=== PATIENT | female | born 1975 | race Caucasian/White ===

== ENCOUNTER 2018-01-17 12:19 | Inpatient (IN) | payer MEDICAID, OTHER ==
[~2018-01-17] VITALS: Ht 170.2 cm; Wt 119.1 kg
[2018-01-17] MEDS ORDERED: SODIUM CHLORIDE 0.9% 1,000 ML IVB ONE (12:41)
[2018-01-17 13:20] LABS: Basophils # (auto) 0 uL; Basophils % (auto) 0.2 % (0.0-2.0); Eosinophils # (auto) 0 uL; Eosinophils % (auto) 0.6 % (0.0-7.0); Hematocrit 52.5 % (36.0-46.0); Hemoglobin 16.9 g/dL (12.2-16.2); Lymphocytes # (auto) 1.4 uL; Lymphocytes % (auto) 18.9 % (10.0-50.0); Mean Corpuscular Hemoglobin 32.4 pg (28.0-32.0); Mean Corpuscular Hgb Conc. 32.2 g/dL (32.0-36.0); Mean Corpuscular Volume 100.5 fL (80.0-100.0); Monocytes # (auto) 0.7 uL; Monocytes % (auto) 9.9 % (0.0-12.0); Neutrophils % (auto) 70.4 % (37.0-80.0); Nucleated Red Blood Cells % 0.2 %; Platelet Count (auto) 342 10^3/uL (140-450); Red Blood Cells 5.23 10^6/uL (4.0-5.20); Red Cell Distribution Width 14.8 % (11.8-14.3); White Blood Cell 7.2 10^3/uL (4.4-10.8)
[2018-01-17 14:17] LABS: Alanine Aminotransferase 35 U/L (13-56); Albumin 3.3 g/dL (3.4-5.0); Alkaline Phosphatase 57 U/L (45-117); Anion Gap 12 (5-15); Aspartate Aminotransferase 33 U/L (15-37); BUN/Creatinine Ratio 9.9; Bilirubin, Total 0.5 mg/dL (0.2-1.0); Blood Alcohol < 3.0 mg/dL (0-5); Blood Urea Nitrogen 8 mg/dL (7-18); Carbon Dioxide 19 mmol/L (21-32); Chloride 109 mmol/L (98-107); GFR African American 99 mL/min; GFR Non-African American 82 mL/min; Glucose 84 mg/dL (74-106); Magnesium 2.6 mg/dL (1.6-2.6); Sodium 140 mmol/L (136-145); Total Protein 7.6 g/dL (6.4-8.2)
[2018-01-17 14:25] LABS: Potassium 2.9 mmol/L (3.5-5.1)
[2018-01-17 14:54] LABS: Alcohol, Urine < 3.0 mg/dL (0-5); Amphetamine Screen, Urine NEGATIVE (NEGATIVE); Barbiturate Scree,Urine NEGATIVE (NEGATIVE); Benzodiazephine Screen, Urine NEGATIVE (NEGATIVE); Cannabinoid Screen, Urine NEGATIVE (NEGATIVE); Cocaine Screen, Urine NEGATIVE (NEGATIVE); Opiate Scree,Urine NEGATIVE (NEGATIVE); Phencyclidine Screen, Urine NEGATIVE (NEGATIVE)
[2018-01-17] MEDS ORDERED: POTASSIUM CHL 20MEQ/100ML 100 ML IV ONE (15:15)
[2018-01-17] MEDS ORDERED: cefTRIAXone 1GM/10ml IVPUSH 10 ML IV ONE (16:00)
[2018-01-17] MEDS ORDERED: MORPHINE SULFATE 4 MG/ML SYR/VIAL IV PRN ×2 (16:15)
[2018-01-17] MEDS ORDERED: ONDANSETRON HCL 4 MG/2 ML VIAL IV PRN (16:15)
[2018-01-17] MEDS ORDERED: ACETAMINOPHEN 325 MG TAB PO PRN (16:15)
[2018-01-17] MEDS ORDERED: DOCUSATE SOD 100 MG CAP PO PRN (16:15)
[2018-01-17] MEDS ORDERED: NITROGLYCERIN 0.4 MG SL TAB SL PRN (16:15)
[2018-01-17 16:28] LABS: Urine Bacteria NONE SEEN /hpf (None Seen); Urine Blood Negative /uL (Negative); Urine WBC 4 /hpf (0 - 5)
[2018-01-17] MEDS: HALOPERIDOL 1 MG TAB PO PRN (16:49)
[2018-01-17] MEDS: SODIUM CHLORIDE 0.9% 1,000 ML IV SCH (17:02)
[2018-01-17] MEDS: BOOST PLUS 8 ounce PO SCH (19:17)
[2018-01-17] MEDS ORDERED: DULO20CA PO (20:52)
[2018-01-17] MEDS ORDERED: QUET200T3 PO (20:52)
[2018-01-17] MEDS ORDERED: ZOLP10TA PO (20:52)
[2018-01-17] MEDS ORDERED: SERT-160 PO (20:52)
[2018-01-17] MEDS ORDERED: LEVO150T68 PO (20:52)
[2018-01-17] MEDS ORDERED: LITH300T5 PO (20:52)
[2018-01-17] MEDS ORDERED: METO-169 PO (20:52)
[2018-01-17] MEDS ORDERED: LORA-654 PO (20:52)
[2018-01-17] MEDS ORDERED: SIMV-8 PO (20:52)
[2018-01-17] MEDS ORDERED: CARB200T PO (20:52)
[2018-01-17] MEDS ORDERED: GABA400C PO (20:52)
[2018-01-17] MEDS: HYDROcodone-ACET 5/325MG TAB PO PRN (21:14)
[2018-01-17 21:33] VITALS: BP 122/68
[2018-01-17] MEDS: FAMOTIDINE 20 MG TAB PO SCH ×2 (22:00→22:21)
[2018-01-18] MEDS: HALOPERIDOL 1 MG TAB PO PRN (02:00)
[2018-01-18] MEDS: HYDROcodone-ACET 5/325MG TAB PO PRN ×3 (02:01→21:52)
[2018-01-18 05:26] VITALS: BP 146/97
[2018-01-18 06:00] VITALS: BP 131/89
[2018-01-18] MEDS: LEVOTHYROXINE SODIUM 50 MCG TAB PO SCH (06:20)
[2018-01-18 07:25] LABS: Basophils # (auto) 0 uL; Basophils % (auto) 0.3 % (0.0-2.0); Eosinophils # (auto) 0 uL; Eosinophils % (auto) 0.7 % (0.0-7.0); Hematocrit 48.5 % (36.0-46.0); Hemoglobin 15.8 g/dL (12.2-16.2); Lymphocytes # (auto) 1.5 uL; Lymphocytes % (auto) 21.9 % (10.0-50.0); Mean Corpuscular Hemoglobin 32.8 pg (28.0-32.0); Mean Corpuscular Hgb Conc. 32.5 g/dL (32.0-36.0); Mean Corpuscular Volume 100.9 fL (80.0-100.0); Monocytes # (auto) 0.6 uL; Monocytes % (auto) 9.3 % (0.0-12.0); Neutrophils # (auto) 4.5 uL; Neutrophils % (auto) 67.8 % (37.0-80.0); Nucleated Red Blood Cells % 0.3 %; Platelet Count (auto) 317 10^3/uL (140-450); Red Blood Cells 4.81 10^6/uL (4.0-5.20); Red Cell Distribution Width 14.7 % (11.8-14.3); White Blood Cell 6.7 10^3/uL (4.4-10.8)
[2018-01-18 07:45] LABS: BUN/Creatinine Ratio 10.4; Bilirubin, Total 0.5 mg/dL (0.2-1.0); Calcium 8.4 mg/dL (8.5-10.1); Total Protein 7.1 g/dL (6.4-8.2)
[2018-01-18 07:46] LABS: Potassium 2.7 mmol/L (3.5-5.1)
[2018-01-18] MEDS ORDERED: POTASSIUM CHL 10% (20 MEQ/15ML) 15ml ORAL SOLN PO ONE (08:30)
[2018-01-18] MEDS: BOOST PLUS 8 ounce PO SCH ×3 (08:59→17:36)
[2018-01-18] MEDS: SODIUM CHLORIDE 0.9% 1,000 ML IV SCH ×2 (09:00→21:52)
[2018-01-18] MEDS ORDERED: cefTRIAXone 1GM/10ml IVPUSH 10 ML IV SCH (09:00)
[2018-01-18] MEDS: FAMOTIDINE 20 MG TAB PO SCH ×2 (10:54→21:50)
[2018-01-18] MEDS: MULTIPLE VITAMIN TAB PO SCH (10:54)
[2018-01-18] MEDS ORDERED: LORazepam 0.5 MG TAB PO PRN (13:00)
[2018-01-18] MEDS ORDERED: LITHIUM CARBONATE 300 MG TAB PO ONE (13:15)
[2018-01-18] MEDS ORDERED: FAMOTIDINE 20 MG TAB PO ONE (13:15)
[2018-01-18] MEDS ORDERED: DULoxetine HCL 30 MG CAP PO ONE (13:15)
[2018-01-18] MEDS ORDERED: METOPROLOL SUCCINATE XL 50 MG TAB PO ONE (13:15)
[2018-01-18] MEDS ORDERED: GABAPENTIN 400 MG CAP PO ONE (13:15)
[2018-01-18] MEDS: POTASSIUM CHL 20 Meq TABLET PO SCH ×2 (14:12→21:50)
[2018-01-18 17:14] VITALS: BP 138/76
[2018-01-18] MEDS: ATORVASTATIN 20 MG TAB PO SCH (21:50)
[2018-01-18] MEDS: GABAPENTIN 400 MG CAP PO SCH (21:50)
[2018-01-18] MEDS: LITHIUM CARBONATE 300 MG TAB PO SCH (21:50)
[2018-01-18] MEDS: carBAMazepine 200 MG TAB PO SCH (21:51)
[2018-01-18] MEDS: METOPROLOL SUCCINATE XL 50 MG TAB PO SCH (21:51)
[2018-01-18] MEDS: QUEtiapine FUMARATE 100 MG TAB PO SCH (21:51)
[2018-01-18 22:00] VITALS: BP 139/90
[2018-01-19] VITALS (7 sets, daily range): BP systolic 118–147; BP diastolic 77–103
[2018-01-19] MEDS: POTASSIUM CHL 20 Meq TABLET PO SCH ×3 (06:24→22:06)
[2018-01-19] MEDS: LEVOTHYROXINE SODIUM 50 MCG TAB PO SCH (06:24)
[2018-01-19 07:19] LABS: Basophils # (auto) 0 uL; Basophils % (auto) 0.3 % (0.0-2.0); Eosinophils # (auto) 0.1 uL; Eosinophils % (auto) 1.3 % (0.0-7.0); Hematocrit 48.1 % (36.0-46.0); Hemoglobin 15.9 g/dL (12.2-16.2); Lymphocytes # (auto) 1.9 uL; Lymphocytes % (auto) 31.8 % (10.0-50.0); Mean Corpuscular Hemoglobin 33.3 pg (28.0-32.0); Mean Corpuscular Hgb Conc. 33.1 g/dL (32.0-36.0); Mean Corpuscular Volume 100.8 fL (80.0-100.0); Monocytes # (auto) 0.7 uL; Monocytes % (auto) 11.1 % (0.0-12.0); Neutrophils # (auto) 3.4 uL; Neutrophils % (auto) 55.5 % (37.0-80.0); Nucleated Red Blood Cells % 0.3 %; Platelet Count (auto) 338 10^3/uL (140-450); Red Blood Cells 4.77 10^6/uL (4.0-5.20); Red Cell Distribution Width 14.8 % (11.8-14.3); White Blood Cell 6.1 10^3/uL (4.4-10.8)
[2018-01-19 07:32] LABS: BUN/Creatinine Ratio 8.6; Potassium 3.2 mmol/L (3.5-5.1)
[2018-01-19 07:33] LABS: Calcium 8.8 mg/dL (8.5-10.1)
[2018-01-19] MEDS: GABAPENTIN 400 MG CAP PO SCH ×3 (10:00→22:06)
[2018-01-19] MEDS ORDERED: DULoxetine HCL 30 MG CAP PO SCH (10:00)
[2018-01-19] MEDS: BOOST PLUS 8 ounce PO SCH ×3 (10:00→18:00)
[2018-01-19] MEDS: FAMOTIDINE 20 MG TAB PO SCH ×2 (11:00→22:06)
[2018-01-19] MEDS: MULTIPLE VITAMIN TAB PO SCH (11:00)
[2018-01-19] MEDS: LITHIUM CARBONATE 300 MG TAB PO SCH ×2 (11:00→22:06)
[2018-01-19] MEDS: METOPROLOL SUCCINATE XL 50 MG TAB PO SCH ×2 (11:00→22:04)
[2018-01-19] MEDS: SERTRALINE HCL 50 MG TAB PO SCH (11:00)
[2018-01-19] MEDS ORDERED: DULO1CAP2 PO (13:02)
[2018-01-19] MEDS: HYDROcodone-ACET 5/325MG TAB PO PRN (13:49)
[2018-01-19] MEDS: SODIUM CHLORIDE 0.9% 1,000 ML IV SCH (16:48)
[2018-01-19] MEDS: ATORVASTATIN 20 MG TAB PO SCH (22:05)
[2018-01-19] MEDS: carBAMazepine 200 MG TAB PO SCH (22:08)
[2018-01-19] MEDS: QUEtiapine FUMARATE 100 MG TAB PO SCH (22:08)
[2018-01-20 06:02] VITALS: BP 155/76
[2018-01-20 06:40] LABS: Eosinophils # (auto) 0.1 uL; Hemoglobin 15.4 g/dL (12.2-16.2); Monocytes # (auto) 0.7 uL; Neutrophils # (auto) 3.2 uL; Red Cell Distribution Width 15.3 % (11.8-14.3); White Blood Cell 5.8 10^3/uL (4.4-10.8)
[2018-01-20 06:43] LABS: Basophils # (auto) 0 uL; Basophils % (auto) 0.6 % (0.0-2.0); Eosinophils % (auto) 1.2 % (0.0-7.0); Hematocrit 47.8 % (36.0-46.0); Lymphocytes # (auto) 1.9 uL; Lymphocytes % (auto) 31.8 % (10.0-50.0); Mean Corpuscular Hemoglobin 33.5 pg (28.0-32.0); Mean Corpuscular Hgb Conc. 32.1 g/dL (32.0-36.0); Mean Corpuscular Volume 104.3 fL (80.0-100.0); Monocytes % (auto) 11.5 % (0.0-12.0); Neutrophils % (auto) 54.9 % (37.0-80.0); Platelet Count (auto) 289 10^3/uL (140-450); Red Blood Cells 4.59 10^6/uL (4.0-5.20)
[2018-01-20] MEDS: GABAPENTIN 400 MG CAP PO SCH ×3 (06:48→21:48)
[2018-01-20] MEDS: LEVOTHYROXINE SODIUM 50 MCG TAB PO SCH (06:48)
[2018-01-20 07:01] LABS: BUN/Creatinine Ratio 9.7; Calcium 8.6 mg/dL (8.5-10.1); Potassium 4.3 mmol/L (3.5-5.1)
[2018-01-20] MEDS: BOOST PLUS 8 ounce PO SCH ×3 (08:00→20:00)
[2018-01-20 08:25] VITALS: BP 134/74
[2018-01-20] MEDS: FAMOTIDINE 20 MG TAB PO SCH ×2 (10:00→21:48)
[2018-01-20] MEDS: LITHIUM CARBONATE 300 MG TAB PO SCH ×2 (10:25→21:48)
[2018-01-20] MEDS: DULoxetine HCL 30 MG CAP PO SCH (10:26)
[2018-01-20] MEDS: SERTRALINE HCL 50 MG TAB PO SCH (10:26)
[2018-01-20] MEDS: MULTIPLE VITAMIN TAB PO SCH (10:26)
[2018-01-20] MEDS: METOPROLOL SUCCINATE XL 50 MG TAB PO SCH ×2 (10:26→22:00)
[2018-01-20] MEDS: SODIUM CHLORIDE 0.9% 1,000 ML IV SCH (10:43)
[2018-01-20 13:52] VITALS: BP 131/86
[2018-01-20 17:55] VITALS: BP 148/91
[2018-01-20] MEDS: ATORVASTATIN 20 MG TAB PO SCH (21:48)
[2018-01-20] MEDS: QUEtiapine FUMARATE 100 MG TAB PO SCH (21:48)
[2018-01-20] MEDS: carBAMazepine 200 MG TAB PO SCH (21:48)
[2018-01-20 22:00] VITALS: BP 156/96
[2018-01-21] MEDS: SODIUM CHLORIDE 0.9% 1,000 ML IV SCH (03:46)
[2018-01-21 05:00] VITALS: BP 139/87
[2018-01-21] MEDS: GABAPENTIN 400 MG CAP PO SCH (06:33)
[2018-01-21] MEDS: LEVOTHYROXINE SODIUM 50 MCG TAB PO SCH (06:33)
[2018-01-21 07:12] LABS: Basophils # (auto) 0 uL; Eosinophils # (auto) 0.1 uL; Lymphocytes # (auto) 1.6 uL; Monocytes # (auto) 0.7 uL; Neutrophils # (auto) 4.3 uL; Nucleated Red Blood Cells % 0.1 %; White Blood Cell 6.7 10^3/uL (4.4-10.8)
[2018-01-21 07:15] LABS: Basophils % (auto) 0.4 % (0.0-2.0); Eosinophils % (auto) 1.1 % (0.0-7.0); Hematocrit 50.8 % (36.0-46.0); Hemoglobin 16.7 g/dL (12.2-16.2); Lymphocytes % (auto) 23.4 % (10.0-50.0); Mean Corpuscular Hemoglobin 33.8 pg (28.0-32.0); Mean Corpuscular Volume 102.1 fL (80.0-100.0); Monocytes % (auto) 10.1 % (0.0-12.0); Platelet Count (auto) 300 10^3/uL (140-450); Red Blood Cells 4.96 10^6/uL (4.0-5.20); Red Cell Distribution Width 14.7 % (11.8-14.3)
[2018-01-21 07:26] LABS: Calcium 9.2 mg/dL (8.5-10.1); Potassium 3.9 mmol/L (3.5-5.1)
[2018-01-21 09:00] VITALS: BP 165/101
[2018-01-21] MEDS: BOOST PLUS 8 ounce PO SCH ×2 (09:43→12:00)
[2018-01-21] MEDS: LITHIUM CARBONATE 300 MG TAB PO SCH (09:43)
[2018-01-21] MEDS: METOPROLOL SUCCINATE XL 50 MG TAB PO SCH (09:44)
[2018-01-21] MEDS: MULTIPLE VITAMIN TAB PO SCH (09:44)
[2018-01-21] MEDS: DULoxetine HCL 30 MG CAP PO SCH (09:44)
[2018-01-21] MEDS: FAMOTIDINE 20 MG TAB PO SCH (09:45)
[2018-01-21] MEDS: SERTRALINE HCL 50 MG TAB PO SCH (09:45)
[2018-01-21 13:00] VITALS: BP 161/94
== END 2018-01-21 15:30 | DRG 52 ==
LOC: ER 12:19 → TELE 12:20 → TELE-EAST 20:15
PROVIDERS: ADMIT Internal Medicine; ATTEND Internal Medicine
DX: G92 Toxic encephalopathy (principal); Z68.41 Body mass index [BMI] 40.0-44.9, adult; E44.1 Mild protein-calorie malnutrition; D75.1 Secondary polycythemia; E88.09 Other disorders of plasma-protein metabolism, not elsewhere classified; I12.9 Hypertensive chronic kidney disease with stage 1 through stage 4 chronic kidney disease, or unspecified chronic kidney disease; N39.0 Urinary tract infection, site not specified; E66.01 Morbid (severe) obesity due to excess calories; F20.9 Schizophrenia, unspecified; E03.9 Hypothyroidism, unspecified; E87.6 Hypokalemia; F17.210 Nicotine dependence, cigarettes, uncomplicated; F31.9 Bipolar disorder, unspecified; K59.00 Constipation, unspecified; M54.30 Sciatica, unspecified side; T50.995A Adverse effect of other drugs, medicaments and biological substances, initial encounter; F60.3 Borderline personality disorder; N18.2 Chronic kidney disease, stage 2 (mild); Z79.899 Other long term (current) drug therapy; Z83.3 Family history of diabetes mellitus; Z91.14 Patient's other noncompliance with medication regimen; Z91.19 Patient's noncompliance with other medical treatment and regimen; Z80.8 Family history of malignant neoplasm of other organs or systems; Z82.49 Family history of ischemic heart disease and other diseases of the circulatory system; Y92.89 Other specified places as the place of occurrence of the external cause
CPT/HCPCS: 36415; 70450; 80048; 80053; 80156; 80178; 80307; 80320; 81001; 83735; 84443; 85025; 87040; 87086; 93005; 93971; 94761; 95819; 96361; 96374; J3480

== ENCOUNTER 2020-02-22 10:43 | Inpatient (IN) | payer MEDICAID ==
[~2020-02-22] VITALS: Ht 165.1 cm; Wt 109.6 kg
[~2020-02-22 10:43] MED LIST: CARB200T PO; DULO1CAP5 PO; GABA400C PO; LEVO150T68 PO; LITH300T5 PO; LORA0.5T12 PO; METO-169 PO; QUET200T4 PO; SERT-160 PO; SIMV-8 PO; ZOLP10TA PO
[2020-02-22] MEDS ORDERED: SODIUM CHLORIDE 0.9% 1,000 ML IV ONE ×3 (11:04→11:15)
[2020-02-22 11:46] LABS: Basophils # (auto) 0 10 ^3/uL (0-0.2); Basophils % (auto) 0.2 % (0.0-2.0); Eosinophils # (auto) 0 10 ^3/uL (0-0.8); Eosinophils % (auto) 0.3 % (0.0-7.0); Hematocrit 52.2 % (36.0-46.0); Hemoglobin 16.7 g/dL (12.2-16.2); Lymphocytes # (auto) 0.8 10 ^3/uL (0.4-5.4); Lymphocytes % (auto) 9.9 % (10.0-50.0); Mean Corpuscular Hemoglobin 32.1 pg (28.0-32.0); Mean Corpuscular Hgb Conc. 31.9 g/dL (32.0-36.0); Mean Corpuscular Volume 100.4 fL (80.0-100.0); Monocytes # (auto) 0.6 10 ^3/uL (0-1.3); Monocytes % (auto) 7.6 % (0.0-12.0); Neutrophils # (auto) 6.4 10 ^3/uL (1.6-8.6); Nucleated Red Blood Cells % 0.1 %; Platelet Count (auto) 249 10^3/uL (140-450); Red Cell Distribution Width 18.3 % (11.8-14.3); White Blood Cell 7.8 10^3/uL (4.4-10.8)
[2020-02-22 11:59] LABS: INR 1.36 (0.9-1.15); Partial Thromboplastin Time 28.1 sec (23.64-32.05)
[2020-02-22 12:06] LABS: Albumin 2.8 g/dL (3.4-5.0); Anion Gap 9 (5-15); Blood Urea Nitrogen 10 mg/dL (7-18); Calcium 9.4 mg/dL (8.5-10.1); Carbon Dioxide 22 mmol/L (21-32); Chloride 106 mmol/L (98-107); Glucose 94 mg/dL (74-106); Potassium 3.8 mmol/L (3.5-5.1); Sodium 137 mmol/L (136-145)
[2020-02-22 12:09] LABS: Alanine Aminotransferase 23 U/L (13-56); Alkaline Phosphatase 134 U/L (45-117); Aspartate Aminotransferase 27 U/L (15-37); Bilirubin, Total 1.4 mg/dL (0.2-1.0); GFR African American 77 mL/min; GFR Non-African American 64 mL/min; Total Protein 7.4 g/dL (6.4-8.2)
[2020-02-22 12:09] LABS: Urine Bacteria NONE SEEN /hpf (None Seen); Urine Blood Negative /uL (Negative); Urine Specific Gravity 1.008 (1.001-1.035); Urine WBC 1 /hpf (0 - 5)
[2020-02-22] MEDS ORDERED: LABETALOL HCL 5 MG/ML 4ML SYRINGE IV ONE (12:15)
[2020-02-22 12:20] LABS: Alcohol, Urine < 3.0 mg/dL (0-5); Amphetamine Screen, Urine NEGATIVE (NEGATIVE); Barbiturate Scree,Urine NEGATIVE (NEGATIVE); Benzodiazephine Screen, Urine NEGATIVE (NEGATIVE); Cannabinoid Screen, Urine NEGATIVE (NEGATIVE); Cocaine Screen, Urine NEGATIVE (NEGATIVE); Opiate Scree,Urine NEGATIVE (NEGATIVE); Phencyclidine Screen, Urine NEGATIVE (NEGATIVE)
[2020-02-22] MEDS ORDERED: MORPHINE SULF INJ 2 MG/ML SYRINGE 1ML IV PRN (14:30)
[2020-02-22] MEDS ORDERED: NITROGLYCERIN 0.4 MG SL TAB SL PRN (14:30)
[2020-02-22] MEDS ORDERED: LACTULOSE 20Gm/30ML SOLN PO PRN ×2 (14:30)
[2020-02-22] MEDS ORDERED: LABETALOL HCL 5 MG/ML ML 20ML VIAL IV PRN (14:30)
[2020-02-22] MEDS ORDERED: ACETAMINOPHEN 500 MG TAB PO PRN (14:30)
[2020-02-22] MEDS ORDERED: ASPirin 81 mg TAB PO ONE (14:45)
--- NOTE | 2020-02-22 15:00 | NUR ---
RECEIVED PT FROM ER STAFF. PT TRANSFERRED FROM [facility] TO CHAIR. PT AWAKE, ALERT, ORIENTED TO SELF ONLY. POOR HISTORIAN. PT CURRENTLY ON 6LNC O2SAT:95%. LONGORIA CATHETER PRESENT WITH 200ML OF LIGHT JESUS URINE IN COLLECTING BAG, DARK DISCOLORATION NOTED TO BLE, COOL TO TOUCH, +2 PULSES TO ALL EXTREMITIES. ORIENTED PT TO ROOM ENVIRONMENT, BED LOCKED AND IN LOWEST POSITION, CALL LIGHT WITHIN REACH. WILL CONTINUE TO MONITOR.
[2020-02-22 16:57] VITALS: BP 147/84
--- NOTE | 2020-02-22 17:30 | NUR ---
MEDICAL HISTORY FROM PREVIOUS VISIT May 2019 Patient unable to provide medical history due to ALOC, family member unable to provide medical history.
[2020-02-22] MEDS: GENTAMICIN OPTH sol 0.3% 5ml EACHEYE SCH ×2 (17:41→22:21)
[2020-02-22 17:42] VITALS: BP 147/84
[2020-02-22] MEDS: FUROSEMIDE 100 MG/10ML VIAL IV SCH (17:42)
[2020-02-22] MEDS ORDERED: METO-281 PO (19:10)
[2020-02-22 20:00] VITALS: BP 147/84
--- NOTE | 2020-02-22 21:20 | NUR ---
PHOTOGRAPH TAKEN OF UNDER BREAST EXCORIATION AND WOUND CARE CONSULT PLACED. PILLOWCASES PLACED UNDER EACH BREAST FOR COMFORT TONIGHT.
[2020-02-22 22:00] VITALS: BP 147/76
[2020-02-22] MEDS ORDERED: QUEtiapine FUMARATE 100 MG TAB PO SCH (22:00)
[2020-02-22] MEDS: GABAPENTIN 400 MG CAP PO SCH (22:22)
[2020-02-22] MEDS: SODIUM CHLOR 0.9% PF (SALINE LOCK) 10ML VIAL/SYR IV SCH (22:22)
[2020-02-22] MEDS: CARVEDILOL 3.125 MG TAB PO SCH (22:23)
[2020-02-23] MEDS: GENTAMICIN OPTH sol 0.3% 5ml EACHEYE SCH ×2 (02:14→06:43)
[2020-02-23 05:00] VITALS: BP 140/70
--- NOTE | 2020-02-23 05:57 | NUR ---
PT TURNED Q2 THROUGH THE NIGHT SHE REQUIRES PROMPTING AND ASSISTANCE TO MOVE;PT RESTING WITH HER EYES CLOSED RESP EVEN UNLAB WITH CALL LIGHT IN REACH AND TWO SIDERAILS UP.
[2020-02-23] MEDS: SODIUM CHLOR 0.9% PF (SALINE LOCK) 10ML VIAL/SYR IV SCH ×3 (06:14→22:00)
[2020-02-23] MEDS: FUROSEMIDE 100 MG/10ML VIAL IV SCH ×2 (06:14→17:59)
[2020-02-23] MEDS ORDERED: LEVOTHYROXINE SODIUM 50 MCG TAB PO SCH (07:00)
[2020-02-23 08:14] LABS: Albumin 2.4 g/dL (3.4-5.0); Calcium 8.9 mg/dL (8.5-10.1); Potassium 3.6 mmol/L (3.5-5.1)
[2020-02-23 08:19] LABS: BUN/Creatinine Ratio 11.6; Bilirubin, Total 1.1 mg/dL (0.2-1.0); Total Protein 6.5 g/dL (6.4-8.2)
[2020-02-23 09:00] VITALS: BP 122/77
[2020-02-23] MEDS ORDERED: carBAMazepine 200 MG TAB PO SCH (10:00)
--- NOTE | 2020-02-23 11:30 | NUR ---
WOUND CARE NOTE: WOUND CARE TEAM IN TO SEE PATIENT PER WOUND CARE REQUEST. PATIENT ADMITTED TO [facility] FOR ALOC. BEDSIDE NURSE NOTED INTERTRIGO UNDERNEATH PATIENT'S LEFT AND RIGHT BREASTS. PHOTOGRAPHS TAKEN AT THAT TIME FOR REFERENCE. PATIENT HAS A LUDIVINA SCORE OF 16. NO OTHER SKIN INTEGRITY ISSUES NOTED AT THIS TIME. RECOMMEND: BID/PRN APPLICATION WITH ANTIFUNGAL OINTMENT TO AFFECTED AREAS UNDERNEATH BREASTS. NO FURTHER WOUND CARE MONITORING NECESSARY. Addendum: 02/23/20 at 1410 by JETT BROWER RN RN Amended: Links added.
[2020-02-23] MEDS ORDERED: FUROSEMIDE 100 MG/10ML VIAL IV ONE (11:45)
[2020-02-23] MEDS ORDERED: LEVOTHYROXINE SODIUM 25 MCG TAB PO ONE (11:45)
[2020-02-23] MEDS: GABAPENTIN 400 MG CAP PO SCH ×2 (11:48→22:58)
[2020-02-23] MEDS: CARVEDILOL 3.125 MG TAB PO SCH ×2 (11:48→22:59)
[2020-02-23] MEDS: ENALAPRIL MALEATE 2.5 MG TAB PO SCH (11:49)
[2020-02-23] MEDS: POTASSIUM CHL 20 Meq TABLET PO SCH (11:49)
[2020-02-23] MEDS: ASPirin 81 mg TAB PO SCH (11:49)
[2020-02-23] MEDS: ENOXAPARIN SOD 40 MG/0.4 ML SYRINGE SC SCH (11:50)
--- NOTE | 2020-02-23 12:30 | NUR ---
ELECTROENCEPHALOGRAM COMPLETED AT BEDSIDE. PRIMARY RN AWARE.
[2020-02-23 13:00] VITALS: BP 146/92
--- NOTE | 2020-02-23 13:30 | NUR ---
PT ON TURN Q2H SCHEDULE. PT ABLE TO ASSIST IN TURNING. HYGIENE CARE PROVIDED WITH PARTIAL LINEN CHANGE. LONGORIA CATHETER CARE COMPLETED. STAT LOCK APPLICATION. DR. STEWART CONTACTED FOR PT ASSESSMENT REPORTING.
--- NOTE | 2020-02-23 13:35 | NUR ---
BLANCHABLE REDNESS TO BILATERAL BUTTOCKS. HYDRA-GUARD CREAM APPLIED.
[2020-02-23 15:04] LABS: Free T4 (Free Thyroxine) 0.61 ng/dL (0.89-1.76)
[2020-02-23 15:05] LABS: T3 Total 0.32 ng/mL (0.60-1.81)
--- NOTE | 2020-02-23 15:06 | NUR ---
D-DIMER: 1.94
--- NOTE | 2020-02-23 16:05 | NUR ---
CONSENT TO CT ANGIO WITNESSED. SPOKE TO MOTHER (BROOKS). RADIOLOGY DEPT. AWARE OF CONSENT COMPLETION.
[2020-02-23] MEDS ORDERED: IOHEXOL 350 MG/ML 100ML IJ ONE (16:50)
[2020-02-23 16:52] VITALS: BP 142/88
--- NOTE | 2020-02-23 19:25 | NUR ---
Opening Shift Note Assumed care of patient, awake and alert. No S/S of distress/SOB or pain. Instructed on POC and to call for assist PRN, will continue to monitor for changes Q1hr and PRN. Call light and bedside table are within reach. Safety precautions maintained bed is in lowest position and bed rails 2x.
[2020-02-23] MEDS: levoFLOXacin 500MG 100 ML IV SCH (20:13)
[2020-02-23 20:33] VITALS: BP 142/88
[2020-02-23 22:00] VITALS: BP 132/72
[2020-02-23] MEDS: carBAMazepine 200 MG TAB PO SCH (22:57)
[2020-02-23] MEDS: QUEtiapine FUMARATE 100 MG TAB PO SCH (22:58)
--- NOTE | 2020-02-23 23:40 | NUR ---
Wound care Applied fungal cream under breasts per orders. Patient on Q2 turn, patient able to assist with turning. Will continue to monitor Q1 and PRN.
[2020-02-24 05:00] VITALS: BP 131/74
[2020-02-24] MEDS: SODIUM CHLOR 0.9% PF (SALINE LOCK) 10ML VIAL/SYR IV SCH ×3 (05:20→22:00)
[2020-02-24] MEDS: FUROSEMIDE 100 MG/10ML VIAL IV SCH ×2 (05:22→18:44)
[2020-02-24] MEDS: LEVOTHYROXINE SODIUM 50 MCG TAB PO SCH (06:07)
[2020-02-24 06:57] LABS: Basophils # (auto) 0 10 ^3/uL (0-0.2); Basophils % (auto) 0.2 % (0.0-2.0); Eosinophils # (auto) 0.1 10 ^3/uL (0-0.8); Eosinophils % (auto) 0.8 % (0.0-7.0); Hematocrit 52.2 % (36.0-46.0); Hemoglobin 16.9 g/dL (12.2-16.2); Lymphocytes # (auto) 1.4 10 ^3/uL (0.4-5.4); Lymphocytes % (auto) 20.4 % (10.0-50.0); Mean Corpuscular Hemoglobin 32.3 pg (28.0-32.0); Mean Corpuscular Hgb Conc. 32.3 g/dL (32.0-36.0); Mean Corpuscular Volume 99.9 fL (80.0-100.0); Monocytes # (auto) 0.6 10 ^3/uL (0-1.3); Monocytes % (auto) 9.5 % (0.0-12.0); Neutrophils # (auto) 4.6 10 ^3/uL (1.6-8.6); Neutrophils % (auto) 69.1 % (37.0-80.0); Nucleated Red Blood Cells % 0.6 %; Platelet Count (auto) 249 10^3/uL (140-450); Red Blood Cells 5.22 10^6/uL (4.0-5.20); Red Cell Distribution Width 18.6 % (11.8-14.3); White Blood Cell 6.6 10^3/uL (4.4-10.8)
[2020-02-24] MEDS: ALBUTEROL SULF 2.5 MG/0.5ML(0.5%) NEB SOLN NEB SCH ×3 (06:58→20:29)
[2020-02-24] MEDS: IPRATROPIUM BROM 0.5 MG/2.5ML INH SOL NEB SCH ×3 (06:58→20:29)
[2020-02-24 07:30] LABS: BUN/Creatinine Ratio 16.3; Calcium 9.1 mg/dL (8.5-10.1); Potassium 3.3 mmol/L (3.5-5.1)
[2020-02-24 09:00] VITALS: BP 127/80
[2020-02-24] MEDS: levoFLOXacin 500MG 100 ML IV SCH (10:41)
[2020-02-24] MEDS: carBAMazepine 200 MG TAB PO SCH (10:41)
[2020-02-24] MEDS: ASPirin 81 mg TAB PO SCH (10:41)
[2020-02-24] MEDS: CARVEDILOL 3.125 MG TAB PO SCH ×2 (10:42→22:30)
[2020-02-24] MEDS: QUEtiapine FUMARATE 100 MG TAB PO SCH ×2 (10:42→22:30)
[2020-02-24] MEDS: POTASSIUM CHL 20 Meq TABLET PO SCH (10:42)
[2020-02-24] MEDS: GABAPENTIN 400 MG CAP PO SCH ×2 (10:42→22:30)
[2020-02-24] MEDS: ENOXAPARIN SOD 40 MG/0.4 ML SYRINGE SC SCH (10:43)
[2020-02-24] MEDS: ENALAPRIL MALEATE 2.5 MG TAB PO SCH (10:43)
[2020-02-24 12:33] VITALS: BP 136/72
--- NOTE | 2020-02-24 15:23 | NUR ---
Doctor Macarena león.
--- NOTE | 2020-02-24 16:10 | NUR ---
Doctor Kong león.
[2020-02-24 17:00] VITALS: BP 102/57
--- NOTE | 2020-02-24 19:30 | NUR ---
Opening Shift Note Assumed care of patient, awake and alert x2, alert to self and place. No S/S of distress/SOB or pain. Call light is within reach, fall precautions are in place, bed alarm is on. Instructed on POC and to call for assist PRN. All questions and concerns answered, will continue to monitor for changes Q1hr and PRN.
[2020-02-24 22:02] VITALS: BP 127/77
[2020-02-24] MEDS: LITHIUM CARBONATE 300 MG TAB PO SCH (22:30)
[2020-02-25 05:00] VITALS: BP 147/87
[2020-02-25] MEDS: LEVOTHYROXINE SODIUM 50 MCG TAB PO SCH (06:05)
[2020-02-25] MEDS: FUROSEMIDE 100 MG/10ML VIAL IV SCH ×2 (06:07→18:00)
[2020-02-25] MEDS: IPRATROPIUM BROM 0.5 MG/2.5ML INH SOL NEB SCH ×3 (06:07→19:22)
[2020-02-25] MEDS: ALBUTEROL SULF 2.5 MG/0.5ML(0.5%) NEB SOLN NEB SCH ×3 (06:07→19:22)
[2020-02-25] MEDS: SODIUM CHLOR 0.9% PF (SALINE LOCK) 10ML VIAL/SYR IV SCH ×3 (06:07→22:10)
[2020-02-25 06:09] LABS: Basophils # (auto) 0 10 ^3/uL (0-0.2); Basophils % (auto) 0.4 % (0.0-2.0); Eosinophils # (auto) 0 10 ^3/uL (0-0.8); Neutrophils # (auto) 3.7 10 ^3/uL (1.6-8.6); White Blood Cell 5.8 10^3/uL (4.4-10.8)
[2020-02-25 06:12] LABS: Eosinophils % (auto) 0.7 % (0.0-7.0); Hematocrit 55.1 % (36.0-46.0); Hemoglobin 17.4 g/dL (12.2-16.2); Lymphocytes # (auto) 1.5 10 ^3/uL (0.4-5.4); Lymphocytes % (auto) 26.2 % (10.0-50.0); Mean Corpuscular Hgb Conc. 31.6 g/dL (32.0-36.0); Mean Corpuscular Volume 101.1 fL (80.0-100.0); Monocytes # (auto) 0.5 10 ^3/uL (0-1.3); Monocytes % (auto) 9.1 % (0.0-12.0); Neutrophils % (auto) 63.6 % (37.0-80.0); Nucleated Red Blood Cells % 0.2 %; Platelet Count (auto) 219 10^3/uL (140-450); Red Blood Cells 5.46 10^6/uL (4.0-5.20); Red Cell Distribution Width 19.3 % (11.8-14.3)
[2020-02-25 06:27] LABS: Potassium 3.6 mmol/L (3.5-5.1)
[2020-02-25 06:31] LABS: Calcium 9.2 mg/dL (8.5-10.1); Magnesium 2.5 mg/dL (1.6-2.6)
--- NOTE | 2020-02-25 07:30 | NUR ---
Opening Shift Note RECEIVED REPORT FROM NOC RN. Assumed care of patient, awake and alert. PATIENT ON OXYGEN AT 6 LPM VIA OXYMIZER WITH no S/S of distress/SOB or pain. BED IN LOWEST, LOCKED POSITION WITH SIDERAILS UP x2 AND CALL LIGHT WITHIN REACH. Instructed on POC and to call for assist PRN, will continue to monitor for changes Q1hr and PRN.
[2020-02-25 09:00] VITALS: BP 101/46
[2020-02-25] MEDS: ASPirin 81 mg TAB PO SCH (10:45)
[2020-02-25] MEDS: LITHIUM CARBONATE 300 MG TAB PO SCH ×4 (10:45→22:10)
[2020-02-25] MEDS: levoFLOXacin 500MG 100 ML IV SCH (10:45)
[2020-02-25] MEDS: CARVEDILOL 3.125 MG TAB PO SCH ×2 (10:45→22:00)
[2020-02-25] MEDS: ENALAPRIL MALEATE 2.5 MG TAB PO SCH (10:46)
[2020-02-25] MEDS: carBAMazepine 200 MG TAB PO SCH ×3 (10:46→22:11)
[2020-02-25] MEDS: POTASSIUM CHL 20 Meq TABLET PO SCH (10:46)
[2020-02-25] MEDS: QUEtiapine FUMARATE 100 MG TAB PO SCH ×2 (10:46→22:10)
[2020-02-25] MEDS: GABAPENTIN 400 MG CAP PO SCH ×3 (10:46→22:10)
[2020-02-25] MEDS: ENOXAPARIN SOD 40 MG/0.4 ML SYRINGE SC SCH (10:47)
[2020-02-25 13:00] VITALS: BP 106/64
[2020-02-25 17:00] VITALS: BP 101/57
--- NOTE | 2020-02-25 18:34 | NUR ---
Respiratory note: AT BEDSIDE FOR MED YAHAIRA TX. PT STATED SHE HAS TO GO TO THE RESTROOM FIRST. MYRTLE HERNANDEZ AT BEDSIDE AND AWARE TO HAVE ME PAGED OR CALLED WHEN PT IS ALL DONE. RT NAME AND PAGER ASSIGNMENT WRITTEN ON PTS ROOM BOARD.
--- NOTE | 2020-02-25 19:22 | NUR ---
Respiratory note: AT BEDSIDE TO ADMINISTER MED NEB TX.
--- NOTE | 2020-02-25 19:35 | NUR ---
Opening Shift Note Assumed care of patient, awake and alert x2. No S/S of distress/SOB or pain. Mccoy is in place, hung below bladder, and draining yellow urine. IV to the LAC is patent and asymptomatic. Call light is within reach, fall precautions are in place, bed alarm is on. Instructed on POC and to call for assist PRN, will continue to monitor for changes Q1hr and PRN.
[2020-02-25 21:54] VITALS: BP 95/47
[2020-02-26] VITALS (7 sets, daily range): BP systolic 106–135; BP diastolic 60–75
[2020-02-26] MEDS: LEVOTHYROXINE SODIUM 50 MCG TAB PO SCH (06:13)
[2020-02-26] MEDS: LITHIUM CARBONATE 300 MG TAB PO SCH ×3 (06:13→22:23)
[2020-02-26] MEDS: FUROSEMIDE 100 MG/10ML VIAL IV SCH ×2 (06:14→17:34)
[2020-02-26] MEDS: SODIUM CHLOR 0.9% PF (SALINE LOCK) 10ML VIAL/SYR IV SCH ×3 (06:14→22:25)
[2020-02-26 06:30] LABS: Basophils # (auto) 0 10 ^3/uL (0-0.2); Eosinophils # (auto) 0 10 ^3/uL (0-0.8); Hemoglobin 18.2 g/dL (12.2-16.2); Monocytes # (auto) 0.6 10 ^3/uL (0-1.3); Neutrophils # (auto) 4.3 10 ^3/uL (1.6-8.6)
[2020-02-26 06:32] LABS: Basophils % (auto) 0.3 % (0.0-2.0); Eosinophils % (auto) 0.7 % (0.0-7.0); Lymphocytes # (auto) 1.3 10 ^3/uL (0.4-5.4); Lymphocytes % (auto) 20.9 % (10.0-50.0); Mean Corpuscular Hemoglobin 32.2 pg (28.0-32.0); Mean Corpuscular Hgb Conc. 31.4 g/dL (32.0-36.0); Mean Corpuscular Volume 102.4 fL (80.0-100.0); Neutrophils % (auto) 69.1 % (37.0-80.0); Nucleated Red Blood Cells % 0.2 %; Platelet Count (auto) 217 10^3/uL (140-450); Red Blood Cells 5.65 10^6/uL (4.0-5.20); Red Cell Distribution Width 19.7 % (11.8-14.3); White Blood Cell 6.2 10^3/uL (4.4-10.8)
[2020-02-26 06:36] LABS: Hematocrit 57.8 % (36.0-46.0)
[2020-02-26 06:50] LABS: Calcium 9.6 mg/dL (8.5-10.1); Potassium 3.7 mmol/L (3.5-5.1)
[2020-02-26 06:54] LABS: BUN/Creatinine Ratio 16.4; Magnesium 2.6 mg/dL (1.6-2.6)
[2020-02-26] MEDS: IPRATROPIUM BROM 0.5 MG/2.5ML INH SOL NEB SCH ×3 (07:03→18:39)
[2020-02-26] MEDS: ALBUTEROL SULF 2.5 MG/0.5ML(0.5%) NEB SOLN NEB SCH ×3 (07:03→18:39)
--- NOTE | 2020-02-26 07:52 | NUR ---
Opening Shift Note Assumed care of patient, awake and alert. No S/S of distress/SOB or pain. O2 via nasal canula at 4L. Encouraged patient to keep nasal canula on. Instructed on POC and to call for assist PRN, will continue to monitor for changes Q1hr and PRN.
[2020-02-26] MEDS: ENOXAPARIN SOD 40 MG/0.4 ML SYRINGE SC SCH (09:21)
[2020-02-26] MEDS: levoFLOXacin 500MG 100 ML IV SCH (09:22)
[2020-02-26] MEDS: GABAPENTIN 400 MG CAP PO SCH ×2 (09:22→22:24)
[2020-02-26] MEDS: ASPirin 81 mg TAB PO SCH (09:22)
[2020-02-26] MEDS: QUEtiapine FUMARATE 100 MG TAB PO SCH ×2 (09:22→22:24)
[2020-02-26] MEDS: carBAMazepine 200 MG TAB PO SCH ×2 (09:22→22:24)
[2020-02-26] MEDS: POTASSIUM CHL 20 Meq TABLET PO SCH (09:22)
[2020-02-26] MEDS: ENALAPRIL MALEATE 2.5 MG TAB PO SCH (09:23)
[2020-02-26] MEDS: CARVEDILOL 3.125 MG TAB PO SCH ×2 (09:23→22:24)
--- NOTE | 2020-02-26 10:00 | NUR ---
PT Patient ambulating on unit with physical therapist.
[2020-02-26 10:58] LABS: Free T3 1.37 pg/mL (2.3-4.2); Free T4 (Free Thyroxine) 0.78 ng/dL (0.89-1.76)
--- NOTE | 2020-02-26 16:23 | NUR ---
EEG test Pending Received call from hydro technician, they were unable to complete test today 02/25 but patient will be done tomorrow morning between 9 and 11 am.
--- NOTE | 2020-02-26 19:25 | NUR ---
Hameed catheter dc'd Order to discontinue hameed catheter. Hameed dc'd with clean technique following deflation of balloon. Patient tolerated well with no complaints of pain. Continue care. Emptied 1100mls of pale yellow urine.
--- NOTE | 2020-02-26 20:00 | NUR ---
Opening Shift Note Assumed care of patient, awake and alert. No S/S of distress/SOB or pain. Instructed on POC and to call for assist PRN, will continue to monitor for changes Q1hr and PRN. Patient stated to have the urge to urinate, helped to bedside commode, no urination.
--- NOTE | 2020-02-26 22:55 | NUR ---
Low Oxygen Saturation Patient found to be off her nasal canula oxygen. Patient's saturation on 60's in RA. Reapply NC and educated the patient on the need to have her NC on. Patient saturating in 90's.
[2020-02-27 05:00] VITALS: BP 121/75
[2020-02-27] MEDS: SODIUM CHLOR 0.9% PF (SALINE LOCK) 10ML VIAL/SYR IV SCH ×3 (06:09→21:54)
[2020-02-27] MEDS: LITHIUM CARBONATE 300 MG TAB PO SCH ×3 (06:10→21:53)
[2020-02-27] MEDS: FUROSEMIDE 100 MG/10ML VIAL IV SCH ×2 (06:10→18:00)
[2020-02-27] MEDS: LEVOTHYROXINE SODIUM 50 MCG TAB PO SCH (06:11)
--- NOTE | 2020-02-27 06:30 | NUR ---
LAC IV removal IV DC'd with clean sterile technique, catheter fully intact. Pressure dressing applied to site. Patient tolerated well.
--- NOTE | 2020-02-27 06:32 | NUR ---
IV insertion IV access obtained, via clean sterile technique by inserting 22 gauge catheter at after attempts. IV secured properly. No trauma to site. Patient tolerated well.
[2020-02-27] MEDS: IPRATROPIUM BROM 0.5 MG/2.5ML INH SOL NEB SCH ×3 (06:54→18:54)
[2020-02-27] MEDS: ALBUTEROL SULF 2.5 MG/0.5ML(0.5%) NEB SOLN NEB SCH ×3 (06:54→18:54)
--- NOTE | 2020-02-27 07:20 | NUR ---
Closing Note Care endorsed to dayshift nurse, no signs of pain or distress.
[2020-02-27 07:32] LABS: Potassium 4.1 mmol/L (3.5-5.1)
[2020-02-27 07:33] LABS: Basophils # (auto) 0 10 ^3/uL (0-0.2); Basophils % (auto) 0.6 % (0.0-2.0); Eosinophils # (auto) 0.1 10 ^3/uL (0-0.8); Eosinophils % (auto) 0.9 % (0.0-7.0); Hemoglobin 19.7 g/dL (12.2-16.2); Lymphocytes # (auto) 1.6 10 ^3/uL (0.4-5.4); Lymphocytes % (auto) 21.7 % (10.0-50.0); Mean Corpuscular Hgb Conc. 31.7 g/dL (32.0-36.0); Mean Corpuscular Volume 100.9 fL (80.0-100.0); Monocytes # (auto) 0.6 10 ^3/uL (0-1.3); Monocytes % (auto) 7.9 % (0.0-12.0); Neutrophils # (auto) 5.1 10 ^3/uL (1.6-8.6); Neutrophils % (auto) 68.9 % (37.0-80.0); Nucleated Red Blood Cells % 0.1 %; Platelet Count (auto) 238 10^3/uL (140-450); Red Blood Cells 6.14 10^6/uL (4.0-5.20); Red Cell Distribution Width 19.6 % (11.8-14.3); White Blood Cell 7.4 10^3/uL (4.4-10.8)
[2020-02-27 07:41] LABS: BUN/Creatinine Ratio 17.2; Calcium 10.5 mg/dL (8.5-10.1)
[2020-02-27 08:45] VITALS: BP 100/59
[2020-02-27] MEDS: levoFLOXacin 500MG 100 ML IV SCH (09:15)
[2020-02-27] MEDS: ASPirin 81 mg TAB PO SCH (09:16)
[2020-02-27] MEDS: QUEtiapine FUMARATE 100 MG TAB PO SCH ×2 (09:16→21:54)
[2020-02-27] MEDS: POTASSIUM CHL 20 Meq TABLET PO SCH (09:16)
[2020-02-27] MEDS: carBAMazepine 200 MG TAB PO SCH ×2 (09:16→21:53)
[2020-02-27] MEDS: GABAPENTIN 400 MG CAP PO SCH ×2 (09:16→21:53)
[2020-02-27] MEDS: ENOXAPARIN SOD 40 MG/0.4 ML SYRINGE SC SCH (09:16)
[2020-02-27] MEDS: CARVEDILOL 3.125 MG TAB PO SCH ×2 (09:17→21:53)
[2020-02-27] MEDS: ENALAPRIL MALEATE 2.5 MG TAB PO SCH (09:17)
--- NOTE | 2020-02-27 11:05 | NUR ---
ELECTROENCEPHALOGRAM COMPLETED AT BEDSIDE. PRIMARY RN YOSSI GARCÍA.
[2020-02-27 12:53] VITALS: BP 93/46
--- NOTE | 2020-02-27 16:09 | NUR ---
PATIENT EXTENSIVELY EDUCATED ON KEEPING OXYGEN ON. SHE STATES PASSIVELY THAT SHE DOESN'T CARE AND JUST WANTS TO GO HOME. SHE HAS BEEN REMINDED EVERY HOUR TO KEEP HER OXYGEN ON AND WHEN EVER STAFF LEAVES THE ROOM SHE REMOVES HER OXYGEN. HER LIPS TURN BLUE WITH OUT HER OXYGEN ON BUT SHE IS NON COMPLIANT WITH IT.
[2020-02-27 16:21] VITALS: BP 101/59
--- NOTE | 2020-02-27 16:50 | NUR ---
DR. FORD AT BEDSIDE TO DISCUSS PLAN OF CARE WITH PATIENT, ORDER RECEIVED WILL DOCUMENT AND CARRY OUT
--- NOTE | 2020-02-27 19:50 | NUR ---
Opening Shift Note Assumed care of patient, awake and alert. No S/S of distress/SOB or pain. Instructed on POC and to call for assist PRN, will continue to monitor for changes Q1hr and PRN. Patient on 4L NC
[2020-02-27 20:54] VITALS: BP 137/73
--- NOTE | 2020-02-27 23:05 | NUR ---
FOOD [place] given to patient
--- NOTE | 2020-02-27 23:45 | NUR ---
DR. PATTON AT BEDSIDE. PATIENT FOUND WITH THE NC OFF, DR. PATTON REMINDED AND EDUCATED THE PATIENT THE NEED TO KEEP THE NC ON, WILL CONTINUE TO MONITOR.
--- NOTE | 2020-02-28 02:40 | NUR ---
VOID PATIENT HELPED TO BEDSIDE COMMODE.
--- NOTE | 2020-02-28 03:10 | NUR ---
VOID PATIENT HELPED TO THE BEDSIDE COMMODE.
[2020-02-28 05:00] VITALS: BP 115/75
--- NOTE | 2020-02-28 05:05 | NUR ---
VOID PATIENT HELPED TO THE BEDSIDE COMMODE.
[2020-02-28] MEDS: LITHIUM CARBONATE 300 MG TAB PO SCH ×3 (06:01→21:36)
[2020-02-28] MEDS: FUROSEMIDE 100 MG/10ML VIAL IV SCH (06:01)
[2020-02-28] MEDS: LEVOTHYROXINE SODIUM 50 MCG TAB PO SCH (06:01)
[2020-02-28] MEDS: SODIUM CHLOR 0.9% PF (SALINE LOCK) 10ML VIAL/SYR IV SCH ×3 (06:02→21:36)
[2020-02-28 06:27] LABS: Eosinophils # (auto) 0 10 ^3/uL (0-0.8); Monocytes # (auto) 0.6 10 ^3/uL (0-1.3); Neutrophils # (auto) 4.2 10 ^3/uL (1.6-8.6); Nucleated Red Blood Cells % 0.2 %; Red Cell Distribution Width 18.8 % (11.8-14.3); White Blood Cell 6.3 10^3/uL (4.4-10.8)
[2020-02-28 06:30] LABS: Basophils # (auto) 0 10 ^3/uL (0-0.2); Basophils % (auto) 0.6 % (0.0-2.0); Eosinophils % (auto) 0.6 % (0.0-7.0); Hemoglobin 18.2 g/dL (12.2-16.2); Lymphocytes # (auto) 1.4 10 ^3/uL (0.4-5.4); Lymphocytes % (auto) 22.8 % (10.0-50.0); Mean Corpuscular Hemoglobin 32.1 pg (28.0-32.0); Mean Corpuscular Volume 100.5 fL (80.0-100.0); Monocytes % (auto) 9.9 % (0.0-12.0); Neutrophils % (auto) 66.1 % (37.0-80.0); Platelet Count (auto) 197 10^3/uL (140-450); Red Blood Cells 5.66 10^6/uL (4.0-5.20)
[2020-02-28 06:47] LABS: Hematocrit 56.8 % (36.0-46.0)
[2020-02-28 06:57] LABS: BUN/Creatinine Ratio 20.4; Calcium 9.9 mg/dL (8.5-10.1); Magnesium 2.9 mg/dL (1.6-2.6)
[2020-02-28] MEDS: IPRATROPIUM BROM 0.5 MG/2.5ML INH SOL NEB SCH ×3 (07:13→18:15)
[2020-02-28] MEDS: ALBUTEROL SULF 2.5 MG/0.5ML(0.5%) NEB SOLN NEB SCH ×3 (07:13→18:15)
--- NOTE | 2020-02-28 07:21 | NUR ---
Closing Note Endorse care to dayshift nurse, no signs of distress or pain.
[2020-02-28 09:00] VITALS: BP 143/76
[2020-02-28] MEDS: CARVEDILOL 3.125 MG TAB PO SCH ×2 (10:00→21:36)
[2020-02-28] MEDS: levoFLOXacin 500MG 100 ML IV SCH (10:29)
[2020-02-28] MEDS: GABAPENTIN 400 MG CAP PO SCH ×2 (10:29→21:33)
[2020-02-28] MEDS: carBAMazepine 200 MG TAB PO SCH ×2 (10:29→21:34)
[2020-02-28] MEDS: POTASSIUM CHL 20 Meq TABLET PO SCH (10:29)
[2020-02-28] MEDS: QUEtiapine FUMARATE 100 MG TAB PO SCH ×2 (10:30→21:34)
[2020-02-28] MEDS: ENOXAPARIN SOD 40 MG/0.4 ML SYRINGE SC SCH (10:30)
[2020-02-28] MEDS: ASPirin 81 mg TAB PO SCH (10:30)
[2020-02-28] MEDS: ENALAPRIL MALEATE 2.5 MG TAB PO SCH (10:30)
[2020-02-28 12:29] VITALS: BP 145/83
--- NOTE | 2020-02-28 14:33 | NUR ---
Assessment Patient is a 44-year-old female who is alert and oriented. Patient requested for me to speak to her mother Jennifer regarding any discharge plans. Prior to admission patient lived home with family and functioned independently. Patient mother Jennfier informed me patient can care for her own ADLs. Per Jennifer patient will return home to her prior living arrangements post discharge and she will transport patient home. Jennifer informed me patient does not have any medical equipment now. Advised Jennifer there is a Social Service order for home oxygen. Informed Jennifer clinical information will be faxed to [facility] and [facility]. Informed Jennifer she has a right to participate in all discharge planning. Jennifer verbalized understanding and agreed to discharge plan. Informed KEM Locke order is not completed and oxygen l/min needs to be included. Obtain authorization from [facility] for [facility] [id number]. Phoenix Wong with [facility] order will be deliver to [facility] and she will follow up with an ETA. Addendum: 02/28/20 at 1440 by CATRINA GARNER Amended: Links added.
--- NOTE | 2020-02-28 15:06 | NUR ---
Dr. Fiore at bedside with patient to assess and discuss plan of care.
[2020-02-28 16:35] VITALS: BP 119/72
[2020-02-28 18:38] VITALS: BP 106/62
--- NOTE | 2020-02-28 19:30 | NUR ---
Opening Shift Note Assumed care of patient, awake and alert. No S/S of distress/SOB or pain. Patient on 4L NC, educated patient on the need to have her oxygen on, patient aware of possible discharge tomorrow. Instructed on POC and to call for assist PRN, will continue to monitor for changes Q1hr and PRN.
[2020-02-28 22:00] VITALS: BP 121/82
[2020-02-29 05:00] VITALS: BP 137/87
[2020-02-29 05:45] LABS: Basophils # (auto) 0 10 ^3/uL (0-0.2); Basophils % (auto) 0.5 % (0.0-2.0); Eosinophils # (auto) 0 10 ^3/uL (0-0.8); Eosinophils % (auto) 0.7 % (0.0-7.0); Hemoglobin 17.8 g/dL (12.2-16.2); Lymphocytes # (auto) 1.4 10 ^3/uL (0.4-5.4); Lymphocytes % (auto) 23.7 % (10.0-50.0); Mean Corpuscular Hgb Conc. 31.2 g/dL (32.0-36.0); Mean Corpuscular Volume 102.7 fL (80.0-100.0); Monocytes # (auto) 0.7 10 ^3/uL (0-1.3); Monocytes % (auto) 12.3 % (0.0-12.0); Neutrophils # (auto) 3.7 10 ^3/uL (1.6-8.6); Neutrophils % (auto) 62.8 % (37.0-80.0); Nucleated Red Blood Cells % 0.4 %; Platelet Count (auto) 187 10^3/uL (140-450); Red Blood Cells 5.55 10^6/uL (4.0-5.20); Red Cell Distribution Width 19.8 % (11.8-14.3); White Blood Cell 5.9 10^3/uL (4.4-10.8)
[2020-02-29 05:46] LABS: Hematocrit 57.1 % (36.0-46.0)
[2020-02-29 06:13] LABS: Potassium 3.9 mmol/L (3.5-5.1)
[2020-02-29] MEDS: LEVOTHYROXINE SODIUM 50 MCG TAB PO SCH (06:27)
[2020-02-29] MEDS: SODIUM CHLOR 0.9% PF (SALINE LOCK) 10ML VIAL/SYR IV SCH ×2 (06:27→14:00)
[2020-02-29] MEDS: LITHIUM CARBONATE 300 MG TAB PO SCH ×2 (06:27→14:58)
[2020-02-29 06:28] LABS: BUN/Creatinine Ratio 23.7; Calcium 9.9 mg/dL (8.5-10.1); Magnesium 2.8 mg/dL (1.6-2.6)
--- NOTE | 2020-02-29 07:00 | NUR ---
Opening Shift Note Received report on the patient. Awake lying in bed. Patient shows no signs of distress or any pain. Discussed plan of care with the patient. Bed in lowest position, side rails up x2, and the call light is within reach. Will continue to monitor.
[2020-02-29] MEDS: IPRATROPIUM BROM 0.5 MG/2.5ML INH SOL NEB SCH ×2 (07:03→12:08)
[2020-02-29] MEDS: ALBUTEROL SULF 2.5 MG/0.5ML(0.5%) NEB SOLN NEB SCH ×2 (07:03→12:08)
[2020-02-29 09:00] VITALS: BP 128/85
[2020-02-29] MEDS: QUEtiapine FUMARATE 100 MG TAB PO SCH (10:26)
[2020-02-29] MEDS: CARVEDILOL 3.125 MG TAB PO SCH (10:26)
[2020-02-29] MEDS: ASPirin 81 mg TAB PO SCH (10:26)
[2020-02-29] MEDS: GABAPENTIN 400 MG CAP PO SCH (10:26)
[2020-02-29] MEDS: POTASSIUM CHL 20 Meq TABLET PO SCH (10:26)
[2020-02-29] MEDS: levoFLOXacin 500MG 100 ML IV SCH (10:26)
[2020-02-29] MEDS: carBAMazepine 200 MG TAB PO SCH (10:27)
[2020-02-29] MEDS: ENOXAPARIN SOD 40 MG/0.4 ML SYRINGE SC SCH (10:27)
[2020-02-29] MEDS: ENALAPRIL MALEATE 2.5 MG TAB PO SCH (10:27)
[2020-02-29 13:00] VITALS: BP 119/90
[2020-02-29 16:43] VITALS: BP 119/90
[2020-02-29 17:15] VITALS: BP 120/66
== END 2020-02-29 17:28 | disposition home health service (06) | DRG 52 ==
LOC: ER 10:43 → EDBD 10:43 → TELE 10:44 → TELE-WESTW 15:00
PROVIDERS: ADMIT Internal Medicine; ATTEND Internal Medicine
DX: G93.41 Metabolic encephalopathy (principal); J96.01 Acute respiratory failure with hypoxia; N17.0 Acute kidney failure with tubular necrosis; I50.33 Acute on chronic diastolic (congestive) heart failure; J18.9 Pneumonia, unspecified organism; I11.0 Hypertensive heart disease with heart failure; D75.1 Secondary polycythemia; Z68.42 Body mass index [BMI] 45.0-49.9, adult; F20.9 Schizophrenia, unspecified; F31.9 Bipolar disorder, unspecified; F60.3 Borderline personality disorder; R91.1 Solitary pulmonary nodule; F17.200 Nicotine dependence, unspecified, uncomplicated; E78.5 Hyperlipidemia, unspecified; E66.2 Morbid (severe) obesity with alveolar hypoventilation; M54.30 Sciatica, unspecified side; E03.9 Hypothyroidism, unspecified; J44.0 Chronic obstructive pulmonary disease with (acute) lower respiratory infection; Z79.899 Other long term (current) drug therapy; Z83.3 Family history of diabetes mellitus; Z82.49 Family history of ischemic heart disease and other diseases of the circulatory system; Z91.19 Patient's noncompliance with other medical treatment and regimen; Z90.49 Acquired absence of other specified parts of digestive tract
CPT/HCPCS: 36415; 36600; 51702; 70450; 71045; 71275; 74176; 76604; 80048; 80053; 80156; 80178; 80307; 81001; 81025; 82105; 82140; 82550; 82668; 82805; 83605; 83615; 83735; 83880; 84439; 84443; 84480; 84481; 84484; 85025; 85379; 85610; 85730; 87040; 93005; 93306; 93926; 93970; 94640; 95819; 96360; 96361; 97116; 97163; 97530; 99291; G0378; J1956

== ENCOUNTER 2020-03-13 07:17 | Inpatient (IN) | payer MEDICAID ==
[~2020-03-13] VITALS: Ht 165.1 cm; Wt 117.7 kg
[~2020-03-13 07:17] MED LIST changes: +METO-281 PO
[2020-03-13] MEDS ORDERED: SODIUM CHLORIDE 0.9% 1,000 ML IV ONE ×2 (07:29→12:15)
[2020-03-13] MEDS ORDERED: LIDOCAINE 2%HCL (LOCAL ANESTH.) INJ 20ML MDV ID ONE (07:30)
[2020-03-13] MEDS ORDERED: NEOMYCIN-BACITRACIN-POLYM UNITDOSE PKG TOP OINT TOP ONE (07:30)
[2020-03-13 08:07] LABS: Basophils # (auto) 0 10 ^3/uL (0-0.2); Basophils % (auto) 0.5 % (0.0-2.0); Eosinophils # (auto) 0.1 10 ^3/uL (0-0.8); Eosinophils % (auto) 1.8 % (0.0-7.0); Hemoglobin 14.9 g/dL (12.2-16.2); Lymphocytes # (auto) 1.4 10 ^3/uL (0.4-5.4); Lymphocytes % (auto) 17.5 % (10.0-50.0); Mean Corpuscular Hemoglobin 32.9 pg (28.0-32.0); Mean Corpuscular Hgb Conc. 32.5 g/dL (32.0-36.0); Mean Corpuscular Volume 101.2 fL (80.0-100.0); Monocytes # (auto) 0.4 10 ^3/uL (0-1.3); Monocytes % (auto) 5.7 % (0.0-12.0); Neutrophils # (auto) 5.8 10 ^3/uL (1.6-8.6); Neutrophils % (auto) 74.5 % (37.0-80.0); Nucleated Red Blood Cells % 0.2 %; Platelet Count (auto) 295 10^3/uL (140-450); Red Blood Cells 4.55 10^6/uL (4.0-5.20); Red Cell Distribution Width 18.6 % (11.8-14.3); White Blood Cell 7.8 10^3/uL (4.4-10.8)
[2020-03-13] MEDS ORDERED: PROMETHAZINE HCL 25 MG/ML 1ML IV ONE (08:15)
[2020-03-13] MEDS ORDERED: HYDROmorphone HCL 2 MG/ML VL IV ONE ×2 (08:15→12:45)
[2020-03-13] MEDS ORDERED: cefTRIAXone 1GM/50ML D5W 50 ML IV ONE (08:15)
[2020-03-13 08:21] LABS: INR 1.06 (0.9-1.15); Partial Thromboplastin Time 28.2 sec (23.64-32.05)
[2020-03-13 08:25] LABS: Albumin 2.9 g/dL (3.4-5.0); Calcium 9.4 mg/dL (8.5-10.1); Magnesium 2.6 mg/dL (1.6-2.6)
[2020-03-13] MEDS ORDERED: LIDOCAINE 1% HCL (LOCAL ANESTH.) INJ 20ML MDV ONE (08:25)
[2020-03-13 08:27] LABS: BUN/Creatinine Ratio 22.1; Bilirubin, Total 0.6 mg/dL (0.2-1.0); Total Protein 7.3 g/dL (6.4-8.2)
[2020-03-13] MEDS ORDERED: LIDOCAINE 2%HCL (LOCAL ANESTH.) INJ 20ML MDV ONE ×2 (09:01→12:34)
[2020-03-13] MEDS ORDERED: BACITRACIN TOP OINT 1 UD PKG TOP ONE (09:30)
[2020-03-13] MEDS ORDERED: TETANUS-DIPTH-ACEL PERTUSSIS 0.5ML SYR Tdap IM ONE (11:00)
[2020-03-13] MEDS ORDERED: NITROGLYCERIN 0.4 MG SL TAB SL PRN (12:15)
[2020-03-13] MEDS ORDERED: ONDANSETRON HCL 4 MG/2 ML VIAL IV PRN (12:15)
[2020-03-13] MEDS ORDERED: ALBUTEROL SULF 2.5 MG/0.5ML(0.5%) NEB SOLN NEB PRN (12:15)
[2020-03-13] MEDS ORDERED: ACETAMINOPHEN 500 MG TAB PO PRN (12:15)
[2020-03-13] MEDS ORDERED: LORazepam 0.5 MG TAB PO PRN (12:15)
[2020-03-13] MEDS ORDERED: IPRATROPIUM BROM 0.5 MG/2.5ML INH SOL NEB PRN (12:15)
[2020-03-13] MEDS ORDERED: MORPHINE SULF INJ 2 MG/ML SYRINGE 1ML IV PRN ×2 (12:15)
[2020-03-13] MEDS ORDERED: ONDANSETRON HCL 4 MG/2 ML VIAL IV ONE (12:45)
[2020-03-13] MEDS ORDERED: GABAPENTIN 400 MG CAP PO ONE (13:00)
[2020-03-13] MEDS ORDERED: ZOLPIDEM TARTRATE 5 MG TAB PO PRN (13:00)
[2020-03-13] MEDS ORDERED: LEVOTHYROXINE SODIUM 100 MCG TAB PO ONE (13:00)
[2020-03-13] MEDS ORDERED: PANTOPRAZOLE 40 MG TAB PO ONE (13:00)
[2020-03-13] MEDS ORDERED: SERTRALINE HCL 50 MG TAB PO ONE (13:00)
[2020-03-13] MEDS ORDERED: LITHIUM CARBONATE 300 MG TAB PO ONE (13:00)
[2020-03-13] MEDS ORDERED: LEVOTHYROXINE SODIUM 50 MCG TAB PO ONE (13:00)
[2020-03-13 13:34] VITALS: BP 105/54
[2020-03-13 17:00] VITALS: BP 95/52
[2020-03-13 18:25] LABS: Basophils # (auto) 0 10 ^3/uL (0-0.2); Eosinophils # (auto) 0.1 10 ^3/uL (0-0.8); Eosinophils % (auto) 1.5 % (0.0-7.0); Hemoglobin 13.8 g/dL (12.2-16.2); Lymphocytes # (auto) 1.2 10 ^3/uL (0.4-5.4); Red Blood Cells 4.33 10^6/uL (4.0-5.20)
[2020-03-13 18:27] LABS: Basophils % (auto) 0.3 % (0.0-2.0); Hematocrit 44.6 % (36.0-46.0); Lymphocytes % (auto) 13.1 % (10.0-50.0); Mean Corpuscular Hgb Conc. 31.1 g/dL (32.0-36.0); Mean Corpuscular Volume 102.9 fL (80.0-100.0); Monocytes # (auto) 0.7 10 ^3/uL (0-1.3); Monocytes % (auto) 7.6 % (0.0-12.0); Neutrophils # (auto) 6.9 10 ^3/uL (1.6-8.6); Neutrophils % (auto) 77.5 % (37.0-80.0); Platelet Count (auto) 283 10^3/uL (140-450); Red Cell Distribution Width 18.5 % (11.8-14.3)
[2020-03-13 20:00] VITALS: BP 122/69
[2020-03-13] MEDS ORDERED: FURO1TAB31 PO (21:03)
[2020-03-13] MEDS ORDERED: NAP500T PO (21:03)
[2020-03-13] MEDS: GABAPENTIN 400 MG CAP PO SCH (21:34)
[2020-03-13] MEDS: ATORVASTATIN 20 MG TAB PO SCH (21:34)
[2020-03-13] MEDS: carBAMazepine 200 MG TAB PO SCH (21:34)
[2020-03-13] MEDS: LITHIUM CARBONATE 300 MG TAB PO SCH (21:36)
[2020-03-13 22:00] VITALS: BP 119/69
[2020-03-13] MEDS: QUETIAPINE FUMERATE 200 MG PO SCH (22:00)
[2020-03-14] VITALS (9 sets, daily range): BP systolic 100–138; BP diastolic 50–96
[2020-03-14] MEDS: LEVOTHYROXINE SODIUM 100 MCG TAB PO SCH (07:11)
[2020-03-14] MEDS: LEVOTHYROXINE SODIUM 50 MCG TAB PO SCH ×2 (07:11→10:00)
[2020-03-14] MEDS: GABAPENTIN 400 MG CAP PO SCH ×2 (10:00→22:00)
[2020-03-14] MEDS: SERTRALINE HCL 50 MG TAB PO SCH (10:00)
[2020-03-14] MEDS: LITHIUM CARBONATE 300 MG TAB PO SCH ×2 (10:00→22:00)
[2020-03-14] MEDS: PANTOPRAZOLE 40 MG TAB PO SCH (10:00)
[2020-03-14] MEDS: DULoxetine HCL 30 MG CAP PO SCH (10:00)
[2020-03-14] MEDS: QUETIAPINE FUMERATE 200 MG PO SCH ×2 (10:00→22:00)
[2020-03-14] MEDS: cefTRIAXone 1GM/50ML D5W 50 ML IV SCH (10:03)
[2020-03-14] MEDS ORDERED: ROPIVACAINE 0.5% (5MG/ML) 20ML AMPULE IJ ONE (10:06)
[2020-03-14] MEDS ORDERED: NEOMYCIN-BACITRACIN-POLYM 15GM TOP OINT TOP ONE (10:06)
[2020-03-14] MEDS ORDERED: TETRACAINE 1% INJ 2 ML VIAL IJ ONE (10:06)
[2020-03-14] MEDS ORDERED: fentaNYL CITRATE 100 MCG/2 ML VL ONE (10:58)
[2020-03-14] MEDS ORDERED: MORPHINE SULF(PF) 0.5MG/ML 10ML VIAL ONE (10:58)
[2020-03-14] MEDS ORDERED: GLYCOPYRROLATE 0.2 MG/ML 1ML VIAL ONE (10:59)
[2020-03-14] MEDS ORDERED: PROPOFOL 10 MG/ML 20 ML IV ONE (10:59)
[2020-03-14] MEDS ORDERED: MIDAZOLAM HCL 1MG/1ML-2 ML VIAL ONE (10:59)
[2020-03-14] MEDS ORDERED: DexAMETHasone SOD PHOS 10MG/1ML VIAL INJ ONE (10:59)
[2020-03-14] MEDS ORDERED: KETOROLAC TROMETH 30 MG/ML 1ML VIAL ONE (10:59)
[2020-03-14] MEDS ORDERED: ONDANSETRON HCL 4 MG/2 ML VIAL ONE (10:59)
[2020-03-14] MEDS ORDERED: ceFAZolin 1GM/50ML 100 ML IV ONE (11:02)
[2020-03-14] MEDS ORDERED: ePHEDrine SULFATE 50 MG/ML AMP ONE (11:43)
[2020-03-14] MEDS ORDERED: NALBUPHINE HCL 10 MG/1ml INJECTION SUBCUT ONE (14:00)
[2020-03-14] MEDS ORDERED: NALOXONE HCL 0.4 MG/ML VIAL IV PRN (14:00)
[2020-03-14] MEDS ORDERED: HYDROmorphone HCL 2 MG/ML VL IV PRN (14:00)
[2020-03-14] MEDS ORDERED: DexAMETHasone SOD PHOS 10MG/1ML VIAL INJ IV PRN (14:00)
[2020-03-14] MEDS ORDERED: diphenhdrAMINE HCL 50 MG/1 ML VL IV PRN ×2 (14:00→15:00)
[2020-03-14] MEDS ORDERED: ONDANSETRON HCL 4 MG/2 ML VIAL IV PRN (14:00)
[2020-03-14] MEDS ORDERED: KETOROLAC TROMETH 30 MG/ML 1ML VIAL IV PRN (14:00)
[2020-03-14] MEDS ORDERED: SODIUM CHLORIDE 0.9% 1,000 ML IV ONE (15:00)
[2020-03-14] MEDS: ONDANSETRON HCL 4 MG/2 ML VIAL IV PRN (20:57)
[2020-03-14] MEDS: carBAMazepine 200 MG TAB PO SCH (22:00)
[2020-03-14] MEDS: ATORVASTATIN 20 MG TAB PO SCH (22:00)
[2020-03-15] VITALS (20 sets, daily range): BP systolic 108–145; BP diastolic 54–89
[2020-03-15] MEDS: ONDANSETRON HCL 4 MG/2 ML VIAL IV PRN (02:07)
[2020-03-15 05:02] LABS: Urine Bacteria FEW /hpf (None Seen); Urine Blood Negative /uL (Negative); Urine Mucus FEW (None Seen); Urine Specific Gravity 1.017 (1.001-1.035); Urine WBC 10 /hpf (0 - 5)
[2020-03-15 05:13] LABS: Alcohol, Urine < 3.0 mg/dL (0-5); Amphetamine Screen, Urine NEGATIVE (NEGATIVE); Barbiturate Scree,Urine NEGATIVE (NEGATIVE); Cannabinoid Screen, Urine NEGATIVE (NEGATIVE); Cocaine Screen, Urine NEGATIVE (NEGATIVE); Opiate Scree,Urine NEGATIVE (NEGATIVE); Phencyclidine Screen, Urine NEGATIVE (NEGATIVE)
[2020-03-15 05:28] LABS: Benzodiazephine Screen, Urine POSITIVE (NEGATIVE)
[2020-03-15] MEDS: LEVOTHYROXINE SODIUM 100 MCG TAB PO SCH (06:00)
[2020-03-15 07:03] LABS: Potassium 4.4 mmol/L (3.5-5.1)
[2020-03-15 07:08] LABS: BUN/Creatinine Ratio 18.6; Calcium 9.1 mg/dL (8.5-10.1)
[2020-03-15 07:09] LABS: Basophils # (auto) 0 10 ^3/uL (0-0.2); Eosinophils # (auto) 0 10 ^3/uL (0-0.8); Lymphocytes # (auto) 0.9 10 ^3/uL (0.4-5.4); Monocytes # (auto) 0.7 10 ^3/uL (0-1.3); Nucleated Red Blood Cells % 0.1 %; Red Cell Distribution Width 18.5 % (11.8-14.3)
[2020-03-15 07:11] LABS: Basophils % (auto) 0.2 % (0.0-2.0); Eosinophils % (auto) 0.2 % (0.0-7.0); Hematocrit 40.5 % (36.0-46.0); Hemoglobin 12.7 g/dL (12.2-16.2); Lymphocytes % (auto) 10.1 % (10.0-50.0); Mean Corpuscular Hemoglobin 32.6 pg (28.0-32.0); Mean Corpuscular Hgb Conc. 31.3 g/dL (32.0-36.0); Mean Corpuscular Volume 104.2 fL (80.0-100.0); Monocytes % (auto) 7.7 % (0.0-12.0); Neutrophils # (auto) 7.7 10 ^3/uL (1.6-8.6); Neutrophils % (auto) 81.8 % (37.0-80.0); Platelet Count (auto) 306 10^3/uL (140-450); Red Blood Cells 3.89 10^6/uL (4.0-5.20); White Blood Cell 9.4 10^3/uL (4.4-10.8)
[2020-03-15] MEDS: LEVOTHYROXINE SODIUM 50 MCG TAB PO SCH (09:45)
[2020-03-15] MEDS: PANTOPRAZOLE 40 MG TAB PO SCH (09:45)
[2020-03-15] MEDS: GABAPENTIN 400 MG CAP PO SCH (09:46)
[2020-03-15] MEDS: SERTRALINE HCL 50 MG TAB PO SCH (09:46)
[2020-03-15] MEDS: cefTRIAXone 1GM/50ML D5W 50 ML IV SCH (09:46)
[2020-03-15] MEDS: DULoxetine HCL 30 MG CAP PO SCH (09:47)
[2020-03-15] MEDS: LITHIUM CARBONATE 300 MG TAB PO SCH (09:47)
[2020-03-15] MEDS: QUETIAPINE FUMERATE 200 MG PO SCH (10:00)
[2020-03-15] MEDS ORDERED: SILVER SULFADIAZINE 1 % TOPICAL CREAM 50GM TOP SCH (10:00)
== END 2020-03-15 20:00 | disposition home or self-care (01) | DRG 313 ==
LOC: ER 07:17 → EDBD 07:17 → TELE 07:18 → TELE-EAST 15:00
PROVIDERS: ADMIT Nurse Practitioner Acute Care; ATTEND Internal Medicine
PROC: 0QSG04Z Reposition Right Tibia with Internal Fixation Device, Open Approach (ICD-10-PCS; 2020-03-14)
PROC: 0QSJ04Z Reposition Right Fibula with Internal Fixation Device, Open Approach (ICD-10-PCS; principal; 2020-03-14 11:15)
DX: S82.61XA Displaced fracture of lateral malleolus of right fibula, initial encounter for closed fracture (principal); N17.0 Acute kidney failure with tubular necrosis; E44.0 Moderate protein-calorie malnutrition; E66.01 Morbid (severe) obesity due to excess calories; D75.89 Other specified diseases of blood and blood-forming organs; S93.04XA Dislocation of right ankle joint, initial encounter; I50.32 Chronic diastolic (congestive) heart failure; F20.0 Paranoid schizophrenia; S91.011A Laceration without foreign body, right ankle, initial encounter; W18.30XA Fall on same level, unspecified, initial encounter; E86.0 Dehydration; R00.1 Bradycardia, unspecified; E03.9 Hypothyroidism, unspecified; E78.5 Hyperlipidemia, unspecified; F17.210 Nicotine dependence, cigarettes, uncomplicated; M21.961 Unspecified acquired deformity of right lower leg; F31.9 Bipolar disorder, unspecified; J44.9 Chronic obstructive pulmonary disease, unspecified; W18.39XA Other fall on same level, initial encounter; I11.0 Hypertensive heart disease with heart failure; E05.90 Thyrotoxicosis, unspecified without thyrotoxic crisis or storm; Z79.899 Other long term (current) drug therapy; Z68.41 Body mass index [BMI] 40.0-44.9, adult; Y93.89 Activity, other specified; Y92.098 Other place in other non-institutional residence as the place of occurrence of the external cause; Y99.8 Other external cause status
CPT/HCPCS: 12034; 36415; 71045; 73600; 73610; 80048; 80053; 80307; 81001; 83735; 84443; 84702; 85025; 85610; 85730; 86850; 86900; 86901; 87040; 87081; 87086; 87205; 90471; 90715; 93005; 96365; 96375; 97163; G0378; J0690; J0696; J1100; J1885; J2001; J2250; J2405; J2704

== ENCOUNTER 2020-03-19 09:41 | Inpatient (IN) | payer MEDICAID ==
[~2020-03-19] VITALS: Ht 172.7 cm; Wt 109.6 kg
[~2020-03-19 09:41] MED LIST changes: +FURO1TAB31 PO; -LORA0.5T12 PO; +LORA0.5T20 PO; +NAP500T PO
[2020-03-19] MEDS ORDERED: FUROSEMIDE 40 MG/4 ML VIAL IV ONE (10:00)
[2020-03-19 10:35] LABS: Basophils # (auto) 0 10 ^3/uL (0-0.2); Basophils % (auto) 0.4 % (0.0-2.0); Eosinophils # (auto) 0 10 ^3/uL (0-0.8); Eosinophils % (auto) 0.6 % (0.0-7.0); Hematocrit 45.4 % (36.0-46.0); Hemoglobin 14.4 g/dL (12.2-16.2); Lymphocytes # (auto) 0.9 10 ^3/uL (0.4-5.4); Mean Corpuscular Hemoglobin 31.9 pg (28.0-32.0); Mean Corpuscular Hgb Conc. 31.7 g/dL (32.0-36.0); Mean Corpuscular Volume 100.5 fL (80.0-100.0); Monocytes # (auto) 0.5 10 ^3/uL (0-1.3); Monocytes % (auto) 6.9 % (0.0-12.0); Neutrophils # (auto) 6.4 10 ^3/uL (1.6-8.6); Neutrophils % (auto) 81.1 % (37.0-80.0); Nucleated Red Blood Cells % 0.1 %; Platelet Count (auto) 412 10^3/uL (140-450); Red Blood Cells 4.51 10^6/uL (4.0-5.20); Red Cell Distribution Width 18.5 % (11.8-14.3); White Blood Cell 7.9 10^3/uL (4.4-10.8)
[2020-03-19 10:55] LABS: Calcium 9.8 mg/dL (8.5-10.1); Chloride 106 mmol/L (98-107); Potassium 3.6 mmol/L (3.5-5.1); Sodium 139 mmol/L (136-145)
[2020-03-19] MEDS ORDERED: MORPHINE SULF INJ 2 MG/ML SYRINGE 1ML IV ONE (11:00)
[2020-03-19 11:03] LABS: Alanine Aminotransferase 27 U/L (13-56); Alkaline Phosphatase 121 U/L (45-117); Anion Gap 8 (5-15); Aspartate Aminotransferase 27 U/L (15-37); BUN/Creatinine Ratio 12.5; Bilirubin, Total 0.7 mg/dL (0.2-1.0); Blood Urea Nitrogen 10 mg/dL (7-18); Carbon Dioxide 25 mmol/L (21-32); GFR African American 100 mL/min; GFR Non-African American 82 mL/min; Glucose 101 mg/dL (74-106); Total Protein 8.3 g/dL (6.4-8.2)
[2020-03-19 12:36] LABS: Urine Bacteria NONE SEEN /hpf (None Seen); Urine Blood Negative /uL (Negative); Urine Specific Gravity 1.003 (1.001-1.035); Urine WBC <1 /hpf (0 - 5)
[2020-03-19] MEDS ORDERED: MORPHINE SULF INJ 2 MG/ML SYRINGE 1ML IV PRN ×2 (12:45)
[2020-03-19] MEDS ORDERED: DOCUSATE SOD 100 MG CAP PO PRN (12:45)
[2020-03-19] MEDS ORDERED: METOCLOPRAMIDE HCL 10 MG TAB PO SCH (12:45)
[2020-03-19] MEDS ORDERED: HYDROcodone-ACET 5/325MG TAB PO PRN (12:45)
[2020-03-19] MEDS ORDERED: ONDANSETRON HCL 4 MG/2 ML VIAL IV PRN (12:45)
[2020-03-19] MEDS ORDERED: ACETAMINOPHEN 500 MG TAB PO PRN (12:45)
[2020-03-19] MEDS ORDERED: NITROGLYCERIN 0.4 MG SL TAB SL PRN (12:45)
--- NOTE | 2020-03-19 18:30 | NUR ---
MS admit from ER DOMINGUEZ KONG admitted to [facility] after SBAR received. Patient oriented to Tere Chi, primary RN, unit, room, bed, and unit policies regarding patient care and visiting hours. Patient weighed by bedscale and encouraged to call if they need something. Patient noted confused. Fall precs in place per protocol, bed alarm on at all times. All questions and concerns addressed, patient verbalized understanding. Patient denies pain at this time.
[2020-03-19 18:45] VITALS: BP 161/99
[2020-03-19] MEDS ORDERED: hydrALAZINE HCL 20 MG/ML VL IV PRN (19:00)
--- NOTE | 2020-03-19 19:01 | NUR ---
Spoke to Hospitalist BP noted increased. New orders received from Hospitalist Frances for Hydralazine 10mg IV Q6HR prn SBP >160 and tele psych consult. Patient care endorsed to Ronit fried. Patient laying comfortably in bed denies pain at this time. Fall precs in place per protocol with bed alarm on at all times. Call light within reach.
--- NOTE | 2020-03-19 19:30 | NUR ---
Opening Shift Note Assumed care of patient, AAOx1 to self, reoriented patient to time, place and situation. No S/S of distress/SOB or pain. On room air and bedrest. Mccoy catheter patent and draining to gravity. Bed in lowest locked position, side rails up x2, call light within reach. Instructed on POC and to call for assist PRN, will continue to monitor for changes Q1hr and PRN.
[2020-03-19 20:00] VITALS: BP 154/87
[2020-03-19 22:00] VITALS: BP 154/87
[2020-03-19] MEDS: LITHIUM CARBONATE 300 MG TAB PO SCH (22:00)
[2020-03-19] MEDS: GABAPENTIN 400 MG CAP PO SCH (22:00)
[2020-03-19] MEDS: METOPROLOL SUCCINATE XL 50 MG TAB PO SCH (22:00)
[2020-03-19] MEDS: carBAMazepine 200 MG TAB PO SCH (22:00)
[2020-03-19] MEDS: Quetiapine Fumerate (Seroquel Xr) 200 MG PO SCH (22:00)
[2020-03-19] MEDS: ZOLPIDEM TARTRATE 5 MG TAB PO SCH (22:00)
[2020-03-20 05:00] VITALS: BP 157/88
[2020-03-20] MEDS: LEVOTHYROXINE SODIUM 50 MCG TAB PO SCH (06:25)
[2020-03-20 08:00] VITALS: BP 154/87
--- NOTE | 2020-03-20 08:00 | NUR ---
ASSESSMENT NOTE PT ALERT TO SELF, AWARE WHERE SHE IS AT BUT UNABLE TO EXPRESS IT, FORGETFUL ON TIMES, ABLE TO FOLLOW DIRECTION, PT TEND TO STAY TO HER SELF, ABLE TO FEED HER SELF, DRY DRESSING NOTED AT THE RT LEG, AND DRY SKIN ULCERATIONS NOTED ON THE LEFT HIP, DEPENDANT ON REPOSITIONING EVERY 2 HOURS AT ALL TIMES, FALL RISK PRECAUTIONS, CALL LIGHT WITHIN REACH
[2020-03-20 09:00] VITALS: BP 127/75
[2020-03-20] MEDS: FAMOTIDINE 20 MG TAB PO SCH (09:18)
[2020-03-20] MEDS: DULoxetine HCL 30 MG CAP PO SCH (09:19)
[2020-03-20] MEDS: LITHIUM CARBONATE 300 MG TAB PO SCH ×2 (09:19→22:31)
[2020-03-20] MEDS: FUROSEMIDE 40 MG TAB PO SCH (09:19)
[2020-03-20] MEDS: GABAPENTIN 400 MG CAP PO SCH ×2 (09:19→22:31)
[2020-03-20] MEDS: SERTRALINE HCL 50 MG TAB PO SCH (09:19)
[2020-03-20] MEDS: Quetiapine Fumerate (Seroquel Xr) 200 MG PO SCH ×2 (09:20→22:00)
[2020-03-20] MEDS: METOPROLOL SUCCINATE XL 50 MG TAB PO SCH ×2 (09:20→22:00)
[2020-03-20] MEDS ORDERED: LORazepam 0.5 MG TAB PO SCH (10:00)
--- NOTE | 2020-03-20 10:00 | NUR ---
DR ALCALA AT BED SIDE FOLLOWING UP ON PT
--- NOTE | 2020-03-20 11:00 | NUR ---
WOUND NURSE AT BED SIDE ASSESSING PT SKIN
--- NOTE | 2020-03-20 12:09 | NUR ---
DR GIBSON IS HERE FOLLOWING UP ON PT
[2020-03-20] MEDS ORDERED: cefTRIAXone 1GM/50ML D5W 50 ML IV ONE (12:30)
--- NOTE | 2020-03-20 13:32 | NUR ---
Assessment Patient is a 44-year-old female with mental disorders. Assessment was completed with patient mother Jennfier who is patient POCony Ph:( [phone]). Per Jennifer prior to admission patient lived home with her and functioned with assistance. Per Jennifer patient is diagnosed with schizophrenia. Per Jennifer Patient has home 02 and wheelchair for home use. Per Jennifer patient receives disability and SSI with an amount of 927dlls combined. Per Jennifer she is unable to care for patient due to her recent falls and wound care needs. Per Jennifer she would like patient to return home but unfortunately due to her recent falls she would prefer patient to be placed at a rehab for physical therapy and wound care. Advised Jennifer there is a Social Service consult for placement. Informed Jennifer I will inform nurse regarding order for SNF placement for wound care and physical therapy. Informed Jennifer she has a right to participate in all discharge planning. Jennifer verbalized understanding and agreed to discharge plan. Informed KEM Pugh regarding SNF placement for physical therapy and wound care and advised her physical therapy evaluation will be needed. Addendum: 03/20/20 at 1334 by CATRINA GARNER Amended: Links added.
--- NOTE | 2020-03-20 14:00 | NUR ---
2 PHYSICAL THERAPY AT BED SIDE ASSISTING PT FROM BED TO CHAIR, WITH NON WEIGHT BEARING AT RT LEG, OXYGEN 2 L NC
--- NOTE | 2020-03-20 15:30 | NUR ---
WOUND CARE NOTE: IN TO SEE PATIENT AT THIS TIME PER WOUND CARE CONSULT REQUEST. PATIENT WAS NOTED TO HAVE MULTIPLE WOUNDS UPON ADMIT. WOUND PHOTOS TAKEN AT THAT TIME BY BEDSIDE NURSE. PATIENT ADMITTED TO [facility] WITH DIAGNOSIS OF WOUND DEHISCENCE, RIGHT LOWER EXTREMITY LACERATION.. CURRENT LUDIVINA SCORE IS 15. PATIENT IS OBSERVED TO BE ABLE TO ASSIST WITH HER TURNING/REPOSITIONING. PATIENT WAS RECENTLY HERE AT [facility], UNDERWENT ORIF TO THE RIGHT ANKLE WITH DR. ESPOSITO. SHE ALSO HAD TWO SUTURED WOUNDS/INCISIONS TO THE RIGHT LEG. PATIENT ALSO HAD A FLASH BURN FROM OXYGEN TANK/SMOKING INCIDENT AT HOME. SHE RETURNS WITH ALL OF THESE WOUNDS. LEFT HIP BURN DOES APPEAR MUCH IMPROVED FROM LAST EXAM AT PRIOR ADMIT. WOUND IS MUCH SMALLER, WITH BRIGHT RED PERIWOUND, AND OPEN YELLOW SLOUGH NOTED TO 5 X 3.5 FULL THICKNESS WOUND. APPLIED THERAHONEY TO WOUND BED FOR AUTOLYTICALLY DEBRIDEMENT. SACRUM HAS SMALL FADING TRAUMA BRUISE NOTED TO SACRUM. THIS BRUISE IS FROM HER RECENTLY FALL. LEFT OPEN TO AIR. PATIENT PREMEDICATED FOR PAIN BY BEDSIDE NURSE PRIOR TO DRESSING CHANGE. RIGHT LEG DRESSING REMOVED. PATIENT HAS ONE WELL APPROXIMATED 15 CM INCISION WITH MULTIPLE INTACT OBINNA.APPLIED XEROFORM, STERILE 4X4'S TO INCISION. ANTERIOR ANKLE HAS 15 X 1.5 CM INCISION THAT IS WELL APPROXIMATED TO SUPERIOR PORTION OF INCISION WITH SUTURES, OPEN DEHISCED TO INFERIOR PORTION OF INCISION. APPLIED THERAHONEY, OPTIFOAM TO WOUND. MEDIAL ANKLE INCISION IS WELL APPROXIMATED WITH INTACT SUTURES NOTED. APPLIED XEROFORM, MULTIPLE LAYERS OF STERILE 4X4'S. WRAPPED ALL WITH KERLIX, APPLIED BRACE TO POSTERIOR LEG/ANKLE/FOOT. WRAPPED ALL WITH LARGE ERIS WRAP WITHOUT COMPRESSION. ALL WOUNDS RE-PHOTOGRAPHED FOR REFERENCE. NOTIFIED DR. ESPOSITO OF WOUND STATUS. PATIENT TOLERATED DRESSING CHANGE WELL, NOTING NO PAIN BY PATIENT. RECOMMEND: FREQUENT TURN SCHEDULE Q2 HOURS, PRN CONDITION PERMITS, WITH PRESSURE REDISTRIBUTION USING PILLOWS/WEDGES, DAILY/PRN DRESSING CHANGE TO LEFT HIP BURN, EOD/PRN DRESSING CHANGE TO LLE WOUNDS, PER DR. ESPOSITO ORDER, SKIN/WOUND CARE PLAN, DIETARY CONSULT, CONTINUED MONITORING BY WOUND CARE TEAM. RECOMMEND: Addendum: 03/20/20 at 1644 by Asha Grande RN Amended: Links added.
--- NOTE | 2020-03-20 15:30 | NUR ---
PT ASSISTED TO GO BACK TO BED BY PHYSICAL THERAPY, TOLERATED WELL, OXYGEN 2 L NC
--- NOTE | 2020-03-20 15:54 | NUR ---
WOUND NURSE ANAI RN ATB EDS JANNA WITH A COMPLETE DRESSING CHANGE ON THE RT LOWER LEG, PT TOLERATED WELL
--- NOTE | 2020-03-20 16:25 | NUR ---
D/C Planning Per consult for SNF placement. Informed patient mother Jennifer the 3 skill nursing in this area do not take patient under the age of 55 and advised her order will be faxed to two facilities out of area who do take patient within that age range. Jennifer verbalize understanding d/c plan. Faxed clinical information to [facility]. Per Sabiha Green PH: [phone] patient has been accepted and she will assign room and following provider upon obtaining authorization from [facility]. Faxed clinical information to [facility]. Pending authorization from health plan.
[2020-03-20 17:00] VITALS: BP 138/79
--- NOTE | 2020-03-20 18:22 | NUR ---
PT CONTINUE STABLE, COTINUE MONITORING
--- NOTE | 2020-03-20 19:10 | NUR ---
OPENING SHIFT NOTE Assumed care of patient who is A&O x2. Currently on 2L NC with no s/s of distress. Denies pain at this time. Right lower leg dressing CDI, splint in place. PIV in right hand intact and patent. Dressing reinforced and flushed with 10mL NS. Bed is in low locked position with side rails up x2. Call light is within reach and patient encouraged to call for assistance when needed. Will continue to monitor for changes PRN.
[2020-03-20 20:00] VITALS: BP 141/86
[2020-03-20 21:50] VITALS: BP 141/86
[2020-03-20] MEDS ORDERED: ATORVASTATIN 20 MG TAB PO SCH (22:00)
[2020-03-20] MEDS: cefTRIAXone 1GM/50ML D5W 50 ML IV SCH (22:30)
[2020-03-20] MEDS: ZOLPIDEM TARTRATE 5 MG TAB PO SCH (22:31)
[2020-03-20] MEDS: carBAMazepine 200 MG TAB PO SCH (22:31)
[2020-03-21 05:00] VITALS: BP 151/95
[2020-03-21 05:28] LABS: Basophils # (auto) 0 10 ^3/uL (0-0.2); Basophils % (auto) 0.5 % (0.0-2.0); Eosinophils # (auto) 0.1 10 ^3/uL (0-0.8); Hematocrit 44.6 % (36.0-46.0); Hemoglobin 14.4 g/dL (12.2-16.2); Lymphocytes # (auto) 1.5 10 ^3/uL (0.4-5.4); Lymphocytes % (auto) 25.5 % (10.0-50.0); Mean Corpuscular Hemoglobin 32.6 pg (28.0-32.0); Mean Corpuscular Hgb Conc. 32.3 g/dL (32.0-36.0); Monocytes # (auto) 0.5 10 ^3/uL (0-1.3); Monocytes % (auto) 9.1 % (0.0-12.0); Neutrophils # (auto) 3.8 10 ^3/uL (1.6-8.6); Neutrophils % (auto) 62.9 % (37.0-80.0); Nucleated Red Blood Cells % 0.2 %; Platelet Count (auto) 370 10^3/uL (140-450); Red Blood Cells 4.42 10^6/uL (4.0-5.20); Red Cell Distribution Width 18.3 % (11.8-14.3)
[2020-03-21] MEDS: LEVOTHYROXINE SODIUM 50 MCG TAB PO SCH (06:32)
--- NOTE | 2020-03-21 07:35 | NUR ---
Opening Note Received report from wink cutter operator RN. Patient is awake, alert and oriented. No signs or symptoms of distress noted at this time. Dressing to right ankle clean, dry and intact. Patient denies pain at this time. Reviewed plan of care with patient, patient verbalized understanding. Bed in low and locked position, call light within reach. Will continue to monitor Q1 hour and PRN.
[2020-03-21] MEDS: cefTRIAXone 1GM/50ML D5W 50 ML IV SCH (08:43)
[2020-03-21 08:56] VITALS: BP_SYST 111; BP_SYST 148; BP_DIAS 57; BP_DIAS 80
--- NOTE | 2020-03-21 09:30 | NUR ---
Pt refused PT tx stating she was in a bad mood & "I don't want to" when this TEAR DOWN MAN requested her to engage in PT tx. Addendum: 03/21/20 at 1333 by Orlin Doshi TEAR DOWN MAN Amended: Links added.
--- NOTE | 2020-03-21 09:45 | NUR ---
PT at bedside Patient refusing PT a this time. Will continue to monitor Q1 hour and PRN.
[2020-03-21] MEDS: Quetiapine Fumerate (Seroquel Xr) 200 MG PO SCH ×2 (10:00→10:13)
[2020-03-21] MEDS: METOPROLOL SUCCINATE XL 50 MG TAB PO SCH (10:00)
--- NOTE | 2020-03-21 10:00 | NUR ---
Dr. Malone at bedside Discussing plan of care with patient and this RN. Patient to transfer to SNF. Will continue to monitor Q1 hour and PRN.
[2020-03-21] MEDS: FAMOTIDINE 20 MG TAB PO SCH (10:02)
[2020-03-21] MEDS: SERTRALINE HCL 50 MG TAB PO SCH (10:06)
[2020-03-21] MEDS: GABAPENTIN 400 MG CAP PO SCH (10:07)
[2020-03-21] MEDS: DULoxetine HCL 30 MG CAP PO SCH (10:08)
[2020-03-21] MEDS: FUROSEMIDE 40 MG TAB PO SCH (10:09)
[2020-03-21] MEDS: LITHIUM CARBONATE 300 MG TAB PO SCH (10:10)
--- NOTE | 2020-03-21 10:58 | NUR ---
Mccoy catheter removed Order to discontinue Mccoy catheter. Mccoy removed with clean technique following deflation of balloon. Patient tolerated well with no complaints of pain. Patient instructed to call for assistance. Will continue to monitor Q1 hour and PRN.
--- NOTE | 2020-03-21 11:10 | NUR ---
Pt refused PT tx for the second time today stating she is still in a bad mood. Addendum: 03/21/20 at 1335 by Orlin Doshi PTA Amended: Links added.
[2020-03-21 13:00] VITALS: BP_SYST 136; BP_SYST 151; BP_DIAS 54; BP_DIAS 85
--- NOTE | 2020-03-21 14:32 | NUR ---
D/C planning Obtain authorization from [facility] [id number]. Placed a follow up call to Sabiha Green ) advising her patient will discharge today and provided her with authorization #. Per Sabiha Green patient has been accepted to room 406 bed B accepting , Dr. Sullivan. Faxed clinical information to [facility] requesting for a 16:00 pick remover time via [employer]. Per Monica with [facility] transportation has been arranged with [facility] [employer] ) with a 16:00 pick remover time via [employer]. Informed KEM Velasco.
--- NOTE | 2020-03-21 15:10 | NUR ---
Report given Called and gave report to Padma dawn Boone . All questions and concerns addressed
--- NOTE | 2020-03-21 17:28 | NUR ---
Transfer to SNF Discharge instructions given as ordered. All questions and concerns addressed. Patient verbalized understanding. IV removed with catheter intact, pressure dressing applied. Medication reconciliation form completed and copy given to patient. Patient transported by [employer] with all personal belongings. No signs or symptoms of distress noted at this time.
[2020-03-22] MEDS ORDERED: BACITRACIN TOP OINT 1 UD PKG TOP SCH (10:00)
[2020-05-17] MEDS ORDERED: ATOR20TA50 PO (14:57)
[2020-05-17] MEDS ORDERED: AML5T PO (14:57)
[2020-05-17] MEDS ORDERED: FURO40TA4 PO (14:57)
[2020-05-17] MEDS ORDERED: APIX5TAB PO (14:57)
[2020-05-17] MEDS ORDERED: LOSA-69 PO (14:57)
[2020-05-17] MEDS ORDERED: HCTZ25T PO (15:02)
[2020-05-17] MEDS ORDERED: POTA-220 PO (15:03)
[2020-05-17] MEDS ORDERED: DOX100T PO (15:04)
== END 2020-03-21 17:37 | DRG 813 ==
LOC: ER 09:41 → EDBD 09:41 → OVERFLOW 09:42 → CENTRAL 18:25
PROVIDERS: ADMIT Nurse Practitioner Acute Care; ATTEND Internal Medicine
DX: T81.33XA Disruption of traumatic injury wound repair, initial encounter (principal); I11.0 Hypertensive heart disease with heart failure; I50.32 Chronic diastolic (congestive) heart failure; E66.01 Morbid (severe) obesity due to excess calories; F20.9 Schizophrenia, unspecified; F31.9 Bipolar disorder, unspecified; J44.9 Chronic obstructive pulmonary disease, unspecified; E03.9 Hypothyroidism, unspecified; W19.XXXA Unspecified fall, initial encounter; F17.210 Nicotine dependence, cigarettes, uncomplicated; Z98.890 Other specified postprocedural states; Z79.899 Other long term (current) drug therapy; Y93.89 Activity, other specified; Y92.89 Other specified places as the place of occurrence of the external cause; Y99.8 Other external cause status
CPT/HCPCS: 36415; 51702; 71045; 72170; 73610; 80053; 80178; 81001; 81025; 83880; 84484; 85025; 96374; 96375; 97163; 99291; G0378; J0696

== ENCOUNTER 2020-04-06 13:35 | Inpatient (IN) | payer MEDICAID ==
[~2020-04-06] VITALS: Ht 175.3 cm; Wt 109.2 kg
[~2020-04-06 13:35] MED LIST changes: +METOCLOPRAMIDE HCL 10 MG TAB PO SCH
[2020-04-06] MEDS ORDERED: SODIUM CHLORIDE 0.9% 1,000 ML IVB ONE ×2 (13:45→17:17)
[2020-04-06 14:28] LABS: Basophils # (auto) 0.1 10 ^3/uL (0-0.2); Basophils % (auto) 0.6 % (0.0-2.0); Eosinophils # (auto) 0.1 10 ^3/uL (0-0.8); Eosinophils % (auto) 0.8 % (0.0-7.0); Hematocrit 46.8 % (36.0-46.0); Hemoglobin 15.2 g/dL (12.2-16.2); Lymphocytes # (auto) 1.3 10 ^3/uL (0.4-5.4); Lymphocytes % (auto) 14.9 % (10.0-50.0); Mean Corpuscular Hemoglobin 32.6 pg (28.0-32.0); Mean Corpuscular Hgb Conc. 32.5 g/dL (32.0-36.0); Mean Corpuscular Volume 100.4 fL (80.0-100.0); Monocytes # (auto) 0.7 10 ^3/uL (0-1.3); Monocytes % (auto) 7.4 % (0.0-12.0); Neutrophils # (auto) 6.8 10 ^3/uL (1.6-8.6); Neutrophils % (auto) 76.3 % (37.0-80.0); Nucleated Red Blood Cells % 0.2 %; Platelet Count (auto) 398 10^3/uL (140-450); Red Blood Cells 4.66 10^6/uL (4.0-5.20); White Blood Cell 8.9 10^3/uL (4.4-10.8)
[2020-04-06 14:53] LABS: Albumin 2.8 g/dL (3.4-5.0); Calcium 10.3 mg/dL (8.5-10.1); Magnesium 2.4 mg/dL (1.6-2.6); Potassium 4.2 mmol/L (3.5-5.1)
[2020-04-06 14:57] LABS: BUN/Creatinine Ratio 9.6; Bilirubin, Total 0.6 mg/dL (0.2-1.0); Total Protein 8.3 g/dL (6.4-8.2)
[2020-04-06 16:56] LABS: Urine Bacteria FEW /hpf (None Seen); Urine Blood Negative /uL (Negative); Urine Specific Gravity 1.015 (1.001-1.035); Urine WBC 5 /hpf (0 - 5)
[2020-04-06 17:10] LABS: Alcohol, Urine < 3.0 mg/dL (0-10); Amphetamine Screen, Urine NEGATIVE (NEGATIVE); Barbiturate Scree,Urine NEGATIVE (NEGATIVE); Benzodiazephine Screen, Urine NEGATIVE (NEGATIVE); Cannabinoid Screen, Urine NEGATIVE (NEGATIVE); Cocaine Screen, Urine NEGATIVE (NEGATIVE); Opiate Scree,Urine NEGATIVE (NEGATIVE); Phencyclidine Screen, Urine NEGATIVE (NEGATIVE)
[2020-04-06] MEDS ORDERED: cefTRIAXone 1GM/50ML D5W 50 ML IV ONE (17:30)
[2020-04-06] MEDS ORDERED: LORazepam 2MG/ML-1ML VIAL IV ONE (19:15)
[2020-04-06] MEDS ORDERED: metroNIDAZOLE 500MG/100ML 100 ML IV ONE (19:30)
[2020-04-06] MEDS ORDERED: NITROGLYCERIN 0.4 MG SL TAB SL PRN (20:15)
[2020-04-06] MEDS ORDERED: ACETAMINOPHEN 500 MG TAB PO PRN (20:15)
[2020-04-06] MEDS ORDERED: MORPHINE SULF INJ 2 MG/ML SYRINGE 1ML IV PRN (20:15)
[2020-04-06] MEDS: SODIUM CHLORIDE 0.9% 1,000 ML IV SCH ×2 (20:57→23:59)
[2020-04-06 21:46] VITALS: BP 157/93
[2020-04-06] MEDS ORDERED: metroNIDAZOLE 500MG/100ML 100 ML IV SCH (22:00)
[2020-04-06] MEDS: VANCOMYCIN HCL 125MG/5ML ORAL SOL PO SCH (22:00)
[2020-04-06] MEDS: carBAMazepine 200 MG TAB PO SCH (23:52)
[2020-04-06] MEDS: GABAPENTIN 400 MG CAP PO SCH (23:52)
[2020-04-06] MEDS: LITHIUM CARBONATE 300 MG TAB PO SCH (23:52)
[2020-04-06] MEDS: METOPROLOL SUCCINATE XL 50 MG TAB PO SCH (23:53)
[2020-04-07] VITALS: BP 137/87
[2020-04-07] MEDS: MORPHINE SULF INJ 2 MG/ML SYRINGE 1ML IV PRN (00:07)
[2020-04-07] MEDS: HYDROcodone-ACET 5/325MG TAB PO PRN ×2 (01:12→22:27)
[2020-04-07 04:52] VITALS: BP 154/78
[2020-04-07 05:12] LABS: Basophils # (auto) 0 10 ^3/uL (0-0.2); Eosinophils # (auto) 0.2 10 ^3/uL (0-0.8); Monocytes # (auto) 0.6 10 ^3/uL (0-1.3); Nucleated Red Blood Cells % 0.2 %
[2020-04-07 05:14] LABS: Basophils % (auto) 0.4 % (0.0-2.0); Eosinophils % (auto) 2.8 % (0.0-7.0); Hematocrit 40.5 % (36.0-46.0); Hemoglobin 13.1 g/dL (12.2-16.2); Lymphocytes # (auto) 1.5 10 ^3/uL (0.4-5.4); Lymphocytes % (auto) 21.3 % (10.0-50.0); Mean Corpuscular Hemoglobin 32.9 pg (28.0-32.0); Mean Corpuscular Hgb Conc. 32.3 g/dL (32.0-36.0); Mean Corpuscular Volume 101.9 fL (80.0-100.0); Monocytes % (auto) 7.8 % (0.0-12.0); Neutrophils # (auto) 4.9 10 ^3/uL (1.6-8.6); Neutrophils % (auto) 67.7 % (37.0-80.0); Platelet Count (auto) 330 10^3/uL (140-450); Red Blood Cells 3.98 10^6/uL (4.0-5.20); Red Cell Distribution Width 18.5 % (11.8-14.3); White Blood Cell 7.2 10^3/uL (4.4-10.8)
[2020-04-07 05:35] LABS: Albumin 2.2 g/dL (3.4-5.0); BUN/Creatinine Ratio 10.3; Bilirubin, Total 0.4 mg/dL (0.2-1.0); Calcium 8.6 mg/dL (8.5-10.1); Total Protein 6.4 g/dL (6.4-8.2)
[2020-04-07] MEDS ORDERED: LEVOTHYROXINE SODIUM 100 MCG TAB PO SCH (07:00)
[2020-04-07] MEDS: VANCOMYCIN HCL 125MG/5ML ORAL SOL PO SCH ×4 (07:07→23:40)
[2020-04-07] MEDS: LEVOTHYROXINE SODIUM 100 MCG TAB PO SCH (07:08)
[2020-04-07] MEDS: SODIUM CHLORIDE 0.9% 1,000 ML IV SCH (07:18)
--- NOTE | 2020-04-07 08:17 | NUR ---
OPENING SHIFT NOTE Assumed care of patient. PT is awake and alert. No S/S of distress/SOB or pain. Instructed on POC and to call for assist PRN. Bed in low and locked position. Side rails up x2. Call light within reach. Will continue to monitor for changes Q1hr and PRN.
[2020-04-07 09:00] VITALS: BP 131/77
[2020-04-07] MEDS: ONDANSETRON HCL 4 MG/2 ML VIAL IV PRN (09:30)
[2020-04-07] MEDS: GABAPENTIN 400 MG CAP PO SCH ×2 (12:06→22:12)
[2020-04-07] MEDS: LITHIUM CARBONATE 300 MG TAB PO SCH ×2 (12:06→22:28)
[2020-04-07] MEDS: PANTOPRAZOLE 40 MG/10 ML VIAL INJ IV SCH (12:06)
[2020-04-07] MEDS: DULoxetine HCL 30 MG CAP PO SCH (12:06)
[2020-04-07] MEDS: METOPROLOL SUCCINATE XL 50 MG TAB PO SCH ×2 (12:07→22:00)
--- NOTE | 2020-04-07 12:08 | NUR ---
WOUND CARE NOTE: Wound care in to see patient per wound care request regarding multiple wounds that are noted present on admission. ED nurse took photograph of patient's wounds upon admission for reference. Patient is 44 y/o female with admitting diagnosis of Colitis, R/O C Diff. Patient is resting in bed in Rm. 290A. Patient is awake, alert and follow simple direction. Patient is poor historian, history of developmental delay, and psych problem. Patient is able to assist in turning and repositioning and her Uriel score is 18. Patient is in no stated pain at this time and she appears to be in no pain using Lopez Rangel Faces Pain Scale. Skin/wound assessment done with the assistance of patient' s nurse, KEM Sandoval. Removed wound dressing to patient's RLE. Noted patient's Rt lateral lower leg has 13cm linear incision with 0.5cm width at medial aspect of wound and thin brown scabs to proximal and distal aspect of wound. Rt medial lower leg has open necrotic wound measuring 3x7cm no measurable depth. Wound bed is combination of red with yellow slough and thin brown scabs at wound edges. R posterior lower leg noted with 4x5cm necrotic wound. Wound bed is covered with 90% soft black necrotic tissue, and 10% yellow slough. Patient's RLE is edematous with dark red/brown, hyperpigmented skin, minimal serosanguineous drainage noted, no odor noted. Patient is unable to tell more information regarding her wounds. Per reports, patient has history of Rt leg injury two weeks ago. Wound culture specimen of Rt leg wounds reported taken and sent to lab while patient in ED. Cleansed patient's wounds with wound cleanser, patted dry with gauze, applied Thera honey gauze, covered with non-adherent dressing (Telfa), wrapped with Kerlix and secured with tape. Patient's Rt lateral third toe noted with 1x1cm black eschar wound, nae wound is pink, no drainage or odor noted. Patient's sacral, buttocks noted with blanchable redness consistent with moisture associated dermatitis. On reports, patient has diarrhea for two to four days. Nae care given,applied Z Guard cream. New photograph of wounds are taken for reference. Patient tolerated well, repositioned patient for comfort, elevated RLE on pillows. Bed in low position,call mandujano within reach, all safety precautions in placed. RECOMMENDATION: Nursing to continue Daily/PRN dressing change to RLE wounds, BID/PRN cleaning and application of Z Guard cream to sacral, buttocks per MD order, Dietary consult,surgical/podiatry consult, frequent nae care/check, redistribute pressure points with pillows,elevate RLE on pillows, continue monitoring by wound care while patient is hospitalized. Addendum: 04/07/20 at 1614 by Johanny Shirley RN Amended: Links added.
[2020-04-07 13:00] VITALS: BP 126/69
[2020-04-07] MEDS: METOCLOPRAMIDE HCL 10 MG TAB PO SCH ×3 (13:42→23:48)
[2020-04-07] MEDS: metroNIDAZOLE 500MG/100ML 100 ML IV SCH ×2 (13:43→22:08)
[2020-04-07] MEDS: levoFLOXacin 500MG 100 ML IV SCH (14:52)
[2020-04-07 17:00] VITALS: BP 126/81
[2020-04-07 22:00] VITALS: BP 145/81
[2020-04-07] MEDS: carBAMazepine 200 MG TAB PO SCH (22:12)
--- NOTE | 2020-04-07 22:52 | NUR ---
critical lab and questions Lab notified RN of c-diff + patient. equal employment opportunity officer and MD Wiggins notified. Per MD start patient on vancomycin and continue flagyl. Pt also had bradycardia in the 50s, BP systolic in 140s. Per MD hold toprol. Pt also has lithium ordered but no lab levels. Per MD do a lithium level in the AM.
[2020-04-08] MEDS: MORPHINE SULF INJ 2 MG/ML SYRINGE 1ML IV PRN ×3 (01:22→20:40)
[2020-04-08] MEDS: SODIUM CHLORIDE 0.9% 1,000 ML IV SCH ×3 (02:40→18:40)
[2020-04-08] MEDS: HYDROcodone-ACET 5/325MG TAB PO PRN (04:27)
[2020-04-08 05:30] VITALS: BP 135/80
[2020-04-08] MEDS: METOCLOPRAMIDE HCL 10 MG TAB PO SCH ×3 (05:57→17:49)
[2020-04-08] MEDS: metroNIDAZOLE 500MG/100ML 100 ML IV SCH (05:57)
[2020-04-08] MEDS: LEVOTHYROXINE SODIUM 100 MCG TAB PO SCH (05:58)
[2020-04-08] MEDS: VANCOMYCIN HCL 125MG/5ML ORAL SOL PO SCH ×4 (06:00→22:00)
[2020-04-08 09:00] VITALS: BP 138/85
[2020-04-08] MEDS: levoFLOXacin 500MG 100 ML IV SCH (09:49)
[2020-04-08] MEDS: PANTOPRAZOLE 40 MG/10 ML VIAL INJ IV SCH (09:50)
[2020-04-08] MEDS: ONDANSETRON HCL 4 MG/2 ML VIAL IV PRN ×2 (09:50→20:41)
[2020-04-08] MEDS: GABAPENTIN 400 MG CAP PO SCH ×2 (09:50→22:00)
[2020-04-08] MEDS: DULoxetine HCL 30 MG CAP PO SCH (09:50)
[2020-04-08] MEDS: METOPROLOL SUCCINATE XL 50 MG TAB PO SCH ×2 (09:59→22:00)
[2020-04-08] MEDS: LITHIUM CARBONATE 300 MG TAB PO SCH (11:42)
[2020-04-08 13:00] VITALS: BP 146/76
--- NOTE | 2020-04-08 13:06 | NUR ---
Per Dr. Hector Muller no needs to wait for Dr. Hou, can be arrange as out patient.
--- NOTE | 2020-04-08 13:07 | NUR ---
Dr. Cesar paged regarding d/c clearance, spoke to Ester. Awaiting to call back.
--- NOTE | 2020-04-08 13:11 | NUR ---
Received a call from Dr. Cesar to d/c Metronidazole , continue Vanco, and patient is cleared from GI perspective.
--- NOTE | 2020-04-08 13:13 | NUR ---
Per Dr. Hou will come to see patient around 3 and patient is 100% non weight bearing. PT paged.
[2020-04-08] MEDS ORDERED: metroNIDAZOLE 500MG/100ML 100 ML IV SCH (14:00)
--- NOTE | 2020-04-08 14:30 | NUR ---
Dr. Hou at bedside, patient needs a splint.
--- NOTE | 2020-04-08 14:46 | NUR ---
Left a message to Justo regarding Dr. Hou wants to place a fiberglass splint to Rt ankle.
--- NOTE | 2020-04-08 15:45 | NUR ---
Attempted PT eval. Pt is currently receiving a bed bath. Will attempt again later.
--- NOTE | 2020-04-08 16:00 | NUR ---
Wound pictures taken prior d/c.
--- NOTE | 2020-04-08 16:18 | NUR ---
SS consult for Home Health evaluation. Pt was previously on service with [facility]. Faxed clinical information to [place] ( [phone]) and pt accepted onto service post discharge. Will continue to monitor for intervention and follow up as appropriate.
--- NOTE | 2020-04-08 16:55 | NUR ---
Dressing changed to right leg per order. Patient tolerated well.
[2020-04-08 17:00] VITALS: BP 147/89
--- NOTE | 2020-04-08 17:30 | NUR ---
Justo from ortho at bedside, placed a splint on to the right leg.
--- NOTE | 2020-04-08 18:05 | NUR ---
Patient refused to go to SNF.
--- NOTE | 2020-04-08 19:20 | NUR ---
opening note pt resting in semi fowlers with HOB at 30 degrees. pt is alert to self and place. respirations even and nonlabored on 2Lnc. pt advised of the importance of keeping the nasal cannula in place. POC discussed. bed in low locked position, call light within reach.
[2020-04-08 19:45] LABS: Basophils # (auto) 0 10 ^3/uL (0-0.2); Basophils % (auto) 0.4 % (0.0-2.0); Eosinophils # (auto) 0.3 10 ^3/uL (0-0.8); Eosinophils % (auto) 3.8 % (0.0-7.0); Hematocrit 42.3 % (36.0-46.0); Hemoglobin 13.6 g/dL (12.2-16.2); Lymphocytes # (auto) 1.5 10 ^3/uL (0.4-5.4); Lymphocytes % (auto) 19.2 % (10.0-50.0); Mean Corpuscular Hemoglobin 33.3 pg (28.0-32.0); Mean Corpuscular Hgb Conc. 32.2 g/dL (32.0-36.0); Mean Corpuscular Volume 103.4 fL (80.0-100.0); Monocytes # (auto) 0.5 10 ^3/uL (0-1.3); Monocytes % (auto) 6.5 % (0.0-12.0); Neutrophils # (auto) 5.4 10 ^3/uL (1.6-8.6); Neutrophils % (auto) 70.1 % (37.0-80.0); Nucleated Red Blood Cells % 0.1 %; Platelet Count (auto) 322 10^3/uL (140-450); Red Blood Cells 4.09 10^6/uL (4.0-5.20); Red Cell Distribution Width 17.8 % (11.8-14.3); White Blood Cell 7.7 10^3/uL (4.4-10.8)
[2020-04-08 20:07] LABS: BUN/Creatinine Ratio 7.2; Calcium 8.9 mg/dL (8.5-10.1); Magnesium 2.3 mg/dL (1.6-2.6); Potassium 3.7 mmol/L (3.5-5.1)
--- NOTE | 2020-04-08 20:35 | NUR ---
pain c/o pain at lower right abdominal quadrant, 8/10. Will administer medication appropriately.
[2020-04-08] MEDS: carBAMazepine 200 MG TAB PO SCH (22:00)
[2020-04-08 22:55] VITALS: BP 107/39
[2020-04-09] MEDS: METOCLOPRAMIDE HCL 10 MG TAB PO SCH ×3 (00:28→12:09)
[2020-04-09] MEDS: LITHIUM CARBONATE 300 MG TAB PO SCH ×2 (00:51→09:31)
--- NOTE | 2020-04-09 02:22 | NUR ---
pain c/o pain at lower right abdominal quadrant, 8/10. Will administer medication appropriately.
[2020-04-09] MEDS: MORPHINE SULF INJ 2 MG/ML SYRINGE 1ML IV PRN (02:28)
[2020-04-09] MEDS: SODIUM CHLORIDE 0.9% 1,000 ML IV SCH ×2 (02:53→09:31)
[2020-04-09 05:55] VITALS: BP 139/84
[2020-04-09 06:13] LABS: Basophils # (auto) 0 10 ^3/uL (0-0.2); Basophils % (auto) 0.4 % (0.0-2.0); Eosinophils # (auto) 0.2 10 ^3/uL (0-0.8); Eosinophils % (auto) 3.4 % (0.0-7.0); Hematocrit 41.2 % (36.0-46.0); Hemoglobin 13.2 g/dL (12.2-16.2); Lymphocytes # (auto) 1.1 10 ^3/uL (0.4-5.4); Lymphocytes % (auto) 14.8 % (10.0-50.0); Mean Corpuscular Hgb Conc. 32.1 g/dL (32.0-36.0); Mean Corpuscular Volume 102.7 fL (80.0-100.0); Monocytes # (auto) 0.4 10 ^3/uL (0-1.3); Monocytes % (auto) 5.5 % (0.0-12.0); Neutrophils # (auto) 5.6 10 ^3/uL (1.6-8.6); Neutrophils % (auto) 75.9 % (37.0-80.0); Nucleated Red Blood Cells % 0.1 %; Platelet Count (auto) 309 10^3/uL (140-450); Red Blood Cells 4.01 10^6/uL (4.0-5.20); Red Cell Distribution Width 17.8 % (11.8-14.3); White Blood Cell 7.3 10^3/uL (4.4-10.8)
[2020-04-09 06:27] LABS: BUN/Creatinine Ratio 6.9; Calcium 8.8 mg/dL (8.5-10.1); Potassium 3.6 mmol/L (3.5-5.1)
[2020-04-09] MEDS: VANCOMYCIN HCL 125MG/5ML ORAL SOL PO SCH ×2 (06:39→12:05)
[2020-04-09] MEDS: LEVOTHYROXINE SODIUM 100 MCG TAB PO SCH (06:41)
--- NOTE | 2020-04-09 07:08 | NUR ---
closing note pt resting in semi fowlers with HOB at 30 degrees. respirations even and nonlabored on 3Lnc. no complaints of pain or discomfort at this time. bed in low locked position, call light within reach.
[2020-04-09 09:00] VITALS: BP 134/59
[2020-04-09] MEDS: levoFLOXacin 500MG 100 ML IV SCH (09:30)
[2020-04-09] MEDS: PANTOPRAZOLE 40 MG/10 ML VIAL INJ IV SCH (09:30)
[2020-04-09] MEDS: GABAPENTIN 400 MG CAP PO SCH (09:31)
[2020-04-09] MEDS: DULoxetine HCL 30 MG CAP PO SCH (09:31)
[2020-04-09] MEDS: METOPROLOL SUCCINATE XL 50 MG TAB PO SCH (09:31)
--- NOTE | 2020-04-09 09:35 | NUR ---
Oxygen room air 70s %, placed on 3 L o2 sat 92 %. Will notify
--- NOTE | 2020-04-09 11:56 | NUR ---
Fariba VINCENT paged.
[2020-04-09 13:00] VITALS: BP 161/93
--- NOTE | 2020-04-09 14:00 | NUR ---
Dr. Hector Muller paged regarding patient needs transport home and home o2. Awaiting to call back.
--- NOTE | 2020-04-09 14:36 | NUR ---
re-assessment Per ss consult skilled placement on 04/09/2020 per PT recommendation. PT has recommended home health. Home health has been done and completed yesterday. Patient is refusing SNF. Addendum: 04/09/20 at 1439 by Katharine De La Paz Amended: Links added.
--- NOTE | 2020-04-09 15:00 | NUR ---
Per Franco GARNER , patient's mom stated patient already have home oxygen and did not want home o2.
[2020-04-09] MEDS ORDERED: LINE1TAB6 PO (15:29)
[2020-04-09] MEDS ORDERED: VANC125PO PO (15:29)
--- NOTE | 2020-04-09 16:04 | NUR ---
Dr. Young paged regarding discharge disposition, awaiting to call back.
[2020-04-09 16:16] VITALS: BP 134/59
--- NOTE | 2020-04-09 16:38 | NUR ---
Assessment Patient is a 44-year-old female with mental disorders. Assessment was completed with patient mother Jennifer who is patient POCony Ph:). Per Jennifer prior to admission patient lived home with her and functioned with assistance. Per Jennifer patient is diagnosed with schizophrenia. Per Jennifer Patient has a wheelchair for home use. Per Jennifer patient receives disability and SSI with an amount of 927dlls combined. Per Jennifer patient will return home to her prior living arrangement post discharge and [facility] transportation will need to be arranged. Advised Jennifer there is a social service consult for home health for safety evaluation, home O2, transportation and [facility] Transitional Care Management program. Per Jennifer patient had home O2 but she return it back to the [employer] because patient refused to use it. Per Jennifer patient can sign AMA on the oxygen. Informed Jennifer Patel will inform bedside nurse regarding oxygen order. Informed Jennifer Qureshi [facility] will service patient and [facility] will refer patient to Myr[facility]. Informed Jennifer she has a right to participate in all discharge planning. Jennifer verbalized understanding and agreed to discharge plan. 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 Phoenix Anderson with [facility] transportation has been arranged with [employer] [phone] via [employer] between 17:00-20:00. Informed KEM Power. Addendum: 04/09/20 at 1639 by CATRINA GARNER Amended: Links added.
--- NOTE | 2020-04-09 17:11 | NUR ---
Discharge instructions given as ordered. Encourage to follow up with PMD (F/U WITH PCP IN 1-2 WEEKS F/U WITH DR. ESPOSITO ([facility])IN A WEEK Address: [address] [place], [place] . F/U WITH [facility]. F/U WITH DR. ANKITA THOMPSON IN 1-2 WEEKS Address: [address] [place] [address] ) as instructed. All questions and concerns addressed. Patient verbalized understanding. Medication reconciliation form completed and copy given to patient. IV removed with catheter intact, pressure dressing applied. Telemetry unit returned to ICU. Patient taken to vehicle via GURNEY with all personal belongings, accompanied by [facility] staff. No distress noted at time of departure.
[2020-05-17] MEDS ORDERED: FURO40TA4 PO (14:57)
[2020-05-17] MEDS ORDERED: APIX5TAB PO (14:57)
[2020-05-17] MEDS ORDERED: AML5T PO (14:57)
[2020-05-17] MEDS ORDERED: ATOR20TA50 PO (14:57)
[2020-05-17] MEDS ORDERED: LOSA-69 PO (14:57)
[2020-05-17] MEDS ORDERED: HCTZ25T PO (15:02)
[2020-05-17] MEDS ORDERED: POTA-220 PO (15:03)
[2020-05-17] MEDS ORDERED: DOX100T PO (15:04)
== END 2020-04-09 17:10 | disposition home health service (06) | DRG 248 ==
LOC: EDBD 13:35 → ER 13:35 → TELE 13:36 → TELE-WESTW 21:34
PROVIDERS: ADMIT Nurse Practitioner Acute Care; ATTEND Hospitalist
DX: A04.72 Enterocolitis due to Clostridium difficile, not specified as recurrent (principal); I11.0 Hypertensive heart disease with heart failure; F20.9 Schizophrenia, unspecified; I50.32 Chronic diastolic (congestive) heart failure; E66.9 Obesity, unspecified; E03.9 Hypothyroidism, unspecified; E78.5 Hyperlipidemia, unspecified; F31.9 Bipolar disorder, unspecified; N39.0 Urinary tract infection, site not specified; F17.210 Nicotine dependence, cigarettes, uncomplicated; F41.9 Anxiety disorder, unspecified; Z79.899 Other long term (current) drug therapy; Z68.35 Body mass index [BMI] 35.0-35.9, adult; Z91.81 History of falling; Z91.19 Patient's noncompliance with other medical treatment and regimen; T81.41XA Infection following a procedure, superficial incisional surgical site, initial encounter; D35.02 Benign neoplasm of left adrenal gland
CPT/HCPCS: 36415; 71045; 74176; 80048; 80053; 80178; 80307; 81001; 81025; 83735; 85025; 87045; 87077; 87081; 87186; 87205; 87427; 87493; 96365; 96367; 96375; 97163; C9113; G0378; J0696; J1956; J2405; J3490

== ENCOUNTER 2020-05-12 17:47 | Inpatient (IN) | payer MEDICAID ==
[~2020-05-12] VITALS: Ht 162.6 cm; Wt 99.7 kg
[~2020-05-12 17:47] MED LIST changes: +LINE1TAB6 PO; -METOCLOPRAMIDE HCL 10 MG TAB PO SCH; +VANC125PO PO
[2020-05-12 21:52] LABS: Urine Bacteria FEW /hpf (None Seen); Urine Blood Negative /uL (Negative); Urine Specific Gravity 1.006 (1.001-1.035); Urine WBC 1 /hpf (0 - 5)
[2020-05-12] MEDS ORDERED: IPRATROPIUM BROM 0.5 MG/2.5ML INH SOL NEB ONE (22:30)
[2020-05-12] MEDS ORDERED: ALBUTEROL SULF 2.5 MG/0.5ML(0.5%) NEB SOLN NEB ONE (22:30)
[2020-05-13] MEDS ORDERED: methylPREDNISolone SOD SUCC 125 MG/2 ML VL IV ONE (00:15)
[2020-05-13 01:55] LABS: Basophils # (auto) 0.1 10 ^3/uL (0-0.2); Basophils % (auto) 0.9 % (0.0-2.0); Eosinophils # (auto) 0.2 10 ^3/uL (0-0.8); Eosinophils % (auto) 1.8 % (0.0-7.0); Hematocrit 37.9 % (36.0-46.0); Hemoglobin 12.2 g/dL (12.2-16.2); Lymphocytes # (auto) 1.6 10 ^3/uL (0.4-5.4); Mean Corpuscular Hemoglobin 32.6 pg (28.0-32.0); Mean Corpuscular Hgb Conc. 32.1 g/dL (32.0-36.0); Mean Corpuscular Volume 101.5 fL (80.0-100.0); Monocytes # (auto) 0.9 10 ^3/uL (0-1.3); Monocytes % (auto) 6.8 % (0.0-12.0); Neutrophils # (auto) 10.3 10 ^3/uL (1.6-8.6); Neutrophils % (auto) 78.5 % (37.0-80.0); Nucleated Red Blood Cells % 0.5 %; Platelet Count (auto) 228 10^3/uL (140-450); Red Blood Cells 3.74 10^6/uL (4.0-5.20); Red Cell Distribution Width 17.6 % (11.8-14.3); White Blood Cell 13.2 10^3/uL (4.4-10.8)
[2020-05-13 02:13] LABS: Albumin 2.5 g/dL (3.4-5.0); BUN/Creatinine Ratio 17.7; Calcium 9.1 mg/dL (8.5-10.1); Magnesium 2.4 mg/dL (1.6-2.6); Potassium 4.2 mmol/L (3.5-5.1)
[2020-05-13 02:29] LABS: Bilirubin, Total 0.6 mg/dL (0.2-1.0); INR 1.18 (0.9-1.15); Partial Thromboplastin Time 25.4 sec (23.64-32.05); Total Protein 7.4 g/dL (6.4-8.2)
[2020-05-13] MEDS ORDERED: LORazepam 0.5 MG TAB PO PRN (05:15)
[2020-05-13] MEDS ORDERED: IPRATROPIUM BROM 0.5 MG/2.5ML INH SOL NEB PRN (05:15)
[2020-05-13] MEDS ORDERED: ONDANSETRON HCL 4 MG/2 ML VIAL IV PRN (05:15)
[2020-05-13] MEDS ORDERED: ALBUTEROL SULF 2.5 MG/0.5ML(0.5%) NEB SOLN NEB PRN (05:15)
[2020-05-13] MEDS ORDERED: ACETAMINOPHEN 325 MG TAB PO PRN (05:15)
[2020-05-13 07:20] VITALS: BP 124/67
[2020-05-13 07:38] LABS: Basophils # (auto) 0 10 ^3/uL (0-0.2); Eosinophils # (auto) 0 10 ^3/uL (0-0.8); Lymphocytes # (auto) 0.3 10 ^3/uL (0.4-5.4)
[2020-05-13 07:39] LABS: Basophils % (auto) 0.3 % (0.0-2.0); Eosinophils % (auto) 0.1 % (0.0-7.0); Hematocrit 43.3 % (36.0-46.0); Hemoglobin 13.7 g/dL (12.2-16.2); Lymphocytes % (auto) 2.8 % (10.0-50.0); Mean Corpuscular Hgb Conc. 31.6 g/dL (32.0-36.0); Mean Corpuscular Volume 101.4 fL (80.0-100.0); Monocytes # (auto) 0.2 10 ^3/uL (0-1.3); Monocytes % (auto) 2.1 % (0.0-12.0); Neutrophils # (auto) 10.2 10 ^3/uL (1.6-8.6); Neutrophils % (auto) 94.7 % (37.0-80.0); Nucleated Red Blood Cells % 0.4 %; Platelet Count (auto) 398 10^3/uL (140-450); Red Blood Cells 4.27 10^6/uL (4.0-5.20); White Blood Cell 10.8 10^3/uL (4.4-10.8)
[2020-05-13 07:57] LABS: Calcium 9.4 mg/dL (8.5-10.1); Potassium 4.5 mmol/L (3.5-5.1)
[2020-05-13 08:01] LABS: BUN/Creatinine Ratio 17.7
[2020-05-13] MEDS ORDERED: IOHEXOL 350 MG/ML 100ML IJ ONE (08:39)
[2020-05-13] MEDS ORDERED: HEPARIN DRIP/D5W 100UNITS/ML 250 ML IV SCH ×2 (09:07→10:00)
[2020-05-13] MEDS ORDERED: HEPARIN SODIUM (PORCINE) 5000 UNITS/ML 1ML VIAL IV ONE ×3 (09:15→11:00)
[2020-05-13] MEDS: CARVEDILOL 3.125 MG TAB PO SCH ×2 (09:46→22:00)
[2020-05-13] MEDS: DOCUSATE SOD 100 MG CAP PO SCH (09:47)
[2020-05-13] MEDS: methylPREDNISolone SOD SUCC 125 MG/2 ML VL IV SCH (09:48)
[2020-05-13] MEDS ORDERED: LISINOPRIL 20 MG TAB PO SCH (10:00)
[2020-05-13] MEDS ORDERED: CLOPIDOGREL BISULFATE 75 MG TAB PO SCH (10:00)
[2020-05-13] MEDS ORDERED: cefTRIAXone 1GM/50ML D5W 50 ML IV SCH (10:00)
[2020-05-13] MEDS ORDERED: ASPirin 81 mg TAB PO SCH (10:00)
[2020-05-13] MEDS ORDERED: ACETYLCYSTEINE ORAL for CIN 20%(200MG/ML) 4ML PO ONE (10:00)
[2020-05-13] MEDS ORDERED: FUROSEMIDE 20 MG/2 ML VIAL IV SCH (10:00)
[2020-05-13] MEDS ORDERED: ENOXAPARIN SOD 100 MG/1 ML SYRINGE SC SCH (10:00)
[2020-05-13 10:23] LABS: INR 1.19 (0.9-1.15); Partial Thromboplastin Time 29.5 sec (23.64-32.05)
[2020-05-13] MEDS: HEPARIN DRIP/D5W 100UNITS/ML 250 ML IV SCH ×2 (10:53→22:50)
--- NOTE | 2020-05-13 11:50 | NUR ---
Telemetry admit from ER DOMINGUEZ KONG admitted to Telemetry unit after SBAR received. Patient oriented to TC, juan luis RN, unit, room, bed, and unit policies regarding patient care and visiting hours. Patient now on continuous telemetry monitoring, tele box #[id number] and telemetry reading on arrival to unit is [id number]. Patient placed on bedside oxygen at 5L, weighed by bedscale and encouraged to call if they need something. All questions and concerns addressed, patient verbalized understanding.
--- NOTE | 2020-05-13 12:33 | NUR ---
SKIN ASSESSMENT UNABLE TO ASSESS RIGHT LEG FROM KNEE DOWN, PATIENT IS CRYING AND STATING "DON'T TOUCH IT, YOUR GOING TO HURT ME". WILL TRY AGAIN LATER.
[2020-05-13 13:00] VITALS: BP 130/75
[2020-05-13 13:26] VITALS: BP 130/75
[2020-05-13 17:00] VITALS: BP 124/69
[2020-05-13] MEDS ORDERED: LEVOTHYROXINE SODIUM 50 MCG TAB PO ONE (17:00)
[2020-05-13] MEDS ORDERED: DULoxetine HCL 30 MG CAP PO ONE (17:00)
[2020-05-13] MEDS ORDERED: DOXYCYCLINE 100 MG TAB/CAP PO ONE (17:15)
[2020-05-13] MEDS ORDERED: MET50T PO (18:33)
[2020-05-13] MEDS ORDERED: ERGO1CAP12 PO (18:35)
[2020-05-13] MEDS ORDERED: ALBUAER3 IN (18:37)
[2020-05-13] MEDS ORDERED: METR250T PO (18:38)
[2020-05-13] MEDS ORDERED: ZOLP5TAB5 PO (18:39)
[2020-05-13] MEDS ORDERED: LORA1TAB23 PO (18:40)
[2020-05-13] MEDS ORDERED: QUET200T30 PO (18:43)
[2020-05-13] MEDS ORDERED: ACET-1304 PO (18:45)
[2020-05-13] MEDS ORDERED: NAP500T PO (18:45)
[2020-05-13] MEDS ORDERED: DIPH2.5T73 PO (18:45)
--- NOTE | 2020-05-13 19:30 | NUR ---
Opening Shift Note Assumed care of patient, awake and alert. No S/S of distress/SOB or pain. Instructed on POC and to call for assist PRN, will continue to monitor for changes Q1hr and PRN.
[2020-05-13 19:34] LABS: INR 1.2 (0.9-1.15)
[2020-05-13 19:50] LABS: Partial Thromboplastin Time 80.6 sec (23.64-32.05)
--- NOTE | 2020-05-13 19:53 | NUR ---
Received call from lab - PTT is 80.6. Reduced rate from 20 ml/hr to 18 ml/hr. Will continue to monitor.
[2020-05-13 22:00] VITALS: BP 149/83
[2020-05-13] MEDS: carBAMazepine 200 MG TAB PO SCH (22:48)
[2020-05-13] MEDS: ATORVASTATIN 20 MG TAB PO SCH (22:48)
[2020-05-13] MEDS: cefTRIAXone 1GM/50ML D5W 50 ML IV SCH (22:48)
[2020-05-14 03:00] LABS: INR 1.21 (0.9-1.15); Partial Thromboplastin Time 59.7 sec (23.64-32.05)
--- NOTE | 2020-05-14 03:15 | NUR ---
aPTT was 59.7. No bolus and rate to remain at 18ml/hr. Will continue to monitor.
--- NOTE | 2020-05-14 04:35 | NUR ---
Patient transferred to room 201. Report given to Laly BROWNLEE. No signs of distress noted, patient resting.
--- NOTE | 2020-05-14 04:45 | NUR ---
Received report from KEM Kemp. Patient oriented x 3, cooperative to care. No respiratory distress noted, continue on O2 at 6 Lpm/NC. Bed in lowest position, bed alarm on, will continue to monitor
[2020-05-14 05:00] VITALS: BP 131/68
[2020-05-14] MEDS: LEVOTHYROXINE SODIUM 50 MCG TAB PO SCH (06:11)
[2020-05-14 07:50] LABS: Basophils # (auto) 0 10 ^3/uL (0-0.2); Basophils % (auto) 0.2 % (0.0-2.0); Eosinophils # (auto) 0 10 ^3/uL (0-0.8); Eosinophils % (auto) 0.1 % (0.0-7.0); Hematocrit 42.2 % (36.0-46.0); Hemoglobin 13.2 g/dL (12.2-16.2); Lymphocytes # (auto) 1.4 10 ^3/uL (0.4-5.4); Lymphocytes % (auto) 12.1 % (10.0-50.0); Mean Corpuscular Hemoglobin 31.7 pg (28.0-32.0); Mean Corpuscular Hgb Conc. 31.3 g/dL (32.0-36.0); Mean Corpuscular Volume 101.4 fL (80.0-100.0); Monocytes # (auto) 0.8 10 ^3/uL (0-1.3); Monocytes % (auto) 6.6 % (0.0-12.0); Neutrophils # (auto) 9.2 10 ^3/uL (1.6-8.6); Nucleated Red Blood Cells % 0.1 %; Platelet Count (auto) 403 10^3/uL (140-450); Red Blood Cells 4.16 10^6/uL (4.0-5.20); Red Cell Distribution Width 17.1 % (11.8-14.3); White Blood Cell 11.4 10^3/uL (4.4-10.8)
[2020-05-14 08:00] VITALS: BP 136/71
--- NOTE | 2020-05-14 08:00 | NUR ---
Received pt resting in bed, call light with in reach, no pain noted or reported, will continue to monitor pt.
[2020-05-14 08:08] LABS: INR 1.18 (0.9-1.15); Partial Thromboplastin Time 58.1 sec (23.64-32.05)
[2020-05-14 08:09] LABS: Calcium 9.6 mg/dL (8.5-10.1); Potassium 3.6 mmol/L (3.5-5.1)
[2020-05-14 08:11] LABS: BUN/Creatinine Ratio 24.7
[2020-05-14] MEDS: CARVEDILOL 3.125 MG TAB PO SCH ×2 (08:53→22:14)
[2020-05-14] MEDS: FUROSEMIDE 20 MG/2 ML VIAL IV SCH (09:07)
[2020-05-14] MEDS: methylPREDNISolone SOD SUCC 125 MG/2 ML VL IV SCH (09:07)
[2020-05-14] MEDS: cefTRIAXone 1GM/50ML D5W 50 ML IV SCH ×2 (09:07→22:10)
[2020-05-14] MEDS: carBAMazepine 200 MG TAB PO SCH ×2 (09:08→22:17)
[2020-05-14] MEDS: DOCUSATE SOD 100 MG CAP PO SCH (09:08)
[2020-05-14] MEDS: DOXYCYCLINE 100 MG TAB/CAP PO SCH ×2 (09:08→22:21)
[2020-05-14] MEDS: DULoxetine HCL 30 MG CAP PO SCH (09:08)
--- NOTE | 2020-05-14 10:00 | NUR ---
Held Coreg po schedule medication due to low heart rate, will inform doctor.
[2020-05-14 12:00] VITALS: BP 145/79
[2020-05-14 14:01] LABS: INR 1.16 (0.9-1.15); Partial Thromboplastin Time 58.3 sec (23.64-32.05)
--- NOTE | 2020-05-14 15:00 | NUR ---
Dr. Velazquez at room to see pt, doctor informed that pt is at 6 lit via n/c and that pt's oxygen will decrease to the low 80s if at room air, and that pt's coreg has been held due to low heart rate. Orders received to stop the heparin, and to titrate O2 and keep O2 sat > 94%.
[2020-05-14] MEDS ORDERED: POTASSIUM EFFERVESENT TAB 25 MEQ PO ONE (15:15)
[2020-05-14 16:50] VITALS: BP 151/74
[2020-05-14] MEDS: ATORVASTATIN 20 MG TAB PO SCH (22:00)
[2020-05-14] MEDS: APIXABAN 5 MG TAB PO SCH (22:13)
[2020-05-14 22:31] VITALS: BP 148/82
[2020-05-14] MEDS: ZOLPIDEM TARTRATE 5 MG TAB PO PRN (22:55)
[2020-05-15 05:30] VITALS: BP 157/90
[2020-05-15] MEDS: LEVOTHYROXINE SODIUM 50 MCG TAB PO SCH (06:50)
[2020-05-15 07:31] LABS: Potassium 3.8 mmol/L (3.5-5.1)
[2020-05-15 07:37] LABS: Calcium 9.7 mg/dL (8.5-10.1)
[2020-05-15 07:53] VITALS: BP 119/70
--- NOTE | 2020-05-15 08:30 | NUR ---
PATIENT REFUSED BREAKFAST, TOOK MOST OF HER MEDS. NO C/O PAIN/ DISCOMFORT VOICED BY PATIENT AT THIS TIME. WILL CONTINUE TO MONITOR PATIENT.
[2020-05-15 09:00] VITALS: BP 157/84
[2020-05-15] MEDS: POTASSIUM EFFERVESENT TAB 25 MEQ PO SCH ×2 (10:00→10:16)
[2020-05-15] MEDS: DOCUSATE SOD 100 MG CAP PO SCH (10:00)
[2020-05-15] MEDS: CARVEDILOL 3.125 MG TAB PO SCH ×2 (10:00→22:15)
[2020-05-15] MEDS: cefTRIAXone 1GM/50ML D5W 50 ML IV SCH ×2 (10:01→22:09)
[2020-05-15] MEDS: APIXABAN 5 MG TAB PO SCH ×2 (10:01→22:14)
[2020-05-15] MEDS: carBAMazepine 200 MG TAB PO SCH ×2 (10:02→22:15)
[2020-05-15] MEDS: DULoxetine HCL 30 MG CAP PO SCH (10:16)
[2020-05-15] MEDS: DOXYCYCLINE 100 MG TAB/CAP PO SCH ×2 (10:16→22:11)
[2020-05-15] MEDS: FUROSEMIDE 20 MG/2 ML VIAL IV SCH (10:17)
[2020-05-15] MEDS ORDERED: FUROSEMIDE 40 MG/4 ML VIAL IV ONE (10:30)
[2020-05-15] MEDS ORDERED: methylPREDNISolone SOD SUCC 40 MG/ML VL IV ONE (10:30)
--- NOTE | 2020-05-15 10:40 | NUR ---
DR. WATERMAN WAS IN TO SEE PATIENT. NOTIFIED PATIENT OF HR OF 53 AND BP WAS 152/98 AND MD GAVE NEW ORDERS.
[2020-05-15] MEDS ORDERED: FUROSEMIDE 20 MG/2 ML VIAL IV ONE (10:45)
[2020-05-15] MEDS ORDERED: amLODIPine BESYLATE 5 MG TAB PO ONE (10:45)
[2020-05-15] MEDS: ALBUTEROL SULF 2.5 MG/0.5ML(0.5%) NEB SOLN NEB SCH ×2 (12:57→19:09)
[2020-05-15 13:00] VITALS: BP 156/87
--- NOTE | 2020-05-15 13:00 | NUR ---
PATIENT REFUSED LUNCH BUT VOICED NO C/O PAIN OR DISCOMFORT. WILL CONTINUE TO MONITOR PATIENT.
[2020-05-15 17:00] VITALS: BP 151/76
[2020-05-15 22:00] VITALS: BP 160/88
[2020-05-15] MEDS: FUROSEMIDE 40 MG/4 ML VIAL IV SCH (22:08)
[2020-05-15] MEDS: methylPREDNISolone SOD SUCC 40 MG/ML VL IV SCH (22:10)
[2020-05-15] MEDS: ZOLPIDEM TARTRATE 5 MG TAB PO PRN (22:14)
[2020-05-15] MEDS: ATORVASTATIN 20 MG TAB PO SCH (22:15)
[2020-05-16 05:00] VITALS: BP 153/87
[2020-05-16] MEDS: LEVOTHYROXINE SODIUM 50 MCG TAB PO SCH (05:30)
[2020-05-16] MEDS: ALBUTEROL SULF 2.5 MG/0.5ML(0.5%) NEB SOLN NEB SCH ×3 (08:10→18:57)
[2020-05-16 08:58] VITALS: BP 158/90
--- NOTE | 2020-05-16 09:26 | NUR ---
Patient breakfast and some of her po meds. Dr. Velazquez was in and notified of patient not eating her meals. gave new orders. Will continue to monitor patient.
[2020-05-16] MEDS: DOCUSATE SOD 100 MG CAP PO SCH (10:00)
[2020-05-16] MEDS ORDERED: FUROSEMIDE 40 MG/4 ML VIAL IV SCH (10:00)
[2020-05-16] MEDS: CARVEDILOL 3.125 MG TAB PO SCH ×2 (10:00→22:01)
--- NOTE | 2020-05-16 10:00 | NUR ---
O2 reduced to 4l/nc as per MD's order. Patient voiced no sob and patient was in no respiratory distress. Patient also noted to be non compliant with the use of O2.
[2020-05-16] MEDS: cefTRIAXone 1GM/50ML D5W 50 ML IV SCH ×2 (11:05→21:48)
[2020-05-16] MEDS: APIXABAN 5 MG TAB PO SCH ×2 (11:05→22:01)
[2020-05-16] MEDS: amLODIPine BESYLATE 5 MG TAB PO SCH (11:06)
[2020-05-16] MEDS: DOXYCYCLINE 100 MG TAB/CAP PO SCH ×2 (11:07→22:02)
[2020-05-16] MEDS: FUROSEMIDE 40 MG/4 ML VIAL IV SCH (11:07)
[2020-05-16] MEDS: carBAMazepine 200 MG TAB PO SCH ×2 (11:08→22:02)
[2020-05-16] MEDS: DULoxetine HCL 30 MG CAP PO SCH (11:09)
[2020-05-16] MEDS: methylPREDNISolone SOD SUCC 40 MG/ML VL IV SCH ×2 (11:10→21:55)
[2020-05-16] MEDS: POTASSIUM EFFERVESENT TAB 25 MEQ PO SCH (11:11)
[2020-05-16 11:20] LABS: BUN/Creatinine Ratio 28.3; Calcium 10.4 mg/dL (8.5-10.1); Potassium 3.5 mmol/L (3.5-5.1)
--- NOTE | 2020-05-16 11:42 | NUR ---
Nutrition Assessment Note please see attached link for complete assessment [employer] needs ABW 79 [id number] kcals (20-23 kcal/kgBW), Est Protein needs: 79-86gms/day (1.0-1.1 gm/kgABW). Will continue to monitor and reassess prn. Addendum: 05/16/20 at [address] Amended: Links added.
[2020-05-16] MEDS ORDERED: cloNIDine HCL 0.1 MG TAB PO PRN (13:00)
[2020-05-16] MEDS ORDERED: hydrALAZINE HCL 20 MG/ML VL IV PRN (13:00)
[2020-05-16 13:12] VITALS: BP 165/91
[2020-05-16 16:28] VITALS: BP 124/78
[2020-05-16] MEDS: Ensure HIGH Protein Chocolate 8oz Bottle PO SCH ×2 (17:05→18:24)
--- NOTE | 2020-05-16 17:20 | NUR ---
Dr. Velazquez was in and notified of patient still being hypertensive with HR below 60 and coreg being held. Patient's O2 sat also noted to be 90% and patient had O2 off at times. MD ordered that O2 raised back to 5l. No respiratory distress noted.
[2020-05-16] MEDS ORDERED: LOSARTAN POTASSIUM 50 MG TAB PO ONE (17:30)
--- NOTE | 2020-05-16 18:57 | NUR ---
Respiratory note: At bedside for medneb tx, found pt with nasal cannula off, SPO2 82% on room air. Administered breathing tx, no adverse reactions noted. Placed pt on NC 5lpm, educated pt to keep it on. Pt denies SOB. SPO2 95%, no s/s of distress.
[2020-05-16 21:13] VITALS: BP 128/86
[2020-05-16] MEDS: ATORVASTATIN 20 MG TAB PO SCH (22:01)
[2020-05-16 22:07] VITALS: BP 139/80
--- NOTE | 2020-05-17 00:50 | NUR ---
pt has taken her O2 off for the second time. replaced and educated pt on risk and benefits. rt at bedside.
[2020-05-17 05:08] VITALS: BP 172/95
[2020-05-17 05:46] LABS: BUN/Creatinine Ratio 36.6; Potassium 3.5 mmol/L (3.5-5.1)
[2020-05-17] MEDS: ALBUTEROL SULF 2.5 MG/0.5ML(0.5%) NEB SOLN NEB SCH ×2 (07:35→12:16)
[2020-05-17] MEDS: LEVOTHYROXINE SODIUM 50 MCG TAB PO SCH (07:42)
[2020-05-17] MEDS: Ensure HIGH Protein Chocolate 8oz Bottle PO SCH ×2 (07:51→12:48)
[2020-05-17 09:00] VITALS: BP 166/105
[2020-05-17] MEDS ORDERED: FUROSEMIDE 40 MG/4 ML VIAL IV SCH (10:00)
[2020-05-17] MEDS: CARVEDILOL 3.125 MG TAB PO SCH (10:00)
[2020-05-17] MEDS ORDERED: LOSARTAN POTASSIUM 50 MG TAB PO SCH (10:00)
[2020-05-17] MEDS: DOCUSATE SOD 100 MG CAP PO SCH (10:00)
--- NOTE | 2020-05-17 10:06 | NUR ---
Dr. Velazquez was in to see patient and MD made aware that patient's bp remains high and prn med was given. MD to discharge patient with home O2 and aware that patient takes the O2 off at times. MD left new orders.
--- NOTE | 2020-05-17 10:30 | NUR ---
Talked to patient's mother per phone as patient was reported to have refused home O2 before. Discussed with patient the need for patient to be on O2 and patient stated that she will not refuse the O2 this time and patient's mother made aware of same.
[2020-05-17] MEDS: cefTRIAXone 1GM/50ML D5W 50 ML IV SCH (10:39)
[2020-05-17] MEDS: POTASSIUM EFFERVESENT TAB 25 MEQ PO SCH (10:42)
[2020-05-17] MEDS: APIXABAN 5 MG TAB PO SCH (10:42)
[2020-05-17] MEDS: DOXYCYCLINE 100 MG TAB/CAP PO SCH (10:43)
[2020-05-17] MEDS: carBAMazepine 200 MG TAB PO SCH (10:43)
[2020-05-17] MEDS: amLODIPine BESYLATE 5 MG TAB PO SCH (10:43)
[2020-05-17] MEDS: DULoxetine HCL 30 MG CAP PO SCH (10:43)
[2020-05-17] MEDS: methylPREDNISolone SOD SUCC 40 MG/ML VL IV SCH (10:46)
[2020-05-17 13:00] VITALS: BP 158/99
--- NOTE | 2020-05-17 13:56 | NUR ---
Assessment Patient is a 44-year-old female with mental disorders. Assessment was completed with patient mother Jennifer who is patient MINESH Ph:). Per Jennifer prior to admission patient lived home with her and functioned with assistance. Per Jennifer patient is diagnosed with schizophrenia. Per Jennifer Patient has a wheelchair for home use. Per Jennifer patient receives disability and SSI with an amount of 927dlls combined. Per Jennifer patient will return home to her prior living arrangement post discharge and [facility] transportation will need to be arranged. Advised Jennifer there is a social service consult for home O2. Per Jennifer patient had home O2 but she return it back to the [facility] because patient refused to use it. Per Jennifer she will attempt for patient to use it. Informed Jennifer clinical information will be faxed to [facility]. Informed Jennifer she has a right to participate in all discharge planning. Jennifer verbalized understanding and agreed to discharge plan. Informed KEM Aleman. Faxed clinical information to [facility] requesting for home oxygen to be deliver to bed side and [facility] requesting authorization. Obtain Authorization from [facility] [id number]. Addendum: 05/17/20 at 1358 by CATRINA GARNER Amended: Links added.
[2020-05-17] MEDS ORDERED: AML5T PO ×2 (14:57)
[2020-05-17] MEDS ORDERED: FURO40TA4 PO ×2 (14:57)
[2020-05-17] MEDS ORDERED: APIX5TAB PO ×2 (14:57)
[2020-05-17] MEDS ORDERED: ATOR20TA50 PO ×2 (14:57)
[2020-05-17] MEDS ORDERED: LOSA-69 PO ×2 (14:57)
[2020-05-17] MEDS ORDERED: HCTZ25T PO ×2 (15:02)
[2020-05-17] MEDS ORDERED: POTA-220 PO ×2 (15:03)
[2020-05-17] MEDS ORDERED: DOX100T PO ×2 (15:04)
--- NOTE | 2020-05-17 15:41 | NUR ---
D/C planning Placed a follow up called to Maya Alfaro at 14:26 regarding oxygen portable. Per Maya Alfaro portable oxygen will be deliver to bed side at 15:00. 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 Per Diana with [facility], transportation has been arranged with [employer] with the requested time ). Informed KEM Aleman.
[2020-05-17 16:14] VITALS: BP 127/85
--- NOTE | 2020-05-17 18:10 | NUR ---
Discharge instructions given as ordered. Encourage to follow up with PMD as instructed. All questions and concerns addressed. Patient verbalized understanding. Medication reconciliation form completed and copy given to patient. IV removed with catheter intact, pressure dressing applied, hameed catheter kept as per order. Telemetry unit returned to ICU. Patient discharged per pretty via [employer] with all personal belongings, accompanied by transport personnel. No distress noted at time of departure.
[2020-05-21] MEDS ORDERED: APIXABAN 5 MG TAB PO SCH (22:00)
== END 2020-05-17 18:10 | disposition home or self-care (01) | DRG 134 ==
LOC: EDBD 17:47 → ER 17:47 → TELE 17:48 → TELE-WESTW 05-13 11:49 → TELE-EAST 05-13 19:06 → TELE-CENTR 05-14 04:25
PROVIDERS: ADMIT Hospitalist; ATTEND Internal Medicine Nephrology
DX: I26.99 Other pulmonary embolism without acute cor pulmonale (principal); J18.9 Pneumonia, unspecified organism; N17.0 Acute kidney failure with tubular necrosis; J96.01 Acute respiratory failure with hypoxia; N30.00 Acute cystitis without hematuria; R33.9 Retention of urine, unspecified; E66.01 Morbid (severe) obesity due to excess calories; I50.33 Acute on chronic diastolic (congestive) heart failure; E03.9 Hypothyroidism, unspecified; E78.5 Hyperlipidemia, unspecified; F17.210 Nicotine dependence, cigarettes, uncomplicated; F20.9 Schizophrenia, unspecified; F31.9 Bipolar disorder, unspecified; I13.0 Hypertensive heart and chronic kidney disease with heart failure and stage 1 through stage 4 chronic kidney disease, or unspecified chronic kidney disease; I21.A1 Myocardial infarction type 2; N18.9 Chronic kidney disease, unspecified; F41.9 Anxiety disorder, unspecified; Z79.01 Long term (current) use of anticoagulants; Z79.899 Other long term (current) drug therapy; Z91.19 Patient's noncompliance with other medical treatment and regimen; Z90.49 Acquired absence of other specified parts of digestive tract; J81.1 Chronic pulmonary edema; Z68.41 Body mass index [BMI] 40.0-44.9, adult; Z20.828 Contact with and (suspected) exposure to other viral communicable diseases
CPT/HCPCS: 36415; 36600; 51702; 71045; 71275; 76775; 80048; 80053; 80061; 81001; 82728; 82805; 83735; 83880; 84443; 84484; 84702; 85025; 85379; 85610; 85652; 85730; 86141; 93005; 93970; 94640; 96365; 96375; 96376; G0378; J0696

== ENCOUNTER 2020-05-19 17:48 | Inpatient (IN) | payer MEDICAID ==
[~2020-05-19] VITALS: Ht 165.1 cm; Wt 100.0 kg
[~2020-05-19 17:48] MED LIST changes: +ACET-1304 PO; +ALBUAER3 IN; +AML5T PO; +APIX5TAB PO; +ATOR20TA50 PO; +DIPH2.5T73 PO; +DOX100T PO; +ERGO1CAP6 PO; -FURO1TAB31 PO; +FURO40TA4 PO; +HCTZ25T PO; -LORA0.5T20 PO; +LORA1TAB23 PO; +LOSA-69 PO; +MET50T PO; -METO-169 PO; +METR250T PO; +POTA-220 PO; +QUET200T30 PO; -QUET200T4 PO; -ZOLP10TA PO; +ZOLP5TAB5 PO
[2020-05-19 18:34] LABS: Basophils # (auto) 0 10 ^3/uL (0-0.2); Eosinophils # (auto) 0.1 10 ^3/uL (0-0.8); Monocytes # (auto) 0.8 10 ^3/uL (0-1.3); Nucleated Red Blood Cells % 0.1 %
[2020-05-19 18:36] LABS: Basophils % (auto) 0.3 % (0.0-2.0); Hematocrit 55.3 % (36.0-46.0); Hemoglobin 17.5 g/dL (12.2-16.2); Lymphocytes # (auto) 1.6 10 ^3/uL (0.4-5.4); Lymphocytes % (auto) 13.5 % (10.0-50.0); Mean Corpuscular Hgb Conc. 31.7 g/dL (32.0-36.0); Mean Corpuscular Volume 97.7 fL (80.0-100.0); Monocytes % (auto) 6.8 % (0.0-12.0); Neutrophils # (auto) 9.1 10 ^3/uL (1.6-8.6); Neutrophils % (auto) 78.4 % (37.0-80.0); Platelet Count (auto) 509 10^3/uL (140-450); Red Blood Cells 5.66 10^6/uL (4.0-5.20); Red Cell Distribution Width 16.8 % (11.8-14.3); White Blood Cell 11.6 10^3/uL (4.4-10.8)
[2020-05-19] MEDS ORDERED: SODIUM CHLORIDE 0.9% 1,000 ML IV ONE ×2 (18:45→21:00)
[2020-05-19 18:48] LABS: INR 1.39 (0.9-1.15); Partial Thromboplastin Time 31.7 sec (23.64-32.05)
[2020-05-19 18:49] LABS: Albumin 3.1 g/dL (3.4-5.0); Anion Gap 12 (5-15); BUN/Creatinine Ratio 38.1; Blood Alcohol < 3.0 mg/dL (0-5); Blood Urea Nitrogen 37 mg/dL (7-18); Calcium 9.8 mg/dL (8.5-10.1); Carbon Dioxide 27 mmol/L (21-32); Chloride 93 mmol/L (98-107); GFR African American 80 mL/min; GFR Non-African American 66 mL/min; Glucose 109 mg/dL (74-106); Sodium 132 mmol/L (136-145)
[2020-05-19 19:14] LABS: Alanine Aminotransferase 142 U/L (13-56); Alkaline Phosphatase 355 U/L (45-117); Aspartate Aminotransferase 221 U/L (15-37); Bilirubin, Total 2.1 mg/dL (0.2-1.0); Total Protein 8.6 g/dL (6.4-8.2)
[2020-05-19 20:45] LABS: Urine Bacteria FEW /hpf (None Seen); Urine Blood Negative /uL (Negative); Urine Hyaline Cast FEW /lpf (0 - 2); Urine Specific Gravity 1.006 (1.001-1.035); Urine WBC <1 /hpf (0 - 5)
[2020-05-19 21:02] LABS: Alcohol, Urine < 3.0 mg/dL (0-10); Amphetamine Screen, Urine NEGATIVE (NEGATIVE); Barbiturate Scree,Urine NEGATIVE (NEGATIVE); Benzodiazephine Screen, Urine NEGATIVE (NEGATIVE); Cannabinoid Screen, Urine NEGATIVE (NEGATIVE); Cocaine Screen, Urine NEGATIVE (NEGATIVE); Opiate Scree,Urine NEGATIVE (NEGATIVE); Phencyclidine Screen, Urine NEGATIVE (NEGATIVE)
[2020-05-19] MEDS ORDERED: DOXYCYCLINE 100MG/250ML 250 ML IV ONE (21:15)
[2020-05-19] MEDS ORDERED: POTASSIUM CHL 20MEQ/100ML 100 ML IV ONE (23:00)
[2020-05-20] MEDS ORDERED: SODIUM CHLORIDE 0.9% 1,000 ML IV ONE (04:15)
[2020-05-20] MEDS ORDERED: HYDROcodone-ACET 5/325MG TAB PO PRN ×2 (04:15→13:15)
[2020-05-20] MEDS ORDERED: ONDANSETRON HCL 4 MG/2 ML VIAL IV PRN (04:15)
[2020-05-20] MEDS ORDERED: DOCUSATE SOD 100 MG CAP PO PRN (04:15)
[2020-05-20] MEDS ORDERED: LORazepam 0.5 MG TAB PO PRN (04:15)
[2020-05-20] MEDS ORDERED: ACETAMINOPHEN 500 MG TAB PO PRN ×2 (04:15→13:15)
[2020-05-20] MEDS ORDERED: MORPHINE SULF INJ 2 MG/ML SYRINGE 1ML IV PRN (04:15)
[2020-05-20] MEDS ORDERED: ALBUTEROL SULF HFA 90MCG INH 200DOSE IN SCH (06:00)
[2020-05-20] MEDS ORDERED: ASCORBIC ACID 1,000 MG TAB PO SCH (10:00)
[2020-05-20] MEDS ORDERED: ZINC SULFATE 220mg CAP or TAB PO SCH (10:00)
[2020-05-20] MEDS: cefTRIAXone 1GM/50ML D5W 50 ML IV SCH (10:00)
[2020-05-20] MEDS: DOXYCYCLINE 100MG/250ML 250 ML IV SCH ×2 (10:00→22:28)
[2020-05-20] MEDS ORDERED: ENOXAPARIN SOD 40 MG/0.4 ML SYRINGE SC SCH (10:00)
[2020-05-20] MEDS ORDERED: CHOLECALCIFEROL (VITD3) 1,000UNIT=25mCg TAB PO SCH (10:00)
[2020-05-20] MEDS ORDERED: SODIUM BICARBONATE 8.4 % INJ 50ML VIAL IV ONE (10:45)
[2020-05-20] MEDS ORDERED: SODIUM BICARBONATE 50ML VIAL 50 ML in D5W 5% 1,000 ML IV SCH (10:45)
[2020-05-20] MEDS ORDERED: IPRATROPIUM BROM 0.5 MG/2.5ML INH SOL NEB PRN (13:30)
[2020-05-20] MEDS ORDERED: ERGOCALCIFEROL 50,000 UNIT(1.25MG) CAP PO SCH (13:30)
[2020-05-20] MEDS ORDERED: ALBUTEROL SULF 2.5 MG/0.5ML(0.5%) NEB SOLN NEB PRN (13:30)
[2020-05-20 16:12] VITALS: BP 133/79
[2020-05-20 16:55] LABS: Eosinophils # (auto) 0.2 10 ^3/uL (0-0.8); Eosinophils % (auto) 1.6 % (0.0-7.0); Lymphocytes # (auto) 1.3 10 ^3/uL (0.4-5.4); Mean Corpuscular Volume 98.9 fL (80.0-100.0); Monocytes # (auto) 0.6 10 ^3/uL (0-1.3)
[2020-05-20 16:56] LABS: Basophils # (auto) 0.1 10 ^3/uL (0-0.2); Basophils % (auto) 0.5 % (0.0-2.0); Hemoglobin 17.9 g/dL (12.2-16.2); Lymphocytes % (auto) 13.1 % (10.0-50.0); Mean Corpuscular Hemoglobin 31.4 pg (28.0-32.0); Mean Corpuscular Hgb Conc. 31.8 g/dL (32.0-36.0); Monocytes % (auto) 5.6 % (0.0-12.0); Neutrophils # (auto) 7.9 10 ^3/uL (1.6-8.6); Neutrophils % (auto) 79.2 % (37.0-80.0); Platelet Count (auto) 482 10^3/uL (140-450); Red Blood Cells 5.69 10^6/uL (4.0-5.20); Red Cell Distribution Width 16.4 % (11.8-14.3); White Blood Cell 9.9 10^3/uL (4.4-10.8)
[2020-05-20 17:04] LABS: Hematocrit 56.2 % (36.0-46.0)
[2020-05-20 17:13] LABS: Albumin 3.1 g/dL (3.4-5.0); BUN/Creatinine Ratio 28.6; Calcium 9.9 mg/dL (8.5-10.1)
[2020-05-20 17:17] LABS: Bilirubin, Total 0.8 mg/dL (0.2-1.0); Total Protein 8.6 g/dL (6.4-8.2)
[2020-05-20] MEDS: APIXABAN 5 MG TAB PO SCH (22:28)
[2020-05-20] MEDS: POTASSIUM CHL 20 Meq TABLET PO SCH (22:28)
[2020-05-20] MEDS: FUROSEMIDE 40 MG TAB PO SCH (22:29)
[2020-05-20] MEDS: ATORVASTATIN 20 MG TAB PO SCH (22:29)
[2020-05-20] MEDS: METOPROLOL TARTRATE 50 MG TAB PO SCH (22:29)
[2020-05-21 08:52] LABS: Basophils # (auto) 0 10 ^3/uL (0-0.2); Basophils % (auto) 0.5 % (0.0-2.0); Eosinophils # (auto) 0.2 10 ^3/uL (0-0.8); Eosinophils % (auto) 2.7 % (0.0-7.0); Hematocrit 52.2 % (36.0-46.0); Hemoglobin 16.6 g/dL (12.2-16.2); Lymphocytes # (auto) 1.4 10 ^3/uL (0.4-5.4); Lymphocytes % (auto) 15.5 % (10.0-50.0); Mean Corpuscular Hemoglobin 31.5 pg (28.0-32.0); Mean Corpuscular Hgb Conc. 31.8 g/dL (32.0-36.0); Mean Corpuscular Volume 99.1 fL (80.0-100.0); Monocytes # (auto) 0.7 10 ^3/uL (0-1.3); Monocytes % (auto) 7.4 % (0.0-12.0); Neutrophils # (auto) 6.6 10 ^3/uL (1.6-8.6); Neutrophils % (auto) 73.9 % (37.0-80.0); Nucleated Red Blood Cells % 0.1 %; Platelet Count (auto) 437 10^3/uL (140-450); Red Blood Cells 5.27 10^6/uL (4.0-5.20); Red Cell Distribution Width 16.6 % (11.8-14.3); White Blood Cell 8.9 10^3/uL (4.4-10.8)
[2020-05-21 09:17] LABS: Albumin 2.8 g/dL (3.4-5.0); Calcium 9.6 mg/dL (8.5-10.1); Potassium 3.3 mmol/L (3.5-5.1)
[2020-05-21 09:20] LABS: BUN/Creatinine Ratio 28.6; Bilirubin, Total 0.6 mg/dL (0.2-1.0); Total Protein 8.2 g/dL (6.4-8.2)
[2020-05-21] MEDS: METOPROLOL TARTRATE 50 MG TAB PO SCH ×2 (09:29→22:00)
[2020-05-21] MEDS: POTASSIUM CHL 20 Meq TABLET PO SCH ×2 (09:29→22:00)
[2020-05-21] MEDS: cefTRIAXone 1GM/50ML D5W 50 ML IV SCH (09:29)
[2020-05-21] MEDS: DOXYCYCLINE 100MG/250ML 250 ML IV SCH ×2 (09:29→22:00)
[2020-05-21] MEDS: APIXABAN 5 MG TAB PO SCH ×2 (09:29→22:00)
[2020-05-21] MEDS: FUROSEMIDE 40 MG TAB PO SCH ×2 (09:29→22:00)
[2020-05-21] MEDS: amLODIPine BESYLATE 5 MG TAB PO SCH (09:30)
[2020-05-21 22:00] VITALS: BP 159/102
[2020-05-21] MEDS: ATORVASTATIN 20 MG TAB PO SCH (22:00)
[2020-05-21 23:54] VITALS: BP 159/102
[2020-05-22 05:00] VITALS: BP 137/60
[2020-05-22 08:00] VITALS: BP 122/74
[2020-05-22 09:00] VITALS: BP 122/74
[2020-05-22] MEDS: cefTRIAXone 1GM/50ML D5W 50 ML IV SCH (09:09)
[2020-05-22] MEDS: APIXABAN 5 MG TAB PO SCH ×2 (09:10→22:32)
[2020-05-22] MEDS: FUROSEMIDE 40 MG TAB PO SCH ×2 (09:17→22:34)
[2020-05-22 09:18] LABS: Basophils # (auto) 0 10 ^3/uL (0-0.2); Basophils % (auto) 0.5 % (0.0-2.0); Eosinophils # (auto) 0.1 10 ^3/uL (0-0.8); Eosinophils % (auto) 1.6 % (0.0-7.0); Hematocrit 55.1 % (36.0-46.0); Hemoglobin 17.4 g/dL (12.2-16.2); Lymphocytes # (auto) 1.2 10 ^3/uL (0.4-5.4); Mean Corpuscular Hemoglobin 31.5 pg (28.0-32.0); Mean Corpuscular Hgb Conc. 31.5 g/dL (32.0-36.0); Monocytes # (auto) 0.4 10 ^3/uL (0-1.3); Monocytes % (auto) 4.7 % (0.0-12.0); Neutrophils % (auto) 79.2 % (37.0-80.0); Nucleated Red Blood Cells % 0.1 %; Platelet Count (auto) 493 10^3/uL (140-450); Red Blood Cells 5.51 10^6/uL (4.0-5.20); Red Cell Distribution Width 16.6 % (11.8-14.3); White Blood Cell 8.9 10^3/uL (4.4-10.8)
[2020-05-22] MEDS: POTASSIUM CHL 20 Meq TABLET PO SCH ×2 (09:18→22:32)
[2020-05-22] MEDS: amLODIPine BESYLATE 5 MG TAB PO SCH (09:19)
[2020-05-22] MEDS: METOPROLOL TARTRATE 50 MG TAB PO SCH ×2 (09:19→22:33)
[2020-05-22 09:40] LABS: Calcium 9.2 mg/dL (8.5-10.1); Potassium 3.7 mmol/L (3.5-5.1)
[2020-05-22 09:46] LABS: BUN/Creatinine Ratio 20.6; Bilirubin, Total 0.6 mg/dL (0.2-1.0); Total Protein 8.4 g/dL (6.4-8.2)
[2020-05-22] MEDS: DOXYCYCLINE 100MG/250ML 250 ML IV SCH ×2 (10:59→22:32)
[2020-05-22 13:00] VITALS: BP 105/65
[2020-05-22 16:40] VITALS: BP 119/67
[2020-05-22 22:00] VITALS: BP 100/69
[2020-05-22] MEDS: ATORVASTATIN 20 MG TAB PO SCH (22:32)
[2020-05-22] MEDS: LITHIUM CARBONATE 300 MG TAB PO SCH (22:32)
[2020-05-22] MEDS: QUEtiapine FUMARATE 100 MG TAB PO SCH (22:33)
[2020-05-23 06:00] VITALS: BP 95/66
[2020-05-23] MEDS: LITHIUM CARBONATE 300 MG TAB PO SCH ×2 (06:22→22:46)
[2020-05-23] MEDS: QUEtiapine FUMARATE 100 MG TAB PO SCH ×2 (06:22→22:44)
[2020-05-23 09:00] VITALS: BP 100/74
[2020-05-23] MEDS: amLODIPine BESYLATE 5 MG TAB PO SCH (10:00)
[2020-05-23] MEDS: METOPROLOL TARTRATE 50 MG TAB PO SCH ×2 (10:00→22:45)
[2020-05-23 10:12] LABS: Hepatitis B Surface Antigen Negative (Negative)
[2020-05-23] MEDS: cefTRIAXone 1GM/50ML D5W 50 ML IV SCH (10:12)
[2020-05-23] MEDS: FUROSEMIDE 40 MG TAB PO SCH ×2 (10:13→22:47)
[2020-05-23] MEDS: POTASSIUM CHL 20 Meq TABLET PO SCH ×2 (10:13→22:45)
[2020-05-23] MEDS: DOXYCYCLINE 100MG/250ML 250 ML IV SCH (10:13)
[2020-05-23] MEDS: APIXABAN 5 MG TAB PO SCH ×2 (10:13→22:46)
[2020-05-23 10:29] LABS: Basophils # (auto) 0.1 10 ^3/uL (0-0.2); Eosinophils # (auto) 0.2 10 ^3/uL (0-0.8); White Blood Cell 7.2 10^3/uL (4.4-10.8)
[2020-05-23 10:30] LABS: Hepatitis A Ab IgM Negative
[2020-05-23 10:33] LABS: Hepatitis B Core IgM Negative
[2020-05-23 10:47] LABS: Hepatitis C Antibody Negative (Negative)
[2020-05-23 10:49] LABS: Calcium 9.6 mg/dL (8.5-10.1)
[2020-05-23 10:56] LABS: BUN/Creatinine Ratio 15.8; Bilirubin, Total 0.5 mg/dL (0.2-1.0); Total Protein 9.1 g/dL (6.4-8.2)
[2020-05-23 10:59] LABS: Basophils % (auto) 0.8 % (0.0-2.0); Hemoglobin 18.6 g/dL (12.2-16.2); Lymphocytes % (auto) 27.2 % (10.0-50.0); Mean Corpuscular Hemoglobin 31.6 pg (28.0-32.0); Mean Corpuscular Hgb Conc. 31.9 g/dL (32.0-36.0); Mean Corpuscular Volume 99.3 fL (80.0-100.0); Monocytes # (auto) 0.4 10 ^3/uL (0-1.3); Monocytes % (auto) 5.4 % (0.0-12.0); Neutrophils # (auto) 4.6 10 ^3/uL (1.6-8.6); Neutrophils % (auto) 63.6 % (37.0-80.0); Platelet Count (auto) 419 10^3/uL (140-450); Potassium 4.6 mmol/L (3.5-5.1); Red Blood Cells 5.88 10^6/uL (4.0-5.20); Red Cell Distribution Width 16.9 % (11.8-14.3)
[2020-05-23 11:02] LABS: Hematocrit 58.4 % (36.0-46.0)
[2020-05-23 13:00] VITALS: BP 111/69
[2020-05-23 18:28] VITALS: BP 100/74
[2020-05-23 22:00] VITALS: BP 130/82
[2020-05-23] MEDS: ATORVASTATIN 20 MG TAB PO SCH (22:46)
[2020-05-24 05:00] VITALS: BP 116/72
[2020-05-24 06:17] LABS: Basophils # (auto) 0 10 ^3/uL (0-0.2); Basophils % (auto) 0.7 % (0.0-2.0); Eosinophils # (auto) 0.2 10 ^3/uL (0-0.8); Eosinophils % (auto) 2.9 % (0.0-7.0); Hematocrit 51.9 % (36.0-46.0); Hemoglobin 16.7 g/dL (12.2-16.2); Lymphocytes % (auto) 29.5 % (10.0-50.0); Mean Corpuscular Hemoglobin 31.8 pg (28.0-32.0); Mean Corpuscular Hgb Conc. 32.1 g/dL (32.0-36.0); Mean Corpuscular Volume 99.1 fL (80.0-100.0); Monocytes # (auto) 0.4 10 ^3/uL (0-1.3); Monocytes % (auto) 6.5 % (0.0-12.0); Neutrophils # (auto) 4.1 10 ^3/uL (1.6-8.6); Neutrophils % (auto) 60.4 % (37.0-80.0); Nucleated Red Blood Cells % 0.4 %; Platelet Count (auto) 410 10^3/uL (140-450); Red Blood Cells 5.23 10^6/uL (4.0-5.20); Red Cell Distribution Width 16.7 % (11.8-14.3); White Blood Cell 6.8 10^3/uL (4.4-10.8)
[2020-05-24 06:34] LABS: Albumin 2.9 g/dL (3.4-5.0); Calcium 9.5 mg/dL (8.5-10.1); Potassium 3.6 mmol/L (3.5-5.1)
[2020-05-24 06:39] LABS: BUN/Creatinine Ratio 26.7; Bilirubin, Total 0.3 mg/dL (0.2-1.0); Total Protein 8.1 g/dL (6.4-8.2)
[2020-05-24] MEDS: LITHIUM CARBONATE 300 MG TAB PO SCH (07:16)
[2020-05-24] MEDS: QUEtiapine FUMARATE 100 MG TAB PO SCH (07:16)
[2020-05-24 09:00] VITALS: BP 105/56
[2020-05-24] MEDS: APIXABAN 5 MG TAB PO SCH (09:07)
[2020-05-24] MEDS: POTASSIUM CHL 20 Meq TABLET PO SCH (09:07)
[2020-05-24] MEDS: cefTRIAXone 1GM/50ML D5W 50 ML IV SCH (09:08)
[2020-05-24] MEDS: METOPROLOL TARTRATE 50 MG TAB PO SCH (10:00)
[2020-05-24] MEDS: FUROSEMIDE 40 MG TAB PO SCH (10:00)
[2020-05-24] MEDS: amLODIPine BESYLATE 5 MG TAB PO SCH (10:00)
[2020-05-24 13:00] VITALS: BP 107/67
[2020-05-24 16:55] VITALS: BP 116/68
== END 2020-05-24 19:20 | disposition home or self-care (01) | DRG 52 ==
LOC: EDSEX 17:48 → EDBD 17:48 → ER 17:48 → OVERFLOW 17:49 → TELE-WESTW 05-21 21:49
PROVIDERS: ADMIT Hospitalist; ATTEND Internal Medicine
DX: G93.41 Metabolic encephalopathy (principal); N39.0 Urinary tract infection, site not specified; F60.3 Borderline personality disorder; F25.9 Schizoaffective disorder, unspecified; K83.1 Obstruction of bile duct; E55.9 Vitamin D deficiency, unspecified; E78.5 Hyperlipidemia, unspecified; I11.0 Hypertensive heart disease with heart failure; I50.9 Heart failure, unspecified; Z20.828 Contact with and (suspected) exposure to other viral communicable diseases; E03.9 Hypothyroidism, unspecified; E66.9 Obesity, unspecified; F17.210 Nicotine dependence, cigarettes, uncomplicated; J44.9 Chronic obstructive pulmonary disease, unspecified; F41.9 Anxiety disorder, unspecified; F31.9 Bipolar disorder, unspecified; I27.21 Secondary pulmonary arterial hypertension; Z83.3 Family history of diabetes mellitus; Z86.711 Personal history of pulmonary embolism; Z90.49 Acquired absence of other specified parts of digestive tract; Z79.899 Other long term (current) drug therapy; Z68.36 Body mass index [BMI] 36.0-36.9, adult; J18.9 Pneumonia, unspecified organism
CPT/HCPCS: 36415; 70450; 71045; 74181; 76705; 80053; 80074; 80156; 80178; 80307; 80320; 81001; 81025; 82140; 82728; 83605; 83615; 83735; 84484; 85025; 85610; 85730; 86141; 87040; 87086; 93005; 96361; 96365; 96366; 96367; G0378; J0696; J3480; J3490

== ENCOUNTER 2020-12-17 14:18 | Emergency (ER) | payer MEDICAID ==
[~2020-12-17] VITALS: Ht 162.6 cm; Wt 99.8 kg
[~2020-12-17 14:18] MED LIST changes: +ERGO1CAP12 PO; -ERGO1CAP6 PO; -HCTZ25T PO; +HYDR25TA5 PO; +LEV150T PO; -LEVO150T68 PO; -METR250T PO
[2020-12-17] MEDS ORDERED: methylPREDNISolone SOD SUCC 125 MG/2 ML VL IV ONE (15:00)
[2020-12-17] MEDS ORDERED: cefTRIAXone 1GM/50ML D5W 50 ML IV ONE (15:00)
[2020-12-17] MEDS ORDERED: ONDANSETRON HCL 4 MG/2 ML VIAL IV ONE (15:15)
[2020-12-17 15:45] LABS: Basophils # (auto) 0.1 10 ^3/uL (0-0.2); Eosinophils # (auto) 0 10 ^3/uL (0-0.8); Lymphocytes # (auto) 0.7 10 ^3/uL (0.4-5.4); Monocytes # (auto) 0.4 10 ^3/uL (0-1.3); Neutrophils # (auto) 7.2 10 ^3/uL (1.6-8.6); White Blood Cell 8.4 10^3/uL (4.4-10.8)
[2020-12-17 15:47] LABS: Eosinophils % (auto) 0.1 % (0.0-7.0); Hematocrit 52.9 % (36.0-46.0); Hemoglobin 17.1 g/dL (12.2-16.2); Lymphocytes % (auto) 8.1 % (10.0-50.0); Mean Corpuscular Hemoglobin 28.5 pg (28.0-32.0); Mean Corpuscular Hgb Conc. 32.4 g/dL (32.0-36.0); Mean Corpuscular Volume 87.9 fL (80.0-100.0); Monocytes % (auto) 5.3 % (0.0-12.0); Neutrophils % (auto) 85.5 % (37.0-80.0); Nucleated Red Blood Cells % 0.1 %; Platelet Count (auto) 338 10^3/uL (140-450); Red Blood Cells 6.01 10^6/uL (4.0-5.20); Red Cell Distribution Width 19.1 % (11.8-14.3)
[2020-12-17 16:07] LABS: Albumin 3.4 g/dL (3.4-5.0); Anion Gap 6 (5-15); BUN/Creatinine Ratio 11.8; Blood Urea Nitrogen 11 mg/dL (7-18); Calcium 9.4 mg/dL (8.5-10.1); Carbon Dioxide 26 mmol/L (21-32); Chloride 107 mmol/L (98-107); GFR African American 83 mL/min; GFR Non-African American 69 mL/min; Glucose 103 mg/dL (74-106); Potassium 4.8 mmol/L (3.5-5.1); Sodium 139 mmol/L (136-145)
[2020-12-17 16:12] LABS: Alanine Aminotransferase 18 U/L (13-56); Alkaline Phosphatase 122 U/L (45-117); Aspartate Aminotransferase 23 U/L (15-37); Bilirubin, Total 0.6 mg/dL (0.2-1.0); Total Protein 8.5 g/dL (6.4-8.2)
[2020-12-17] MEDS ORDERED: FUROSEMIDE 40 MG/4 ML VIAL IV ONE (17:00)
[2020-12-17 17:54] VITALS: BP 170/101
== END 2020-12-17 17:57 | disposition home or self-care (01) ==
LOC: EDSEX 14:18 → EDBD 14:18 → ER 14:18
DX: J44.1 Chronic obstructive pulmonary disease with (acute) exacerbation (principal); F17.210 Nicotine dependence, cigarettes, uncomplicated; I11.0 Hypertensive heart disease with heart failure; I50.9 Heart failure, unspecified; E78.5 Hyperlipidemia, unspecified; Z90.49 Acquired absence of other specified parts of digestive tract; Z20.822 Contact with and (suspected) exposure to COVID-19
CPT/HCPCS: 36415; 71045; 80053; 84484; 85025; 87426; 93005; 96365; 96375; 99285; J0696; J2405; J2930

== ENCOUNTER 2020-12-26 18:48 | Emergency (ER) | payer MEDICAID ==
[2020-12-26] MEDS ORDERED: SODIUM CHLORIDE 0.9% 1,000 ML IV ONE (19:45)
[2020-12-26] MEDS ORDERED: ONDANSETRON HCL 4 MG/2 ML VIAL IV ONE (19:45)
[2020-12-26 20:58] LABS: Basophils # (auto) 0 10 ^3/uL (0-0.2); Basophils % (auto) 0.2 % (0.0-2.0); Eosinophils # (auto) 0 10 ^3/uL (0-0.8); Mean Corpuscular Hemoglobin 28.1 pg (28.0-32.0); Neutrophils % (auto) 70.3 % (37.0-80.0); White Blood Cell 6.6 10^3/uL (4.4-10.8)
[2020-12-26 21:01] LABS: Eosinophils % (auto) 0.3 % (0.0-7.0); Hemoglobin 18.2 g/dL (12.2-16.2); Lymphocytes # (auto) 1.3 10 ^3/uL (0.4-5.4); Lymphocytes % (auto) 20.5 % (10.0-50.0); Mean Corpuscular Hgb Conc. 31.9 g/dL (32.0-36.0); Mean Corpuscular Volume 88.2 fL (80.0-100.0); Monocytes # (auto) 0.6 10 ^3/uL (0-1.3); Monocytes % (auto) 8.7 % (0.0-12.0); Neutrophils # (auto) 4.6 10 ^3/uL (1.6-8.6); Nucleated Red Blood Cells % 0.3 %; Platelet Count (auto) 262 10^3/uL (140-450); Red Blood Cells 6.46 10^6/uL (4.0-5.20)
[2020-12-26 21:15] LABS: Potassium 3.9 mmol/L (3.5-5.1)
[2020-12-26 21:16] LABS: Red Cell Distribution Width 20.6 % (11.8-14.3)
[2020-12-26 21:34] LABS: Albumin 3.2 g/dL (3.4-5.0); Bilirubin, Total 0.6 mg/dL (0.2-1.0); Calcium 9.4 mg/dL (8.5-10.1); Total Protein 7.9 g/dL (6.4-8.2)
[2020-12-26] MEDS ORDERED: MAGNESIUM CITRATE SOLUTION 300 ML BTL PO ONE (22:15)
[2020-12-27] MEDS ORDERED: MORPHINE SULFATE 4 MG/ML SYR/VIAL IV ONE (01:15)
[2020-12-27] MEDS ORDERED: LORazepam 2MG/ML-1ML VIAL IV ONE (03:45)
[2020-12-27 07:48] VITALS: BP 157/89
== END 2020-12-27 08:43 | disposition home or self-care (01) ==
LOC: EDBD 18:48 → ER 18:48
DX: K42.9 Umbilical hernia without obstruction or gangrene (principal); I11.0 Hypertensive heart disease with heart failure; I50.9 Heart failure, unspecified; J44.9 Chronic obstructive pulmonary disease, unspecified; E78.5 Hyperlipidemia, unspecified; Z90.49 Acquired absence of other specified parts of digestive tract
CPT/HCPCS: 36415; 74176; 80053; 82150; 83690; 85025; 96361; 96374; 96375; 99285; J2060; J2270; J2405; J7030

== ENCOUNTER 2020-12-27 22:33 | Emergency (ER) | payer MEDICAID ==
[~2020-12-27] VITALS: Ht 157.5 cm; Wt 99.8 kg
[2020-12-28 02:31] LABS: Basophils # (auto) 0.1 10 ^3/uL (0-0.2); Eosinophils # (auto) 0 10 ^3/uL (0-0.8); Eosinophils % (auto) 0.3 % (0.0-7.0); Hematocrit 53.7 % (36.0-46.0); Hemoglobin 16.7 g/dL (12.2-16.2); Lymphocytes # (auto) 1.2 10 ^3/uL (0.4-5.4); Lymphocytes % (auto) 21.1 % (10.0-50.0); Mean Corpuscular Hemoglobin 27.8 pg (28.0-32.0); Mean Corpuscular Hgb Conc. 31.1 g/dL (32.0-36.0); Mean Corpuscular Volume 89.2 fL (80.0-100.0); Monocytes # (auto) 0.4 10 ^3/uL (0-1.3); Monocytes % (auto) 7.3 % (0.0-12.0); Neutrophils % (auto) 70.3 % (37.0-80.0); Nucleated Red Blood Cells % 0.3 %; Platelet Count (auto) 205 10^3/uL (140-450); Red Blood Cells 6.02 10^6/uL (4.0-5.20); White Blood Cell 5.6 10^3/uL (4.4-10.8)
[2020-12-28 02:32] LABS: Red Cell Distribution Width 20.9 % (11.8-14.3)
[2020-12-28 02:48] LABS: Alanine Aminotransferase 26 U/L (13-56); Albumin 2.7 g/dL (3.4-5.0); Anion Gap 7 (5-15); Aspartate Aminotransferase 26 U/L (15-37); Blood Alcohol < 3.0 mg/dL (0-5); Blood Urea Nitrogen 6 mg/dL (7-18); Calcium 8.6 mg/dL (8.5-10.1); Carbon Dioxide 23 mmol/L (21-32); Chloride 109 mmol/L (98-107); GFR African American 107 mL/min; GFR Non-African American 88 mL/min; Glucose 76 mg/dL (74-106); Magnesium 1.7 mg/dL (1.6-2.6); Potassium 3.7 mmol/L (3.5-5.1); Sodium 139 mmol/L (136-145)
[2020-12-28 02:50] LABS: Acetaminophen < 2.0 ug/mL (10-30)
[2020-12-28 02:51] LABS: Alkaline Phosphatase 109 U/L (45-117); Bilirubin, Total 0.6 mg/dL (0.2-1.0); Total Protein 6.9 g/dL (6.4-8.2)
[2020-12-28] MEDS ORDERED: IOHEXOL 300 MG/ML 100ML BOTTLE IJ ONE (07:18)
[2020-12-28 12:27] LABS: Alcohol, Urine < 3.0 mg/dL (0-10); Amphetamine Screen, Urine NEGATIVE (NEGATIVE); Barbiturate Scree,Urine NEGATIVE (NEGATIVE); Benzodiazephine Screen, Urine NEGATIVE (NEGATIVE); Cocaine Screen, Urine NEGATIVE (NEGATIVE); Opiate Scree,Urine NEGATIVE (NEGATIVE); Phencyclidine Screen, Urine NEGATIVE (NEGATIVE)
[2020-12-28 12:32] LABS: Urine Bacteria FEW /hpf (None Seen); Urine Blood Negative /uL (Negative); Urine Specific Gravity 1.017 (1.001-1.035); Urine WBC <1 /hpf (0 - 5)
[2020-12-28 12:35] LABS: Cannabinoid Screen, Urine POSITIVE (NEGATIVE)
[2020-12-28] MEDS ORDERED: diazePAM 2 MG TAB PO PRN (23:30)
[2020-12-28] MEDS ORDERED: diphenhdrAMINE HCL 50 MG/1 ML VL IV ONE (23:45)
[2020-12-28] MEDS ORDERED: HALOPERIDOL LACTATE 5 MG/ML INJ VIAL IM ONE (23:45)
[2020-12-28] MEDS ORDERED: LORazepam 2MG/ML-1ML VIAL IV ONE (23:45)
[2020-12-28] MEDS ORDERED: ONDANSETRON HCL 4 MG/2 ML VIAL ONE (23:46)
[2020-12-29] MEDS ORDERED: ONDANSETRON HCL 4 MG/2 ML VIAL IV PRN
[2020-12-30 06:31] VITALS: BP 163/99
== END 2020-12-29 23:53 | disposition home or self-care (01) ==
LOC: ER 22:33 → EDBD 22:33 → ER 12-29 23:53
DX: R45.851 Suicidal ideations (principal); R11.2 Nausea with vomiting, unspecified; I11.0 Hypertensive heart disease with heart failure; I50.9 Heart failure, unspecified; J44.9 Chronic obstructive pulmonary disease, unspecified; E78.5 Hyperlipidemia, unspecified; F17.210 Nicotine dependence, cigarettes, uncomplicated; Z90.49 Acquired absence of other specified parts of digestive tract; Z20.822 Contact with and (suspected) exposure to COVID-19
CPT/HCPCS: 36415; 74177; 80053; 80307; 80320; 80329; 81001; 83605; 83735; 84443; 85025; 87426; 96372; 96374; 96375; 99285; C9803; U0003

== ENCOUNTER → 2021-01-15 | Outpatient (CLI) | payer MEDICAID ==
[~2021-01-15] MED LIST changes: +IPRIH IN; +LEVO150T10 PO; +LITH300C3 PO; +LORA-655 PO; +METO-158 PO; +ONDA-144 PO; +PRED20TA2 PO; +QUET200T4 PO; +SERT100T PO; +ZOLP5TAB PO
== END | disposition home or self-care (01) ==
LOC: RT 15:48
PROVIDERS: ATTEND Internal Medicine
DX: R09.02 Hypoxemia (principal); J44.9 Chronic obstructive pulmonary disease, unspecified; I50.9 Heart failure, unspecified; F20.89 Other schizophrenia; F31.89 Other bipolar disorder; F99 Mental disorder, not otherwise specified; F17.200 Nicotine dependence, unspecified, uncomplicated
CPT/HCPCS: 36600; 82805

== ENCOUNTER 2021-01-16 14:35 | Inpatient (IN) | payer MEDICAID ==
[2021-01-15 23:30] VITALS: BP 160/96
[~2021-01-16] VITALS: Ht 172.7 cm; Wt 116.0 kg
[~2021-01-16 14:35] MED LIST changes: -IPRIH IN; -LEVO150T10 PO; -LITH300C3 PO; -LORA-655 PO; -METO-158 PO; -ONDA-144 PO; -PRED20TA2 PO; -QUET200T4 PO; -SERT100T PO; -ZOLP5TAB PO
[2021-01-16] MEDS ORDERED: FUROSEMIDE 40 MG/4 ML VIAL IV ONE (15:15)
[2021-01-16 16:08] LABS: Basophils # (auto) 0 10 ^3/uL (0-0.2); Basophils % (auto) 0.5 % (0.0-2.0); Eosinophils # (auto) 0.1 10 ^3/uL (0-0.8); Eosinophils % (auto) 1.4 % (0.0-7.0); Hematocrit 51.6 % (36.0-46.0); Hemoglobin 16.6 g/dL (12.2-16.2); Lymphocytes # (auto) 1.5 10 ^3/uL (0.4-5.4); Lymphocytes % (auto) 19.4 % (10.0-50.0); Mean Corpuscular Hemoglobin 28.2 pg (28.0-32.0); Mean Corpuscular Hgb Conc. 32.1 g/dL (32.0-36.0); Mean Corpuscular Volume 87.8 fL (80.0-100.0); Monocytes # (auto) 0.3 10 ^3/uL (0-1.3); Monocytes % (auto) 4.6 % (0.0-12.0); Neutrophils # (auto) 5.6 10 ^3/uL (1.6-8.6); Neutrophils % (auto) 74.1 % (37.0-80.0); Nucleated Red Blood Cells % 0.1 %; Platelet Count (auto) 377 10^3/uL (140-450); Red Blood Cells 5.88 10^6/uL (4.0-5.20); Red Cell Distribution Width 21.3 % (11.8-14.3); White Blood Cell 7.6 10^3/uL (4.4-10.8)
[2021-01-16 16:10] LABS: Anion Gap 3 (5-15); Blood Urea Nitrogen 7 mg/dL (7-18); Carbon Dioxide 27 mmol/L (21-32); Chloride 108 mmol/L (98-107); Glucose 102 mg/dL (74-106); Potassium 4.8 mmol/L (3.5-5.1); Sodium 138 mmol/L (136-145)
[2021-01-16 16:15] LABS: Urine Bacteria NONE SEEN /hpf (None Seen); Urine Blood Negative /uL (Negative); Urine Specific Gravity 1.003 (1.001-1.035); Urine WBC 1 /hpf (0 - 5)
[2021-01-16 16:16] LABS: Alanine Aminotransferase 56 U/L (13-56); Alkaline Phosphatase 188 U/L (45-117); Aspartate Aminotransferase 26 U/L (15-37); BUN/Creatinine Ratio 8.2; Bilirubin, Total 0.4 mg/dL (0.2-1.0); GFR African American 93 mL/min; GFR Non-African American 77 mL/min; Total Protein 7.8 g/dL (6.4-8.2)
[2021-01-16] MEDS ORDERED: MORPHINE SULF INJ 2 MG/ML SYRINGE 1ML IV PRN (22:00)
[2021-01-16] MEDS ORDERED: amLODIPine BESYLATE 5 MG TAB PO ONE (22:00)
[2021-01-16] MEDS ORDERED: NICOTINE 21MG/24 HR TOPICAL PATCH TD SCH (22:00)
[2021-01-16] MEDS ORDERED: hydrALAZINE HCL 20 MG/ML VL IV PRN (22:00)
[2021-01-16] MEDS ORDERED: METOPROLOL SUCCINATE XL 50 MG TAB PO ONE (22:00)
[2021-01-16] MEDS ORDERED: NITROGLYCERIN 0.4 MG SL TAB SL PRN (22:00)
[2021-01-16 22:38] VITALS: BP 177/97
[2021-01-16] MEDS ORDERED: ALBUTEROL SULF 2.5 MG/0.5ML(0.5%) NEB SOLN NEB PRN (22:45)
[2021-01-17] VITALS: BP 177/97
[2021-01-17] MEDS ORDERED: ALBUTEROL SULF 2.5 MG/0.5ML(0.5%) NEB SOLN NEB SCH
[2021-01-17] MEDS ORDERED: hydrALAZINE HCL 20 MG/ML VL IV ONE (03:15)
[2021-01-17] MEDS ORDERED: HYDROcodone-ACET 5/325MG TAB PO PRN (03:15)
[2021-01-17 04:18] VITALS: BP 158/86
[2021-01-17 05:00] VITALS: BP 150/82
[2021-01-17 06:00] VITALS: BP 140/87
[2021-01-17 07:10] LABS: Basophils # (auto) 0 10 ^3/uL (0-0.2); Basophils % (auto) 0.5 % (0.0-2.0); Eosinophils # (auto) 0.1 10 ^3/uL (0-0.8); Eosinophils % (auto) 0.9 % (0.0-7.0); Hemoglobin 16.7 g/dL (12.2-16.2); Lymphocytes # (auto) 0.8 10 ^3/uL (0.4-5.4); Lymphocytes % (auto) 10.7 % (10.0-50.0); Mean Corpuscular Hemoglobin 27.9 pg (28.0-32.0); Mean Corpuscular Hgb Conc. 32.1 g/dL (32.0-36.0); Mean Corpuscular Volume 86.9 fL (80.0-100.0); Monocytes # (auto) 0.4 10 ^3/uL (0-1.3); Monocytes % (auto) 4.8 % (0.0-12.0); Neutrophils # (auto) 6.2 10 ^3/uL (1.6-8.6); Neutrophils % (auto) 83.1 % (37.0-80.0); Nucleated Red Blood Cells % 0.1 %; Platelet Count (auto) 381 10^3/uL (140-450); Red Blood Cells 5.99 10^6/uL (4.0-5.20); Red Cell Distribution Width 20.8 % (11.8-14.3); White Blood Cell 7.4 10^3/uL (4.4-10.8)
[2021-01-17 07:27] LABS: BUN/Creatinine Ratio 8.3; Calcium 9.3 mg/dL (8.5-10.1)
[2021-01-17] MEDS ORDERED: ONDANSETRON HCL 4 MG/2 ML VIAL IV PRN (07:45)
[2021-01-17] MEDS ORDERED: ACETAMINOPHEN 325 MG TAB PO PRN (07:45)
[2021-01-17] MEDS ORDERED: FUROSEMIDE 40 MG/4 ML VIAL IV SCH (10:00)
[2021-01-17] MEDS ORDERED: amLODIPine BESYLATE 5 MG TAB PO SCH (10:00)
[2021-01-17] MEDS ORDERED: METOPROLOL SUCCINATE XL 50 MG TAB PO SCH (10:00)
[2021-01-18] MEDS ORDERED: SIMV-8 PO (13:09)
[2021-01-18] MEDS ORDERED: GABA400C PO (13:09)
[2021-01-18] MEDS ORDERED: CARB200T PO (13:09)
[2021-01-18] MEDS ORDERED: APIX5TAB PO (13:09)
[2021-01-18] MEDS ORDERED: LITH300C3 PO (13:09)
[2021-01-18] MEDS ORDERED: LEVO150T10 PO (13:09)
[2021-01-18] MEDS ORDERED: METO-158 PO (13:09)
[2021-01-18] MEDS ORDERED: QUET200T4 PO ×2 (13:09)
[2021-01-18] MEDS ORDERED: SERT100T PO (13:09)
[2021-01-18] MEDS ORDERED: LORA-655 PO (13:30)
[2021-01-18] MEDS ORDERED: ZOLP5TAB PO (13:30)
[2021-01-18] MEDS ORDERED: ONDA-144 PO (18:31)
== END 2021-01-17 08:47 | disposition left against medical advice (07) | DRG 194 ==
LOC: ER 14:35 → OVERFLOW 21:49 → EAST 23:15 → WEST WING 23:20
PROVIDERS: ADMIT Internal Medicine; ATTEND Internal Medicine
DX: I11.0 Hypertensive heart disease with heart failure (principal); J96.11 Chronic respiratory failure with hypoxia; E66.01 Morbid (severe) obesity due to excess calories; F20.9 Schizophrenia, unspecified; I50.43 Acute on chronic combined systolic (congestive) and diastolic (congestive) heart failure; Z20.822 Contact with and (suspected) exposure to COVID-19; E78.5 Hyperlipidemia, unspecified; F17.210 Nicotine dependence, cigarettes, uncomplicated; F31.9 Bipolar disorder, unspecified; J44.9 Chronic obstructive pulmonary disease, unspecified; Z53.29 Procedure and treatment not carried out because of patient's decision for other reasons; Z68.38 Body mass index [BMI] 38.0-38.9, adult; S82.891A Other fracture of right lower leg, initial encounter for closed fracture; X58.XXXA Exposure to other specified factors, initial encounter; Y93.89 Activity, other specified; Y92.89 Other specified places as the place of occurrence of the external cause; Y99.8 Other external cause status
CPT/HCPCS: 36415; 36600; 71045; 80048; 80053; 81001; 82805; 83880; 84484; 85025; 87081; 87426; 93005; 96374; 96375; G0378; J2405

== ENCOUNTER 2021-01-17 11:54 | Inpatient (IN) | payer MEDICAID ==
[~2021-01-17] VITALS: Ht 162.6 cm; Wt 109.6 kg
[2021-01-17 12:41] LABS: Basophils # (auto) 0 10 ^3/uL (0-0.2); Eosinophils # (auto) 0 10 ^3/uL (0-0.8); Eosinophils % (auto) 0.4 % (0.0-7.0); Monocytes # (auto) 0.4 10 ^3/uL (0-1.3); Neutrophils # (auto) 6.1 10 ^3/uL (1.6-8.6)
[2021-01-17 12:43] LABS: Basophils % (auto) 0.5 % (0.0-2.0); Hematocrit 53.8 % (36.0-46.0); Hemoglobin 17.1 g/dL (12.2-16.2); Lymphocytes # (auto) 0.9 10 ^3/uL (0.4-5.4); Lymphocytes % (auto) 11.4 % (10.0-50.0); Mean Corpuscular Hgb Conc. 31.8 g/dL (32.0-36.0); Mean Corpuscular Volume 88.2 fL (80.0-100.0); Monocytes % (auto) 5.4 % (0.0-12.0); Neutrophils % (auto) 82.3 % (37.0-80.0); Nucleated Red Blood Cells % 0.1 %; Red Cell Distribution Width 21.4 % (11.8-14.3); White Blood Cell 7.5 10^3/uL (4.4-10.8)
[2021-01-17 12:57] LABS: Alanine Aminotransferase 46 U/L (13-56); Albumin 3.3 g/dL (3.4-5.0); Anion Gap 8 (5-15); Aspartate Aminotransferase 20 U/L (15-37); Blood Alcohol < 3.0 mg/dL (0-5); Blood Urea Nitrogen 7 mg/dL (7-18); Carbon Dioxide 26 mmol/L (21-32); Chloride 101 mmol/L (98-107); GFR African American 90 mL/min; GFR Non-African American 75 mL/min; Glucose 140 mg/dL (74-106); Potassium 3.9 mmol/L (3.5-5.1); Salicylate 2.7 mg/dL (2.8-20.0); Sodium 135 mmol/L (136-145)
[2021-01-17 13:00] LABS: Alkaline Phosphatase 189 U/L (45-117); Bilirubin, Total 0.6 mg/dL (0.2-1.0); Total Protein 8.6 g/dL (6.4-8.2)
[2021-01-17 13:11] LABS: Acetaminophen 92.6 ug/mL (10-30)
[2021-01-17 13:23] LABS: Urine Bacteria NONE SEEN /hpf (None Seen); Urine Blood Negative /uL (Negative); Urine WBC 1 /hpf (0 - 5)
[2021-01-17 13:34] LABS: Alcohol, Urine < 3.0 mg/dL (0-10); Amphetamine Screen, Urine NEGATIVE (NEGATIVE); Barbiturate Scree,Urine NEGATIVE (NEGATIVE); Benzodiazephine Screen, Urine NEGATIVE (NEGATIVE); Cannabinoid Screen, Urine POSITIVE (NEGATIVE); Cocaine Screen, Urine NEGATIVE (NEGATIVE); Opiate Scree,Urine POSITIVE (NEGATIVE); Phencyclidine Screen, Urine NEGATIVE (NEGATIVE)
[2021-01-17] MEDS ORDERED: FUROSEMIDE 40 MG/4 ML VIAL IV ONE (16:15)
[2021-01-17] MEDS ORDERED: PANTOPRAZOLE 40 MG/10 ML VIAL INJ IV ONE (16:15)
[2021-01-17] MEDS ORDERED: ALBUTEROL SULF 2.5 MG/0.5ML(0.5%) NEB SOLN NEB ONE (18:00)
[2021-01-17] MEDS ORDERED: ONDANSETRON HCL 4 MG/2 ML VIAL IV ONE (18:00)
[2021-01-17] MEDS ORDERED: hydrALAZINE HCL 20 MG/ML VL IV ONE (18:00)
[2021-01-17] MEDS ORDERED: ALBUTEROL SULF 2.5 MG/0.5ML(0.5%) NEB SOLN NEB PRN (18:30)
[2021-01-17] MEDS ORDERED: hydrALAZINE HCL 20 MG/ML VL IV PRN (18:30)
[2021-01-17] MEDS ORDERED: diphenhdrAMINE HCL 50 MG/1 ML VL ONE (19:13)
[2021-01-17] MEDS ORDERED: LORazepam 2MG/ML-1ML VIAL ONE (19:13)
[2021-01-17] MEDS ORDERED: HALOPERIDOL LACTATE 5 MG/ML INJ VIAL ONE (19:13)
[2021-01-17] MEDS ORDERED: diphenhdrAMINE HCL 50 MG/1 ML VL IM ONE (19:15)
[2021-01-17] MEDS ORDERED: LORazepam 2MG/ML-1ML VIAL IM ONE (19:15)
[2021-01-17] MEDS ORDERED: HALOPERIDOL LACTATE 5 MG/ML INJ VIAL IM ONE (19:15)
[2021-01-17 19:31] VITALS: BP 154/71
[2021-01-18] VITALS (15 sets, daily range): BP systolic 115–159; BP diastolic 57–90
[2021-01-18 01:51] LABS: Anion Gap 7 (5-15); Blood Urea Nitrogen 8 mg/dL (7-18); Carbon Dioxide 28 mmol/L (21-32); Chloride 105 mmol/L (98-107); Glucose 100 mg/dL (74-106); Potassium 3.9 mmol/L (3.5-5.1); Sodium 140 mmol/L (136-145)
[2021-01-18 01:52] LABS: Alanine Aminotransferase 93 U/L (13-56); Alkaline Phosphatase 257 U/L (45-117); Aspartate Aminotransferase 115 U/L (15-37); BUN/Creatinine Ratio 10.4; Bilirubin, Total 0.7 mg/dL (0.2-1.0); Calcium 8.6 mg/dL (8.5-10.1); GFR African American 104 mL/min; GFR Non-African American 86 mL/min; Total Protein 8.2 g/dL (6.4-8.2)
[2021-01-18] MEDS: FUROSEMIDE 40 MG/4 ML VIAL IV SCH (09:36)
[2021-01-18] MEDS: PANTOPRAZOLE 40 MG/10 ML VIAL INJ IV SCH (09:36)
[2021-01-18 09:39] LABS: Basophils # (auto) 0 10 ^3/uL (0-0.2); Basophils % (auto) 0.2 % (0.0-2.0); Eosinophils # (auto) 0 10 ^3/uL (0-0.8); Eosinophils % (auto) 0.5 % (0.0-7.0); Hematocrit 52.5 % (36.0-46.0); Hemoglobin 16.8 g/dL (12.2-16.2); Lymphocytes # (auto) 0.8 10 ^3/uL (0.4-5.4); Lymphocytes % (auto) 8.4 % (10.0-50.0); Mean Corpuscular Hemoglobin 28.4 pg (28.0-32.0); Mean Corpuscular Hgb Conc. 31.9 g/dL (32.0-36.0); Mean Corpuscular Volume 88.9 fL (80.0-100.0); Monocytes # (auto) 0.5 10 ^3/uL (0-1.3); Monocytes % (auto) 4.8 % (0.0-12.0); Neutrophils # (auto) 8.3 10 ^3/uL (1.6-8.6); Neutrophils % (auto) 86.1 % (37.0-80.0); Nucleated Red Blood Cells % 0.1 %; Red Blood Cells 5.91 10^6/uL (4.0-5.20); White Blood Cell 9.6 10^3/uL (4.4-10.8)
[2021-01-18 09:41] LABS: Red Cell Distribution Width 21.6 % (11.8-14.3)
[2021-01-18 09:50] LABS: Calcium 9.2 mg/dL (8.5-10.1); Potassium 4.2 mmol/L (3.5-5.1)
[2021-01-18 09:55] LABS: BUN/Creatinine Ratio 12.1; Bilirubin, Total 0.8 mg/dL (0.2-1.0); Total Protein 7.9 g/dL (6.4-8.2)
[2021-01-18] MEDS ORDERED: POTASSIUM CHL 10 Meq TABLET PO ONE (10:00)
[2021-01-18] MEDS: POTASSIUM CHL 10 Meq TABLET PO SCH (10:00)
[2021-01-18] MEDS ORDERED: PANTOPRAZOLE 40 MG/10 ML VIAL INJ IV ONE (10:00)
[2021-01-18] MEDS ORDERED: FUROSEMIDE 40 MG/4 ML VIAL IV ONE (10:00)
[2021-01-18] MEDS ORDERED: LITH300C3 PO (13:09)
[2021-01-18] MEDS ORDERED: SERT100T PO (13:09)
[2021-01-18] MEDS ORDERED: METO-158 PO (13:09)
[2021-01-18] MEDS ORDERED: GABA400C PO (13:09)
[2021-01-18] MEDS ORDERED: LEVO150T10 PO (13:09)
[2021-01-18] MEDS ORDERED: APIX5TAB PO (13:09)
[2021-01-18] MEDS ORDERED: CARB200T PO (13:09)
[2021-01-18] MEDS ORDERED: QUET200T4 PO ×2 (13:09)
[2021-01-18] MEDS ORDERED: SIMV-8 PO (13:09)
[2021-01-18] MEDS: APIXABAN 5 MG TAB PO SCH ×2 (13:26→21:17)
[2021-01-18] MEDS: LEVOTHYROXINE SODIUM 50 MCG TAB PO SCH (13:27)
[2021-01-18] MEDS ORDERED: LITHIUM CARBONATE 300 MG TAB PO SCH (13:28)
[2021-01-18] MEDS: METOPROLOL TARTRATE 50 MG TAB PO SCH ×2 (13:28→21:18)
[2021-01-18] MEDS: GABAPENTIN 100 MG CAP PO SCH ×2 (13:29→21:16)
[2021-01-18] MEDS ORDERED: QUEtiapine FUMARATE 100 MG TAB PO SCH (13:29)
[2021-01-18] MEDS: SERTRALINE HCL 50 MG TAB PO SCH (13:29)
[2021-01-18] MEDS ORDERED: LORA-655 PO (13:30)
[2021-01-18] MEDS ORDERED: ZOLPIDEM TARTRATE 5 MG TAB PO ONE (13:30)
[2021-01-18] MEDS ORDERED: ZOLP5TAB PO (13:30)
[2021-01-18] MEDS ORDERED: ZOLPIDEM TARTRATE 5 MG TAB PO PRN (13:45)
[2021-01-18] MEDS: LORazepam 0.5 MG TAB PO PRN (17:55)
[2021-01-18] MEDS ORDERED: ONDANSETRON ODT 4 MG TAB PO PRN (18:30)
[2021-01-18] MEDS ORDERED: ONDA-144 PO (18:31)
[2021-01-18] MEDS: LITHIUM CARBONATE 300 MG TAB PO SCH (21:16)
[2021-01-18] MEDS: ATORVASTATIN 20 MG TAB PO SCH (21:17)
[2021-01-18] MEDS: QUEtiapine FUMARATE 100 MG TAB PO SCH (21:18)
[2021-01-18] MEDS: carBAMazepine 200 MG TAB PO SCH (21:19)
[2021-01-18 22:31] LABS: Calcium 9.1 mg/dL (8.5-10.1)
[2021-01-18 22:35] LABS: BUN/Creatinine Ratio 16.2; Bilirubin, Total 0.8 mg/dL (0.2-1.0)
[2021-01-19] VITALS (11 sets, daily range): BP systolic 120–148; BP diastolic 58–96
[2021-01-19] MEDS ORDERED: QUEtiapine FUMARATE 100 MG TAB PO PRN (02:00)
[2021-01-19] MEDS: QUEtiapine FUMARATE 100 MG TAB PO SCH ×3 (06:00→21:45)
[2021-01-19] MEDS: LITHIUM CARBONATE 300 MG TAB PO SCH ×2 (06:00→21:45)
[2021-01-19] MEDS: LEVOTHYROXINE SODIUM 50 MCG TAB PO SCH (06:38)
[2021-01-19 07:16] LABS: Potassium 5.3 mmol/L (3.5-5.1)
[2021-01-19 07:21] LABS: Albumin 2.7 g/dL (3.4-5.0); BUN/Creatinine Ratio 17.9; Calcium 9.1 mg/dL (8.5-10.1)
[2021-01-19 07:24] LABS: Bilirubin, Total 0.9 mg/dL (0.2-1.0)
[2021-01-19] MEDS ORDERED: GABAPENTIN 400 MG CAP ONE (07:49)
[2021-01-19] MEDS ORDERED: SERTRALINE HCL 50 MG TAB ONE (07:49)
[2021-01-19] MEDS: METOPROLOL TARTRATE 50 MG TAB PO SCH ×2 (08:35→21:53)
[2021-01-19] MEDS: FUROSEMIDE 40 MG/4 ML VIAL IV SCH (08:35)
[2021-01-19] MEDS: PANTOPRAZOLE 40 MG/10 ML VIAL INJ IV SCH (08:36)
[2021-01-19] MEDS ORDERED: SODIUM ZIRCONIUM CYCL 10 GM PAK PO ONE (09:00)
[2021-01-19] MEDS ORDERED: methylPREDNISolone SOD SUCC 125 MG/2 ML VL IV ONE (09:15)
[2021-01-19] MEDS ORDERED: DOXYCYCLINE 100MG/250ML 250 ML IV ONE (09:15)
[2021-01-19] MEDS: APIXABAN 5 MG TAB PO SCH ×2 (10:00→21:45)
[2021-01-19] MEDS: GABAPENTIN 400 MG CAP PO SCH ×2 (10:00→21:45)
[2021-01-19] MEDS: SERTRALINE HCL 50 MG TAB PO SCH (10:00)
[2021-01-19] MEDS ORDERED: LORazepam 2MG/ML-1ML VIAL ONE (10:43)
[2021-01-19] MEDS ORDERED: ONDANSETRON HCL 4 MG/2 ML VIAL IV PRN (10:45)
[2021-01-19] MEDS: LORazepam 2MG/ML-1ML VIAL IV PRN ×2 (10:45→18:42)
[2021-01-19] MEDS ORDERED: methylPREDNISolone SOD SUCC 125 MG/2 ML VL ONE (11:02)
[2021-01-19] MEDS ORDERED: SODIUM ZIRCONIUM CYCL 10 GM PAK ONE (11:02)
[2021-01-19] MEDS ORDERED: IOHEXOL 350 MG/ML 100ML IJ ONE (11:05)
[2021-01-19 16:42] LABS: Albumin 3.1 g/dL (3.4-5.0); BUN/Creatinine Ratio 18.6; Calcium 9.2 mg/dL (8.5-10.1); Potassium 4.2 mmol/L (3.5-5.1)
[2021-01-19 16:45] LABS: Bilirubin, Total 0.7 mg/dL (0.2-1.0); Total Protein 8.3 g/dL (6.4-8.2)
[2021-01-19] MEDS: IPRATROPIUM BROM 0.5 MG/2.5ML INH SOL NEB SCH (18:37)
[2021-01-19] MEDS: ALBUTEROL SULF 2.5 MG/0.5ML(0.5%) NEB SOLN NEB SCH (18:37)
[2021-01-19] MEDS: carBAMazepine 200 MG TAB PO SCH (21:45)
[2021-01-19] MEDS: ATORVASTATIN 20 MG TAB PO SCH (21:45)
[2021-01-19] MEDS: DOXYCYCLINE 100 MG TAB/CAP PO SCH (21:46)
[2021-01-20] VITALS (25 sets, daily range): BP systolic 112–161; BP diastolic 64–93
[2021-01-20] MEDS: IPRATROPIUM BROM 0.5 MG/2.5ML INH SOL NEB SCH ×4 (00:10→18:17)
[2021-01-20] MEDS: ALBUTEROL SULF 2.5 MG/0.5ML(0.5%) NEB SOLN NEB SCH ×4 (00:10→18:18)
[2021-01-20 05:31] LABS: Basophils # (auto) 0 10 ^3/uL (0-0.2); Basophils % (auto) 0.2 % (0.0-2.0); Eosinophils # (auto) 0 10 ^3/uL (0-0.8); Eosinophils % (auto) 0.3 % (0.0-7.0); Hematocrit 51.4 % (36.0-46.0); Hemoglobin 16.5 g/dL (12.2-16.2); Lymphocytes # (auto) 1.7 10 ^3/uL (0.4-5.4); Lymphocytes % (auto) 17.6 % (10.0-50.0); Mean Corpuscular Hgb Conc. 32.1 g/dL (32.0-36.0); Mean Corpuscular Volume 87.3 fL (80.0-100.0); Monocytes # (auto) 0.8 10 ^3/uL (0-1.3); Monocytes % (auto) 7.9 % (0.0-12.0); Neutrophils # (auto) 7.3 10 ^3/uL (1.6-8.6); Nucleated Red Blood Cells % 0.1 %; Red Blood Cells 5.89 10^6/uL (4.0-5.20); White Blood Cell 9.8 10^3/uL (4.4-10.8)
[2021-01-20 05:46] LABS: BUN/Creatinine Ratio 24.4; Calcium 9.4 mg/dL (8.5-10.1)
[2021-01-20] MEDS: QUEtiapine FUMARATE 100 MG TAB PO SCH ×3 (06:00→21:19)
[2021-01-20] MEDS: LEVOTHYROXINE SODIUM 50 MCG TAB PO SCH (06:18)
[2021-01-20 09:45] LABS: Free T4 (Free Thyroxine) 0.88 ng/dL (0.89-1.76)
[2021-01-20] MEDS ORDERED: predniSONE 20 MG TAB PO SCH (10:00)
[2021-01-20] MEDS: FUROSEMIDE 40 MG/4 ML VIAL IV SCH (10:13)
[2021-01-20] MEDS: PANTOPRAZOLE 40 MG/10 ML VIAL INJ IV SCH (10:13)
[2021-01-20] MEDS: LITHIUM CARBONATE 300 MG TAB PO SCH ×2 (10:14→21:20)
[2021-01-20] MEDS: APIXABAN 5 MG TAB PO SCH ×2 (10:14→21:20)
[2021-01-20] MEDS: SERTRALINE HCL 50 MG TAB PO SCH (10:15)
[2021-01-20] MEDS: METOPROLOL TARTRATE 50 MG TAB PO SCH ×2 (10:15→21:28)
[2021-01-20] MEDS: DOXYCYCLINE 100 MG TAB/CAP PO SCH ×2 (10:15→21:20)
[2021-01-20] MEDS: GABAPENTIN 400 MG CAP PO SCH ×2 (10:15→21:22)
[2021-01-20] MEDS: LORazepam 0.5 MG TAB PO PRN (11:27)
[2021-01-20] MEDS: carBAMazepine 200 MG TAB PO SCH (21:20)
[2021-01-20] MEDS: ATORVASTATIN 20 MG TAB PO SCH (21:21)
[2021-01-20] MEDS: methylPREDNISolone SOD SUCC 40 MG/ML VL IV SCH (21:22)
[2021-01-21] VITALS (19 sets, daily range): BP systolic 102–160; BP diastolic 49–100
[2021-01-21] MEDS: ALBUTEROL SULF 2.5 MG/0.5ML(0.5%) NEB SOLN NEB SCH ×4 (00:41→19:46)
[2021-01-21] MEDS: IPRATROPIUM BROM 0.5 MG/2.5ML INH SOL NEB SCH ×4 (00:41→19:46)
[2021-01-21 05:29] LABS: Basophils # (auto) 0 10 ^3/uL (0-0.2); Basophils % (auto) 0.1 % (0.0-2.0); Eosinophils # (auto) 0 10 ^3/uL (0-0.8); Eosinophils % (auto) 0.1 % (0.0-7.0); Hematocrit 54.1 % (36.0-46.0); Hemoglobin 17.7 g/dL (12.2-16.2); Lymphocytes # (auto) 0.5 10 ^3/uL (0.4-5.4); Lymphocytes % (auto) 6.4 % (10.0-50.0); Mean Corpuscular Hemoglobin 28.6 pg (28.0-32.0); Mean Corpuscular Hgb Conc. 32.7 g/dL (32.0-36.0); Mean Corpuscular Volume 87.6 fL (80.0-100.0); Monocytes # (auto) 0.2 10 ^3/uL (0-1.3); Monocytes % (auto) 2.4 % (0.0-12.0); Neutrophils # (auto) 6.7 10 ^3/uL (1.6-8.6); Nucleated Red Blood Cells % 0.1 %; Red Blood Cells 6.18 10^6/uL (4.0-5.20); Red Cell Distribution Width 21.6 % (11.8-14.3); White Blood Cell 7.4 10^3/uL (4.4-10.8)
[2021-01-21 05:37] LABS: Potassium 4.3 mmol/L (3.5-5.1)
[2021-01-21] MEDS: QUEtiapine FUMARATE 100 MG TAB PO SCH ×3 (05:37→22:13)
[2021-01-21] MEDS: LEVOTHYROXINE SODIUM 50 MCG TAB PO SCH (05:37)
[2021-01-21] MEDS: methylPREDNISolone SOD SUCC 40 MG/ML VL IV SCH ×3 (05:38→22:12)
[2021-01-21 05:43] LABS: BUN/Creatinine Ratio 32.2; Calcium 9.7 mg/dL (8.5-10.1)
[2021-01-21] MEDS: GABAPENTIN 400 MG CAP PO SCH ×2 (09:40→22:13)
[2021-01-21] MEDS: APIXABAN 5 MG TAB PO SCH ×2 (09:40→22:13)
[2021-01-21] MEDS: PANTOPRAZOLE 40 MG/10 ML VIAL INJ IV SCH (09:41)
[2021-01-21] MEDS: FUROSEMIDE 40 MG/4 ML VIAL IV SCH (09:41)
[2021-01-21] MEDS: DOXYCYCLINE 100 MG TAB/CAP PO SCH ×2 (09:41→22:14)
[2021-01-21] MEDS: LITHIUM CARBONATE 300 MG TAB PO SCH ×2 (09:42→22:13)
[2021-01-21] MEDS: SERTRALINE HCL 50 MG TAB PO SCH (09:42)
[2021-01-21] MEDS: POTASSIUM CHL 10 Meq TABLET PO SCH (10:00)
[2021-01-21] MEDS: METOPROLOL TARTRATE 50 MG TAB PO SCH ×2 (12:43→22:12)
[2021-01-21] MEDS: LORazepam 0.5 MG TAB PO PRN (14:55)
[2021-01-21] MEDS ORDERED: CARB200T PO (19:03)
[2021-01-21] MEDS ORDERED: ALBUAER3 IN (19:03)
[2021-01-21] MEDS ORDERED: DOX100T PO (19:03)
[2021-01-21] MEDS ORDERED: IPRIH IN (19:03)
[2021-01-21] MEDS ORDERED: PRED20TA2 PO (19:03)
[2021-01-21] MEDS: ATORVASTATIN 20 MG TAB PO SCH (22:13)
[2021-01-21] MEDS: carBAMazepine 200 MG TAB PO SCH (22:14)
[2021-01-22] MEDS: ALBUTEROL SULF 2.5 MG/0.5ML(0.5%) NEB SOLN NEB SCH ×2 (00:19→06:00)
[2021-01-22] MEDS: IPRATROPIUM BROM 0.5 MG/2.5ML INH SOL NEB SCH ×2 (00:20→07:45)
[2021-01-22 05:19] VITALS: BP 152/100
[2021-01-22] MEDS: QUEtiapine FUMARATE 100 MG TAB PO SCH (05:49)
[2021-01-22] MEDS: methylPREDNISolone SOD SUCC 40 MG/ML VL IV SCH (05:49)
[2021-01-22] MEDS: LEVOTHYROXINE SODIUM 50 MCG TAB PO SCH (05:50)
[2021-01-22 07:17] LABS: Basophils # (auto) 0 10 ^3/uL (0-0.2); Eosinophils # (auto) 0 10 ^3/uL (0-0.8); Lymphocytes # (auto) 0.5 10 ^3/uL (0.4-5.4); Monocytes # (auto) 0.3 10 ^3/uL (0-1.3); Neutrophils # (auto) 9.4 10 ^3/uL (1.6-8.6)
[2021-01-22 07:20] LABS: Basophils % (auto) 0.3 % (0.0-2.0); Hemoglobin 18.8 g/dL (12.2-16.2); Lymphocytes % (auto) 5.2 % (10.0-50.0); Mean Corpuscular Hemoglobin 28.5 pg (28.0-32.0); Mean Corpuscular Hgb Conc. 32.9 g/dL (32.0-36.0); Mean Corpuscular Volume 86.7 fL (80.0-100.0); Monocytes % (auto) 2.8 % (0.0-12.0); Neutrophils % (auto) 91.7 % (37.0-80.0); Nucleated Red Blood Cells % 0.2 %; White Blood Cell 10.2 10^3/uL (4.4-10.8)
[2021-01-22 07:35] LABS: Hematocrit 57.2 % (36.0-46.0); Red Cell Distribution Width 21.4 % (11.8-14.3)
[2021-01-22 07:36] LABS: Potassium 4.9 mmol/L (3.5-5.1)
[2021-01-22 07:41] LABS: BUN/Creatinine Ratio 39.8; Calcium 10.8 mg/dL (8.5-10.1)
[2021-01-22 08:30] VITALS: BP 131/72
[2021-01-22] MEDS: FUROSEMIDE 40 MG/4 ML VIAL IV SCH (10:24)
[2021-01-22] MEDS: GABAPENTIN 400 MG CAP PO SCH (10:24)
[2021-01-22] MEDS: LITHIUM CARBONATE 300 MG TAB PO SCH (10:24)
[2021-01-22] MEDS: PANTOPRAZOLE 40 MG/10 ML VIAL INJ IV SCH (10:24)
[2021-01-22] MEDS: APIXABAN 5 MG TAB PO SCH (10:24)
[2021-01-22] MEDS: METOPROLOL TARTRATE 50 MG TAB PO SCH (10:24)
[2021-01-22] MEDS: POTASSIUM CHL 10 Meq TABLET PO SCH (10:24)
[2021-01-22] MEDS: SERTRALINE HCL 50 MG TAB PO SCH (10:25)
[2021-01-22] MEDS: DOXYCYCLINE 100 MG TAB/CAP PO SCH (10:25)
[2021-01-22 11:30] VITALS: BP 147/77
== END 2021-01-22 11:57 | disposition home health service (06) | DRG 817 ==
LOC: EDBD 11:54 → ER 11:54 → OVERFLOW 11:55 → DOU IN ICU 01-18 01:37 → TELE-CENTR 01-21 16:40
PROVIDERS: ADMIT Internal Medicine; ATTEND Internal Medicine
DX: T39.1X2A Poisoning by 4-Aminophenol derivatives, intentional self-harm, initial encounter (principal); J96.21 Acute and chronic respiratory failure with hypoxia; G92 Toxic encephalopathy; I26.99 Other pulmonary embolism without acute cor pulmonale; J18.9 Pneumonia, unspecified organism; F31.9 Bipolar disorder, unspecified; T40.2X2A Poisoning by other opioids, intentional self-harm, initial encounter; F20.9 Schizophrenia, unspecified; E66.01 Morbid (severe) obesity due to excess calories; F60.3 Borderline personality disorder; Z20.822 Contact with and (suspected) exposure to COVID-19; I27.20 Pulmonary hypertension, unspecified; E03.9 Hypothyroidism, unspecified; E78.5 Hyperlipidemia, unspecified; Z68.41 Body mass index [BMI] 40.0-44.9, adult; J44.1 Chronic obstructive pulmonary disease with (acute) exacerbation; F41.8 Other specified anxiety disorders; F17.210 Nicotine dependence, cigarettes, uncomplicated; I11.0 Hypertensive heart disease with heart failure; Z90.49 Acquired absence of other specified parts of digestive tract; Z83.3 Family history of diabetes mellitus; Z82.49 Family history of ischemic heart disease and other diseases of the circulatory system; Z79.899 Other long term (current) drug therapy; Z79.52 Long term (current) use of systemic steroids; I50.23 Acute on chronic systolic (congestive) heart failure; J44.0 Chronic obstructive pulmonary disease with (acute) lower respiratory infection; S82.401A Unspecified fracture of shaft of right fibula, initial encounter for closed fracture
CPT/HCPCS: 36415; 36600; 51702; 71045; 71275; 73600; 80048; 80053; 80307; 80320; 80329; 81001; 81025; 82140; 82607; 82805; 83880; 84439; 84443; 84484; 85025; 85379; 87081; 87426; 93005; 93306; 93970; 94640; 96374; 96375; 99291; C9113; G0378; J3490

== ENCOUNTER → 2021-04-10 | Outpatient (CLI) | payer MEDICAID ==
[~2021-04-10] MED LIST changes: -ACET-1304 PO; +ALBUTEROL SULF 2.5 MG/0.5ML(0.5%) NEB SOLN ONE; -AML5T PO; -ATOR20TA50 PO; -DIPH2.5T73 PO; -ERGO1CAP12 PO; -HYDR25TA5 PO; +IPRIH IN; -LINE1TAB6 PO; +LITH300C3 PO; -LITH300T5 PO; +LORA-655 PO; -LORA1TAB23 PO; -LOSA-69 PO; -MET50T PO; +METO-158 PO; -NAP500T PO; +PRED20TA2 PO; -QUET200T30 PO; -VANC125PO PO; +ZOLP5TAB PO; -ZOLP5TAB5 PO
== END | disposition home or self-care (01) ==
LOC: RT 09:26
PROVIDERS: ATTEND Internal Medicine Pulmonary Disease
DX: J96.11 Chronic respiratory failure with hypoxia (principal); J44.9 Chronic obstructive pulmonary disease, unspecified; J98.4 Other disorders of lung; Z20.822 Contact with and (suspected) exposure to COVID-19
CPT/HCPCS: 36415; 87426; 94060; 94727; 94729

== ENCOUNTER 2021-04-15 15:40 | Emergency (ER) | payer MEDICAID ==
[~2021-04-15] VITALS: Ht 162.6 cm; Wt 113.4 kg
[~2021-04-15 15:40] MED LIST changes: -ALBUTEROL SULF 2.5 MG/0.5ML(0.5%) NEB SOLN ONE
[2021-04-15 15:47] VITALS: BP 130/72
[2021-04-15] MEDS ORDERED: CLINDAMYCIN 600MG IV 50 ML IV ONE (16:30)
[2021-04-15] MEDS ORDERED: cefTRIAXone 1GM/50ML D5W 50 ML IV ONE (16:30)
[2021-04-15] MEDS ORDERED: SODIUM CHLORIDE 0.9% 1,000 ML IV ONE ×2 (16:30)
[2021-04-15 17:54] LABS: Basophils # (auto) 0 10 ^3/uL (0-0.2); Basophils % (auto) 0.6 % (0.0-2.0); Eosinophils # (auto) 0.1 10 ^3/uL (0-0.8); Eosinophils % (auto) 1.4 % (0.0-7.0); Hematocrit 50.7 % (36.0-46.0); Hemoglobin 16.9 g/dL (12.2-16.2); Lymphocytes # (auto) 1.6 10 ^3/uL (0.4-5.4); Lymphocytes % (auto) 20.4 % (10.0-50.0); Mean Corpuscular Hemoglobin 33.2 pg (28.0-32.0); Mean Corpuscular Hgb Conc. 33.4 g/dL (32.0-36.0); Mean Corpuscular Volume 99.5 fL (80.0-100.0); Monocytes # (auto) 0.5 10 ^3/uL (0-1.3); Monocytes % (auto) 6.8 % (0.0-12.0); Neutrophils # (auto) 5.6 10 ^3/uL (1.6-8.6); Neutrophils % (auto) 70.8 % (37.0-80.0); Nucleated Red Blood Cells % 0.1 %; Red Cell Distribution Width 17.8 % (11.8-14.3); White Blood Cell 7.9 10^3/uL (4.4-10.8)
[2021-04-15 17:58] LABS: Albumin 3.3 g/dL (3.4-5.0); Calcium 9.4 mg/dL (8.5-10.1); Potassium 4.7 mmol/L (3.5-5.1)
[2021-04-15 18:02] LABS: BUN/Creatinine Ratio 15.2; Bilirubin, Total 0.4 mg/dL (0.2-1.0); Total Protein 7.8 g/dL (6.4-8.2)
== END 2021-04-15 20:54 | disposition left against medical advice (07) ==
LOC: ER 15:40
DX: L03.116 Cellulitis of left lower limb (principal); I11.0 Hypertensive heart disease with heart failure; I50.9 Heart failure, unspecified; J44.9 Chronic obstructive pulmonary disease, unspecified; E78.5 Hyperlipidemia, unspecified; F17.210 Nicotine dependence, cigarettes, uncomplicated; Z90.49 Acquired absence of other specified parts of digestive tract; Z79.899 Other long term (current) drug therapy
CPT/HCPCS: 36415; 73700; 80053; 83605; 85025; 87040

== ENCOUNTER 2021-04-18 05:54 | Emergency (ER) | payer MEDICAID ==
[~2021-04-18] VITALS: Ht 162.6 cm; Wt 104.3 kg
[2021-04-18 08:45] VITALS: BP 113/83
[2021-04-18] MEDS ORDERED: cefTRIAXone SOD 1,000 MG VL IM ONE (09:15)
== END 2021-04-18 09:53 | disposition home or self-care (01) ==
LOC: ER 05:54
DX: M25.571 Pain in right ankle and joints of right foot (principal); I11.0 Hypertensive heart disease with heart failure; I50.9 Heart failure, unspecified; E78.5 Hyperlipidemia, unspecified; J44.9 Chronic obstructive pulmonary disease, unspecified; F17.210 Nicotine dependence, cigarettes, uncomplicated; Z76.0 Encounter for issue of repeat prescription; Z90.49 Acquired absence of other specified parts of digestive tract; Z79.899 Other long term (current) drug therapy; Z79.2 Long term (current) use of antibiotics
CPT/HCPCS: 96372; 99283; J0696

== ENCOUNTER 2021-05-21 20:28 | Emergency (ER) | payer OTHER, MEDICAID ==
[~2021-05-21] VITALS: Ht 165.1 cm; Wt 108.9 kg
[2021-05-21] MEDS ORDERED: HYDROcodone-ACET 10/325MG TAB PO ONE (22:30)
[2021-05-22 07:00] VITALS: BP 117/67
== END 2021-05-22 02:39 | disposition home or self-care (01) ==
LOC: EDBD 20:28 → ER 20:34
DX: M25.571 Pain in right ankle and joints of right foot (principal); G89.18 Other acute postprocedural pain; R22.41 Localized swelling, mass and lump, right lower limb; J44.9 Chronic obstructive pulmonary disease, unspecified; I11.0 Hypertensive heart disease with heart failure; I50.9 Heart failure, unspecified; F41.9 Anxiety disorder, unspecified; F32.9 Major depressive disorder, single episode, unspecified; E78.5 Hyperlipidemia, unspecified; F20.9 Schizophrenia, unspecified; F17.210 Nicotine dependence, cigarettes, uncomplicated; Z79.899 Other long term (current) drug therapy

== ENCOUNTER 2021-05-26 13:23 | Emergency (ER) | payer OTHER, MEDICAID ==
[~2021-05-26] VITALS: Ht 177.8 cm; Wt 99.8 kg
[2021-05-26] MEDS ORDERED: SODIUM CHLORIDE 0.9% 1,000 ML IV ONE ×2 (13:30)
[2021-05-26 13:58] LABS: Basophils # (auto) 0.1 10 ^3/uL (0-0.2); Basophils % (auto) 0.8 % (0.0-2.0); Eosinophils # (auto) 0.1 10 ^3/uL (0-0.8); Eosinophils % (auto) 0.7 % (0.0-7.0); Hematocrit 39.3 % (36.0-46.0); Hemoglobin 12.8 g/dL (12.2-16.2); Lymphocytes # (auto) 1.3 10 ^3/uL (0.4-5.4); Lymphocytes % (auto) 17.2 % (10.0-50.0); Mean Corpuscular Hemoglobin 30.8 pg (28.0-32.0); Mean Corpuscular Hgb Conc. 32.5 g/dL (32.0-36.0); Mean Corpuscular Volume 94.8 fL (80.0-100.0); Monocytes # (auto) 0.8 10 ^3/uL (0-1.3); Monocytes % (auto) 10.8 % (0.0-12.0); Neutrophils # (auto) 5.4 10 ^3/uL (1.6-8.6); Neutrophils % (auto) 70.5 % (37.0-80.0); Nucleated Red Blood Cells % 0.6 %; Red Blood Cells 4.15 10^6/uL (4.0-5.20); Red Cell Distribution Width 18.9 % (11.8-14.3); White Blood Cell 7.6 10^3/uL (4.4-10.8)
[2021-05-26 14:08] LABS: INR 1.03 (0.9-1.15); Partial Thromboplastin Time 25.9 sec (23.0-31.2)
[2021-05-26 14:15] LABS: Chloride 108 mmol/L (98-107); Potassium 4.1 mmol/L (3.5-5.1); Sodium 137 mmol/L (136-145)
[2021-05-26 14:19] LABS: Albumin 2.4 g/dL (3.4-5.0); Anion Gap 3 (5-15); BUN/Creatinine Ratio 11.5; Blood Urea Nitrogen 9 mg/dL (7-18); Calcium 8.7 mg/dL (8.5-10.1); Carbon Dioxide 26 mmol/L (21-32); GFR African American 102 mL/min; GFR Non-African American 85 mL/min; Glucose 95 mg/dL (74-106)
[2021-05-26 14:24] LABS: Alanine Aminotransferase 24 U/L (13-56); Alkaline Phosphatase 127 U/L (45-117); Aspartate Aminotransferase 21 U/L (15-37); Bilirubin, Total 0.4 mg/dL (0.2-1.0); Total Protein 6.6 g/dL (6.4-8.2)
[2021-05-26 15:57] VITALS: BP 124/69
== END 2021-05-26 16:17 | disposition home or self-care (01) ==
LOC: EDBD 13:23 → ER 13:23
DX: I95.9 Hypotension, unspecified (principal); J44.1 Chronic obstructive pulmonary disease with (acute) exacerbation; I11.0 Hypertensive heart disease with heart failure; I50.9 Heart failure, unspecified; E78.5 Hyperlipidemia, unspecified; F17.210 Nicotine dependence, cigarettes, uncomplicated; Z90.49 Acquired absence of other specified parts of digestive tract; Z79.2 Long term (current) use of antibiotics; Z79.899 Other long term (current) drug therapy
CPT/HCPCS: 36415; 80053; 83880; 84484; 85025; 85610; 85730; 93005; 93971

== ENCOUNTER 2021-05-28 17:48 | Inpatient (IN) | payer OTHER, MEDICAID ==
[~2021-05-28] VITALS: Ht 167.6 cm; Wt 115.3 kg
[2021-05-28 19:03] LABS: Basophils # (auto) 0 10 ^3/uL (0-0.2); Basophils % (auto) 0.5 % (0.0-2.0); Eosinophils # (auto) 0.1 10 ^3/uL (0-0.8); Eosinophils % (auto) 0.7 % (0.0-7.0); Hematocrit 39.8 % (36.0-46.0); Lymphocytes % (auto) 22.3 % (10.0-50.0); Mean Corpuscular Hemoglobin 31.5 pg (28.0-32.0); Mean Corpuscular Hgb Conc. 32.8 g/dL (32.0-36.0); Mean Corpuscular Volume 95.9 fL (80.0-100.0); Monocytes # (auto) 0.6 10 ^3/uL (0-1.3); Monocytes % (auto) 6.4 % (0.0-12.0); Neutrophils # (auto) 6.2 10 ^3/uL (1.6-8.6); Neutrophils % (auto) 70.1 % (37.0-80.0); Nucleated Red Blood Cells % 0.3 %; Red Blood Cells 4.15 10^6/uL (4.0-5.20); Red Cell Distribution Width 19.2 % (11.8-14.3); White Blood Cell 8.8 10^3/uL (4.4-10.8)
[2021-05-28 19:18] LABS: Acetaminophen < 2.0 ug/mL (10-30); Albumin 2.4 g/dL (3.4-5.0); Calcium 8.6 mg/dL (8.5-10.1); Salicylate 2.1 mg/dL (2.8-20.0)
[2021-05-28 20:04] LABS: Bilirubin, Total 0.4 mg/dL (0.2-1.0); Total Protein 6.6 g/dL (6.4-8.2)
[2021-05-28 20:39] LABS: Bilirubin, Direct 0.2 mg/dL (0-0.2)
[2021-05-28 20:43] LABS: BUN/Creatinine Ratio 6.5
[2021-05-28 20:57] LABS: Urine Bacteria FEW /hpf (None Seen); Urine Blood 1+ /uL (Negative); Urine Specific Gravity 1.003 (1.001-1.035); Urine WBC 25 /hpf (0 - 5); Urine WBC Clumps PRESENT /hpf (None Seen)
[2021-05-28 23:20] LABS: Alcohol, Urine < 3.0 mg/dL (0-10); Amphetamine Screen, Urine NEGATIVE (NEGATIVE); Barbiturate Scree,Urine NEGATIVE (NEGATIVE); Benzodiazephine Screen, Urine NEGATIVE (NEGATIVE); Cannabinoid Screen, Urine NEGATIVE (NEGATIVE); Cocaine Screen, Urine NEGATIVE (NEGATIVE); Opiate Scree,Urine POSITIVE (NEGATIVE); Phencyclidine Screen, Urine NEGATIVE (NEGATIVE)
[2021-05-28] MEDS ORDERED: levoFLOXacin 750MG 150 ML IV ONE (23:45)
[2021-05-28] MEDS ORDERED: metroNIDAZOLE 500MG/100ML 100 ML IV ONE (23:45)
[2021-05-29] MEDS ORDERED: ACETAMINOPHEN 325 MG TAB PO PRN (04:45)
[2021-05-29] MEDS ORDERED: MORPHINE SULFATE INJECTION 2 MG/ML SYRG IV PRN (04:45)
[2021-05-29] MEDS ORDERED: NITROGLYCERIN 0.4 MG SL TAB SL PRN (04:45)
[2021-05-29] MEDS ORDERED: ONDANSETRON HCL 4 MG/2 ML VIAL IV PRN (04:45)
[2021-05-29] MEDS ORDERED: ALBUTEROL SULF 2.5 MG/0.5ML(0.5%) NEB SOLN NEB PRN (04:45)
[2021-05-29] MEDS: FUROSEMIDE 40 MG TAB PO SCH ×2 (06:46→18:00)
[2021-05-29] MEDS: LEVOTHYROXINE SODIUM 50 MCG TAB PO SCH (06:50)
[2021-05-29] MEDS: cefTRIAXone 1GM/50ML D5W 50 ML IV SCH (09:44)
[2021-05-29] MEDS: APIXABAN 5 MG TAB PO SCH (09:52)
[2021-05-29] MEDS: LITHIUM CARBONATE 300 MG TAB PO SCH (09:52)
[2021-05-29] MEDS: SERTRALINE HCL 50 MG TAB PO SCH (09:53)
[2021-05-29] MEDS: PANTOPRAZOLE 40 MG TAB PO SCH (09:53)
[2021-05-29] MEDS ORDERED: HYDR-4069 PO (10:56)
[2021-05-29] MEDS ORDERED: MET50T PO (10:56)
[2021-05-29] MEDS ORDERED: POTA10TA51 PO (10:56)
[2021-05-29] MEDS ORDERED: FURO40TA4 PO (10:56)
[2021-05-29] MEDS ORDERED: QUET200T45 PO (10:56)
[2021-05-29] MEDS ORDERED: ERGO1CAP12 PO (10:56)
[2021-05-29 13:57] VITALS: BP 117/70
[2021-05-29] MEDS: METOCLOPRAMIDE HCL 10 MG TAB PO SCH ×2 (14:00→22:00)
[2021-05-29] MEDS ORDERED: IPRATROPIUM BROM 0.5 MG/2.5ML INH SOL NEB PRN (14:00)
[2021-05-29] MEDS ORDERED: POTA-220 PO (16:05)
[2021-05-29] MEDS: carBAMazepine 200 MG TAB PO SCH (18:37)
[2021-05-29] MEDS: Ensure HIGH Protein Chocolate 8oz Bottle PO SCH (18:56)
[2021-05-29 23:00] VITALS: BP 96/49
[2021-05-29 23:37] VITALS: BP 129/68
[2021-05-30 00:04] VITALS: BP 129/68
[2021-05-30] MEDS: APIXABAN 5 MG TAB PO SCH ×3 (00:21→22:03)
[2021-05-30] MEDS: LITHIUM CARBONATE 300 MG TAB PO SCH ×3 (00:21→22:04)
[2021-05-30] MEDS: ATORVASTATIN 20 MG TAB PO SCH ×2 (00:21→22:03)
[2021-05-30] MEDS: GABAPENTIN 400 MG CAP PO SCH ×3 (00:21→22:04)
[2021-05-30] MEDS: HYDROcodone-ACET 5/325MG TAB PO PRN ×2 (00:40→16:51)
[2021-05-30 05:27] VITALS: BP 96/49
[2021-05-30] MEDS: METOCLOPRAMIDE HCL 10 MG TAB PO SCH ×3 (06:00→22:03)
[2021-05-30] MEDS: FUROSEMIDE 40 MG TAB PO SCH ×2 (06:00→18:00)
[2021-05-30 06:37] LABS: Basophils # (auto) 0 10 ^3/uL (0-0.2); Basophils % (auto) 0.4 % (0.0-2.0); Eosinophils # (auto) 0.1 10 ^3/uL (0-0.8); Eosinophils % (auto) 0.8 % (0.0-7.0); Hematocrit 40.6 % (36.0-46.0); Hemoglobin 13.2 g/dL (12.2-16.2); Lymphocytes # (auto) 1.4 10 ^3/uL (0.4-5.4); Lymphocytes % (auto) 16.7 % (10.0-50.0); Mean Corpuscular Hgb Conc. 32.5 g/dL (32.0-36.0); Mean Corpuscular Volume 95.5 fL (80.0-100.0); Monocytes # (auto) 0.7 10 ^3/uL (0-1.3); Monocytes % (auto) 7.7 % (0.0-12.0); Neutrophils # (auto) 6.4 10 ^3/uL (1.6-8.6); Neutrophils % (auto) 74.4 % (37.0-80.0); Nucleated Red Blood Cells % 0.2 %; Red Blood Cells 4.25 10^6/uL (4.0-5.20); Red Cell Distribution Width 18.8 % (11.8-14.3); White Blood Cell 8.6 10^3/uL (4.4-10.8)
[2021-05-30] MEDS: LEVOTHYROXINE SODIUM 50 MCG TAB PO SCH (06:51)
[2021-05-30 06:57] LABS: Potassium 3.2 mmol/L (3.5-5.1)
[2021-05-30 07:06] LABS: BUN/Creatinine Ratio 9.1; Calcium 8.6 mg/dL (8.5-10.1)
[2021-05-30] MEDS: Ensure HIGH Protein Chocolate 8oz Bottle PO SCH ×3 (08:00→18:00)
[2021-05-30] MEDS ORDERED: POTASSIUM EFFERVESENT TAB 25 MEQ PO ONE (08:30)
[2021-05-30 09:00] VITALS: BP 120/73
[2021-05-30] MEDS: cefTRIAXone 1GM/50ML D5W 50 ML IV SCH (09:00)
[2021-05-30] MEDS: AZITHROMYCIN 250 MG TAB PO SCH (10:00)
[2021-05-30] MEDS: PANTOPRAZOLE 40 MG TAB PO SCH (10:00)
[2021-05-30] MEDS: SERTRALINE HCL 50 MG TAB PO SCH (10:00)
[2021-05-30] MEDS: POTASSIUM CHL 20 Meq TABLET PO SCH (10:00)
[2021-05-30] MEDS: VANCOMYCIN HCL 125MG/5ML ORAL SOL PO SCH ×3 (12:00→22:14)
[2021-05-30 17:00] VITALS: BP 112/75
[2021-05-30] MEDS: carBAMazepine 200 MG TAB PO SCH (18:00)
[2021-05-30 22:29] VITALS: BP 111/57
[2021-05-31] MEDS: HYDROcodone-ACET 5/325MG TAB PO PRN (04:58)
[2021-05-31 05:00] VITALS: BP 98/59
[2021-05-31 06:03] LABS: Basophils # (auto) 0 10 ^3/uL (0-0.2); Basophils % (auto) 0.4 % (0.0-2.0); Eosinophils # (auto) 0.1 10 ^3/uL (0-0.8); Eosinophils % (auto) 1.8 % (0.0-7.0); Hemoglobin 12.8 g/dL (12.2-16.2); Lymphocytes # (auto) 1.5 10 ^3/uL (0.4-5.4); Lymphocytes % (auto) 24.6 % (10.0-50.0); Mean Corpuscular Volume 96.9 fL (80.0-100.0); Monocytes # (auto) 0.5 10 ^3/uL (0-1.3); Monocytes % (auto) 8.9 % (0.0-12.0); Neutrophils # (auto) 3.9 10 ^3/uL (1.6-8.6); Neutrophils % (auto) 64.3 % (37.0-80.0); Nucleated Red Blood Cells % 0.1 %; Red Blood Cells 4.13 10^6/uL (4.0-5.20); Red Cell Distribution Width 19.4 % (11.8-14.3)
[2021-05-31 06:15] LABS: Potassium 3.9 mmol/L (3.5-5.1)
[2021-05-31 06:22] LABS: Albumin 2.2 g/dL (3.4-5.0); BUN/Creatinine Ratio 10.2; Bilirubin, Total 0.3 mg/dL (0.2-1.0); Calcium 8.7 mg/dL (8.5-10.1); Total Protein 6.7 g/dL (6.4-8.2)
[2021-05-31] MEDS: FUROSEMIDE 40 MG TAB PO SCH (06:34)
[2021-05-31] MEDS: VANCOMYCIN HCL 125MG/5ML ORAL SOL PO SCH (06:34)
[2021-05-31] MEDS: METOCLOPRAMIDE HCL 10 MG TAB PO SCH (06:34)
[2021-05-31] MEDS: LEVOTHYROXINE SODIUM 50 MCG TAB PO SCH (06:35)
[2021-05-31] MEDS: Ensure HIGH Protein Chocolate 8oz Bottle PO SCH (08:00)
[2021-05-31 09:00] VITALS: BP 131/75
[2021-05-31] MEDS: cefTRIAXone 1GM/50ML D5W 50 ML IV SCH (09:00)
[2021-05-31] MEDS: GABAPENTIN 400 MG CAP PO SCH (10:00)
[2021-05-31] MEDS: PANTOPRAZOLE 40 MG TAB PO SCH (10:00)
[2021-05-31] MEDS: POTASSIUM CHL 20 Meq TABLET PO SCH (10:00)
[2021-05-31] MEDS: APIXABAN 5 MG TAB PO SCH (10:00)
[2021-05-31] MEDS: SERTRALINE HCL 50 MG TAB PO SCH (10:00)
[2021-05-31] MEDS: LITHIUM CARBONATE 300 MG TAB PO SCH (10:00)
[2021-05-31] MEDS: AZITHROMYCIN 250 MG TAB PO SCH (10:00)
[2021-05-31 13:00] VITALS: BP 123/73
[2021-05-31 14:17] VITALS: BP 98/56
== END 2021-05-31 15:20 | disposition home or self-care (01) | DRG 917 ==
LOC: EDBD 17:48 → ER 18:03 → TELE 18:49 → TELE-WESTW 05-29 23:33
PROVIDERS: ADMIT Nurse Practitioner; ATTEND Internal Medicine
DX: T40.601A Poisoning by unspecified narcotics, accidental (unintentional), initial encounter (principal); A41.9 Sepsis, unspecified organism; G92 Toxic encephalopathy; J18.9 Pneumonia, unspecified organism; J96.91 Respiratory failure, unspecified with hypoxia; E44.0 Moderate protein-calorie malnutrition; I50.32 Chronic diastolic (congestive) heart failure; E87.1 Hypo-osmolality and hyponatremia; N39.0 Urinary tract infection, site not specified; J44.0 Chronic obstructive pulmonary disease with (acute) lower respiratory infection; Z68.41 Body mass index [BMI] 40.0-44.9, adult; E03.9 Hypothyroidism, unspecified; E66.9 Obesity, unspecified; E87.6 Hypokalemia; F41.9 Anxiety disorder, unspecified; F32.9 Major depressive disorder, single episode, unspecified; F25.0 Schizoaffective disorder, bipolar type; Z20.822 Contact with and (suspected) exposure to COVID-19; E78.5 Hyperlipidemia, unspecified; F17.210 Nicotine dependence, cigarettes, uncomplicated; I11.0 Hypertensive heart disease with heart failure; Z82.49 Family history of ischemic heart disease and other diseases of the circulatory system; Z83.3 Family history of diabetes mellitus; Z90.49 Acquired absence of other specified parts of digestive tract; Y92.89 Other specified places as the place of occurrence of the external cause
CPT/HCPCS: 36415; 71045; 80048; 80053; 80076; 80307; 80329; 81001; 81025; 82550; 83605; 84443; 85025; 87040; 87081; 87086; 87426; 93005; 94640; 96365; 96366; 96367; G0378; J0696; J1956; J3490

== ENCOUNTER → 2021-06-12 | Outpatient (CLI) | payer OTHER ==
[~2021-06-12] MED LIST changes: -CARB200T PO; -DOX100T PO; -DULO1CAP5 PO; +ERGO1CAP12 PO; -PRED20TA2 PO; +QUET200T44 PO; -ZOLP5TAB PO
== END | disposition home or self-care (01) ==
LOC: LAB 12:40
PROVIDERS: ATTEND Internal Medicine Nephrology
DX: R19.7 Diarrhea, unspecified (principal); R10.84 Generalized abdominal pain
CPT/HCPCS: 87045; 87427; 87493

== ENCOUNTER 2021-07-03 17:13 | Inpatient (IN) | payer OTHER, MEDICAID ==
[~2021-07-03] VITALS: Ht 162.6 cm; Wt 111.1 kg
[2021-07-03] MEDS ORDERED: SODIUM CHLORIDE 0.9% 1,000 ML IV ONE (17:45)
[2021-07-03] MEDS ORDERED: FUROSEMIDE 40 MG/4 ML VIAL IV ONE (17:45)
[2021-07-03 18:54] LABS: Basophils # (auto) 0.1 10 ^3/uL (0-0.2); Basophils % (auto) 0.5 % (0.0-2.0); Eosinophils # (auto) 0 10 ^3/uL (0-0.8); Neutrophils # (auto) 8.4 10 ^3/uL (1.6-8.6)
[2021-07-03 18:57] LABS: Eosinophils % (auto) 0.1 % (0.0-7.0); Hematocrit 41.9 % (36.0-46.0); Lymphocytes # (auto) 0.8 10 ^3/uL (0.4-5.4); Lymphocytes % (auto) 8.1 % (10.0-50.0); Mean Corpuscular Hemoglobin 28.4 pg (28.0-32.0); Mean Corpuscular Volume 91.7 fL (80.0-100.0); Monocytes # (auto) 0.6 10 ^3/uL (0-1.3); Monocytes % (auto) 6.3 % (0.0-12.0); Nucleated Red Blood Cells % 0.2 %; Red Blood Cells 4.57 10^6/uL (4.0-5.20); Red Cell Distribution Width 19.7 % (11.8-14.3); White Blood Cell 9.9 10^3/uL (4.4-10.8)
[2021-07-03 19:07] LABS: INR 1.22 (0.9-1.15); Partial Thromboplastin Time 26.5 sec (23.6-33.0)
[2021-07-03 19:11] LABS: Blood Urea Nitrogen 10 mg/dL (7-18); Calcium 9.3 mg/dL (8.5-10.1); Chloride 111 mmol/L (98-107); Potassium 3.9 mmol/L (3.5-5.1); Sodium 137 mmol/L (136-145)
[2021-07-03 19:16] LABS: Alanine Aminotransferase 10 U/L (13-56); Alkaline Phosphatase 149 U/L (45-117); Anion Gap 2 (5-15); Aspartate Aminotransferase 9 U/L (15-37); BUN/Creatinine Ratio 11.9; Bilirubin, Total 0.6 mg/dL (0.2-1.0); Blood Alcohol < 3.0 mg/dL (0-5); Carbon Dioxide 24 mmol/L (21-32); GFR African American 93 mL/min; GFR Non-African American 77 mL/min; Glucose 127 mg/dL (74-106); Total Protein 7.7 g/dL (6.4-8.2)
[2021-07-03] MEDS ORDERED: hydrALAZINE HCL 20 MG/ML VL IV ONE (19:45)
[2021-07-03 20:06] LABS: Urine Bacteria NONE SEEN /hpf (None Seen); Urine Blood Negative /uL (Negative); Urine Specific Gravity 1.007 (1.001-1.035); Urine WBC 1 /hpf (0 - 5)
[2021-07-03] MEDS ORDERED: ONDANSETRON HCL 4 MG/2 ML VIAL IV PRN (23:00)
[2021-07-03] MEDS ORDERED: NITROGLYCERIN 0.4 MG SL TAB SL PRN (23:00)
[2021-07-03] MEDS ORDERED: DOCUSATE SOD 100 MG CAP PO PRN (23:00)
[2021-07-03] MEDS ORDERED: HYDROcodone-ACET 5/325MG TAB PO PRN (23:00)
[2021-07-03] MEDS ORDERED: ACETAMINOPHEN 325 MG TAB PO PRN (23:00)
[2021-07-03] MEDS ORDERED: hydrALAZINE HCL 20 MG/ML VL IV PRN (23:00)
[2021-07-03] MEDS ORDERED: MORPHINE SULFATE INJECTION 2 MG/ML SYRG IV PRN (23:00)
[2021-07-04 00:19] LABS: Amphetamine Screen, Urine NEGATIVE (NEGATIVE); Barbiturate Scree,Urine NEGATIVE (NEGATIVE); Benzodiazephine Screen, Urine NEGATIVE (NEGATIVE); Cannabinoid Screen, Urine NEGATIVE (NEGATIVE); Cocaine Screen, Urine NEGATIVE (NEGATIVE); Opiate Scree,Urine NEGATIVE (NEGATIVE); Phencyclidine Screen, Urine NEGATIVE (NEGATIVE)
[2021-07-04 04:21] LABS: Monocytes # (auto) 0.6 10 ^3/uL (0-1.3); Neutrophils # (auto) 6.5 10 ^3/uL (1.6-8.6); Nucleated Red Blood Cells % 0.2 %; White Blood Cell 8.3 10^3/uL (4.4-10.8)
[2021-07-04 04:23] LABS: Basophils # (auto) 0.1 10 ^3/uL (0-0.2); Basophils % (auto) 0.7 % (0.0-2.0); Eosinophils # (auto) 0.1 10 ^3/uL (0-0.8); Eosinophils % (auto) 0.7 % (0.0-7.0); Hematocrit 40.5 % (36.0-46.0); Hemoglobin 12.9 g/dL (12.2-16.2); Lymphocytes % (auto) 12.1 % (10.0-50.0); Mean Corpuscular Hemoglobin 28.3 pg (28.0-32.0); Mean Corpuscular Hgb Conc. 31.8 g/dL (32.0-36.0); Monocytes % (auto) 7.8 % (0.0-12.0); Neutrophils % (auto) 78.7 % (37.0-80.0); Red Blood Cells 4.55 10^6/uL (4.0-5.20); Red Cell Distribution Width 19.9 % (11.8-14.3)
[2021-07-04 04:37] LABS: Potassium 3.5 mmol/L (3.5-5.1)
[2021-07-04 04:40] LABS: Bilirubin, Total 0.7 mg/dL (0.2-1.0); Total Protein 7.7 g/dL (6.4-8.2)
[2021-07-04] MEDS: NYSTATIN (MOUTH-THROAT) 500,000 UNITS/5 ML SUSP MT SCH ×4 (05:57→22:09)
[2021-07-04] MEDS: LEVOTHYROXINE SODIUM 50 MCG TAB PO SCH (05:57)
[2021-07-04] MEDS: SODIUM CHLOR 0.9% PF (SALINE LOCK) 10ML VIAL/SYR IV SCH ×3 (05:57→22:09)
[2021-07-04] MEDS: FUROSEMIDE 40 MG/4 ML VIAL IV SCH (09:55)
[2021-07-04] MEDS: ASPirin 81 mg TAB PO SCH (09:56)
[2021-07-04] MEDS: FAMOTIDINE (10MG/ML) 2ML VL IV SCH ×2 (09:56→22:08)
[2021-07-04] MEDS: CARVEDILOL 12.5 MG TAB PO SCH ×2 (09:56→22:00)
[2021-07-04] MEDS: ZINC SULFATE 220mg CAP or TAB PO SCH (09:56)
[2021-07-04] MEDS: ASCORBIC ACID 500 MG TAB PO SCH ×2 (09:57→22:09)
[2021-07-04] MEDS: MULTIPLE VITAMIN TAB PO SCH (09:57)
[2021-07-04] MEDS: ENOXAPARIN SOD 40 MG/0.4 ML SYRINGE SC SCH (09:57)
[2021-07-04 16:00] VITALS: BP 122/78
[2021-07-04 17:00] VITALS: BP 136/85
[2021-07-04 22:00] VITALS: BP 133/83
[2021-07-05 05:00] VITALS: BP 121/59
[2021-07-05] MEDS: SODIUM CHLOR 0.9% PF (SALINE LOCK) 10ML VIAL/SYR IV SCH ×3 (06:44→21:53)
[2021-07-05] MEDS: LEVOTHYROXINE SODIUM 50 MCG TAB PO SCH (06:44)
[2021-07-05] MEDS: NYSTATIN (MOUTH-THROAT) 500,000 UNITS/5 ML SUSP MT SCH ×4 (06:44→21:50)
[2021-07-05 09:00] VITALS: BP 135/67
[2021-07-05] MEDS: FUROSEMIDE 40 MG/4 ML VIAL IV SCH (09:56)
[2021-07-05] MEDS: FAMOTIDINE (10MG/ML) 2ML VL IV SCH (09:56)
[2021-07-05] MEDS: ASPirin 81 mg TAB PO SCH (09:56)
[2021-07-05] MEDS: ZINC SULFATE 220mg CAP or TAB PO SCH (09:56)
[2021-07-05] MEDS: ASCORBIC ACID 500 MG TAB PO SCH ×2 (09:57→21:51)
[2021-07-05] MEDS: ENOXAPARIN SOD 40 MG/0.4 ML SYRINGE SC SCH (09:57)
[2021-07-05] MEDS: MULTIPLE VITAMIN TAB PO SCH (09:57)
[2021-07-05] MEDS: CARVEDILOL 12.5 MG TAB PO SCH (09:57)
[2021-07-05] MEDS ORDERED: IOHEXOL 350 MG/ML 100ML IJ ONE ×2 (11:32→17:02)
[2021-07-05 13:00] VITALS: BP 118/70
[2021-07-05] MEDS ORDERED: NICOTINE 21MG/24 HR TOPICAL PATCH TD ONE (13:45)
[2021-07-05] MEDS ORDERED: SERTRALINE HCL 50 MG TAB PO ONE (13:45)
[2021-07-05 16:59] VITALS: BP 133/73
[2021-07-05] MEDS: APIXABAN 5 MG TAB PO SCH (21:51)
[2021-07-05] MEDS: METOPROLOL TARTRATE 25 MG TAB PO SCH (21:51)
[2021-07-05 22:00] VITALS: BP 144/96
[2021-07-06 05:00] VITALS: BP 129/78
[2021-07-06] MEDS: SODIUM CHLOR 0.9% PF (SALINE LOCK) 10ML VIAL/SYR IV SCH (06:00)
[2021-07-06] MEDS: NYSTATIN (MOUTH-THROAT) 500,000 UNITS/5 ML SUSP MT SCH (06:35)
[2021-07-06] MEDS: LEVOTHYROXINE SODIUM 50 MCG TAB PO SCH (06:36)
[2021-07-06] MEDS ORDERED: SERTRALINE HCL 50 MG TAB PO SCH (07:00)
[2021-07-06 09:00] VITALS: BP 120/81
[2021-07-06] MEDS ORDERED: NICOTINE 21MG/24 HR TOPICAL PATCH TD SCH (10:00)
[2021-07-06] MEDS: APIXABAN 5 MG TAB PO SCH (10:03)
[2021-07-06] MEDS: FUROSEMIDE 40 MG/4 ML VIAL IV SCH (10:03)
[2021-07-06] MEDS: ZINC SULFATE 220mg CAP or TAB PO SCH (10:03)
[2021-07-06] MEDS: MULTIPLE VITAMIN TAB PO SCH (10:04)
[2021-07-06] MEDS: METOPROLOL TARTRATE 25 MG TAB PO SCH (10:04)
[2021-07-06] MEDS: ASCORBIC ACID 500 MG TAB PO SCH (10:05)
== END 2021-07-06 11:47 | disposition home or self-care (01) | DRG 70 ==
LOC: ER 17:13 → EDBD 17:13 → EDUNIT# 17:13 → TELE 23:10 → TELE-CENTR 07-04 15:56
PROVIDERS: ADMIT Nurse Practitioner Family; ATTEND Internal Medicine
DX: G93.41 Metabolic encephalopathy (principal); I50.33 Acute on chronic diastolic (congestive) heart failure; I27.82 Chronic pulmonary embolism; J96.10 Chronic respiratory failure, unspecified whether with hypoxia or hypercapnia; Z68.41 Body mass index [BMI] 40.0-44.9, adult; J98.11 Atelectasis; I27.20 Pulmonary hypertension, unspecified; I11.0 Hypertensive heart disease with heart failure; E66.01 Morbid (severe) obesity due to excess calories; E03.9 Hypothyroidism, unspecified; E78.5 Hyperlipidemia, unspecified; F17.210 Nicotine dependence, cigarettes, uncomplicated; Z20.822 Contact with and (suspected) exposure to COVID-19; F20.9 Schizophrenia, unspecified; F31.9 Bipolar disorder, unspecified; F41.9 Anxiety disorder, unspecified; J44.9 Chronic obstructive pulmonary disease, unspecified; Z82.49 Family history of ischemic heart disease and other diseases of the circulatory system; Z83.3 Family history of diabetes mellitus; Z90.49 Acquired absence of other specified parts of digestive tract
CPT/HCPCS: 36415; 51702; 70450; 71045; 71275; 80053; 80307; 80320; 81001; 82140; 83036; 83880; 84484; 84702; 85025; 85379; 85610; 85730; 87040; 87426; 93005; 93970; 96361; 96374; 96375; G0378; J3490

== ENCOUNTER 2021-07-11 17:38 | Emergency (ER) | payer OTHER, MEDICAID ==
[~2021-07-11] VITALS: Ht 157.5 cm; Wt 113.4 kg
[~2021-07-11 17:38] MED LIST changes: -METO-158 PO
[2021-07-11 18:29] VITALS: BP 140/80
[2021-07-11 19:51] LABS: Basophils # (auto) 0 10 ^3/uL (0-0.2); Eosinophils # (auto) 0 10 ^3/uL (0-0.8); Eosinophils % (auto) 0.2 % (0.0-7.0); Lymphocytes # (auto) 1.3 10 ^3/uL (0.4-5.4); Lymphocytes % (auto) 16.3 % (10.0-50.0); Monocytes # (auto) 0.6 10 ^3/uL (0-1.3); Monocytes % (auto) 7.9 % (0.0-12.0)
[2021-07-11 19:53] LABS: Basophils % (auto) 0.5 % (0.0-2.0); Hematocrit 50.1 % (36.0-46.0); Hemoglobin 16.1 g/dL (12.2-16.2); Mean Corpuscular Hemoglobin 28.2 pg (28.0-32.0); Mean Corpuscular Hgb Conc. 32.1 g/dL (32.0-36.0); Mean Corpuscular Volume 87.6 fL (80.0-100.0); Neutrophils % (auto) 75.1 % (37.0-80.0); Nucleated Red Blood Cells % 0.1 %; Red Blood Cells 5.72 10^6/uL (4.0-5.20); Red Cell Distribution Width 20.2 % (11.8-14.3)
[2021-07-11 20:08] LABS: Albumin 3.7 g/dL (3.4-5.0); Calcium 9.8 mg/dL (8.5-10.1); Potassium 3.2 mmol/L (3.5-5.1)
[2021-07-11 20:11] LABS: BUN/Creatinine Ratio 9.5; Bilirubin, Total 0.7 mg/dL (0.2-1.0); Total Protein 8.6 g/dL (6.4-8.2)
== END 2021-07-11 21:14 | disposition left against medical advice (07) ==
LOC: EDBD 17:38 → ER 17:40
DX: R53.1 Weakness (principal); M54.9 Dorsalgia, unspecified; G89.29 Other chronic pain; Z53.21 Procedure and treatment not carried out due to patient leaving prior to being seen by health care provider
CPT/HCPCS: 36415; 80053; 83735; 83880; 84484; 85025; 93005

== ENCOUNTER 2021-07-13 10:07 | Emergency (ER) | payer OTHER, MEDICAID ==
[2021-07-13 10:07] VITALS: BP 104/61
== END 2021-07-13 13:20 | disposition left against medical advice (07) ==
LOC: ER 10:07 → EDBD 10:07 → ER 13:20
DX: M79.10 Myalgia, unspecified site (principal); R11.2 Nausea with vomiting, unspecified; Z53.21 Procedure and treatment not carried out due to patient leaving prior to being seen by health care provider

== ENCOUNTER 2021-08-17 12:06 | Inpatient (IN) | payer OTHER, MEDICAID ==
[~2021-08-17] VITALS: Ht 154.9 cm; Wt 101.0 kg
[~2021-08-17 12:06] MED LIST changes: -QUET200T44 PO; +QUET200T45 PO
[2021-08-17 13:29] LABS: Albumin 2.3 g/dL (3.4-5.0); Anion Gap 6 (5-15); Blood Urea Nitrogen 43 mg/dL (7-18); Calcium 9.9 mg/dL (8.5-10.1); Carbon Dioxide 23 mmol/L (21-32); Chloride 112 mmol/L (98-107); Glucose 123 mg/dL (74-106); Potassium 4.1 mmol/L (3.5-5.1); Sodium 141 mmol/L (136-145)
[2021-08-17 13:37] LABS: Alanine Aminotransferase 175 U/L (13-56); Alkaline Phosphatase 132 U/L (45-117); Aspartate Aminotransferase 61 U/L (15-37); BUN/Creatinine Ratio 34.4; Bilirubin, Total 0.9 mg/dL (0.2-1.0); GFR African American 59 mL/min; GFR Non-African American 49 mL/min; Total Protein 8.1 g/dL (6.4-8.2)
[2021-08-17 13:46] LABS: Blood Alcohol < 3.0 mg/dL (0-5)
[2021-08-17 13:47] LABS: Hemoglobin 14.9 g/dL (12.2-16.2); White Blood Cell 15.2 10^3/uL (4.4-10.8)
[2021-08-17 13:49] LABS: Basophils # (auto) 0 10 ^3/uL (0-0.2); Basophils % (auto) 0.1 % (0.0-2.0); Eosinophils # (auto) 0 10 ^3/uL (0-0.8); Eosinophils % (auto) 0.1 % (0.0-7.0); Lymphocytes # (auto) 0.5 10 ^3/uL (0.4-5.4); Mean Corpuscular Hemoglobin 25.8 pg (28.0-32.0); Mean Corpuscular Hgb Conc. 30.5 g/dL (32.0-36.0); Mean Corpuscular Volume 84.6 fL (80.0-100.0); Monocytes # (auto) 0.8 10 ^3/uL (0-1.3); Monocytes % (auto) 5.1 % (0.0-12.0); Neutrophils % (auto) 91.7 % (37.0-80.0); Nucleated Red Blood Cells % 0.4 %; Red Blood Cells 5.77 10^6/uL (4.0-5.20); Red Cell Distribution Width 20.5 % (11.8-14.3)
[2021-08-17 13:53] LABS: Hematocrit 46.8 % (36.0-46.0)
[2021-08-17 21:34] LABS: Urine Bacteria FEW /hpf (None Seen); Urine Blood Negative /uL (Negative); Urine Specific Gravity 1.016 (1.001-1.035); Urine WBC 87 /hpf (0 - 5); Urine WBC Clumps PRESENT /hpf (None Seen)
[2021-08-17 21:49] LABS: Alcohol, Urine < 3.0 mg/dL (0-10); Amphetamine Screen, Urine NEGATIVE (NEGATIVE); Barbiturate Scree,Urine NEGATIVE (NEGATIVE); Benzodiazephine Screen, Urine NEGATIVE (NEGATIVE); Cannabinoid Screen, Urine NEGATIVE (NEGATIVE); Cocaine Screen, Urine NEGATIVE (NEGATIVE); Opiate Scree,Urine NEGATIVE (NEGATIVE); Phencyclidine Screen, Urine NEGATIVE (NEGATIVE)
[2021-08-17] MEDS ORDERED: cefTRIAXone 1GM/50ML D5W 50 ML IV ONE (22:30)
[2021-08-18] MEDS ORDERED: ENOXAPARIN SOD 100 MG/1 ML SYRINGE SC ONE (08:00)
[2021-08-18] MEDS ORDERED: SODIUM CHLORIDE 0.9% 1,000 ML IV ONE (09:15)
[2021-08-18] MEDS ORDERED: ATORVASTATIN 20 MG TAB PO ONE (09:15)
[2021-08-18] MEDS ORDERED: SODIUM CHLORIDE 0.9% 2,000 ML IV ONE (09:15)
[2021-08-18] MEDS ORDERED: ONDANSETRON HCL 4 MG/2 ML VIAL IV PRN (09:30)
[2021-08-18] MEDS ORDERED: ACETAMINOPHEN 325 MG TAB PO PRN (09:30)
[2021-08-18] MEDS: levoFLOXacin 500MG 100 ML IV SCH ×2 (10:00→10:22)
[2021-08-18] MEDS: LEVOTHYROXINE SODIUM 100 MCG/5 ML INJ IV SCH (10:14)
[2021-08-18 10:15] LABS: Basophils # (auto) 0 10 ^3/uL (0-0.2); Eosinophils # (auto) 0 10 ^3/uL (0-0.8); Mean Corpuscular Volume 85.3 fL (80.0-100.0); Red Cell Distribution Width 20.8 % (11.8-14.3)
[2021-08-18 10:18] LABS: Basophils % (auto) 0.1 % (0.0-2.0); Eosinophils % (auto) 0.1 % (0.0-7.0); Hematocrit 53.1 % (36.0-46.0); Hemoglobin 15.8 g/dL (12.2-16.2); Lymphocytes # (auto) 0.7 10 ^3/uL (0.4-5.4); Lymphocytes % (auto) 4.9 % (10.0-50.0); Mean Corpuscular Hemoglobin 25.3 pg (28.0-32.0); Mean Corpuscular Hgb Conc. 29.7 g/dL (32.0-36.0); Monocytes % (auto) 7.1 % (0.0-12.0); Neutrophils # (auto) 12.5 10 ^3/uL (1.6-8.6); Neutrophils % (auto) 87.8 % (37.0-80.0); Nucleated Red Blood Cells % 0.6 %; Red Blood Cells 6.22 10^6/uL (4.0-5.20); White Blood Cell 14.2 10^3/uL (4.4-10.8)
[2021-08-18] MEDS: FUROSEMIDE 20 MG/2 ML VIAL IV SCH (10:21)
[2021-08-18 10:28] LABS: Calcium 10.6 mg/dL (8.5-10.1); Potassium 3.7 mmol/L (3.5-5.1)
[2021-08-18 10:33] LABS: Albumin 2.6 g/dL (3.4-5.0); BUN/Creatinine Ratio 33.3; Bilirubin, Total 0.7 mg/dL (0.2-1.0); Total Protein 9.1 g/dL (6.4-8.2)
[2021-08-18 10:54] LABS: Free T3 0.87 pg/mL (2.3-4.2); Free T4 (Free Thyroxine) 0.43 ng/dL (0.89-1.76)
[2021-08-18] MEDS ORDERED: NITROGLYCERIN 0.4 MG SL TAB SL PRN (11:00)
[2021-08-18] MEDS ORDERED: DOCUSATE SOD 100 MG CAP PO PRN (11:00)
[2021-08-18] MEDS ORDERED: MORPHINE SULFATE INJECTION 2 MG/ML SYRG IV PRN (11:00)
[2021-08-18 12:42] LABS: Sodium Urine 23 mmol/L (40-220)
[2021-08-18 12:45] LABS: Creatinine, Urine 71 mg/dL (30.0-125.0)
[2021-08-18 17:00] VITALS: BP 136/80
[2021-08-18 22:00] VITALS: BP 143/87
[2021-08-18] MEDS: ATORVASTATIN 20 MG TAB PO SCH ×2 (22:00→22:31)
[2021-08-18] MEDS: QUEtiapine FUMARATE 100 MG TAB PO SCH ×2 (22:00→22:32)
[2021-08-18] MEDS ORDERED: APIXABAN 5 MG TAB PO SCH (22:00)
[2021-08-18] MEDS ORDERED: GABAPENTIN 100 MG CAP PO SCH (22:00)
[2021-08-18] MEDS: GABAPENTIN 400 MG CAP PO SCH ×2 (22:07→22:30)
[2021-08-18] MEDS: ENOXAPARIN SOD 100 MG/1 ML SYRINGE SC SCH (22:18)
[2021-08-19 03:00] VITALS: BP 154/93
[2021-08-19 06:51] LABS: Basophils # (auto) 0 10 ^3/uL (0-0.2); Basophils % (auto) 0.1 % (0.0-2.0); Eosinophils # (auto) 0.1 10 ^3/uL (0-0.8); Eosinophils % (auto) 0.7 % (0.0-7.0); Hematocrit 46.6 % (36.0-46.0); Hemoglobin 14.2 g/dL (12.2-16.2); Lymphocytes % (auto) 8.4 % (10.0-50.0); Mean Corpuscular Hgb Conc. 30.6 g/dL (32.0-36.0); Mean Corpuscular Volume 85.2 fL (80.0-100.0); Monocytes # (auto) 1.1 10 ^3/uL (0-1.3); Monocytes % (auto) 8.7 % (0.0-12.0); Neutrophils # (auto) 9.9 10 ^3/uL (1.6-8.6); Neutrophils % (auto) 82.1 % (37.0-80.0); Nucleated Red Blood Cells % 0.4 %; Red Blood Cells 5.47 10^6/uL (4.0-5.20); Red Cell Distribution Width 20.5 % (11.8-14.3); White Blood Cell 12.1 10^3/uL (4.4-10.8)
[2021-08-19] MEDS: LEVOTHYROXINE SODIUM 100 MCG/5 ML INJ IV SCH (06:54)
[2021-08-19] MEDS: QUEtiapine FUMARATE 100 MG TAB PO SCH ×2 (06:54→21:51)
[2021-08-19 07:14] LABS: Albumin 2.3 g/dL (3.4-5.0); Potassium 3.8 mmol/L (3.5-5.1)
[2021-08-19 07:17] LABS: BUN/Creatinine Ratio 32.8; Bilirubin, Direct 0.2 mg/dL (0-0.2); Bilirubin, Total 0.5 mg/dL (0.2-1.0); Total Protein 7.6 g/dL (6.4-8.2)
[2021-08-19 09:00] VITALS: BP 161/99
[2021-08-19 10:05] VITALS: BP 151/100
[2021-08-19] MEDS: levoFLOXacin 500MG 100 ML IV SCH (11:05)
[2021-08-19] MEDS: FUROSEMIDE 20 MG/2 ML VIAL IV SCH (11:05)
[2021-08-19] MEDS: GABAPENTIN 400 MG CAP PO SCH ×2 (11:05→21:50)
[2021-08-19] MEDS: ENOXAPARIN SOD 100 MG/1 ML SYRINGE SC SCH ×2 (11:06→21:50)
[2021-08-19] MEDS: SERTRALINE HCL 50 MG TAB PO SCH (11:06)
[2021-08-19 12:00] VITALS: BP 144/101
[2021-08-19] MEDS ORDERED: SOD CHL 0.45% 1,000 ML IV SCH (12:30)
[2021-08-19 17:00] VITALS: BP 161/99
[2021-08-19] MEDS: hydrALAZINE HCL 20 MG/ML VL IV PRN (17:23)
[2021-08-19] MEDS: ATORVASTATIN 20 MG TAB PO SCH (21:51)
[2021-08-19 22:00] VITALS: BP 143/88
[2021-08-20] MEDS: D5W 5% 1,000 ML IV SCH ×2 (00:37→13:30)
[2021-08-20 05:00] VITALS: BP 151/99
[2021-08-20] MEDS: QUEtiapine FUMARATE 100 MG TAB PO SCH ×2 (06:10→21:37)
[2021-08-20] MEDS: LEVOTHYROXINE SODIUM 100 MCG/5 ML INJ IV SCH (06:10)
[2021-08-20 07:57] LABS: Calcium 9.7 mg/dL (8.5-10.1)
[2021-08-20 07:59] LABS: BUN/Creatinine Ratio 28.8
[2021-08-20 08:03] LABS: Basophils # (auto) 0 10 ^3/uL (0-0.2); White Blood Cell 11.3 10^3/uL (4.4-10.8)
[2021-08-20 08:04] LABS: Basophils % (auto) 0.3 % (0.0-2.0); Eosinophils # (auto) 0.3 10 ^3/uL (0-0.8); Eosinophils % (auto) 2.6 % (0.0-7.0); Hemoglobin 14.9 g/dL (12.2-16.2); Lymphocytes # (auto) 1.4 10 ^3/uL (0.4-5.4); Lymphocytes % (auto) 12.4 % (10.0-50.0); Mean Corpuscular Hemoglobin 26.6 pg (28.0-32.0); Monocytes % (auto) 8.5 % (0.0-12.0); Neutrophils # (auto) 8.6 10 ^3/uL (1.6-8.6); Neutrophils % (auto) 76.2 % (37.0-80.0); Nucleated Red Blood Cells % 0.4 %; Red Blood Cells 5.58 10^6/uL (4.0-5.20); Red Cell Distribution Width 20.7 % (11.8-14.3)
[2021-08-20 08:31] LABS: Potassium 4.4 mmol/L (3.5-5.1)
[2021-08-20 08:43] VITALS: BP 153/92
[2021-08-20 13:00] VITALS: BP 138/75
[2021-08-20] MEDS: FUROSEMIDE 20 MG/2 ML VIAL IV SCH (13:28)
[2021-08-20] MEDS: SERTRALINE HCL 50 MG TAB PO SCH (13:29)
[2021-08-20] MEDS: levoFLOXacin 500MG 100 ML IV SCH (13:29)
[2021-08-20] MEDS: GABAPENTIN 400 MG CAP PO SCH ×2 (13:29→21:36)
[2021-08-20] MEDS: ENOXAPARIN SOD 100 MG/1 ML SYRINGE SC SCH (13:30)
[2021-08-20 17:41] VITALS: BP 145/73
[2021-08-20] MEDS: hydrALAZINE HCL 20 MG/ML VL IV PRN (21:12)
[2021-08-20] MEDS: APIXABAN 5 MG TAB PO SCH (21:36)
[2021-08-20 21:53] VITALS: BP 182/92
[2021-08-20] MEDS ORDERED: QUEtiapine FUMARATE 100 MG TAB PO SCH (22:00)
[2021-08-20] MEDS ORDERED: ATORVASTATIN 20 MG TAB PO SCH (22:00)
[2021-08-20] MEDS ORDERED: PATIENTS OWN MEDICATION (Lithium Carbonate 600 MG) PO SCH (22:00)
[2021-08-21 04:58] VITALS: BP 151/86
[2021-08-21] MEDS: QUEtiapine FUMARATE 100 MG TAB PO SCH (06:02)
[2021-08-21 06:35] LABS: Basophils # (auto) 0 10 ^3/uL (0-0.2); Eosinophils # (auto) 0.2 10 ^3/uL (0-0.8); Hematocrit 47.6 % (36.0-46.0); Hemoglobin 14.7 g/dL (12.2-16.2)
[2021-08-21 06:38] LABS: Basophils % (auto) 0.2 % (0.0-2.0); Eosinophils % (auto) 1.9 % (0.0-7.0); Lymphocytes # (auto) 1.3 10 ^3/uL (0.4-5.4); Lymphocytes % (auto) 13.3 % (10.0-50.0); Mean Corpuscular Hemoglobin 26.4 pg (28.0-32.0); Mean Corpuscular Hgb Conc. 30.8 g/dL (32.0-36.0); Mean Corpuscular Volume 85.6 fL (80.0-100.0); Monocytes # (auto) 0.7 10 ^3/uL (0-1.3); Monocytes % (auto) 6.6 % (0.0-12.0); Neutrophils # (auto) 7.7 10 ^3/uL (1.6-8.6); Nucleated Red Blood Cells % 0.1 %; Red Blood Cells 5.56 10^6/uL (4.0-5.20); Red Cell Distribution Width 20.7 % (11.8-14.3); White Blood Cell 9.9 10^3/uL (4.4-10.8)
[2021-08-21 06:52] LABS: Albumin 2.4 g/dL (3.4-5.0); Calcium 9.4 mg/dL (8.5-10.1)
[2021-08-21 06:55] LABS: BUN/Creatinine Ratio 23.7; Bilirubin, Direct 0.1 mg/dL (0-0.2); Bilirubin, Total 0.4 mg/dL (0.2-1.0); Total Protein 7.5 g/dL (6.4-8.2)
[2021-08-21] MEDS ORDERED: PATIENTS OWN MEDICATION (Sertraline Hcl 1 TAB) PO SCH (07:00)
[2021-08-21] MEDS ORDERED: LEVOTHYROXINE SODIUM 100 MCG TAB PO SCH (07:00)
[2021-08-21] MEDS ORDERED: D5W 5% 500 ML IV ONE (08:15)
[2021-08-21 08:51] VITALS: BP 151/90
[2021-08-21] MEDS ORDERED: FUROSEMIDE 40 MG TAB PO SCH (10:00)
[2021-08-21] MEDS: levoFLOXacin 500MG 100 ML IV SCH (10:00)
[2021-08-21] MEDS ORDERED: LITHIUM CARBONATE 300 MG TAB PO SCH (10:57)
[2021-08-21] MEDS: SERTRALINE HCL 50 MG TAB PO SCH (11:13)
[2021-08-21] MEDS: GABAPENTIN 400 MG CAP PO SCH (11:14)
[2021-08-21] MEDS: APIXABAN 5 MG TAB PO SCH (11:14)
[2021-08-21 13:02] VITALS: BP 143/87
[2021-08-21 17:00] VITALS: BP 125/86
[2021-08-21] MEDS ORDERED: LEVO500T31 PO (17:11)
[2021-08-21] MEDS ORDERED: LITH300C3 PO (17:11)
[2021-08-21] MEDS ORDERED: GABA400C PO (17:11)
[2021-08-21 18:25] VITALS: BP 151/90
== END 2021-08-21 18:38 | disposition home health service (06) | DRG 280 ==
LOC: ER 12:06 → EDBD 12:06 → TELE 08-18 11:00 → TELE-WESTW 08-18 15:48 → TELE-CENTR 08-18 16:52
PROVIDERS: ADMIT Internal Medicine; ATTEND Internal Medicine
DX: I21.4 Non-ST elevation (NSTEMI) myocardial infarction (principal); I50.33 Acute on chronic diastolic (congestive) heart failure; G93.41 Metabolic encephalopathy; E43 Unspecified severe protein-calorie malnutrition; I13.0 Hypertensive heart and chronic kidney disease with heart failure and stage 1 through stage 4 chronic kidney disease, or unspecified chronic kidney disease; R45.851 Suicidal ideations; N39.0 Urinary tract infection, site not specified; J96.11 Chronic respiratory failure with hypoxia; E87.0 Hyperosmolality and hypernatremia; G93.1 Anoxic brain damage, not elsewhere classified; N17.9 Acute kidney failure, unspecified; Z68.41 Body mass index [BMI] 40.0-44.9, adult; F20.9 Schizophrenia, unspecified; F31.9 Bipolar disorder, unspecified; I50.9 Heart failure, unspecified; J44.9 Chronic obstructive pulmonary disease, unspecified; E03.9 Hypothyroidism, unspecified; E66.01 Morbid (severe) obesity due to excess calories; F60.3 Borderline personality disorder; E86.0 Dehydration; E78.5 Hyperlipidemia, unspecified; F17.210 Nicotine dependence, cigarettes, uncomplicated; N18.2 Chronic kidney disease, stage 2 (mild); R62.7 Adult failure to thrive; Z20.822 Contact with and (suspected) exposure to COVID-19; T43.595A Adverse effect of other antipsychotics and neuroleptics, initial encounter; Z79.01 Long term (current) use of anticoagulants; Z79.899 Other long term (current) drug therapy; Z82.49 Family history of ischemic heart disease and other diseases of the circulatory system; Z83.3 Family history of diabetes mellitus; Z86.711 Personal history of pulmonary embolism; Z99.81 Dependence on supplemental oxygen; Y92.89 Other specified places as the place of occurrence of the external cause; Z90.49 Acquired absence of other specified parts of digestive tract
CPT/HCPCS: 36415; 70450; 71045; 76700; 80048; 80053; 80076; 80178; 80307; 80320; 81001; 82570; 83605; 84133; 84156; 84166; 84300; 84439; 84443; 84481; 84484; 84702; 85025; 87040; 87086; 87088; 87186; 87426; 92610; 93005; 93306; 95819; 96361; 96365; 96366; 96367; 96372; 96375; 97163; G0378; J0696; J1956; J3490; J7042

== ENCOUNTER → 2022-05-13 | Outpatient (CLI) | payer OTHER, MEDICAID ==
[~2022-05-13] MED LIST changes: +LEVO500T31 PO
[2022-05-13 16:23] LABS: Urine Bacteria FEW /hpf (None Seen); Urine Blood Negative /uL (Negative); Urine Specific Gravity 1.007 (1.001-1.035); Urine WBC 4 /hpf (0 - 5)
== END | disposition home or self-care (01) ==
LOC: LAB 15:51
PROVIDERS: ATTEND Internal Medicine Nephrology
DX: N39.0 Urinary tract infection, site not specified (principal)
CPT/HCPCS: 81001; 87086

== ENCOUNTER 2022-07-28 13:41 | Inpatient (IN) | payer OTHER, MEDICAID ==
[~2022-07-28] VITALS: Ht 162.6 cm; Wt 132.9 kg
[2022-07-28] MEDS ORDERED: methylPREDNISolone SOD SUCC 125 MG/2 ML VL IV ONE (14:00)
[2022-07-28 14:17] LABS: Basophils # (auto) 0 10 ^3/uL (0-0.2); Basophils % (auto) 0.3 % (0.0-2.0); Eosinophils # (auto) 0 10 ^3/uL (0-0.8); Eosinophils % (auto) 0.4 % (0.0-7.0); Hematocrit 41.7 % (36.0-46.0); Hemoglobin 12.6 g/dL (12.2-16.2); Lymphocytes # (auto) 1.1 10 ^3/uL (0.4-5.4); Lymphocytes % (auto) 14.5 % (10.0-50.0); Mean Corpuscular Hemoglobin 23.8 pg (28.0-32.0); Mean Corpuscular Hgb Conc. 30.3 g/dL (32.0-36.0); Mean Corpuscular Volume 78.6 fL (80.0-100.0); Monocytes # (auto) 0.6 10 ^3/uL (0-1.3); Monocytes % (auto) 7.3 % (0.0-12.0); Neutrophils # (auto) 5.9 10 ^3/uL (1.6-8.6); Neutrophils % (auto) 77.5 % (37.0-80.0); Nucleated Red Blood Cells % 0.4 %; White Blood Cell 7.7 10^3/uL (4.4-10.8)
[2022-07-28 14:35] LABS: Chloride 97 mmol/L (98-107); Potassium 4.6 mmol/L (3.5-5.1); Sodium 128 mmol/L (136-145)
[2022-07-28 14:36] LABS: Alanine Aminotransferase 35 U/L (13-56); Alkaline Phosphatase 113 U/L (45-117); Anion Gap 9 (5-15); Aspartate Aminotransferase 61 U/L (15-37); BUN/Creatinine Ratio 15.5; Bilirubin, Total 1.5 mg/dL (0.2-1.0); Blood Urea Nitrogen 32 mg/dL (7-18); Calcium 8.6 mg/dL (8.5-10.1); Carbon Dioxide 22 mmol/L (21-32); GFR African American 33 mL/min; GFR Non-African American 27 mL/min; Glucose 84 mg/dL (74-106); Total Protein 7.2 g/dL (6.4-8.2)
[2022-07-28 14:37] LABS: Albumin 2.7 g/dL (3.4-5.0); Magnesium 2.2 mg/dL (1.6-2.6)
[2022-07-28 15:14] LABS: Red Cell Distribution Width 23.6 % (11.8-14.3)
[2022-07-28] MEDS ORDERED: AZITHROMYCIN 500MG/ 250ML 250 ML IV ONE (18:00)
[2022-07-28] MEDS ORDERED: cefTRIAXone 1GM/50ML D5W 50 ML IV ONE (18:00)
[2022-07-28] MEDS ORDERED: ALBUTEROL SULF 2.5 MG/0.5ML(0.5%) NEB SOLN NEB PRN (18:00)
[2022-07-28] MEDS ORDERED: IPRATROPIUM BROM 0.5 MG/2.5ML INH SOL NEB PRN (18:00)
[2022-07-28] MEDS ORDERED: SODIUM CHLORIDE 0.9% 500 ML IV ONE (18:00)
[2022-07-28] MEDS ORDERED: ONDANSETRON HCL 4 MG/2 ML VIAL IV PRN (18:15)
[2022-07-28] MEDS ORDERED: MORPHINE SULFATE INJ 2 MG/ml SYRG IV PRN ×2 (18:15)
[2022-07-28] MEDS ORDERED: NITROGLYCERIN 0.4 MG SL TAB SL PRN (18:15)
[2022-07-28 18:41] LABS: Cholesterol 59 mg/dL (< 200); HDL Cholesterol 16 mg/dL (40-59); LDL Cholesterol 43 mg/dL (< 100); Triglycerides 87 mg/dL (< 150)
[2022-07-28 18:58] VITALS: BP 145/98
[2022-07-28] MEDS: IPRATROPIUM BROM 0.5 MG/2.5ML INH SOL NEB SCH (18:58)
[2022-07-28] MEDS: ALBUTEROL SULF 2.5 MG/0.5ML(0.5%) NEB SOLN NEB SCH (18:58)
[2022-07-28 19:11] LABS: Urine Bacteria NONE SEEN /hpf (None Seen); Urine Blood Negative /uL (Negative); Urine Hyaline Cast MOD /lpf (0 - 2); Urine Specific Gravity 1.011 (1.001-1.035); Urine WBC 2 /hpf (0 - 5)
[2022-07-28 19:18] LABS: Amphetamine Screen, Urine NEGATIVE (NEGATIVE); Barbiturate Scree,Urine NEGATIVE (NEGATIVE); Benzodiazephine Screen, Urine NEGATIVE (NEGATIVE); Cannabinoid Screen, Urine NEGATIVE (NEGATIVE); Cocaine Screen, Urine NEGATIVE (NEGATIVE); Opiate Scree,Urine NEGATIVE (NEGATIVE); Phencyclidine Screen, Urine NEGATIVE (NEGATIVE)
[2022-07-28] MEDS: SODIUM CHLORIDE 0.9% 1,000 ML IV SCH (20:11)
[2022-07-28 20:22] VITALS: BP 130/88
[2022-07-28 20:56] VITALS: BP 130/88
[2022-07-28] MEDS ORDERED: GABAPENTIN 400 MG CAP PO SCH (22:00)
[2022-07-28] MEDS ORDERED: APIXABAN 5 MG TAB PO SCH (22:00)
[2022-07-28] MEDS: FERROUS SULFATE 325mg EC TAB PO SCH (22:00)
[2022-07-28] MEDS ORDERED: ATORVASTATIN 20 MG TAB PO SCH (22:00)
[2022-07-28 22:22] VITALS: BP 117/83
[2022-07-29] VITALS (12 sets, daily range): BP systolic 116–152; BP diastolic 69–97
[2022-07-29] MEDS: SODIUM CHLORIDE 0.9% 1,000 ML IV SCH (04:00)
[2022-07-29] MEDS: ALBUTEROL SULF 2.5 MG/0.5ML(0.5%) NEB SOLN NEB SCH ×3 (05:56→17:51)
[2022-07-29] MEDS: IPRATROPIUM BROM 0.5 MG/2.5ML INH SOL NEB SCH ×3 (05:56→17:51)
[2022-07-29] MEDS: FERROUS SULFATE 325mg EC TAB PO SCH (06:00)
[2022-07-29] MEDS: methylPREDNISolone SOD SUCC 40 MG/ML VL IV SCH ×3 (06:23→22:44)
[2022-07-29 06:46] LABS: Basophils # (auto) 0 10 ^3/uL (0-0.2); Basophils % (auto) 0.2 % (0.0-2.0); Eosinophils # (auto) 0 10 ^3/uL (0-0.8); Lymphocytes # (auto) 0.6 10 ^3/uL (0.4-5.4); Monocytes # (auto) 0.5 10 ^3/uL (0-1.3); Red Blood Cells 5.22 10^6/uL (4.0-5.20)
[2022-07-29 06:50] LABS: Hematocrit 41.8 % (36.0-46.0); Hemoglobin 12.4 g/dL (12.2-16.2); Lymphocytes % (auto) 8.7 % (10.0-50.0); Mean Corpuscular Hemoglobin 23.7 pg (28.0-32.0); Mean Corpuscular Hgb Conc. 29.6 g/dL (32.0-36.0); Monocytes % (auto) 6.6 % (0.0-12.0); Neutrophils # (auto) 6.1 10 ^3/uL (1.6-8.6); Neutrophils % (auto) 84.5 % (37.0-80.0); Nucleated Red Blood Cells % 0.4 %; Red Cell Distribution Width 23.6 % (11.8-14.3); White Blood Cell 7.2 10^3/uL (4.4-10.8)
[2022-07-29 06:51] LABS: Albumin 2.7 g/dL (3.4-5.0); BUN/Creatinine Ratio 18.8; Potassium 4.9 mmol/L (3.5-5.1)
[2022-07-29] MEDS: cefTRIAXone 1GM/50ML D5W 50 ML IV SCH (09:55)
[2022-07-29] MEDS: NICOTINE 7MG/24HR TOPICAL PATCH TD SCH (09:56)
[2022-07-29] MEDS: AZITHROMYCIN 500MG/ 250ML 250 ML IV SCH (10:45)
[2022-07-29] MEDS ORDERED: ENOXAPARIN SOD 100 MG/1 ML SYRINGE SC ONE (11:15)
[2022-07-29] MEDS ORDERED: LEVOTHYROXINE SODIUM 100 MCG/5 ML INJ IV ONE (11:30)
[2022-07-29] MEDS: D5W/SOD CHLO 0.9% 1,000 ML IV SCH (13:27)
[2022-07-29] MEDS ORDERED: CLINIMIX PER PHARMACY 0 ML IV SCH (16:15)
[2022-07-29] MEDS ORDERED: DEXTROSE (50%) 50ML SYRG IV PRN (16:15)
[2022-07-29] MEDS: ACCU-CHEK COMFORT CURVE STRIP VI SCH (18:00)
[2022-07-29] MEDS: InsuLIN REG 1unit/0.01ml Soln (100units/ml) SC SCH (18:30)
[2022-07-29 18:40] LABS: Magnesium 2.4 mg/dL (1.6-2.6)
[2022-07-29] MEDS ORDERED: AMINO ACID INFUSION IN D10W 1,000 ML IV NR (20:00)
[2022-07-29] MEDS ORDERED: ENOXAPARIN SOD 100 MG/1 ML SYRINGE SC SCH (22:00)
[2022-07-29] MEDS: ENOXAPARIN SOD 120 MG/0.8 ML SYRINGE SC SCH (22:44)
[2022-07-30] VITALS (7 sets, daily range): BP systolic 118–148; BP diastolic 43–91
[2022-07-30] MEDS: ACCU-CHEK COMFORT CURVE STRIP VI SCH ×4 (00:23→18:25)
[2022-07-30] MEDS: InsuLIN REG 1unit/0.01ml Soln (100units/ml) SC SCH ×4 (00:25→18:25)
[2022-07-30] MEDS: D5W/SOD CHLO 0.9% 1,000 ML IV SCH (03:03)
[2022-07-30 05:35] LABS: Potassium 4.3 mmol/L (3.5-5.1)
[2022-07-30 05:43] LABS: Albumin 2.7 g/dL (3.4-5.0); BUN/Creatinine Ratio 24.3; Bilirubin, Total 0.6 mg/dL (0.2-1.0); Calcium 9.7 mg/dL (8.5-10.1); Magnesium 2.4 mg/dL (1.6-2.6); Phosphorus 2.8 mg/dL (2.5-4.90); Total Protein 7.6 g/dL (6.4-8.2)
[2022-07-30] MEDS: methylPREDNISolone SOD SUCC 40 MG/ML VL IV SCH ×2 (05:57→14:58)
[2022-07-30] MEDS: IPRATROPIUM BROM 0.5 MG/2.5ML INH SOL NEB SCH ×3 (06:29→18:38)
[2022-07-30] MEDS: ALBUTEROL SULF 2.5 MG/0.5ML(0.5%) NEB SOLN NEB SCH ×3 (06:29→18:38)
[2022-07-30] MEDS: NICOTINE 7MG/24HR TOPICAL PATCH TD SCH (08:25)
[2022-07-30] MEDS: cefTRIAXone 1GM/50ML D5W 50 ML IV SCH (08:26)
[2022-07-30] MEDS: AZITHROMYCIN 500MG/ 250ML 250 ML IV SCH (08:26)
[2022-07-30] MEDS: ENOXAPARIN SOD 120 MG/0.8 ML SYRINGE SC SCH ×2 (08:27→22:27)
[2022-07-30 08:54] LABS: Basophils # (auto) 0 10 ^3/uL (0-0.2); Eosinophils # (auto) 0 10 ^3/uL (0-0.8); Lymphocytes # (auto) 0.4 10 ^3/uL (0.4-5.4); Monocytes # (auto) 0.4 10 ^3/uL (0-1.3)
[2022-07-30 08:56] LABS: Basophils % (auto) 0.5 % (0.0-2.0); Eosinophils % (auto) 0.1 % (0.0-7.0); Hematocrit 46.3 % (36.0-46.0); Hemoglobin 13.7 g/dL (12.2-16.2); Lymphocytes % (auto) 4.5 % (10.0-50.0); Mean Corpuscular Hemoglobin 24.1 pg (28.0-32.0); Mean Corpuscular Hgb Conc. 29.6 g/dL (32.0-36.0); Mean Corpuscular Volume 81.4 fL (80.0-100.0); Monocytes % (auto) 4.6 % (0.0-12.0); Neutrophils # (auto) 8.2 10 ^3/uL (1.6-8.6); Neutrophils % (auto) 90.3 % (37.0-80.0); Nucleated Red Blood Cells % 0.7 %; Red Blood Cells 5.69 10^6/uL (4.0-5.20)
[2022-07-30 08:58] LABS: Red Cell Distribution Width 24.4 % (11.8-14.3)
[2022-07-30] MEDS ORDERED: LEVOTHYROXINE SODIUM 100 MCG/5 ML INJ IV SCH (10:00)
[2022-07-30] MEDS ORDERED: SERT100T PO (19:12)
[2022-07-30] MEDS ORDERED: PANT40TA2 PO (19:13)
[2022-07-31] MEDS: ACCU-CHEK COMFORT CURVE STRIP VI SCH ×5 (01:09→23:24)
[2022-07-31 04:38] LABS: Albumin 2.9 g/dL (3.4-5.0); BUN/Creatinine Ratio 30.9; Calcium 9.5 mg/dL (8.5-10.1); Magnesium 2.3 mg/dL (1.6-2.6); Phosphorus 2.6 mg/dL (2.5-4.90); Potassium 4.3 mmol/L (3.5-5.1)
[2022-07-31 05:30] VITALS: BP 154/91
[2022-07-31] MEDS: InsuLIN REG 1unit/0.01ml Soln (100units/ml) SC SCH ×5 (06:00→23:24)
[2022-07-31] MEDS: ALBUTEROL SULF 2.5 MG/0.5ML(0.5%) NEB SOLN NEB SCH ×3 (07:28→19:25)
[2022-07-31] MEDS: IPRATROPIUM BROM 0.5 MG/2.5ML INH SOL NEB SCH ×3 (07:29→19:25)
[2022-07-31 09:00] VITALS: BP 158/90
[2022-07-31] MEDS ORDERED: LEVOTHYROXINE SODIUM 50 MCG TAB PO ONE (09:15)
[2022-07-31] MEDS: cefTRIAXone 1GM/50ML D5W 50 ML IV SCH (09:16)
[2022-07-31] MEDS: AZITHROMYCIN 500MG/ 250ML 250 ML IV SCH (10:11)
[2022-07-31] MEDS: NICOTINE 7MG/24HR TOPICAL PATCH TD SCH (10:11)
[2022-07-31] MEDS: methylPREDNISolone SOD SUCC 40 MG/ML VL IV SCH (10:12)
[2022-07-31] MEDS: SPIRONOLACTONE 25 MG TAB PO SCH (11:14)
[2022-07-31] MEDS: APIXABAN 5 MG TAB PO SCH ×2 (11:15→21:25)
[2022-07-31] MEDS: Ensure HIGH Protein Chocolate 8oz Bottle PO SCH ×3 (12:00→21:28)
[2022-07-31 13:00] VITALS: BP 150/88
[2022-07-31 16:30] VITALS: BP 150/89
[2022-07-31 20:00] VITALS: BP 150/89
[2022-07-31 22:00] VITALS: BP 151/94
[2022-08-01 05:00] VITALS: BP 161/98
[2022-08-01] MEDS: InsuLIN REG 1unit/0.01ml Soln (100units/ml) SC SCH ×4 (06:00→23:06)
[2022-08-01] MEDS: Ensure HIGH Protein Chocolate 8oz Bottle PO SCH ×4 (06:00→23:06)
[2022-08-01] MEDS: ACCU-CHEK COMFORT CURVE STRIP VI SCH ×4 (06:21→23:06)
[2022-08-01] MEDS: LEVOTHYROXINE SODIUM 50 MCG TAB PO SCH (06:22)
[2022-08-01 06:47] VITALS: BP 144/88
[2022-08-01] MEDS: IPRATROPIUM BROM 0.5 MG/2.5ML INH SOL NEB SCH ×3 (08:07→19:15)
[2022-08-01] MEDS: ALBUTEROL SULF 2.5 MG/0.5ML(0.5%) NEB SOLN NEB SCH ×3 (08:07→19:15)
[2022-08-01] MEDS: NICOTINE 7MG/24HR TOPICAL PATCH TD SCH (08:57)
[2022-08-01] MEDS: cefTRIAXone 1GM/50ML D5W 50 ML IV SCH (08:57)
[2022-08-01] MEDS: APIXABAN 5 MG TAB PO SCH ×2 (08:57→22:53)
[2022-08-01] MEDS: methylPREDNISolone SOD SUCC 40 MG/ML VL IV SCH (08:57)
[2022-08-01] MEDS: AZITHROMYCIN 500MG/ 250ML 250 ML IV SCH (08:57)
[2022-08-01 09:00] VITALS: BP 154/74
[2022-08-01] MEDS: SPIRONOLACTONE 25 MG TAB PO SCH (09:03)
[2022-08-01 13:00] VITALS: BP 157/92
[2022-08-01] MEDS ORDERED: FUROSEMIDE 20 MG/2 ML VIAL IV ONE (13:45)
[2022-08-01] MEDS: SERTRALINE HCL 50 MG TAB PO SCH (13:49)
[2022-08-01] MEDS ORDERED: HCTZ 25 MG TAB PO ONE (14:30)
[2022-08-01] MEDS ORDERED: LOSARTAN POTASSIUM 25 MG TAB PO ONE (14:30)
[2022-08-01 17:00] VITALS: BP 150/56
[2022-08-01 22:00] VITALS: BP 152/87
[2022-08-01] MEDS ORDERED: QUEtiapine FUMARATE 100 MG TAB PO SCH (22:00)
[2022-08-02 05:00] VITALS: BP 124/67
[2022-08-02] MEDS: InsuLIN REG 1unit/0.01ml Soln (100units/ml) SC SCH ×2 (06:00→12:00)
[2022-08-02] MEDS: ACCU-CHEK COMFORT CURVE STRIP VI SCH ×2 (06:16→12:13)
[2022-08-02] MEDS: Ensure HIGH Protein Chocolate 8oz Bottle PO SCH ×2 (06:16→12:13)
[2022-08-02] MEDS: LEVOTHYROXINE SODIUM 50 MCG TAB PO SCH (06:25)
[2022-08-02 08:20] VITALS: BP 156/81
[2022-08-02] MEDS: APIXABAN 5 MG TAB PO SCH (09:00)
[2022-08-02] MEDS: SERTRALINE HCL 50 MG TAB PO SCH (09:01)
[2022-08-02] MEDS: AZITHROMYCIN 500MG/ 250ML 250 ML IV SCH (09:05)
[2022-08-02] MEDS: cefTRIAXone 1GM/50ML D5W 50 ML IV SCH (09:06)
[2022-08-02] MEDS: SPIRONOLACTONE 25 MG TAB PO SCH (09:08)
[2022-08-02] MEDS: methylPREDNISolone SOD SUCC 40 MG/ML VL IV SCH (09:08)
[2022-08-02] MEDS: NICOTINE 7MG/24HR TOPICAL PATCH TD SCH (09:08)
[2022-08-02] MEDS: ALBUTEROL SULF 2.5 MG/0.5ML(0.5%) NEB SOLN NEB SCH ×2 (09:41→14:35)
[2022-08-02] MEDS: IPRATROPIUM BROM 0.5 MG/2.5ML INH SOL NEB SCH ×2 (09:41→14:35)
[2022-08-02] MEDS ORDERED: LOSARTAN POTASSIUM 25 MG TAB PO SCH (10:00)
[2022-08-02] MEDS ORDERED: FUROSEMIDE 20 MG/2 ML VIAL IV SCH (10:00)
[2022-08-02] MEDS ORDERED: HCTZ 25 MG TAB PO SCH (10:00)
[2022-08-02 12:26] VITALS: BP 142/68
[2022-08-02] MEDS ORDERED: LEVO500T31 PO (12:30)
[2022-08-02] MEDS ORDERED: SPIR25TA PO (12:30)
[2022-08-02] MEDS ORDERED: LOSA-69 PO (12:30)
[2022-08-02] MEDS ORDERED: PRED20TA2 PO (12:32)
[2022-08-02] MEDS ORDERED: AMLO-496 PO (12:33)
[2022-08-02 12:42] VITALS: BP 156/81
== END 2022-08-02 15:53 | disposition home or self-care (01) | DRG 91 ==
LOC: EDBD 13:41 → EDSEX 13:41 → ER 13:41 → TELE 18:09 → TELE-WESTW 07-30 17:27
PROVIDERS: ADMIT Registered Nurse; ATTEND Internal Medicine Nephrology
PROC: 5A09357 Assistance with Respiratory Ventilation, Less than 24 Consecutive Hours, Continuous Positive Airway Pressure (ICD-10-PCS; 2022-07-28)
PROC: 5A09357 Assistance with Respiratory Ventilation, Less than 24 Consecutive Hours, Continuous Positive Airway Pressure (ICD-10-PCS; 2022-07-29)
PROC: 05HD33Z Insertion of Infusion Device into Right Cephalic Vein, Percutaneous Approach (ICD-10-PCS; 2022-07-29)
PROC: B54MZZA Ultrasonography of Right Upper Extremity Veins, Guidance (ICD-10-PCS; 2022-07-29)
PROC: 4A00X4Z Measurement of Central Nervous Electrical Activity, External Approach (ICD-10-PCS; principal; 2022-07-30)
PROC: 5A09357 Assistance with Respiratory Ventilation, Less than 24 Consecutive Hours, Continuous Positive Airway Pressure (ICD-10-PCS; 2022-07-30)
DX: G93.1 Anoxic brain damage, not elsewhere classified (principal); J96.21 Acute and chronic respiratory failure with hypoxia; J96.22 Acute and chronic respiratory failure with hypercapnia; J44.1 Chronic obstructive pulmonary disease with (acute) exacerbation; N17.9 Acute kidney failure, unspecified; N18.4 Chronic kidney disease, stage 4 (severe); Z68.43 Body mass index [BMI] 50.0-59.9, adult; J98.11 Atelectasis; I13.0 Hypertensive heart and chronic kidney disease with heart failure and stage 1 through stage 4 chronic kidney disease, or unspecified chronic kidney disease; E78.5 Hyperlipidemia, unspecified; R73.9 Hyperglycemia, unspecified; D50.9 Iron deficiency anemia, unspecified; E66.01 Morbid (severe) obesity due to excess calories; E89.0 Postprocedural hypothyroidism; F20.9 Schizophrenia, unspecified; F31.9 Bipolar disorder, unspecified; F41.9 Anxiety disorder, unspecified; F60.3 Borderline personality disorder; Z20.822 Contact with and (suspected) exposure to COVID-19; R00.1 Bradycardia, unspecified; I50.9 Heart failure, unspecified; R56.9 Unspecified convulsions; Z79.01 Long term (current) use of anticoagulants; Z79.899 Other long term (current) drug therapy; Z79.84 Long term (current) use of oral hypoglycemic drugs; Z79.2 Long term (current) use of antibiotics; Z83.3 Family history of diabetes mellitus; Z90.49 Acquired absence of other specified parts of digestive tract; Z82.49 Family history of ischemic heart disease and other diseases of the circulatory system; Z86.711 Personal history of pulmonary embolism
CPT/HCPCS: 36415; 36600; 70450; 71045; 71250; 78582; 80053; 80061; 80069; 80307; 81001; 81025; 82140; 82805; 82962; 83036; 83605; 83735; 83880; 84100; 84439; 84443; 84478; 84484; 85025; 85379; 87040; 93005; 93306; 93970; 94640; 94660; 95819; 96374; 97110; 97116; 97163; 97530; G0378; J0696; J1815; J3490

== ENCOUNTER → 2022-08-19 | Outpatient (CLI) | payer OTHER, MEDICAID ==
[~2022-08-19] MED LIST changes: +AMLO-496 PO; -LORA-655 PO; +LOSA-69 PO; -METO-281 PO; +PANT40TA2 PO; +PRED20TA2 PO; +SERT100T PO; +SPIR25TA PO
== END | disposition home or self-care (01) ==
LOC: LAB 11:18
PROVIDERS: ATTEND Internal Medicine Pulmonary Disease
DX: Z01.812 Encounter for preprocedural laboratory examination (principal); Z20.822 Contact with and (suspected) exposure to COVID-19
CPT/HCPCS: 36415; 87426

== ENCOUNTER → 2022-08-20 | Outpatient (CLI) | payer OTHER, MEDICAID ==
[~2022-08-20] MED LIST changes: +ALBUTEROL SULF 2.5 MG/0.5ML(0.5%) NEB SOLN ONE
== END | disposition home or self-care (01) ==
LOC: RT 11:29
PROVIDERS: ATTEND Internal Medicine Pulmonary Disease
DX: J44.9 Chronic obstructive pulmonary disease, unspecified (principal)
CPT/HCPCS: 94060; 94727; 94729

== ENCOUNTER → 2022-09-13 | Emergency (ER) | payer OTHER, MEDICAID ==
[~2022-09-13] VITALS: Ht 160 cm; Wt 118.0 kg
[~2022-09-13] MED LIST changes: -ALBUTEROL SULF 2.5 MG/0.5ML(0.5%) NEB SOLN ONE; +FUROSEMIDE 40 MG/4 ML VIAL IV ONE; +GABA600T PO; +diphenhdrAMINE HCL 50 MG/1 ML VL IV ONE
[2022-09-13 15:13] VITALS: BP 144/73
[2022-09-13 15:56] LABS: Basophils # (auto) 0 10 ^3/uL (0-0.2); Basophils % (auto) 0.7 % (0.0-2.0); Eosinophils # (auto) 0 10 ^3/uL (0-0.8); Lymphocytes # (auto) 1.1 10 ^3/uL (0.4-5.4); Monocytes # (auto) 0.6 10 ^3/uL (0-1.3); Nucleated Red Blood Cells % 0.3 %
[2022-09-13 15:58] LABS: Eosinophils % (auto) 0.4 % (0.0-7.0); Hematocrit 47.7 % (36.0-46.0); Hemoglobin 14.4 g/dL (12.2-16.2); Lymphocytes % (auto) 15.9 % (10.0-50.0); Mean Corpuscular Hemoglobin 25.4 pg (28.0-32.0); Mean Corpuscular Hgb Conc. 30.3 g/dL (32.0-36.0); Mean Corpuscular Volume 83.9 fL (80.0-100.0); Monocytes % (auto) 8.2 % (0.0-12.0); Neutrophils # (auto) 5.3 10 ^3/uL (1.6-8.6); Neutrophils % (auto) 74.8 % (37.0-80.0); Red Blood Cells 5.69 10^6/uL (4.0-5.20); White Blood Cell 7.1 10^3/uL (4.4-10.8)
[2022-09-13 16:20] LABS: Red Cell Distribution Width 24.1 % (11.8-14.3)
[2022-09-13 16:25] LABS: Alanine Aminotransferase 15 U/L (13-56); Albumin 2.8 g/dL (3.4-5.0); Alkaline Phosphatase 98 U/L (45-117); Anion Gap 7 (5-15); Aspartate Aminotransferase 26 U/L (15-37); BUN/Creatinine Ratio 8.8; Bilirubin, Total 1.2 mg/dL (0.2-1.0); Blood Urea Nitrogen 8 mg/dL (7-18); Calcium 8.9 mg/dL (8.5-10.1); Carbon Dioxide 29 mmol/L (21-32); Chloride 103 mmol/L (98-107); GFR African American 85 mL/min; GFR Non-African American 70 mL/min; Glucose 82 mg/dL (74-106); Potassium 4.7 mmol/L (3.5-5.1); Sodium 139 mmol/L (136-145); Total Protein 6.8 g/dL (6.4-8.2)
[2022-09-13 16:26] LABS: Magnesium 2.4 mg/dL (1.6-2.6)
[2022-09-13 21:10] LABS: Urine Bacteria NONE SEEN /hpf (None Seen); Urine Blood Negative /uL (Negative); Urine Specific Gravity 1.005 (1.001-1.035); Urine WBC <1 /hpf (0 - 5)
== END | disposition home or self-care (01) ==
LOC: EDUNIT# 14:44 → EDBD 14:53 → ER 14:53
DX: R10.11 Right upper quadrant pain (principal); R22.0 Localized swelling, mass and lump, head; I13.0 Hypertensive heart and chronic kidney disease with heart failure and stage 1 through stage 4 chronic kidney disease, or unspecified chronic kidney disease; N18.9 Chronic kidney disease, unspecified; E11.22 Type 2 diabetes mellitus with diabetic chronic kidney disease; I50.9 Heart failure, unspecified; J44.9 Chronic obstructive pulmonary disease, unspecified; E78.5 Hyperlipidemia, unspecified; F17.210 Nicotine dependence, cigarettes, uncomplicated; Z90.49 Acquired absence of other specified parts of digestive tract; Z90.89 Acquired absence of other organs; Z79.899 Other long term (current) drug therapy
CPT/HCPCS: 36415; 71045; 74176; 80053; 81001; 83735; 83880; 85025; 93005; 96374; 99285; J1200

== ENCOUNTER 2022-09-16 15:02 | Inpatient (IN) | payer OTHER, MEDICAID ==
[~2022-09-16] VITALS: Ht 162.6 cm; Wt 129.0 kg
[~2022-09-16 15:02] MED LIST changes: -FUROSEMIDE 40 MG/4 ML VIAL IV ONE; -GABA600T PO; -diphenhdrAMINE HCL 50 MG/1 ML VL IV ONE
[2022-09-16 19:02] LABS: Urine Bacteria NONE SEEN /hpf (None Seen); Urine Blood Negative /uL (Negative); Urine Specific Gravity 1.006 (1.001-1.035); Urine WBC 1 /hpf (0 - 5)
[2022-09-16 19:23] LABS: Basophils # (auto) 0 10 ^3/uL (0-0.2); Eosinophils # (auto) 0 10 ^3/uL (0-0.8); Monocytes # (auto) 0.5 10 ^3/uL (0-1.3); Nucleated Red Blood Cells % 0.5 %
[2022-09-16 19:25] LABS: Basophils % (auto) 0.5 % (0.0-2.0); Eosinophils % (auto) 0.4 % (0.0-7.0); Hematocrit 51.9 % (36.0-46.0); Hemoglobin 15.6 g/dL (12.2-16.2); Lymphocytes # (auto) 1.1 10 ^3/uL (0.4-5.4); Lymphocytes % (auto) 15.8 % (10.0-50.0); Mean Corpuscular Hemoglobin 25.4 pg (28.0-32.0); Mean Corpuscular Hgb Conc. 30.1 g/dL (32.0-36.0); Mean Corpuscular Volume 84.4 fL (80.0-100.0); Neutrophils # (auto) 5.3 10 ^3/uL (1.6-8.6); Neutrophils % (auto) 76.3 % (37.0-80.0); Red Blood Cells 6.15 10^6/uL (4.0-5.20)
[2022-09-16 19:32] LABS: Red Cell Distribution Width 24.6 % (11.8-14.3)
[2022-09-16 19:36] LABS: Albumin 2.9 g/dL (3.4-5.0); BUN/Creatinine Ratio 10.6; Calcium 9.2 mg/dL (8.5-10.1); Potassium 4.2 mmol/L (3.5-5.1)
[2022-09-16 19:38] LABS: Bilirubin, Total 1.4 mg/dL (0.2-1.0); Total Protein 7.1 g/dL (6.4-8.2)
[2022-09-16] MEDS ORDERED: MORPHINE SULFATE INJ 2 MG/ml SYRG IV PRN (22:30)
[2022-09-16] MEDS ORDERED: ACETAMINOPHEN 325 MG TAB PO PRN (22:30)
[2022-09-16] MEDS ORDERED: NITROGLYCERIN 0.4 MG SL TAB SL PRN (22:30)
[2022-09-16 22:57] LABS: Cholesterol 121 mg/dL (< 200); HDL Cholesterol 28 mg/dL (40-59); LDL Cholesterol 81 mg/dL (< 100); Triglycerides 106 mg/dL (< 150)
[2022-09-16] MEDS ORDERED: PANTOPRAZOLE 40 MG/10 ML VIAL INJ IV ONE (23:00)
[2022-09-16] MEDS ORDERED: FUROSEMIDE 20 MG/2 ML VIAL IV ONE (23:00)
[2022-09-17] MEDS: SODIUM CHLOR 0.9% PF (SALINE LOCK) 10ML VIAL/SYR IV SCH ×3 (06:23→21:46)
[2022-09-17 07:10] LABS: Basophils # (auto) 0 10 ^3/uL (0-0.2); Basophils % (auto) 0.6 % (0.0-2.0); Eosinophils # (auto) 0.1 10 ^3/uL (0-0.8); Eosinophils % (auto) 0.9 % (0.0-7.0); Hematocrit 53.9 % (36.0-46.0); Hemoglobin 16.2 g/dL (12.2-16.2); Lymphocytes # (auto) 0.8 10 ^3/uL (0.4-5.4); Lymphocytes % (auto) 9.9 % (10.0-50.0); Mean Corpuscular Hemoglobin 25.6 pg (28.0-32.0); Mean Corpuscular Volume 85.4 fL (80.0-100.0); Monocytes # (auto) 0.5 10 ^3/uL (0-1.3); Monocytes % (auto) 6.3 % (0.0-12.0); Neutrophils # (auto) 6.9 10 ^3/uL (1.6-8.6); Neutrophils % (auto) 82.3 % (37.0-80.0); Nucleated Red Blood Cells % 0.4 %; Red Blood Cells 6.31 10^6/uL (4.0-5.20); White Blood Cell 8.4 10^3/uL (4.4-10.8)
[2022-09-17 07:13] LABS: Red Cell Distribution Width 24.3 % (11.8-14.3)
[2022-09-17 08:10] LABS: Albumin 2.8 g/dL (3.4-5.0); BUN/Creatinine Ratio 12.5; Bilirubin, Total 1.2 mg/dL (0.2-1.0); Calcium 8.5 mg/dL (8.5-10.1); Potassium 3.5 mmol/L (3.5-5.1); Total Protein 7.2 g/dL (6.4-8.2)
[2022-09-17 09:30] VITALS: BP 139/87
[2022-09-17] MEDS: SERTRALINE HCL 50 MG TAB PO SCH (09:46)
[2022-09-17] MEDS: LITHIUM CARBONATE 300 MG TAB PO SCH ×2 (09:47→21:38)
[2022-09-17] MEDS: APIXABAN 5 MG TAB PO SCH ×2 (09:47→21:38)
[2022-09-17] MEDS: PANTOPRAZOLE 40 MG/10 ML VIAL INJ IV SCH (09:49)
[2022-09-17] MEDS ORDERED: LOSARTAN POTASSIUM 50 MG TAB PO SCH (10:00)
[2022-09-17] MEDS ORDERED: amLODIPine BESYLATE 5 MG TAB PO SCH (10:00)
[2022-09-17] MEDS ORDERED: FUROSEMIDE 20 MG/2 ML VIAL IV SCH (10:00)
[2022-09-17] MEDS ORDERED: ENOXAPARIN SOD 40 MG/0.4 ML SYRINGE SC SCH (10:00)
[2022-09-17] MEDS ORDERED: GABAPENTIN 400 MG CAP PO SCH (10:00)
[2022-09-17] MEDS ORDERED: ATORVASTATIN 20 MG TAB PO SCH (10:00)
[2022-09-17] MEDS ORDERED: SPIRONOLACTONE 25 MG TAB PO SCH (10:00)
[2022-09-17] MEDS: LEVOTHYROXINE SODIUM 50 MCG TAB PO SCH (10:06)
[2022-09-17 10:59] VITALS: BP 148/87
[2022-09-17] MEDS ORDERED: GABA600T PO (11:15)
[2022-09-17 13:03] VITALS: BP 142/83
[2022-09-17] MEDS ORDERED: IPRATROPIUM BROM 0.5 MG/2.5ML INH SOL NEB PRN (14:30)
[2022-09-17] MEDS ORDERED: ALBUTEROL SULF 2.5 MG/0.5ML(0.5%) NEB SOLN NEB PRN (14:30)
[2022-09-17] MEDS ORDERED: CARVEDILOL 12.5 MG TAB PO ONE (15:45)
[2022-09-17] MEDS ORDERED: IOHEXOL 350 MG/ML 100ML IJ ONE (16:20)
[2022-09-17 16:32] VITALS: BP 111/54
[2022-09-17] MEDS: FUROSEMIDE 20 MG/2 ML VIAL IV SCH ×2 (18:50→21:41)
[2022-09-17] MEDS: SACUBITRIL-VALSARTAN 24mg/26mg TAB PO SCH (21:39)
[2022-09-17] MEDS: GABAPENTIN 300 MG CAP PO SCH (21:39)
[2022-09-17] MEDS: CARVEDILOL 12.5 MG TAB PO SCH (21:41)
[2022-09-17 22:00] VITALS: BP 133/66
[2022-09-17] MEDS ORDERED: levoFLOXacin 500 MG TAB PO ONE (23:00)
[2022-09-18 01:29] VITALS: BP 106/61
[2022-09-18 05:00] VITALS: BP 95/57
[2022-09-18 06:08] LABS: Basophils # (auto) 0 10 ^3/uL (0-0.2); Eosinophils # (auto) 0.1 10 ^3/uL (0-0.8); Nucleated Red Blood Cells % 0.2 %; White Blood Cell 6.5 10^3/uL (4.4-10.8)
[2022-09-18 06:11] LABS: Basophils % (auto) 0.3 % (0.0-2.0); Eosinophils % (auto) 1.1 % (0.0-7.0); Hematocrit 46.4 % (36.0-46.0); Lymphocytes # (auto) 0.9 10 ^3/uL (0.4-5.4); Lymphocytes % (auto) 13.2 % (10.0-50.0); Mean Corpuscular Hemoglobin 25.4 pg (28.0-32.0); Mean Corpuscular Hgb Conc. 30.3 g/dL (32.0-36.0); Monocytes # (auto) 0.4 10 ^3/uL (0-1.3); Monocytes % (auto) 6.8 % (0.0-12.0); Neutrophils # (auto) 5.1 10 ^3/uL (1.6-8.6); Neutrophils % (auto) 78.6 % (37.0-80.0); Red Blood Cells 5.52 10^6/uL (4.0-5.20)
[2022-09-18 06:26] LABS: Red Cell Distribution Width 23.8 % (11.8-14.3)
[2022-09-18] MEDS: FUROSEMIDE 20 MG/2 ML VIAL IV SCH ×2 (06:33→14:00)
[2022-09-18] MEDS: LEVOTHYROXINE SODIUM 50 MCG TAB PO SCH (06:33)
[2022-09-18] MEDS: SODIUM CHLOR 0.9% PF (SALINE LOCK) 10ML VIAL/SYR IV SCH ×2 (06:33→14:00)
[2022-09-18] MEDS: SERTRALINE HCL 50 MG TAB PO SCH (06:33)
[2022-09-18 06:35] LABS: BUN/Creatinine Ratio 16.5; Calcium 8.2 mg/dL (8.5-10.1); Magnesium 2.3 mg/dL (1.6-2.6); Potassium 3.3 mmol/L (3.5-5.1)
[2022-09-18] MEDS ORDERED: POTASSIUM CHL 20 Meq TABLET PO ONE (07:45)
[2022-09-18 08:00] VITALS: BP 96/55
[2022-09-18] MEDS: CARVEDILOL 12.5 MG TAB PO SCH (08:31)
[2022-09-18 08:49] VITALS: BP 105/52
[2022-09-18] MEDS ORDERED: FURO1TAB31 PO (08:53)
[2022-09-18] MEDS ORDERED: CAR125T PO (08:53)
[2022-09-18] MEDS ORDERED: LEVO500T31 PO (08:53)
[2022-09-18] MEDS ORDERED: LEV150T PO (08:53)
[2022-09-18] MEDS ORDERED: SACU1TAB PO (08:53)
[2022-09-18] MEDS: PANTOPRAZOLE 40 MG/10 ML VIAL INJ IV SCH (08:56)
[2022-09-18] MEDS: APIXABAN 5 MG TAB PO SCH (08:57)
[2022-09-18] MEDS: GABAPENTIN 300 MG CAP PO SCH (08:57)
[2022-09-18] MEDS: LITHIUM CARBONATE 300 MG TAB PO SCH (08:57)
[2022-09-18] MEDS: SACUBITRIL-VALSARTAN 24mg/26mg TAB PO SCH (08:59)
[2022-09-18] MEDS ORDERED: levoFLOXacin 500 MG TAB PO SCH (10:00)
[2022-09-18] MEDS ORDERED: POTASSIUM CHL 20 Meq TABLET PO SCH (10:00)
[2022-09-18 12:32] VITALS: BP 114/76
[2022-09-18] MEDS ORDERED: ATORVASTATIN 20 MG TAB PO SCH (22:00)
== END 2022-09-18 14:36 | disposition home health service (06) | DRG 189 ==
LOC: EDUNIT# 15:02 → ER 15:02 → EDBD 15:02 → TELE 22:20 → TELE-WESTW 09-17 09:18
PROVIDERS: ADMIT Nurse Practitioner Family; ATTEND Internal Medicine
DX: J96.20 Acute and chronic respiratory failure, unspecified whether with hypoxia or hypercapnia (principal); I50.43 Acute on chronic combined systolic (congestive) and diastolic (congestive) heart failure; I13.0 Hypertensive heart and chronic kidney disease with heart failure and stage 1 through stage 4 chronic kidney disease, or unspecified chronic kidney disease; I48.92 Unspecified atrial flutter; Z68.42 Body mass index [BMI] 45.0-49.9, adult; Z99.81 Dependence on supplemental oxygen; F20.9 Schizophrenia, unspecified; J44.9 Chronic obstructive pulmonary disease, unspecified; N18.9 Chronic kidney disease, unspecified; R91.1 Solitary pulmonary nodule; E11.22 Type 2 diabetes mellitus with diabetic chronic kidney disease; I27.20 Pulmonary hypertension, unspecified; Z86.711 Personal history of pulmonary embolism; Z83.3 Family history of diabetes mellitus; Z82.49 Family history of ischemic heart disease and other diseases of the circulatory system; Z90.49 Acquired absence of other specified parts of digestive tract; E66.01 Morbid (severe) obesity due to excess calories; E78.5 Hyperlipidemia, unspecified
CPT/HCPCS: 36415; 36600; 71045; 71275; 80048; 80053; 80061; 80178; 81001; 82306; 82805; 82962; 83036; 83735; 83880; 84439; 84443; 84484; 84702; 85025; 85379; 87081; 87426; 93005; 93306; 93970; 96374; 96375; C9113; G0378

== ENCOUNTER 2022-12-07 10:48 | Inpatient (IN) | payer OTHER, MEDICAID ==
[~2022-12-07] VITALS: Ht 170.2 cm; Wt 112.0 kg
[~2022-12-07 10:48] MED LIST changes: +CAR125T PO; -ERGO1CAP12 PO; +FURO1TAB31 PO; -FURO40TA4 PO; -LOSA-69 PO; -POTA-220 PO; -PRED20TA2 PO; +SACU1TAB PO; -SERT100T PO
[2022-12-07] MEDS ORDERED: DexAMETHasone SOD PHOS 10MG/1ML VIAL INJ IV ONE (11:15)
[2022-12-07] MEDS ORDERED: IPRATROPIUM BROM 0.5 MG/2.5ML INH SOL NEB ONE (11:15)
[2022-12-07] MEDS ORDERED: ALBUTEROL SULF 2.5 MG/0.5ML(0.5%) NEB SOLN NEB ONE (11:15)
[2022-12-07 11:32] LABS: Urine Bacteria NONE SEEN /hpf (None Seen); Urine Blood Negative /uL (Negative); Urine Hyaline Cast FEW /lpf (0 - 2); Urine Specific Gravity 1.016 (1.001-1.035); Urine WBC 1 /hpf (0 - 5)
[2022-12-07 11:33] VITALS: BP 129/90
[2022-12-07] MEDS: MAGNESIUM SULFATE 1GM/100ML 100 ML IV SCH ×2 (11:36→13:06)
[2022-12-07] MEDS ORDERED: ALBUTEROL MEDNEB 2.5 mg/3ml NEB ONE ×3 (11:41→23:48)
[2022-12-07 11:49] LABS: Basophils # (auto) 0 10 ^3/uL (0-0.2); Eosinophils # (auto) 0 10 ^3/uL (0-0.8); Hemoglobin 15.5 g/dL (12.2-16.2); Lymphocytes # (auto) 0.4 10 ^3/uL (0.4-5.4); Nucleated Red Blood Cells % 0.4 %
[2022-12-07 11:50] LABS: Basophils % (auto) 0.2 % (0.0-2.0); Eosinophils % (auto) 0.1 % (0.0-7.0); Hematocrit 53.1 % (36.0-46.0); Lymphocytes % (auto) 4.9 % (10.0-50.0); Mean Corpuscular Hemoglobin 25.9 pg (28.0-32.0); Mean Corpuscular Hgb Conc. 29.1 g/dL (32.0-36.0); Monocytes # (auto) 0.5 10 ^3/uL (0-1.3); Monocytes % (auto) 5.3 % (0.0-12.0); Neutrophils # (auto) 8.2 10 ^3/uL (1.6-8.6); Neutrophils % (auto) 89.5 % (37.0-80.0); Red Blood Cells 5.97 10^6/uL (4.0-5.20); White Blood Cell 9.1 10^3/uL (4.4-10.8)
[2022-12-07 11:55] LABS: Red Cell Distribution Width 23.1 % (11.8-14.3)
[2022-12-07 12:03] LABS: Albumin 3.4 g/dL (3.4-5.0); Anion Gap 6 (5-15); Blood Alcohol < 3.0 mg/dL (0-5); Calcium 9.8 mg/dL (8.5-10.1); Carbon Dioxide 32 mmol/L (21-32); Chloride 105 mmol/L (98-107); Glucose 99 mg/dL (74-106); Magnesium 2.6 mg/dL (1.6-2.6); Potassium 4.5 mmol/L (3.5-5.1); Sodium 143 mmol/L (136-145)
[2022-12-07 12:07] LABS: Alanine Aminotransferase 21 U/L (13-56); Alkaline Phosphatase 149 U/L (45-117); Aspartate Aminotransferase 35 U/L (15-37); BUN/Creatinine Ratio 21.2; Bilirubin, Total 2.4 mg/dL (0.2-1.0); Blood Urea Nitrogen 29 mg/dL (7-18); GFR African American 53 mL/min; GFR Non-African American 44 mL/min; Total Protein 8.1 g/dL (6.4-8.2)
[2022-12-07] MEDS ORDERED: AZITHROMYCIN 500MG/ 250ML 250 ML IV ONE (14:15)
[2022-12-07] MEDS ORDERED: cefTRIAXone 1GM/50ML D5W 50 ML IV ONE (14:15)
[2022-12-07 15:35] VITALS: BP 152/84
[2022-12-07] MEDS ORDERED: FUROSEMIDE 100 MG/10ML VIAL IV ONE (15:45)
[2022-12-07] MEDS ORDERED: MORPHINE SULFATE INJ 2 MG/ml SYRG IV PRN (16:15)
[2022-12-07] MEDS ORDERED: NITROGLYCERIN 0.4 MG SL TAB SL PRN (16:15)
[2022-12-07] MEDS ORDERED: IOHEXOL 350 MG/ML 100ML IJ ONE (16:41)
[2022-12-07] MEDS ORDERED: IPRATROPIUM BROM 0.5 MG/2.5ML INH SOL NEB PRN (16:45)
[2022-12-07] MEDS ORDERED: ALBUTEROL SULF 2.5 MG/0.5ML(0.5%) NEB SOLN NEB PRN (16:45)
[2022-12-07] MEDS: FUROSEMIDE 20 MG/2 ML VIAL IV SCH (17:08)
[2022-12-07 17:10] LABS: Cholesterol 110 mg/dL (< 200)
[2022-12-07 17:13] LABS: HDL Cholesterol 22 mg/dL (40-59); LDL Cholesterol 74 mg/dL (< 100); Triglycerides 139 mg/dL (< 150)
[2022-12-07] MEDS: SODIUM CHLORIDE 0.9% 1,000 ML IV SCH (17:26)
[2022-12-07] MEDS: IPRATROPIUM BROM 0.5 MG/2.5ML INH SOL NEB SCH (18:24)
[2022-12-07] MEDS: ALBUTEROL SULF 2.5 MG/0.5ML(0.5%) NEB SOLN NEB SCH (18:24)
[2022-12-07 18:56] LABS: INR 1.33 (0.9-1.15); Partial Thromboplastin Time 29.4 sec (24.6-33.4)
[2022-12-08] MEDS ORDERED: IOHEXOL 350 MG/ML 100ML IJ ONE (00:56)
[2022-12-08] MEDS: SACUBITRIL-VALSARTAN 24mg/26mg TAB PO SCH ×3 (01:13→22:30)
[2022-12-08] MEDS: CARVEDILOL 12.5 MG TAB PO SCH ×3 (01:13→22:32)
[2022-12-08] MEDS: LITHIUM CARBONATE 300 MG TAB PO SCH ×3 (01:13→22:31)
[2022-12-08] MEDS ORDERED: ALBUTEROL MEDNEB 2.5 mg/3ml NEB ONE ×3 (05:50→13:06)
[2022-12-08] MEDS: IPRATROPIUM BROM 0.5 MG/2.5ML INH SOL NEB SCH ×3 (05:52→17:29)
[2022-12-08] MEDS: ALBUTEROL SULF 2.5 MG/0.5ML(0.5%) NEB SOLN NEB SCH (05:52)
[2022-12-08 06:06] LABS: Basophils # (auto) 0 10 ^3/uL (0-0.2); Basophils % (auto) 0.1 % (0.0-2.0); Eosinophils # (auto) 0 10 ^3/uL (0-0.8); Eosinophils % (auto) 0.1 % (0.0-7.0); Hematocrit 48.3 % (36.0-46.0); Hemoglobin 14.4 g/dL (12.2-16.2); Lymphocytes # (auto) 0.4 10 ^3/uL (0.4-5.4); Lymphocytes % (auto) 4.8 % (10.0-50.0); Mean Corpuscular Hemoglobin 26.1 pg (28.0-32.0); Mean Corpuscular Hgb Conc. 29.9 g/dL (32.0-36.0); Mean Corpuscular Volume 87.5 fL (80.0-100.0); Monocytes # (auto) 0.6 10 ^3/uL (0-1.3); Monocytes % (auto) 7.4 % (0.0-12.0); Neutrophils # (auto) 6.9 10 ^3/uL (1.6-8.6); Neutrophils % (auto) 87.6 % (37.0-80.0); Nucleated Red Blood Cells % 0.5 %; Red Blood Cells 5.52 10^6/uL (4.0-5.20); White Blood Cell 7.9 10^3/uL (4.4-10.8)
[2022-12-08] MEDS: SODIUM CHLORIDE 0.9% 1,000 ML IV SCH (06:06)
[2022-12-08 06:08] LABS: Red Cell Distribution Width 22.9 % (11.8-14.3)
[2022-12-08 06:21] LABS: Calcium 9.6 mg/dL (8.5-10.1); Potassium 3.5 mmol/L (3.5-5.1)
[2022-12-08 06:26] LABS: BUN/Creatinine Ratio 21.4; Bilirubin, Total 1.4 mg/dL (0.2-1.0); Total Protein 7.6 g/dL (6.4-8.2)
[2022-12-08] MEDS: cefTRIAXone 1GM/50ML D5W 50 ML IV SCH (09:00)
[2022-12-08] MEDS: FUROSEMIDE 20 MG/2 ML VIAL IV SCH ×2 (09:54→22:30)
[2022-12-08] MEDS: amLODIPine BESYLATE 5 MG TAB PO SCH (09:57)
[2022-12-08] MEDS: AZITHROMYCIN 500MG/ 250ML 250 ML IV SCH (09:59)
[2022-12-08] MEDS ORDERED: FUROSEMIDE 20 MG/2 ML VIAL IV SCH (10:00)
[2022-12-08] MEDS ORDERED: ENOXAPARIN SOD 40 MG/0.4 ML SYRINGE SC SCH (10:00)
[2022-12-08] MEDS ORDERED: LEVOTHYROXINE SODIUM 50 MCG TAB PO SCH (10:00)
[2022-12-08] MEDS: PANTOPRAZOLE 40 MG/10 ML VIAL INJ IV SCH (10:02)
[2022-12-08] MEDS: SPIRONOLACTONE 25 MG TAB PO SCH (10:02)
[2022-12-08] MEDS: POTASSIUM CHL 10 Meq TABLET PO SCH (10:03)
[2022-12-08] MEDS ORDERED: D5W 5% 1,000 ML IV ONE (11:15)
[2022-12-08] MEDS ORDERED: GENTAMICIN SULF 0.3% OPTH(EYE) OINT 3.5GM EACHEYE ONE (11:15)
[2022-12-08] MEDS: ALBUTEROL MEDNEB 2.5 mg/3ml NEB NEB PRN (13:08)
[2022-12-08 14:28] LABS: Alcohol, Urine < 3.0 mg/dL (0-10); Amphetamine Screen, Urine NEGATIVE (NEGATIVE); Barbiturate Scree,Urine NEGATIVE (NEGATIVE); Benzodiazephine Screen, Urine NEGATIVE (NEGATIVE); Cannabinoid Screen, Urine NEGATIVE (NEGATIVE); Cocaine Screen, Urine NEGATIVE (NEGATIVE); Opiate Scree,Urine NEGATIVE (NEGATIVE); Phencyclidine Screen, Urine NEGATIVE (NEGATIVE)
[2022-12-08] MEDS: ALBUTEROL MEDNEB 2.5 mg/3ml NEB NEB SCH (17:29)
[2022-12-08] MEDS ORDERED: PATIENTS OWN MEDICATION (eliquis 5 MG) PO SCH (22:00)
[2022-12-08] MEDS: APIXABAN 5 MG TAB PO SCH (22:31)
[2022-12-08] MEDS: GENTAMICIN SULF 0.3% OPTH(EYE) OINT 3.5GM EACHEYE SCH (22:33)
[2022-12-09] MEDS: IPRATROPIUM BROM 0.5 MG/2.5ML INH SOL NEB SCH ×3 (06:22→19:26)
[2022-12-09] MEDS: ALBUTEROL MEDNEB 2.5 mg/3ml NEB NEB SCH ×3 (06:22→19:27)
[2022-12-09] MEDS: cefTRIAXone 1GM/50ML D5W 50 ML IV SCH (08:58)
[2022-12-09] MEDS: GENTAMICIN SULF 0.3% OPTH(EYE) OINT 3.5GM EACHEYE SCH ×2 (10:00→22:00)
[2022-12-09] MEDS: LITHIUM CARBONATE 300 MG TAB PO SCH ×2 (10:00→23:27)
[2022-12-09 10:13] LABS: Eosinophils # (auto) 0 10 ^3/uL (0-0.8); Eosinophils % (auto) 0.1 % (0.0-7.0); Hemoglobin 15.4 g/dL (12.2-16.2); Lymphocytes # (auto) 0.4 10 ^3/uL (0.4-5.4); Monocytes # (auto) 0.4 10 ^3/uL (0-1.3); Neutrophils # (auto) 6.9 10 ^3/uL (1.6-8.6)
[2022-12-09 10:15] LABS: Basophils # (auto) 0 10 ^3/uL (0-0.2); Basophils % (auto) 0.2 % (0.0-2.0); Hematocrit 51.9 % (36.0-46.0); Lymphocytes % (auto) 4.9 % (10.0-50.0); Mean Corpuscular Hgb Conc. 29.6 g/dL (32.0-36.0); Mean Corpuscular Volume 87.8 fL (80.0-100.0); Monocytes % (auto) 5.6 % (0.0-12.0); Neutrophils % (auto) 89.2 % (37.0-80.0); Nucleated Red Blood Cells % 0.4 %; Red Blood Cells 5.91 10^6/uL (4.0-5.20); White Blood Cell 7.7 10^3/uL (4.4-10.8)
[2022-12-09 10:32] LABS: BUN/Creatinine Ratio 19.7; Calcium 9.7 mg/dL (8.5-10.1); Magnesium 2.8 mg/dL (1.6-2.6); Potassium 3.9 mmol/L (3.5-5.1)
[2022-12-09] MEDS: AZITHROMYCIN 500MG/ 250ML 250 ML IV SCH (11:06)
[2022-12-09] MEDS: PANTOPRAZOLE 40 MG/10 ML VIAL INJ IV SCH (11:12)
[2022-12-09] MEDS: FUROSEMIDE 20 MG/2 ML VIAL IV SCH (11:16)
[2022-12-09] MEDS: SACUBITRIL-VALSARTAN 24mg/26mg TAB PO SCH ×2 (11:17→23:26)
[2022-12-09] MEDS: APIXABAN 5 MG TAB PO SCH ×2 (11:17→23:26)
[2022-12-09] MEDS: SPIRONOLACTONE 25 MG TAB PO SCH (11:18)
[2022-12-09] MEDS: CARVEDILOL 12.5 MG TAB PO SCH ×2 (11:18→22:00)
[2022-12-09] MEDS: POTASSIUM CHL 10 Meq TABLET PO SCH (11:18)
[2022-12-09] MEDS: amLODIPine BESYLATE 5 MG TAB PO SCH (11:19)
[2022-12-09] MEDS: LEVOTHYROXINE SODIUM 100 MCG/5 ML INJ IV SCH (11:19)
[2022-12-09] MEDS: SERTRALINE HCL 50 MG TAB PO SCH (11:19)
[2022-12-09] MEDS: ALBUTEROL MEDNEB 2.5 mg/3ml NEB NEB PRN (13:51)
[2022-12-09 16:50] VITALS: BP 153/73
[2022-12-09 22:00] VITALS: BP 144/88
[2022-12-09] MEDS: D5W 5% 1,000 ML IV SCH ×2 (23:31→23:56)
[2022-12-10 05:00] VITALS: BP 150/82
[2022-12-10 06:42] LABS: BUN/Creatinine Ratio 20.4; Potassium 3.2 mmol/L (3.5-5.1)
[2022-12-10] MEDS: ALBUTEROL MEDNEB 2.5 mg/3ml NEB NEB SCH ×3 (06:52→19:17)
[2022-12-10] MEDS: IPRATROPIUM BROM 0.5 MG/2.5ML INH SOL NEB SCH ×3 (06:53→19:17)
[2022-12-10] MEDS: D5W 5% 1,000 ML IV SCH ×4 (07:15→23:15)
[2022-12-10] MEDS ORDERED: POTASSIUM CHL 20 Meq TABLET PO ONE (07:45)
[2022-12-10] MEDS ORDERED: VANCOMYCIN PER PHARMACY 0 MG IV SCH (07:45)
[2022-12-10] MEDS: VANCOMYCIN 1GM/250ML 250 ML IV SCH ×2 (08:59→10:00)
[2022-12-10 09:00] VITALS: BP 133/58
[2022-12-10] MEDS: LEVOTHYROXINE SODIUM 100 MCG/5 ML INJ IV SCH (09:02)
[2022-12-10] MEDS: PANTOPRAZOLE 40 MG/10 ML VIAL INJ IV SCH (09:03)
[2022-12-10] MEDS: POTASSIUM CHL 10 Meq TABLET PO SCH (09:06)
[2022-12-10] MEDS: SPIRONOLACTONE 25 MG TAB PO SCH (09:08)
[2022-12-10] MEDS: SERTRALINE HCL 50 MG TAB PO SCH (09:08)
[2022-12-10] MEDS: APIXABAN 5 MG TAB PO SCH ×2 (09:08→22:00)
[2022-12-10] MEDS: SACUBITRIL-VALSARTAN 24mg/26mg TAB PO SCH ×2 (09:08→22:00)
[2022-12-10] MEDS: CARVEDILOL 12.5 MG TAB PO SCH ×2 (09:09→22:00)
[2022-12-10] MEDS: amLODIPine BESYLATE 5 MG TAB PO SCH (09:10)
[2022-12-10] MEDS: LITHIUM CARBONATE 300 MG TAB PO SCH ×2 (09:10→22:00)
[2022-12-10] MEDS: GENTAMICIN SULF 0.3% OPTH(EYE) OINT 3.5GM EACHEYE SCH ×2 (09:11→22:00)
[2022-12-10] MEDS: cefTRIAXone 1GM/50ML D5W 50 ML IV SCH (11:27)
[2022-12-10] MEDS: AZITHROMYCIN 500MG/ 250ML 250 ML IV SCH (11:30)
[2022-12-10 13:00] VITALS: BP_SYST 111; BP_SYST 114; BP_DIAS 52; BP_DIAS 71
[2022-12-10 17:00] VITALS: BP 111/71
[2022-12-10 22:00] VITALS: BP 122/78
[2022-12-11] MEDS: VANCOMYCIN 1GM/250ML 250 ML IV SCH ×3 (00:14→23:53)
[2022-12-11 05:00] VITALS: BP 121/57
[2022-12-11] MEDS: ALBUTEROL MEDNEB 2.5 mg/3ml NEB NEB SCH ×2 (05:59→18:29)
[2022-12-11] MEDS: IPRATROPIUM BROM 0.5 MG/2.5ML INH SOL NEB SCH ×2 (05:59→18:29)
[2022-12-11 06:27] LABS: Basophils # (auto) 0 10 ^3/uL (0-0.2); Basophils % (auto) 0.2 % (0.0-2.0); Eosinophils # (auto) 0.1 10 ^3/uL (0-0.8); Lymphocytes # (auto) 0.7 10 ^3/uL (0.4-5.4); Monocytes # (auto) 0.4 10 ^3/uL (0-1.3); Neutrophils # (auto) 5.8 10 ^3/uL (1.6-8.6)
[2022-12-11 06:30] LABS: Eosinophils % (auto) 1.6 % (0.0-7.0); Hematocrit 49.5 % (36.0-46.0); Lymphocytes % (auto) 10.4 % (10.0-50.0); Mean Corpuscular Hemoglobin 26.7 pg (28.0-32.0); Mean Corpuscular Hgb Conc. 30.2 g/dL (32.0-36.0); Mean Corpuscular Volume 88.2 fL (80.0-100.0); Monocytes % (auto) 5.1 % (0.0-12.0); Neutrophils % (auto) 82.7 % (37.0-80.0); Nucleated Red Blood Cells % 0.1 %; Red Blood Cells 5.61 10^6/uL (4.0-5.20); Red Cell Distribution Width 22.7 % (11.8-14.3)
[2022-12-11 06:46] LABS: Calcium 9.1 mg/dL (8.5-10.1); Magnesium 2.5 mg/dL (1.6-2.6); Potassium 3.8 mmol/L (3.5-5.1)
[2022-12-11] MEDS: cefTRIAXone 1GM/50ML D5W 50 ML IV SCH (08:54)
[2022-12-11 09:00] VITALS: BP 148/81
[2022-12-11] MEDS: CARVEDILOL 12.5 MG TAB PO SCH ×2 (10:00→21:48)
[2022-12-11] MEDS: GENTAMICIN SULF 0.3% OPTH(EYE) OINT 3.5GM EACHEYE SCH (10:00)
[2022-12-11] MEDS: PANTOPRAZOLE 40 MG/10 ML VIAL INJ IV SCH (10:05)
[2022-12-11] MEDS: LEVOTHYROXINE SODIUM 100 MCG/5 ML INJ IV SCH (10:05)
[2022-12-11] MEDS: AZITHROMYCIN 500MG/ 250ML 250 ML IV SCH (10:05)
[2022-12-11] MEDS: APIXABAN 5 MG TAB PO SCH ×2 (10:06→21:46)
[2022-12-11] MEDS: LITHIUM CARBONATE 300 MG TAB PO SCH ×2 (10:06→21:48)
[2022-12-11] MEDS: SACUBITRIL-VALSARTAN 24mg/26mg TAB PO SCH ×2 (10:06→21:48)
[2022-12-11] MEDS: POTASSIUM CHL 10 Meq TABLET PO SCH (10:06)
[2022-12-11] MEDS: SERTRALINE HCL 50 MG TAB PO SCH (10:07)
[2022-12-11] MEDS: amLODIPine BESYLATE 5 MG TAB PO SCH (10:08)
[2022-12-11] MEDS: SPIRONOLACTONE 25 MG TAB PO SCH (10:08)
[2022-12-11] MEDS: GENTAMICIN OPTH sol 0.3% 5ml EACHEYE SCH ×2 (11:51→21:55)
[2022-12-11 13:00] VITALS: BP 127/68
[2022-12-11] MEDS: D5W 5% 1,000 ML IV SCH ×3 (15:15→23:57)
[2022-12-11 22:00] VITALS: BP 141/78
[2022-12-12 05:00] VITALS: BP 137/70
[2022-12-12 05:57] LABS: Hemoglobin 14.4 g/dL (12.2-16.2); Mean Corpuscular Volume 89.2 fL (80.0-100.0); White Blood Cell 7.4 10^3/uL (4.4-10.8)
[2022-12-12 06:00] LABS: Hematocrit 49.8 % (36.0-46.0); Mean Corpuscular Hemoglobin 25.8 pg (28.0-32.0); Mean Corpuscular Hgb Conc. 28.9 g/dL (32.0-36.0); Red Blood Cells 5.58 10^6/uL (4.0-5.20)
[2022-12-12] MEDS: ALBUTEROL MEDNEB 2.5 mg/3ml NEB NEB SCH ×3 (06:02→19:34)
[2022-12-12] MEDS: IPRATROPIUM BROM 0.5 MG/2.5ML INH SOL NEB SCH ×3 (06:02→19:34)
[2022-12-12 06:15] LABS: Basophils % (manual) 0 (0.0-2.0); Blast Cells 0; Metamyelocytes % 0; Myelocytes % 0; Promyelocytes % 0; Reactive Lymphocytes 0; Red Cell Distribution Width 22.6 % (11.8-14.3)
[2022-12-12 06:27] LABS: BUN/Creatinine Ratio 16.1; Calcium 9.1 mg/dL (8.5-10.1); Potassium 4.2 mmol/L (3.5-5.1)
[2022-12-12 07:40] LABS: Band Neutrophils % (manual) 13; Eosinophils % (manual) 1 (0-7); Lymphocytes % (manual) 13 (10.0-50.0); Monocytes % (manual) 3 (0-12)
[2022-12-12 09:00] VITALS: BP 126/75
[2022-12-12] MEDS: cefTRIAXone 1GM/50ML D5W 50 ML IV SCH (09:03)
[2022-12-12] MEDS: LEVOTHYROXINE SODIUM 100 MCG/5 ML INJ IV SCH (09:03)
[2022-12-12] MEDS: SACUBITRIL-VALSARTAN 24mg/26mg TAB PO SCH ×2 (09:04→21:29)
[2022-12-12] MEDS: APIXABAN 5 MG TAB PO SCH ×2 (09:04→21:29)
[2022-12-12] MEDS: POTASSIUM CHL 10 Meq TABLET PO SCH (09:04)
[2022-12-12] MEDS: SPIRONOLACTONE 25 MG TAB PO SCH (09:04)
[2022-12-12] MEDS: SERTRALINE HCL 50 MG TAB PO SCH (09:05)
[2022-12-12] MEDS: amLODIPine BESYLATE 5 MG TAB PO SCH (09:05)
[2022-12-12] MEDS: LITHIUM CARBONATE 300 MG TAB PO SCH ×2 (09:05→21:29)
[2022-12-12] MEDS: CARVEDILOL 12.5 MG TAB PO SCH ×2 (09:06→22:00)
[2022-12-12] MEDS: AZITHROMYCIN 500MG/ 250ML 250 ML IV SCH (11:27)
[2022-12-12] MEDS: GENTAMICIN OPTH sol 0.3% 5ml EACHEYE SCH ×2 (11:27→22:09)
[2022-12-12] MEDS: D5W 5% 1,000 ML IV SCH ×3 (11:27→23:15)
[2022-12-12] MEDS: PANTOPRAZOLE 40 MG/10 ML VIAL INJ IV SCH (11:27)
[2022-12-12 13:00] VITALS: BP 139/73
[2022-12-12] MEDS ORDERED: VANCOMYCIN 1GM/250ML 250 ML IV ONE (14:00)
[2022-12-12] MEDS: risperiDONE 1 MG TAB PO SCH (21:30)
[2022-12-12 22:00] VITALS: BP 138/75
[2022-12-13 05:00] VITALS: BP 143/69
[2022-12-13] MEDS: ALBUTEROL MEDNEB 2.5 mg/3ml NEB NEB SCH ×3 (05:54→17:59)
[2022-12-13] MEDS: IPRATROPIUM BROM 0.5 MG/2.5ML INH SOL NEB SCH ×3 (05:54→17:59)
[2022-12-13] MEDS: D5W 5% 1,000 ML IV SCH ×3 (06:34→23:06)
[2022-12-13 07:20] LABS: Calcium 9.1 mg/dL (8.5-10.1); Potassium 4.4 mmol/L (3.5-5.1)
[2022-12-13 07:24] LABS: BUN/Creatinine Ratio 16.3
[2022-12-13 07:55] VITALS: BP 139/70
[2022-12-13] MEDS ORDERED: SOD CHL 0.45% 1,000 ML IV SCH (09:15)
[2022-12-13] MEDS: PANTOPRAZOLE 40 MG/10 ML VIAL INJ IV SCH (09:50)
[2022-12-13] MEDS: HCTZ 25 MG TAB PO SCH (09:50)
[2022-12-13] MEDS: cefTRIAXone 1GM/50ML D5W 50 ML IV SCH (09:50)
[2022-12-13] MEDS: LEVOTHYROXINE SODIUM 100 MCG/5 ML INJ IV SCH (09:50)
[2022-12-13] MEDS: SACUBITRIL-VALSARTAN 24mg/26mg TAB PO SCH ×2 (09:50→22:30)
[2022-12-13] MEDS: APIXABAN 5 MG TAB PO SCH ×2 (09:51→22:30)
[2022-12-13] MEDS: CARVEDILOL 12.5 MG TAB PO SCH ×2 (09:51→22:00)
[2022-12-13] MEDS: risperiDONE 1 MG TAB PO SCH ×2 (09:52→22:30)
[2022-12-13] MEDS: LITHIUM CARBONATE 300 MG TAB PO SCH ×2 (09:52→22:30)
[2022-12-13] MEDS: SERTRALINE HCL 50 MG TAB PO SCH (09:52)
[2022-12-13] MEDS: amLODIPine BESYLATE 5 MG TAB PO SCH (09:52)
[2022-12-13] MEDS: SPIRONOLACTONE 25 MG TAB PO SCH (09:52)
[2022-12-13] MEDS: GENTAMICIN OPTH sol 0.3% 5ml EACHEYE SCH ×2 (09:53→22:30)
[2022-12-13] MEDS: POTASSIUM CHL 10 Meq TABLET PO SCH (09:53)
[2022-12-13 13:00] VITALS: BP 117/68
[2022-12-13 17:00] VITALS: BP 133/64
[2022-12-13] MEDS: VANCOMYCIN 500 MG in D5W 5% 100 ML IV SCH (17:51)
[2022-12-13 20:14] VITALS: BP 121/63
[2022-12-13] MEDS ORDERED: MELATONIN 5 MG TAB PO PRN (23:45)
[2022-12-13] MEDS ORDERED: MELATONIN 5 MG TAB PO ONE (23:45)
[2022-12-14 05:00] VITALS: BP 129/64
[2022-12-14 06:47] LABS: Calcium 9.2 mg/dL (8.5-10.1); Potassium 4.5 mmol/L (3.5-5.1)
[2022-12-14] MEDS: ALBUTEROL MEDNEB 2.5 mg/3ml NEB NEB SCH ×2 (06:49→12:00)
[2022-12-14] MEDS: IPRATROPIUM BROM 0.5 MG/2.5ML INH SOL NEB SCH ×2 (06:49→12:00)
[2022-12-14 06:55] LABS: BUN/Creatinine Ratio 14.9
[2022-12-14 09:00] VITALS: BP 128/77
[2022-12-14] MEDS: LEVOTHYROXINE SODIUM 100 MCG/5 ML INJ IV SCH (09:15)
[2022-12-14] MEDS: cefTRIAXone 1GM/50ML D5W 50 ML IV SCH (09:15)
[2022-12-14] MEDS: PANTOPRAZOLE 40 MG/10 ML VIAL INJ IV SCH (09:15)
[2022-12-14] MEDS: SPIRONOLACTONE 25 MG TAB PO SCH (09:16)
[2022-12-14] MEDS: risperiDONE 1 MG TAB PO SCH (09:16)
[2022-12-14] MEDS: SERTRALINE HCL 50 MG TAB PO SCH (09:16)
[2022-12-14] MEDS: POTASSIUM CHL 10 Meq TABLET PO SCH (09:17)
[2022-12-14] MEDS: HCTZ 25 MG TAB PO SCH ×3 (09:17→10:00)
[2022-12-14] MEDS: LITHIUM CARBONATE 300 MG TAB PO SCH (09:17)
[2022-12-14] MEDS: APIXABAN 5 MG TAB PO SCH (09:17)
[2022-12-14] MEDS: SACUBITRIL-VALSARTAN 24mg/26mg TAB PO SCH (09:17)
[2022-12-14] MEDS: amLODIPine BESYLATE 5 MG TAB PO SCH (09:18)
[2022-12-14] MEDS: GENTAMICIN OPTH sol 0.3% 5ml EACHEYE SCH (09:19)
[2022-12-14] MEDS: CARVEDILOL 12.5 MG TAB PO SCH (09:19)
[2022-12-14] MEDS ORDERED: RIS1T PO (12:59)
[2022-12-14 13:00] VITALS: BP 153/85
[2022-12-14] MEDS: D5W 5% 1,000 ML IV SCH (13:52)
[2022-12-14] MEDS: VANCOMYCIN 500 MG in D5W 5% 100 ML IV SCH (17:00)
== END 2022-12-14 16:56 | disposition home health service (06) | DRG 193 ==
LOC: EDBD 10:48 → EDSEX 10:48 → ER 10:48 → TELE 16:30 → TELE-CENTR 12-09 16:44
PROVIDERS: ADMIT Registered Nurse; ATTEND Internal Medicine
PROC: 5A09357 Assistance with Respiratory Ventilation, Less than 24 Consecutive Hours, Continuous Positive Airway Pressure (ICD-10-PCS; principal; 2022-12-07)
DX: J18.9 Pneumonia, unspecified organism (principal); E03.5 Myxedema coma; G93.41 Metabolic encephalopathy; J96.21 Acute and chronic respiratory failure with hypoxia; I50.31 Acute diastolic (congestive) heart failure; N17.0 Acute kidney failure with tubular necrosis; I13.0 Hypertensive heart and chronic kidney disease with heart failure and stage 1 through stage 4 chronic kidney disease, or unspecified chronic kidney disease; G93.1 Anoxic brain damage, not elsewhere classified; J44.0 Chronic obstructive pulmonary disease with (acute) lower respiratory infection; J44.1 Chronic obstructive pulmonary disease with (acute) exacerbation; J98.11 Atelectasis; E87.0 Hyperosmolality and hypernatremia; E78.5 Hyperlipidemia, unspecified; E66.01 Morbid (severe) obesity due to excess calories; F17.210 Nicotine dependence, cigarettes, uncomplicated; F20.9 Schizophrenia, unspecified; Z66 Do not resuscitate; F31.9 Bipolar disorder, unspecified; F41.9 Anxiety disorder, unspecified; K21.9 Gastro-esophageal reflux disease without esophagitis; R91.1 Solitary pulmonary nodule; F60.3 Borderline personality disorder; H10.9 Unspecified conjunctivitis; N18.2 Chronic kidney disease, stage 2 (mild); Z20.822 Contact with and (suspected) exposure to COVID-19; E03.9 Hypothyroidism, unspecified; E87.6 Hypokalemia; T50.2X5A Adverse effect of carbonic-anhydrase inhibitors, benzothiadiazides and other diuretics, initial encounter; Y92.89 Other specified places as the place of occurrence of the external cause; Z79.01 Long term (current) use of anticoagulants; Z79.899 Other long term (current) drug therapy; Z81.8 Family history of other mental and behavioral disorders; Z82.49 Family history of ischemic heart disease and other diseases of the circulatory system; Z83.3 Family history of diabetes mellitus; Z85.828 Personal history of other malignant neoplasm of skin; Z86.711 Personal history of pulmonary embolism; Z91.199 Patient's noncompliance with other medical treatment and regimen due to unspecified reason; Z90.49 Acquired absence of other specified parts of digestive tract; Z71.6 Tobacco abuse counseling; Z68.38 Body mass index [BMI] 38.0-38.9, adult
CPT/HCPCS: 36415; 36600; 70450; 71045; 71275; 76775; 80048; 80053; 80061; 80178; 80202; 80307; 80320; 81001; 81025; 82805; 83036; 83735; 83880; 83930; 83935; 84300; 84443; 84484; 84702; 85007; 85025; 85027; 85610; 85652; 85730; 86141; 87040; 87077; 87186; 87426; 93005; 93306; 93970; 93971; 94640; 94660; 95819; 96365; 96375; 97163; 99291; C9113; G0378; J0696; J1100; J3490; J7060

== ENCOUNTER 2022-12-16 17:11 | Inpatient (IN) | payer OTHER, MEDICAID ==
[~2022-12-16] VITALS: Ht 152.4 cm; Wt 118.0 kg
[~2022-12-16 17:11] MED LIST changes: -LEVO500T31 PO; +RIS1T PO
[2022-12-16 19:27] LABS: Basophils # (auto) 0 10 ^3/uL (0-0.2); Basophils % (auto) 0.8 % (0.0-2.0); Eosinophils # (auto) 0.1 10 ^3/uL (0-0.8); Eosinophils % (auto) 1.3 % (0.0-7.0); Hematocrit 55.5 % (36.0-46.0); Hemoglobin 17.2 g/dL (12.2-16.2); Lymphocytes # (auto) 1.2 10 ^3/uL (0.4-5.4); Lymphocytes % (auto) 22.7 % (10.0-50.0); Mean Corpuscular Hgb Conc. 30.9 g/dL (32.0-36.0); Mean Corpuscular Volume 87.3 fL (80.0-100.0); Monocytes # (auto) 0.6 10 ^3/uL (0-1.3); Monocytes % (auto) 10.1 % (0.0-12.0); Neutrophils # (auto) 3.6 10 ^3/uL (1.6-8.6); Neutrophils % (auto) 65.1 % (37.0-80.0); Nucleated Red Blood Cells % 0.6 %; Red Blood Cells 6.36 10^6/uL (4.0-5.20); White Blood Cell 5.5 10^3/uL (4.4-10.8)
[2022-12-16 19:50] LABS: Albumin 3.3 g/dL (3.4-5.0); Calcium 8.9 mg/dL (8.5-10.1); Potassium 3.7 mmol/L (3.5-5.1)
[2022-12-16 19:54] LABS: Bilirubin, Total 1.1 mg/dL (0.2-1.0); Total Protein 7.8 g/dL (6.4-8.2)
[2022-12-16 20:02] LABS: Beta HCG, Quantitative < 1 mlU/mL (1-3)
[2022-12-16 20:18] LABS: BUN/Creatinine Ratio 11.1
[2022-12-16] MEDS ORDERED: ALBUTEROL SULF 2.5 MG/0.5ML(0.5%) NEB SOLN NEB PRN (22:45)
[2022-12-16] MEDS ORDERED: IPRATROPIUM BROM 0.5 MG/2.5ML INH SOL NEB PRN (22:45)
[2022-12-16] MEDS: ATORVASTATIN 20 MG TAB PO SCH (22:59)
[2022-12-17] VITALS: BP 151/85
[2022-12-17 05:09] LABS: Basophils # (auto) 0 10 ^3/uL (0-0.2); Basophils % (auto) 0.9 % (0.0-2.0); Eosinophils # (auto) 0.1 10 ^3/uL (0-0.8); Eosinophils % (auto) 1.1 % (0.0-7.0); Hematocrit 54.3 % (36.0-46.0); Hemoglobin 16.5 g/dL (12.2-16.2); Lymphocytes # (auto) 1.3 10 ^3/uL (0.4-5.4); Lymphocytes % (auto) 23.4 % (10.0-50.0); Mean Corpuscular Hemoglobin 26.7 pg (28.0-32.0); Mean Corpuscular Hgb Conc. 30.3 g/dL (32.0-36.0); Monocytes # (auto) 0.6 10 ^3/uL (0-1.3); Monocytes % (auto) 10.4 % (0.0-12.0); Neutrophils # (auto) 3.6 10 ^3/uL (1.6-8.6); Neutrophils % (auto) 64.2 % (37.0-80.0); Nucleated Red Blood Cells % 0.2 %; Red Blood Cells 6.17 10^6/uL (4.0-5.20); White Blood Cell 5.6 10^3/uL (4.4-10.8)
[2022-12-17 05:10] LABS: Red Cell Distribution Width 23.7 % (11.8-14.3)
[2022-12-17] MEDS ORDERED: ALBUTEROL MEDNEB 2.5 mg/3ml NEB ONE ×3 (05:42→18:08)
[2022-12-17] MEDS: IPRATROPIUM BROM 0.5 MG/2.5ML INH SOL NEB SCH ×3 (07:04→20:35)
[2022-12-17] MEDS: ALBUTEROL SULF 2.5 MG/0.5ML(0.5%) NEB SOLN NEB SCH ×3 (07:04→20:35)
[2022-12-17] MEDS: SERTRALINE HCL 50 MG TAB PO SCH (07:19)
[2022-12-17] MEDS: LEVOTHYROXINE SODIUM 50 MCG TAB PO SCH (07:19)
[2022-12-17] MEDS: FUROSEMIDE 40 MG TAB PO SCH (07:19)
[2022-12-17 07:28] LABS: BUN/Creatinine Ratio 9.5; Calcium 9.5 mg/dL (8.5-10.1); Potassium 3.8 mmol/L (3.5-5.1)
[2022-12-17] MEDS: SACUBITRIL-VALSARTAN 24mg/26mg TAB PO SCH ×2 (10:00→22:00)
[2022-12-17] MEDS: amLODIPine BESYLATE 5 MG TAB PO SCH (11:22)
[2022-12-17] MEDS: risperiDONE 1 MG TAB PO SCH (11:23)
[2022-12-17] MEDS: APIXABAN 5 MG TAB PO SCH (11:23)
[2022-12-17] MEDS: SPIRONOLACTONE 25 MG TAB PO SCH (11:23)
[2022-12-17] MEDS: GABAPENTIN 400 MG CAP PO SCH (11:24)
[2022-12-17] MEDS: PANTOPRAZOLE 40 MG TAB PO SCH (11:24)
[2022-12-17] MEDS: LITHIUM CARBONATE 300 MG TAB PO SCH ×2 (11:24→22:00)
[2022-12-17] MEDS: CARVEDILOL 12.5 MG TAB PO SCH (11:24)
[2022-12-17] MEDS: ENOXAPARIN SOD 40 MG/0.4 ML SYRINGE SC SCH (11:26)
[2022-12-17] MEDS: NICOTINE 7MG/24HR TOPICAL PATCH TD SCH ×2 (11:26→11:40)
[2022-12-18] MEDS: ATORVASTATIN 20 MG TAB PO SCH ×2 (00:18→22:03)
[2022-12-18] MEDS: CARVEDILOL 12.5 MG TAB PO SCH ×3 (00:18→22:04)
[2022-12-18] MEDS: GABAPENTIN 400 MG CAP PO SCH ×3 (00:19→22:03)
[2022-12-18] MEDS: risperiDONE 1 MG TAB PO SCH ×3 (00:19→22:03)
[2022-12-18] MEDS: APIXABAN 5 MG TAB PO SCH ×3 (00:19→22:03)
[2022-12-18] MEDS ORDERED: ALBUTEROL MEDNEB 2.5 mg/3ml NEB ONE ×3 (05:50→18:32)
[2022-12-18] MEDS: ALBUTEROL SULF 2.5 MG/0.5ML(0.5%) NEB SOLN NEB SCH ×3 (05:51→18:38)
[2022-12-18] MEDS: IPRATROPIUM BROM 0.5 MG/2.5ML INH SOL NEB SCH ×3 (05:51→18:38)
[2022-12-18] MEDS: FUROSEMIDE 40 MG TAB PO SCH (06:35)
[2022-12-18] MEDS: SERTRALINE HCL 50 MG TAB PO SCH (06:38)
[2022-12-18] MEDS: LEVOTHYROXINE SODIUM 50 MCG TAB PO SCH (06:44)
[2022-12-18] MEDS: amLODIPine BESYLATE 5 MG TAB PO SCH (10:00)
[2022-12-18] MEDS: ENOXAPARIN SOD 40 MG/0.4 ML SYRINGE SC SCH (10:30)
[2022-12-18] MEDS: NICOTINE 7MG/24HR TOPICAL PATCH TD SCH (10:31)
[2022-12-18] MEDS: LITHIUM CARBONATE 300 MG TAB PO SCH ×2 (10:31→22:03)
[2022-12-18] MEDS: SACUBITRIL-VALSARTAN 24mg/26mg TAB PO SCH ×2 (10:31→22:03)
[2022-12-18] MEDS: PANTOPRAZOLE 40 MG TAB PO SCH (10:31)
[2022-12-18] MEDS: SPIRONOLACTONE 25 MG TAB PO SCH (10:32)
[2022-12-18 12:00] VITALS: BP 114/79
[2022-12-18 13:00] VITALS: BP 106/67
[2022-12-18 17:00] VITALS: BP 98/60
[2022-12-18 22:00] VITALS: BP 86/54
[2022-12-19 05:00] VITALS: BP 104/44
[2022-12-19] MEDS: SERTRALINE HCL 50 MG TAB PO SCH (06:01)
[2022-12-19] MEDS: LEVOTHYROXINE SODIUM 50 MCG TAB PO SCH (06:01)
[2022-12-19] MEDS: FUROSEMIDE 40 MG TAB PO SCH (06:01)
[2022-12-19] MEDS ORDERED: ALBUTEROL MEDNEB 2.5 mg/3ml NEB ONE ×3 (06:10→18:13)
[2022-12-19] MEDS: IPRATROPIUM BROM 0.5 MG/2.5ML INH SOL NEB SCH ×3 (06:32→18:48)
[2022-12-19] MEDS: ALBUTEROL SULF 2.5 MG/0.5ML(0.5%) NEB SOLN NEB SCH ×3 (06:32→18:48)
[2022-12-19 08:30] VITALS: BP 95/52
[2022-12-19] MEDS: GABAPENTIN 400 MG CAP PO SCH ×2 (09:11→21:16)
[2022-12-19] MEDS: LITHIUM CARBONATE 300 MG TAB PO SCH ×2 (09:11→21:16)
[2022-12-19] MEDS: risperiDONE 1 MG TAB PO SCH (09:11)
[2022-12-19] MEDS: PANTOPRAZOLE 40 MG TAB PO SCH (09:11)
[2022-12-19] MEDS: APIXABAN 5 MG TAB PO SCH ×2 (09:12→21:15)
[2022-12-19] MEDS: ENOXAPARIN SOD 40 MG/0.4 ML SYRINGE SC SCH (09:12)
[2022-12-19] MEDS: SPIRONOLACTONE 25 MG TAB PO SCH (09:14)
[2022-12-19] MEDS: SACUBITRIL-VALSARTAN 24mg/26mg TAB PO SCH ×2 (09:15→21:16)
[2022-12-19] MEDS: amLODIPine BESYLATE 5 MG TAB PO SCH (09:15)
[2022-12-19] MEDS: CARVEDILOL 12.5 MG TAB PO SCH ×2 (09:15→22:00)
[2022-12-19] MEDS: NICOTINE 7MG/24HR TOPICAL PATCH TD SCH (09:15)
[2022-12-19 12:48] VITALS: BP 99/67
[2022-12-19 17:00] VITALS: BP 113/68
[2022-12-19] MEDS: ATORVASTATIN 20 MG TAB PO SCH (21:16)
[2022-12-19 22:02] VITALS: BP 95/56
[2022-12-20 04:16] VITALS: BP 95/56
[2022-12-20 05:00] VITALS: BP 108/58
[2022-12-20] MEDS: FUROSEMIDE 40 MG TAB PO SCH (05:56)
[2022-12-20] MEDS: LEVOTHYROXINE SODIUM 50 MCG TAB PO SCH (05:57)
[2022-12-20] MEDS: SERTRALINE HCL 50 MG TAB PO SCH (05:57)
[2022-12-20] MEDS ORDERED: ALBUTEROL MEDNEB 2.5 mg/3ml NEB ONE ×3 (06:08→18:15)
[2022-12-20] MEDS: IPRATROPIUM BROM 0.5 MG/2.5ML INH SOL NEB SCH ×3 (06:24→18:56)
[2022-12-20] MEDS: ALBUTEROL SULF 2.5 MG/0.5ML(0.5%) NEB SOLN NEB SCH ×3 (06:24→18:56)
[2022-12-20 09:00] VITALS: BP 114/72
[2022-12-20] MEDS: SACUBITRIL-VALSARTAN 24mg/26mg TAB PO SCH ×2 (09:19→22:36)
[2022-12-20] MEDS: SPIRONOLACTONE 25 MG TAB PO SCH (09:19)
[2022-12-20] MEDS: amLODIPine BESYLATE 5 MG TAB PO SCH (09:20)
[2022-12-20] MEDS: PANTOPRAZOLE 40 MG TAB PO SCH (09:20)
[2022-12-20] MEDS: NICOTINE 7MG/24HR TOPICAL PATCH TD SCH (09:20)
[2022-12-20] MEDS: LITHIUM CARBONATE 300 MG TAB PO SCH ×2 (09:20→22:37)
[2022-12-20] MEDS: APIXABAN 5 MG TAB PO SCH ×2 (09:21→22:36)
[2022-12-20] MEDS: CARVEDILOL 12.5 MG TAB PO SCH ×2 (09:21→22:00)
[2022-12-20] MEDS: GABAPENTIN 400 MG CAP PO SCH ×2 (09:23→22:00)
[2022-12-20] MEDS: ATORVASTATIN 20 MG TAB PO SCH (22:36)
[2022-12-21 05:10] VITALS: BP 108/73
[2022-12-21] MEDS: SERTRALINE HCL 50 MG TAB PO SCH (05:59)
[2022-12-21] MEDS: LEVOTHYROXINE SODIUM 50 MCG TAB PO SCH (06:00)
[2022-12-21] MEDS: FUROSEMIDE 40 MG TAB PO SCH (06:00)
[2022-12-21] MEDS ORDERED: ALBUTEROL MEDNEB 2.5 mg/3ml NEB ONE ×3 (06:04→18:21)
[2022-12-21] MEDS: ALBUTEROL SULF 2.5 MG/0.5ML(0.5%) NEB SOLN NEB SCH ×3 (07:14→19:46)
[2022-12-21] MEDS: IPRATROPIUM BROM 0.5 MG/2.5ML INH SOL NEB SCH ×3 (07:14→19:46)
[2022-12-21 08:00] VITALS: BP 108/73
[2022-12-21 08:35] VITALS: BP 101/65
[2022-12-21] MEDS: LITHIUM CARBONATE 300 MG TAB PO SCH ×2 (09:28→22:22)
[2022-12-21] MEDS: APIXABAN 5 MG TAB PO SCH ×2 (09:29→22:22)
[2022-12-21] MEDS: PANTOPRAZOLE 40 MG TAB PO SCH (09:29)
[2022-12-21] MEDS: SACUBITRIL-VALSARTAN 24mg/26mg TAB PO SCH ×2 (09:29→22:22)
[2022-12-21] MEDS: NICOTINE 7MG/24HR TOPICAL PATCH TD SCH (10:00)
[2022-12-21] MEDS: CARVEDILOL 12.5 MG TAB PO SCH ×3 (10:00→22:22)
[2022-12-21] MEDS: GABAPENTIN 400 MG CAP PO SCH ×2 (10:00→22:22)
[2022-12-21] MEDS: SPIRONOLACTONE 25 MG TAB PO SCH (10:00)
[2022-12-21] MEDS: amLODIPine BESYLATE 5 MG TAB PO SCH (10:00)
[2022-12-21 13:00] VITALS: BP 127/80
[2022-12-21 16:34] VITALS: BP 106/75
[2022-12-21 22:00] VITALS: BP 110/51
[2022-12-21] MEDS: ATORVASTATIN 20 MG TAB PO SCH (22:22)
[2022-12-22 05:00] VITALS: BP 90/52
[2022-12-22] MEDS ORDERED: ALBUTEROL MEDNEB 2.5 mg/3ml NEB ONE ×2 (05:51→11:41)
[2022-12-22] MEDS: SERTRALINE HCL 50 MG TAB PO SCH (06:32)
[2022-12-22] MEDS: FUROSEMIDE 40 MG TAB PO SCH (06:32)
[2022-12-22] MEDS: LEVOTHYROXINE SODIUM 50 MCG TAB PO SCH (06:32)
[2022-12-22] MEDS: ALBUTEROL SULF 2.5 MG/0.5ML(0.5%) NEB SOLN NEB SCH ×2 (06:37→12:02)
[2022-12-22] MEDS: IPRATROPIUM BROM 0.5 MG/2.5ML INH SOL NEB SCH ×2 (06:37→12:02)
[2022-12-22 07:58] VITALS: BP 108/73
[2022-12-22 09:00] VITALS: BP 91/47
[2022-12-22] MEDS: LITHIUM CARBONATE 300 MG TAB PO SCH (09:22)
[2022-12-22] MEDS: SACUBITRIL-VALSARTAN 24mg/26mg TAB PO SCH (09:22)
[2022-12-22] MEDS: PANTOPRAZOLE 40 MG TAB PO SCH (09:22)
[2022-12-22] MEDS: GABAPENTIN 400 MG CAP PO SCH (09:22)
[2022-12-22] MEDS: APIXABAN 5 MG TAB PO SCH (09:23)
[2022-12-22 13:00] VITALS: BP 98/56
[2022-12-22 16:49] VITALS: BP 91/46
== END 2022-12-22 18:30 | disposition home or self-care (01) | DRG 640 ==
LOC: ER 17:11 → EDBD 17:11 → OVERFLOW 22:25 → WEST WING 12-18 08:30
PROVIDERS: ADMIT Registered Nurse; ATTEND Family Medicine
DX: R62.7 Adult failure to thrive (principal); G93.41 Metabolic encephalopathy; J96.21 Acute and chronic respiratory failure with hypoxia; I13.0 Hypertensive heart and chronic kidney disease with heart failure and stage 1 through stage 4 chronic kidney disease, or unspecified chronic kidney disease; Z68.43 Body mass index [BMI] 50.0-59.9, adult; F31.5 Bipolar disorder, current episode depressed, severe, with psychotic features; J44.1 Chronic obstructive pulmonary disease with (acute) exacerbation; I50.9 Heart failure, unspecified; E66.01 Morbid (severe) obesity due to excess calories; F17.210 Nicotine dependence, cigarettes, uncomplicated; Z20.822 Contact with and (suspected) exposure to COVID-19; F41.9 Anxiety disorder, unspecified; E03.9 Hypothyroidism, unspecified; E78.5 Hyperlipidemia, unspecified; N18.9 Chronic kidney disease, unspecified; Z91.199 Patient's noncompliance with other medical treatment and regimen due to unspecified reason; Z82.49 Family history of ischemic heart disease and other diseases of the circulatory system; Z83.3 Family history of diabetes mellitus; Z90.49 Acquired absence of other specified parts of digestive tract; Z71.6 Tobacco abuse counseling
CPT/HCPCS: 36415; 80048; 80053; 82140; 84443; 84702; 85025; 87081; 87426; 94640; 97110; 97163; G0378

== ENCOUNTER 2022-12-31 20:25 | Inpatient (IN) | payer MEDICARE, MEDICAID ==
[~2022-12-31] VITALS: Ht 152.4 cm; Wt 110.6 kg
[2022-12-31] MEDS ORDERED: FUROSEMIDE 40 MG/4 ML VIAL IV ONE (20:45)
[2022-12-31] MEDS ORDERED: methylPREDNISolone SOD SUCC 125 MG/2 ML VL IV ONE (20:45)
[2022-12-31] MEDS ORDERED: methylPREDNISolone SOD SUCC 125 MG/2 ML VL ONE (21:12)
[2022-12-31 21:31] LABS: Basophils # (auto) 0 10 ^3/uL (0-0.2); Eosinophils # (auto) 0.1 10 ^3/uL (0-0.8); Hemoglobin 15.3 g/dL (12.2-16.2); Lymphocytes # (auto) 1.3 10 ^3/uL (0.4-5.4); Monocytes # (auto) 0.5 10 ^3/uL (0-1.3)
[2022-12-31 21:32] LABS: Basophils % (auto) 0.4 % (0.0-2.0); Eosinophils % (auto) 0.8 % (0.0-7.0); Hematocrit 50.1 % (36.0-46.0); Lymphocytes % (auto) 17.6 % (10.0-50.0); Mean Corpuscular Hemoglobin 28.1 pg (28.0-32.0); Mean Corpuscular Hgb Conc. 30.6 g/dL (32.0-36.0); Mean Corpuscular Volume 91.9 fL (80.0-100.0); Monocytes % (auto) 7.1 % (0.0-12.0); Neutrophils # (auto) 5.6 10 ^3/uL (1.6-8.6); Neutrophils % (auto) 74.1 % (37.0-80.0); Nucleated Red Blood Cells % 0.7 %; Red Blood Cells 5.45 10^6/uL (4.0-5.20); White Blood Cell 7.6 10^3/uL (4.4-10.8)
[2022-12-31 21:35] LABS: Red Cell Distribution Width 25.7 % (11.8-14.3)
[2022-12-31 21:46] LABS: INR 1.09 (0.9-1.15); Partial Thromboplastin Time 26.7 sec (24.6-33.4)
[2022-12-31 21:48] LABS: Calcium 9.9 mg/dL (8.5-10.1); Potassium 4.3 mmol/L (3.5-5.1)
[2022-12-31 21:50] LABS: BUN/Creatinine Ratio 21.6
[2022-12-31 21:53] LABS: Bilirubin, Total 0.7 mg/dL (0.2-1.0); Total Protein 7.9 g/dL (6.4-8.2)
[2022-12-31] MEDS ORDERED: SODIUM CHLORIDE 0.9% 1,000 ML IV ONE (22:45)
[2022-12-31] MEDS ORDERED: ACETAMINOPHEN 325 MG TAB PO PRN (23:00)
[2022-12-31] MEDS ORDERED: DOCUSATE SOD 100 MG CAP PO PRN (23:00)
[2022-12-31] MEDS ORDERED: ONDANSETRON HCL 4 MG/2 ML VIAL IV PRN (23:00)
[2022-12-31] MEDS ORDERED: MORPHINE SULFATE INJ 2 MG/ml SYRG IV PRN (23:00)
[2022-12-31] MEDS ORDERED: HYDROcodone-ACET 5/325MG TAB PO PRN (23:00)
[2022-12-31] MEDS ORDERED: NITROGLYCERIN 0.4 MG SL TAB SL PRN (23:00)
[2023-01-01 00:24] LABS: Urine Bacteria FEW /hpf (None Seen); Urine Blood Negative /uL (Negative); Urine Hyaline Cast FEW /lpf (0 - 2); Urine Specific Gravity 1.011 (1.001-1.035); Urine WBC 5 /hpf (0 - 5)
[2023-01-01] MEDS ORDERED: ALBUTEROL SULF 2.5 MG/0.5ML(0.5%) NEB SOLN NEB PRN (03:30)
[2023-01-01] MEDS ORDERED: IPRATROPIUM BROM 0.5 MG/2.5ML INH SOL NEB PRN (03:30)
[2023-01-01 04:08] VITALS: BP 109/64
[2023-01-01] MEDS ORDERED: ALBUTEROL SULF HFA 90MCG INH 200DOSE IN SCH (06:00)
[2023-01-01] MEDS: SODIUM CHLOR 0.9% PF (SALINE LOCK) 10ML VIAL/SYR IV SCH ×3 (06:39→22:01)
[2023-01-01] MEDS: methylPREDNISolone SOD SUCC 40 MG/ML VL IV SCH ×3 (06:39→22:01)
[2023-01-01 06:59] LABS: Basophils # (auto) 0 10 ^3/uL (0-0.2); Basophils % (auto) 0.2 % (0.0-2.0); Eosinophils # (auto) 0 10 ^3/uL (0-0.8); Eosinophils % (auto) 0.1 % (0.0-7.0); Hematocrit 49.9 % (36.0-46.0); Hemoglobin 15.7 g/dL (12.2-16.2); Lymphocytes # (auto) 0.4 10 ^3/uL (0.4-5.4); Lymphocytes % (auto) 6.9 % (10.0-50.0); Mean Corpuscular Hemoglobin 28.4 pg (28.0-32.0); Mean Corpuscular Hgb Conc. 31.4 g/dL (32.0-36.0); Mean Corpuscular Volume 90.6 fL (80.0-100.0); Monocytes # (auto) 0 10 ^3/uL (0-1.3); Monocytes % (auto) 0.6 % (0.0-12.0); Neutrophils # (auto) 5.1 10 ^3/uL (1.6-8.6); Neutrophils % (auto) 92.2 % (37.0-80.0); Nucleated Red Blood Cells % 1.2 %; Red Blood Cells 5.51 10^6/uL (4.0-5.20); White Blood Cell 5.6 10^3/uL (4.4-10.8)
[2023-01-01 07:27] LABS: Red Cell Distribution Width 25.8 % (11.8-14.3)
[2023-01-01 07:29] LABS: Potassium 4.5 mmol/L (3.5-5.1)
[2023-01-01 07:40] LABS: Albumin 3.4 g/dL (3.4-5.0); BUN/Creatinine Ratio 21.9; Bilirubin, Total 0.7 mg/dL (0.2-1.0); Calcium 10.3 mg/dL (8.5-10.1); Total Protein 8.1 g/dL (6.4-8.2)
[2023-01-01] MEDS: cefTRIAXone 1GM/50ML D5W 50 ML IV SCH (09:06)
[2023-01-01] MEDS: LEVOTHYROXINE SODIUM 50 MCG TAB PO SCH (09:06)
[2023-01-01] MEDS ORDERED: levoFLOXacin 500MG 100 ML IV ONE (10:00)
[2023-01-01] MEDS: APIXABAN 5 MG TAB PO SCH ×2 (11:02→21:59)
[2023-01-01] MEDS: FAMOTIDINE (10MG/ML) 2ML VL IV SCH ×2 (11:02→22:01)
[2023-01-01] MEDS: FUROSEMIDE 40 MG/4 ML VIAL IV SCH (11:02)
[2023-01-01] MEDS: CARVEDILOL 12.5 MG TAB PO SCH ×2 (11:02→22:49)
[2023-01-01 13:00] VITALS: BP 126/73
[2023-01-01] MEDS ORDERED: GABA100C9 PO (13:01)
[2023-01-01] MEDS: AZITHROMYCIN 500MG/ 250ML 250 ML IV SCH (13:36)
[2023-01-01 16:38] VITALS: BP 132/81
[2023-01-01 22:00] VITALS: BP 142/81
[2023-01-02 05:00] VITALS: BP 136/75
[2023-01-02] MEDS: SODIUM CHLOR 0.9% PF (SALINE LOCK) 10ML VIAL/SYR IV SCH ×3 (05:39→21:14)
[2023-01-02] MEDS: methylPREDNISolone SOD SUCC 40 MG/ML VL IV SCH ×3 (06:25→21:15)
[2023-01-02] MEDS: LEVOTHYROXINE SODIUM 50 MCG TAB PO SCH (06:27)
[2023-01-02] MEDS: cefTRIAXone 1GM/50ML D5W 50 ML IV SCH (09:00)
[2023-01-02] MEDS: FUROSEMIDE 40 MG/4 ML VIAL IV SCH (10:52)
[2023-01-02] MEDS: FAMOTIDINE (10MG/ML) 2ML VL IV SCH ×2 (10:53→21:12)
[2023-01-02] MEDS: AZITHROMYCIN 500MG/ 250ML 250 ML IV SCH (10:54)
[2023-01-02] MEDS: CARVEDILOL 12.5 MG TAB PO SCH ×2 (10:55→21:30)
[2023-01-02] MEDS: APIXABAN 5 MG TAB PO SCH ×2 (10:56→21:16)
[2023-01-02 12:00] VITALS: BP 134/87
[2023-01-02 17:00] VITALS: BP_SYST 125; BP_SYST 126; BP_DIAS 58; BP_DIAS 73
[2023-01-02 22:00] VITALS: BP 148/83
[2023-01-03 05:00] VITALS: BP 160/95
[2023-01-03] MEDS ORDERED: hydrALAZINE HCL 20 MG/ML VL IV PRN (05:45)
[2023-01-03] MEDS: SODIUM CHLOR 0.9% PF (SALINE LOCK) 10ML VIAL/SYR IV SCH (06:08)
[2023-01-03] MEDS: methylPREDNISolone SOD SUCC 40 MG/ML VL IV SCH (06:08)
[2023-01-03] MEDS: LEVOTHYROXINE SODIUM 50 MCG TAB PO SCH (06:09)
[2023-01-03 08:00] VITALS: BP 138/84
[2023-01-03 09:00] VITALS: BP 138/84
[2023-01-03] MEDS: APIXABAN 5 MG TAB PO SCH (10:00)
[2023-01-03] MEDS: CARVEDILOL 12.5 MG TAB PO SCH (10:00)
[2023-01-03] MEDS ORDERED: METH4PAK PO (10:33)
[2023-01-03] MEDS ORDERED: AZIT500T66 PO (10:33)
[2023-01-03] MEDS: FUROSEMIDE 40 MG/4 ML VIAL IV SCH (11:43)
[2023-01-03] MEDS: FAMOTIDINE (10MG/ML) 2ML VL IV SCH (11:43)
[2023-01-03] MEDS: AZITHROMYCIN 500MG/ 250ML 250 ML IV SCH (11:45)
[2023-01-03] MEDS: cefTRIAXone 1GM/50ML D5W 50 ML IV SCH (11:45)
[2023-01-03 13:00] VITALS: BP 146/84
== END 2023-01-03 14:00 | disposition home or self-care (01) | DRG 193 ==
LOC: EDBD 20:25 → ER 20:25 → TELE 23:13 → TELE-WESTW 01-01 11:28
PROVIDERS: ADMIT Nurse Practitioner Family; ATTEND Family Medicine
DX: J18.9 Pneumonia, unspecified organism (principal); I50.43 Acute on chronic combined systolic (congestive) and diastolic (congestive) heart failure; J96.01 Acute respiratory failure with hypoxia; I13.0 Hypertensive heart and chronic kidney disease with heart failure and stage 1 through stage 4 chronic kidney disease, or unspecified chronic kidney disease; N17.9 Acute kidney failure, unspecified; J44.1 Chronic obstructive pulmonary disease with (acute) exacerbation; J44.0 Chronic obstructive pulmonary disease with (acute) lower respiratory infection; Z68.41 Body mass index [BMI] 40.0-44.9, adult; N18.9 Chronic kidney disease, unspecified; E66.01 Morbid (severe) obesity due to excess calories; E78.5 Hyperlipidemia, unspecified; E03.9 Hypothyroidism, unspecified; F17.210 Nicotine dependence, cigarettes, uncomplicated; F20.9 Schizophrenia, unspecified; F32.A Depression, unspecified; F41.9 Anxiety disorder, unspecified; Z20.822 Contact with and (suspected) exposure to COVID-19; Z82.49 Family history of ischemic heart disease and other diseases of the circulatory system; Z83.3 Family history of diabetes mellitus; Z90.49 Acquired absence of other specified parts of digestive tract; Z91.14 Patient's other noncompliance with medication regimen
CPT/HCPCS: 36415; 36600; 71045; 80053; 81001; 82805; 83880; 84443; 84484; 85025; 85610; 85730; 87081; 87426; 93005; 96365; 96375; G0378; J0696; J1956; J3490

== ENCOUNTER → 2023-02-05 | Outpatient (CLI) | payer MEDICARE, MEDICAID ==
[~2023-02-05] MED LIST changes: +AZIT500T66 PO; +GABA100C9 PO; -GABA400C PO; +METH4PAK PO
[2023-02-05 14:29] LABS: Urine Bacteria NONE SEEN /hpf (None Seen); Urine Blood Negative /uL (Negative); Urine Specific Gravity 1.002 (1.001-1.035); Urine WBC 1 /hpf (0 - 5)
[2023-02-05 14:59] LABS: Albumin 2.7 g/dL (3.4-5.0); Calcium 8.9 mg/dL (8.5-10.1); Potassium 3.9 mmol/L (3.5-5.1)
[2023-02-05 15:02] LABS: Bilirubin, Total 0.6 mg/dL (0.2-1.0); Total Protein 7.4 g/dL (6.4-8.2)
[2023-02-05 15:13] LABS: Free T4 (Free Thyroxine) 0.95 ng/dL (0.89-1.76); T3 Total 0.44 ng/mL (0.60-1.81)
== END | disposition home or self-care (01) ==
LOC: LAB 14:02
PROVIDERS: ATTEND Internal Medicine
DX: E03.9 Hypothyroidism, unspecified (principal)
CPT/HCPCS: 36415; 80053; 81001; 84439; 84443; 84480

== ENCOUNTER 2023-03-18 13:06 | Inpatient (IN) | payer OTHER, MEDICAID ==
[~2023-03-18] VITALS: Ht 162.6 cm; Wt 119.5 kg
[2023-03-18] MEDS ORDERED: ALBUTEROL SULF 2.5 MG/0.5ML(0.5%) NEB SOLN HHN ONE (13:45)
[2023-03-18] MEDS ORDERED: DexAMETHasone SOD PHOS 10MG/1ML VIAL INJ IV ONE (13:45)
[2023-03-18] MEDS ORDERED: IPRATROPIUM BROM 0.5 MG/2.5ML INH SOL HHN ONE (13:45)
[2023-03-18 14:05] LABS: Basophils # (auto) 0 10 ^3/uL (0-0.2); Eosinophils # (auto) 0 10 ^3/uL (0-0.8); Hemoglobin 13.8 g/dL (12.2-16.2); Monocytes # (auto) 0.5 10 ^3/uL (0-1.3); Red Blood Cells 5.24 10^6/uL (4.0-5.20)
[2023-03-18 14:07] LABS: Basophils % (auto) 0.6 % (0.0-2.0); Eosinophils % (auto) 0.7 % (0.0-7.0); Hematocrit 44.7 % (36.0-46.0); Lymphocytes % (auto) 16.6 % (10.0-50.0); Mean Corpuscular Hemoglobin 26.3 pg (28.0-32.0); Mean Corpuscular Hgb Conc. 30.8 g/dL (32.0-36.0); Mean Corpuscular Volume 85.4 fL (80.0-100.0); Monocytes % (auto) 7.6 % (0.0-12.0); Neutrophils # (auto) 4.5 10 ^3/uL (1.6-8.6); Neutrophils % (auto) 74.5 % (37.0-80.0); Nucleated Red Blood Cells % 0.3 %
[2023-03-18 14:15] LABS: Red Cell Distribution Width 22.1 % (11.8-14.3)
[2023-03-18 14:19] LABS: Albumin 3.2 g/dL (3.4-5.0); Magnesium 2.6 mg/dL (1.6-2.6); Potassium 4.2 mmol/L (3.5-5.1)
[2023-03-18 14:20] LABS: INR 1.37 (0.9-1.15); Partial Thromboplastin Time 31.6 sec (24.6-33.4)
[2023-03-18 14:25] LABS: BUN/Creatinine Ratio 15.5 (10.0-20.0); Bilirubin, Total 1.6 mg/dL (0.2-1.0); Total Protein 7.1 g/dL (6.4-8.2)
[2023-03-18] MEDS ORDERED: FUROSEMIDE 40 MG/4 ML VIAL IV ONE (16:30)
[2023-03-18] MEDS ORDERED: NITROGLYCERIN 0.4 MG SL TAB SL PRN (18:30)
[2023-03-18] MEDS ORDERED: ONDANSETRON HCL 4 MG/2 ML VIAL IV PRN (18:30)
[2023-03-18] MEDS ORDERED: DOCUSATE SOD 100 MG CAP PO PRN (18:30)
[2023-03-18] MEDS ORDERED: ACETAMINOPHEN 325 MG TAB PO PRN (18:30)
[2023-03-18] MEDS ORDERED: HYDROcodone-ACET 5/325MG TAB PO PRN (18:30)
[2023-03-18] MEDS ORDERED: MORPHINE SULFATE INJ 2 MG/ml SYRG IV PRN (18:30)
[2023-03-18] MEDS ORDERED: LEVO175T66 PO (18:41)
[2023-03-18] MEDS ORDERED: ALBUTEROL SULF 2.5 MG/0.5ML(0.5%) NEB SOLN NEB PRN (19:00)
[2023-03-18] MEDS ORDERED: IPRATROPIUM BROM 0.5 MG/2.5ML INH SOL NEB PRN (19:00)
[2023-03-18 19:45] LABS: Urine Bacteria MOD /hpf (None Seen); Urine Blood Negative /uL (Negative); Urine Specific Gravity 1.008 (1.001-1.035); Urine WBC 1 /hpf (0 - 5)
[2023-03-18 20:10] LABS: Alcohol, Urine < 3.0 mg/dL (0-10); Amphetamine Screen, Urine NEGATIVE (NEGATIVE); Barbiturate Scree,Urine NEGATIVE (NEGATIVE); Benzodiazephine Screen, Urine NEGATIVE (NEGATIVE); Cannabinoid Screen, Urine NEGATIVE (NEGATIVE); Cocaine Screen, Urine NEGATIVE (NEGATIVE); Opiate Scree,Urine NEGATIVE (NEGATIVE); Phencyclidine Screen, Urine NEGATIVE (NEGATIVE)
[2023-03-18] MEDS: SODIUM CHLOR 0.9% PF (SALINE LOCK) 10ML VIAL/SYR IV SCH (22:59)
[2023-03-18] MEDS: methylPREDNISolone SOD SUCC 40 MG/ML VL IV SCH (22:59)
[2023-03-18] MEDS: QUEtiapine FUMARATE 100 MG TAB PO SCH (23:00)
[2023-03-18] MEDS: APIXABAN 5 MG TAB PO SCH (23:00)
[2023-03-18] MEDS: LITHIUM CARBONATE 300 MG TAB PO SCH (23:00)
[2023-03-18] MEDS: CARVEDILOL 12.5 MG TAB PO SCH (23:13)
[2023-03-18] MEDS: GABAPENTIN 100 MG CAP PO SCH (23:45)
[2023-03-19 05:15] LABS: Basophils # (auto) 0 10 ^3/uL (0-0.2); Basophils % (auto) 0.2 % (0.0-2.0); Eosinophils # (auto) 0 10 ^3/uL (0-0.8); Hemoglobin 14.5 g/dL (12.2-16.2); Monocytes # (auto) 0.1 10 ^3/uL (0-1.3); Monocytes % (auto) 1.3 % (0.0-12.0); Neutrophils # (auto) 5.1 10 ^3/uL (1.6-8.6); White Blood Cell 5.5 10^3/uL (4.4-10.8)
[2023-03-19 05:16] VITALS: BP 122/72
[2023-03-19 05:17] LABS: Hematocrit 47.6 % (36.0-46.0); Lymphocytes # (auto) 0.4 10 ^3/uL (0.4-5.4); Lymphocytes % (auto) 6.4 % (10.0-50.0); Mean Corpuscular Hemoglobin 26.1 pg (28.0-32.0); Mean Corpuscular Hgb Conc. 30.6 g/dL (32.0-36.0); Mean Corpuscular Volume 85.2 fL (80.0-100.0); Neutrophils % (auto) 92.1 % (37.0-80.0); Nucleated Red Blood Cells % 0.4 %; Red Blood Cells 5.58 10^6/uL (4.0-5.20)
[2023-03-19 05:27] LABS: Red Cell Distribution Width 21.9 % (11.8-14.3)
[2023-03-19 05:31] LABS: Albumin 3.1 g/dL (3.4-5.0); Calcium 9.1 mg/dL (8.5-10.1); Potassium 4.2 mmol/L (3.5-5.1)
[2023-03-19 05:34] LABS: BUN/Creatinine Ratio 17.9 (10.0-20.0); Bilirubin, Total 1.2 mg/dL (0.2-1.0); Total Protein 7.8 g/dL (6.4-8.2)
[2023-03-19] MEDS: SODIUM CHLOR 0.9% PF (SALINE LOCK) 10ML VIAL/SYR IV SCH ×3 (05:56→22:54)
[2023-03-19] MEDS: amLODIPine BESYLATE 5 MG TAB PO SCH (10:00)
[2023-03-19] MEDS: CARVEDILOL 12.5 MG TAB PO SCH ×2 (10:00→22:00)
[2023-03-19] MEDS: GABAPENTIN 100 MG CAP PO SCH ×2 (10:00→22:41)
[2023-03-19] MEDS: methylPREDNISolone SOD SUCC 40 MG/ML VL IV SCH ×2 (10:19→22:54)
[2023-03-19] MEDS: LITHIUM CARBONATE 300 MG TAB PO SCH ×2 (10:20→22:34)
[2023-03-19] MEDS: APIXABAN 5 MG TAB PO SCH ×2 (10:21→22:33)
[2023-03-19] MEDS: PANTOPRAZOLE 40 MG TAB PO SCH (10:23)
[2023-03-19] MEDS: QUEtiapine FUMARATE 100 MG TAB PO SCH ×2 (10:24→22:36)
[2023-03-19] MEDS: SERTRALINE HCL 50 MG TAB PO SCH (10:25)
[2023-03-19] MEDS ORDERED: FUROSEMIDE 40 MG/4 ML VIAL IV ONE (14:15)
[2023-03-19 14:47] VITALS: BP 104/62
[2023-03-19] MEDS: FUROSEMIDE 40 MG/4 ML VIAL IV SCH (18:00)
[2023-03-19 20:00] VITALS: BP 118/71
[2023-03-19 22:00] VITALS: BP 118/71
[2023-03-20 05:00] VITALS: BP 114/70
[2023-03-20] MEDS: FUROSEMIDE 40 MG/4 ML VIAL IV SCH ×2 (05:41→18:24)
[2023-03-20] MEDS: SODIUM CHLOR 0.9% PF (SALINE LOCK) 10ML VIAL/SYR IV SCH ×3 (05:42→22:25)
[2023-03-20 08:41] VITALS: BP 112/72
[2023-03-20] MEDS: CARVEDILOL 12.5 MG TAB PO SCH ×2 (10:00→22:24)
[2023-03-20] MEDS: GABAPENTIN 100 MG CAP PO SCH ×2 (10:28→22:23)
[2023-03-20] MEDS: QUEtiapine FUMARATE 100 MG TAB PO SCH ×2 (10:29→22:23)
[2023-03-20] MEDS: PANTOPRAZOLE 40 MG TAB PO SCH (10:29)
[2023-03-20] MEDS: LITHIUM CARBONATE 300 MG TAB PO SCH ×2 (10:30→22:23)
[2023-03-20] MEDS: APIXABAN 5 MG TAB PO SCH ×2 (10:30→22:23)
[2023-03-20] MEDS: SERTRALINE HCL 50 MG TAB PO SCH (10:31)
[2023-03-20] MEDS: amLODIPine BESYLATE 5 MG TAB PO SCH (10:31)
[2023-03-20 13:00] VITALS: BP 130/89
[2023-03-20] MEDS: DexAMETHasone SOD PHOS 4 MG/1ML SDV INJ IV SCH ×2 (15:29→22:22)
[2023-03-20 17:00] VITALS: BP 112/64
[2023-03-20 22:00] VITALS: BP 120/72
[2023-03-21 04:54] VITALS: BP 110/47
[2023-03-21] MEDS: FUROSEMIDE 40 MG/4 ML VIAL IV SCH ×2 (06:22→17:53)
[2023-03-21] MEDS: DexAMETHasone SOD PHOS 4 MG/1ML SDV INJ IV SCH ×3 (06:22→22:03)
[2023-03-21] MEDS: SODIUM CHLOR 0.9% PF (SALINE LOCK) 10ML VIAL/SYR IV SCH ×3 (06:23→22:03)
[2023-03-21 08:00] VITALS: BP 131/84
[2023-03-21] MEDS: CARVEDILOL 12.5 MG TAB PO SCH ×2 (10:00→22:00)
[2023-03-21] MEDS: PANTOPRAZOLE 40 MG TAB PO SCH (11:18)
[2023-03-21] MEDS: LITHIUM CARBONATE 300 MG TAB PO SCH ×2 (11:18→22:03)
[2023-03-21] MEDS: APIXABAN 5 MG TAB PO SCH ×2 (11:19→22:03)
[2023-03-21] MEDS: SERTRALINE HCL 50 MG TAB PO SCH (11:19)
[2023-03-21] MEDS: QUEtiapine FUMARATE 100 MG TAB PO SCH ×2 (11:20→22:37)
[2023-03-21] MEDS: amLODIPine BESYLATE 5 MG TAB PO SCH (11:21)
[2023-03-21] MEDS: GABAPENTIN 100 MG CAP PO SCH ×2 (11:21→22:02)
[2023-03-21 12:00] VITALS: BP 115/70
[2023-03-21 17:00] VITALS: BP 118/70
[2023-03-21 22:00] VITALS: BP 116/72
[2023-03-22 04:36] VITALS: BP 115/73
[2023-03-22 05:16] VITALS: BP 137/82
[2023-03-22] MEDS: DexAMETHasone SOD PHOS 4 MG/1ML SDV INJ IV SCH (05:30)
[2023-03-22] MEDS: FUROSEMIDE 40 MG/4 ML VIAL IV SCH (05:30)
[2023-03-22] MEDS: SODIUM CHLOR 0.9% PF (SALINE LOCK) 10ML VIAL/SYR IV SCH ×2 (05:30→14:30)
[2023-03-22 09:00] VITALS: BP 124/77
[2023-03-22] MEDS: CARVEDILOL 12.5 MG TAB PO SCH (10:00)
[2023-03-22] MEDS: GABAPENTIN 100 MG CAP PO SCH (10:31)
[2023-03-22] MEDS: APIXABAN 5 MG TAB PO SCH (10:31)
[2023-03-22] MEDS: amLODIPine BESYLATE 5 MG TAB PO SCH (10:32)
[2023-03-22] MEDS: SERTRALINE HCL 50 MG TAB PO SCH (10:32)
[2023-03-22] MEDS: QUEtiapine FUMARATE 100 MG TAB PO SCH (10:32)
[2023-03-22] MEDS: PANTOPRAZOLE 40 MG TAB PO SCH (10:32)
[2023-03-22] MEDS ORDERED: POTASSIUM CHL 20 Meq TABLET PO ONE (11:45)
[2023-03-22 12:16] VITALS: BP 137/82
[2023-03-22] MEDS: LITHIUM CARBONATE 300 MG TAB PO SCH (12:41)
[2023-03-22 14:59] VITALS: BP 124/77
== END 2023-03-22 15:40 | disposition home or self-care (01) | DRG 291 ==
LOC: ER 13:06 → EDBD 13:06 → EDUNIT# 13:06 → TELE 18:41 → TELE-EAST 03-19 14:16
PROVIDERS: ADMIT Nurse Practitioner Family; ATTEND Internal Medicine
DX: I13.0 Hypertensive heart and chronic kidney disease with heart failure and stage 1 through stage 4 chronic kidney disease, or unspecified chronic kidney disease (principal); I50.33 Acute on chronic diastolic (congestive) heart failure; J96.01 Acute respiratory failure with hypoxia; J44.1 Chronic obstructive pulmonary disease with (acute) exacerbation; Z68.42 Body mass index [BMI] 45.0-49.9, adult; J98.11 Atelectasis; E78.5 Hyperlipidemia, unspecified; Z66 Do not resuscitate; N18.9 Chronic kidney disease, unspecified; F20.9 Schizophrenia, unspecified; E66.01 Morbid (severe) obesity due to excess calories; E89.0 Postprocedural hypothyroidism; F17.210 Nicotine dependence, cigarettes, uncomplicated; F41.9 Anxiety disorder, unspecified; F32.A Depression, unspecified; Z79.01 Long term (current) use of anticoagulants; Z79.899 Other long term (current) drug therapy; Z90.49 Acquired absence of other specified parts of digestive tract; Z82.49 Family history of ischemic heart disease and other diseases of the circulatory system; Z83.3 Family history of diabetes mellitus
CPT/HCPCS: 36415; 36600; 71045; 80053; 80307; 81001; 82805; 83605; 83735; 83880; 84443; 84484; 85025; 85610; 85730; 87040; 93005; 94640; 96374; 96375; G0378; J1100

== ENCOUNTER → 2023-04-07 | Outpatient (CLI) | payer OTHER, MEDICAID ==
[~2023-04-07] MED LIST changes: -AMLO-496 PO; +AMLO1TAB23 PO; -AZIT500T66 PO; +GABA-1308 PO; -GABA100C9 PO; -LEV150T PO; +LEVO175T4 PO; -METH4PAK PO; -SIMV-8 PO; +SIMV20TA20 PO
[2023-04-07 13:49] LABS: BUN/Creatinine Ratio 9.9 (10.0-20.0)
== END | disposition home or self-care (01) ==
LOC: LAB 12:59
PROVIDERS: ATTEND Internal Medicine
DX: I10 Essential (primary) hypertension (principal)
CPT/HCPCS: 36415; 80048

== ENCOUNTER 2023-04-19 20:30 | Inpatient (IN) | payer OTHER, MEDICAID ==
[~2023-04-19] VITALS: Ht 167.6 cm; Wt 115.5 kg
[2023-04-19] MEDS ORDERED: ALBUTEROL SULF 2.5 MG/0.5ML(0.5%) NEB SOLN HHN ONE (21:00)
[2023-04-19] MEDS ORDERED: IPRATROPIUM BROM 0.5 MG/2.5ML INH SOL HHN ONE (21:00)
[2023-04-19] MEDS ORDERED: methylPREDNISolone SOD SUCC 125 MG/2 ML VL IV ONE (21:00)
[2023-04-19 21:24] LABS: Albumin 3.2 g/dL (3.4-5.0); Calcium 8.7 mg/dL (8.5-10.1); Magnesium 2.7 mg/dL (1.6-2.6); Potassium 4.7 mmol/L (3.5-5.1)
[2023-04-19 21:28] LABS: BUN/Creatinine Ratio 17.8 (10.0-20.0); Bilirubin, Total 1.4 mg/dL (0.2-1.0); Total Protein 6.9 g/dL (6.4-8.2)
[2023-04-19 21:54] LABS: Basophils # (auto) 0 10 ^3/uL (0-0.2); Basophils % (auto) 0.6 % (0.0-2.0); Eosinophils # (auto) 0 10 ^3/uL (0-0.8); Monocytes # (auto) 0.6 10 ^3/uL (0-1.3); Neutrophils # (auto) 5.4 10 ^3/uL (1.6-8.6)
[2023-04-19 21:56] LABS: Eosinophils % (auto) 0.4 % (0.0-7.0); Hematocrit 44.8 % (36.0-46.0); Lymphocytes # (auto) 1.5 10 ^3/uL (0.4-5.4); Lymphocytes % (auto) 19.9 % (10.0-50.0); Mean Corpuscular Hemoglobin 25.8 pg (28.0-32.0); Mean Corpuscular Hgb Conc. 31.2 g/dL (32.0-36.0); Mean Corpuscular Volume 82.7 fL (80.0-100.0); Monocytes % (auto) 8.4 % (0.0-12.0); Neutrophils % (auto) 70.7 % (37.0-80.0); Nucleated Red Blood Cells % 0.7 %; Red Blood Cells 5.42 10^6/uL (4.0-5.20); White Blood Cell 7.6 10^3/uL (4.4-10.8)
[2023-04-19 21:57] LABS: INR 1.62 (0.9-1.15); Partial Thromboplastin Time 32.4 sec (24.6-33.4); Red Cell Distribution Width 21.5 % (11.8-14.3)
[2023-04-19 22:39] LABS: Urine Bacteria MANY /hpf (None Seen); Urine Blood Negative /uL (Negative); Urine Specific Gravity 1.009 (1.001-1.035); Urine WBC 18 /hpf (0 - 5)
[2023-04-20] VITALS (10 sets, daily range): BP systolic 109–135; BP diastolic 50–80
[2023-04-20] MEDS ORDERED: IPRATROPIUM BROM 0.5 MG/2.5ML INH SOL NEB PRN (02:45)
[2023-04-20] MEDS ORDERED: AZITHROMYCIN 500MG/ 250ML 250 ML IV ONE (02:45)
[2023-04-20] MEDS ORDERED: ONDANSETRON HCL 4 MG/2 ML VIAL IV PRN (02:45)
[2023-04-20] MEDS ORDERED: MORPHINE SULFATE INJ 2 MG/ml SYRG IV PRN (02:45)
[2023-04-20] MEDS ORDERED: NITROGLYCERIN 0.4 MG SL TAB SL PRN (02:45)
[2023-04-20] MEDS ORDERED: ALBUTEROL SULF 2.5 MG/0.5ML(0.5%) NEB SOLN NEB PRN (02:45)
[2023-04-20] MEDS ORDERED: ACETAMINOPHEN 325 MG TAB PO PRN (02:45)
[2023-04-20] MEDS: FUROSEMIDE 20 MG/2 ML VIAL IV SCH ×2 (05:54→16:48)
[2023-04-20] MEDS: cefTRIAXone 1GM/50ML D5W 50 ML IV SCH (08:31)
[2023-04-20] MEDS: methylPREDNISolone SOD SUCC 40 MG/ML VL IV SCH ×2 (08:31→22:18)
[2023-04-20] MEDS: CARVEDILOL 12.5 MG TAB PO SCH ×2 (09:38→22:00)
[2023-04-20] MEDS: APIXABAN 5 MG TAB PO SCH ×2 (09:39→22:00)
[2023-04-20] MEDS: amLODIPine BESYLATE 5 MG TAB PO SCH (09:39)
[2023-04-20] MEDS: SACUBITRIL-VALSARTAN 24mg/26mg TAB PO SCH ×2 (09:39→22:00)
[2023-04-20] MEDS: GABAPENTIN 300 MG CAP PO SCH ×2 (09:39→22:00)
[2023-04-20] MEDS: PANTOPRAZOLE 40 MG TAB PO SCH (09:40)
[2023-04-20] MEDS: SERTRALINE HCL 50 MG TAB PO SCH (09:40)
[2023-04-20 15:19] LABS: Basophils # (auto) 0 10 ^3/uL (0-0.2); Basophils % (auto) 0.2 % (0.0-2.0); Eosinophils # (auto) 0 10 ^3/uL (0-0.8); Hematocrit 46.6 % (36.0-46.0); Lymphocytes # (auto) 0.6 10 ^3/uL (0.4-5.4); Red Blood Cells 5.48 10^6/uL (4.0-5.20)
[2023-04-20 15:20] LABS: Hemoglobin 13.9 g/dL (12.2-16.2); Lymphocytes % (auto) 7.5 % (10.0-50.0); Mean Corpuscular Hemoglobin 25.3 pg (28.0-32.0); Mean Corpuscular Hgb Conc. 29.8 g/dL (32.0-36.0); Monocytes % (auto) 12.1 % (0.0-12.0); Neutrophils # (auto) 6.5 10 ^3/uL (1.6-8.6); Neutrophils % (auto) 80.2 % (37.0-80.0); Nucleated Red Blood Cells % 0.9 %; White Blood Cell 8.1 10^3/uL (4.4-10.8)
[2023-04-20 15:27] LABS: Red Cell Distribution Width 22.2 % (11.8-14.3)
[2023-04-20 15:36] LABS: Calcium 9.2 mg/dL (8.5-10.1); Magnesium 2.8 mg/dL (1.6-2.6); Potassium 4.5 mmol/L (3.5-5.1)
[2023-04-20 15:39] LABS: BUN/Creatinine Ratio 18.5 (10.0-20.0)
[2023-04-20] MEDS: ATORVASTATIN 20 MG TAB PO SCH (22:00)
[2023-04-21] VITALS (9 sets, daily range): BP systolic 110–150; BP diastolic 50–88
[2023-04-21 04:39] LABS: Basophils # (auto) 0 10 ^3/uL (0-0.2); Basophils % (auto) 0.1 % (0.0-2.0); Eosinophils # (auto) 0 10 ^3/uL (0-0.8); Hematocrit 48.7 % (36.0-46.0); Hemoglobin 14.8 g/dL (12.2-16.2); Lymphocytes # (auto) 0.3 10 ^3/uL (0.4-5.4); Lymphocytes % (auto) 3.7 % (10.0-50.0); Mean Corpuscular Hemoglobin 25.6 pg (28.0-32.0); Mean Corpuscular Hgb Conc. 30.4 g/dL (32.0-36.0); Mean Corpuscular Volume 84.1 fL (80.0-100.0); Monocytes # (auto) 0.1 10 ^3/uL (0-1.3); Neutrophils # (auto) 6.9 10 ^3/uL (1.6-8.6); Neutrophils % (auto) 94.2 % (37.0-80.0); Nucleated Red Blood Cells % 0.5 %; Red Blood Cells 5.78 10^6/uL (4.0-5.20); White Blood Cell 7.3 10^3/uL (4.4-10.8)
[2023-04-21 04:41] LABS: Red Cell Distribution Width 22.3 % (11.8-14.3)
[2023-04-21 04:53] LABS: Calcium 9.4 mg/dL (8.5-10.1); Magnesium 2.4 mg/dL (1.6-2.6); Potassium 4.3 mmol/L (3.5-5.1)
[2023-04-21 04:58] LABS: Albumin 3.3 g/dL (3.4-5.0); BUN/Creatinine Ratio 23.1 (10.0-20.0); Bilirubin, Total 1.3 mg/dL (0.2-1.0); Total Protein 7.9 g/dL (6.4-8.2)
[2023-04-21] MEDS: FUROSEMIDE 20 MG/2 ML VIAL IV SCH (05:52)
[2023-04-21] MEDS: cefTRIAXone 1GM/50ML D5W 50 ML IV SCH (08:39)
[2023-04-21] MEDS: methylPREDNISolone SOD SUCC 40 MG/ML VL IV SCH ×2 (09:17→21:17)
[2023-04-21] MEDS: CARVEDILOL 12.5 MG TAB PO SCH ×2 (09:17→21:38)
[2023-04-21] MEDS: AZITHROMYCIN 500MG/ 250ML 250 ML IV SCH (09:17)
[2023-04-21] MEDS: SERTRALINE HCL 50 MG TAB PO SCH (09:18)
[2023-04-21] MEDS: SACUBITRIL-VALSARTAN 24mg/26mg TAB PO SCH ×2 (09:18→21:38)
[2023-04-21] MEDS: amLODIPine BESYLATE 5 MG TAB PO SCH (09:18)
[2023-04-21] MEDS: GABAPENTIN 300 MG CAP PO SCH ×2 (09:18→21:38)
[2023-04-21] MEDS: APIXABAN 5 MG TAB PO SCH ×2 (09:18→21:38)
[2023-04-21] MEDS: PANTOPRAZOLE 40 MG TAB PO SCH (09:18)
[2023-04-21] MEDS ORDERED: LEVOTHYROXINE SODIUM 50 MCG TAB PO ONE (13:45)
[2023-04-21] MEDS: ATORVASTATIN 20 MG TAB PO SCH (21:38)
[2023-04-22] VITALS (9 sets, daily range): BP systolic 94–167; BP diastolic 38–85
[2023-04-22 05:53] LABS: Basophils # (auto) 0 10 ^3/uL (0-0.2); Basophils % (auto) 0.1 % (0.0-2.0); Eosinophils # (auto) 0 10 ^3/uL (0-0.8); Lymphocytes # (auto) 0.3 10 ^3/uL (0.4-5.4); Mean Corpuscular Hemoglobin 25.6 pg (28.0-32.0); Mean Corpuscular Hgb Conc. 30.7 g/dL (32.0-36.0); Mean Corpuscular Volume 83.5 fL (80.0-100.0); Monocytes # (auto) 0.2 10 ^3/uL (0-1.3); Neutrophils # (auto) 5.1 10 ^3/uL (1.6-8.6); Neutrophils % (auto) 90.1 % (37.0-80.0); White Blood Cell 5.7 10^3/uL (4.4-10.8)
[2023-04-22 05:57] LABS: Hematocrit 46.8 % (36.0-46.0); Hemoglobin 14.4 g/dL (12.2-16.2); Lymphocytes % (auto) 5.6 % (10.0-50.0); Monocytes % (auto) 4.2 % (0.0-12.0); Nucleated Red Blood Cells % 0.8 %; Red Blood Cells 5.61 10^6/uL (4.0-5.20)
[2023-04-22] MEDS: FUROSEMIDE 20 MG/2 ML VIAL IV SCH ×3 (06:01→18:27)
[2023-04-22 06:10] LABS: Red Cell Distribution Width 21.9 % (11.8-14.3)
[2023-04-22 06:15] LABS: Albumin 3.2 g/dL (3.4-5.0); Calcium 9.5 mg/dL (8.5-10.1); Magnesium 2.5 mg/dL (1.6-2.6); Potassium 4.3 mmol/L (3.5-5.1)
[2023-04-22 06:20] LABS: BUN/Creatinine Ratio 29.4 (10.0-20.0); Bilirubin, Total 0.9 mg/dL (0.2-1.0); Total Protein 7.2 g/dL (6.4-8.2)
[2023-04-22] MEDS: LEVOTHYROXINE SODIUM 50 MCG TAB PO SCH (06:28)
[2023-04-22] MEDS: CARVEDILOL 12.5 MG TAB PO SCH ×2 (08:17→22:00)
[2023-04-22] MEDS: PANTOPRAZOLE 40 MG TAB PO SCH (08:18)
[2023-04-22] MEDS: APIXABAN 5 MG TAB PO SCH ×2 (08:18→22:00)
[2023-04-22] MEDS: SACUBITRIL-VALSARTAN 24mg/26mg TAB PO SCH ×2 (08:18→22:00)
[2023-04-22] MEDS: GABAPENTIN 300 MG CAP PO SCH ×2 (08:18→22:00)
[2023-04-22] MEDS: amLODIPine BESYLATE 5 MG TAB PO SCH (08:18)
[2023-04-22] MEDS: SERTRALINE HCL 50 MG TAB PO SCH (08:19)
[2023-04-22] MEDS: methylPREDNISolone SOD SUCC 40 MG/ML VL IV SCH ×2 (09:12→21:25)
[2023-04-22] MEDS: cefTRIAXone 1GM/50ML D5W 50 ML IV SCH (09:13)
[2023-04-22] MEDS: AZITHROMYCIN 500MG/ 250ML 250 ML IV SCH (09:13)
[2023-04-22] MEDS: ATORVASTATIN 20 MG TAB PO SCH (22:00)
[2023-04-23 05:00] VITALS: BP 164/89
[2023-04-23] MEDS: FUROSEMIDE 20 MG/2 ML VIAL IV SCH ×2 (05:58→17:58)
[2023-04-23] MEDS: LEVOTHYROXINE SODIUM 50 MCG TAB PO SCH (06:25)
[2023-04-23 06:59] LABS: Calcium 9.8 mg/dL (8.5-10.1); Potassium 4.9 mmol/L (3.5-5.1)
[2023-04-23 07:02] LABS: BUN/Creatinine Ratio 29.9 (10.0-20.0)
[2023-04-23 07:27] LABS: Basophils # (auto) 0 10 ^3/uL (0-0.2); Basophils % (auto) 0.3 % (0.0-2.0); Eosinophils # (auto) 0 10 ^3/uL (0-0.8); Eosinophils % (auto) 0.1 % (0.0-7.0); Hematocrit 50.8 % (36.0-46.0); Hemoglobin 15.6 g/dL (12.2-16.2); Lymphocytes # (auto) 0.5 10 ^3/uL (0.4-5.4); Lymphocytes % (auto) 6.7 % (10.0-50.0); Mean Corpuscular Hemoglobin 25.5 pg (28.0-32.0); Mean Corpuscular Hgb Conc. 30.6 g/dL (32.0-36.0); Mean Corpuscular Volume 83.4 fL (80.0-100.0); Monocytes # (auto) 0.4 10 ^3/uL (0-1.3); Monocytes % (auto) 5.5 % (0.0-12.0); Neutrophils # (auto) 6.6 10 ^3/uL (1.6-8.6); Neutrophils % (auto) 87.4 % (37.0-80.0); Nucleated Red Blood Cells % 0.9 %; Red Blood Cells 6.09 10^6/uL (4.0-5.20); Red Cell Distribution Width 22.1 % (11.8-14.3); White Blood Cell 7.6 10^3/uL (4.4-10.8)
[2023-04-23 07:54] VITALS: BP 129/72
[2023-04-23 09:22] VITALS: BP 164/90
[2023-04-23] MEDS: methylPREDNISolone SOD SUCC 40 MG/ML VL IV SCH ×2 (09:23→22:12)
[2023-04-23] MEDS: AZITHROMYCIN 500MG/ 250ML 250 ML IV SCH (09:23)
[2023-04-23] MEDS: cefTRIAXone 1GM/50ML D5W 50 ML IV SCH (09:23)
[2023-04-23] MEDS: PANTOPRAZOLE 40 MG TAB PO SCH (09:29)
[2023-04-23] MEDS: amLODIPine BESYLATE 5 MG TAB PO SCH (09:30)
[2023-04-23] MEDS: SERTRALINE HCL 50 MG TAB PO SCH (09:30)
[2023-04-23] MEDS: GABAPENTIN 300 MG CAP PO SCH ×2 (09:30→22:12)
[2023-04-23] MEDS: SACUBITRIL-VALSARTAN 24mg/26mg TAB PO SCH ×2 (09:31→22:12)
[2023-04-23] MEDS: APIXABAN 5 MG TAB PO SCH ×2 (09:31→22:12)
[2023-04-23] MEDS: CARVEDILOL 12.5 MG TAB PO SCH (09:31)
[2023-04-23 13:00] VITALS: BP 151/87
[2023-04-23 17:25] VITALS: BP 133/82
[2023-04-23 22:00] VITALS: BP 120/60
[2023-04-23] MEDS: ATORVASTATIN 20 MG TAB PO SCH (22:12)
[2023-04-24 05:00] VITALS: BP 116/65
[2023-04-24 05:43] LABS: Potassium 3.9 mmol/L (3.5-5.1)
[2023-04-24 05:51] LABS: BUN/Creatinine Ratio 34.8 (10.0-20.0)
[2023-04-24] MEDS: LEVOTHYROXINE SODIUM 50 MCG TAB PO SCH (06:01)
[2023-04-24] MEDS: FUROSEMIDE 20 MG/2 ML VIAL IV SCH ×2 (06:01→17:49)
[2023-04-24 06:23] LABS: Basophils # (auto) 0 10 ^3/uL (0-0.2); Eosinophils # (auto) 0 10 ^3/uL (0-0.8); Lymphocytes # (auto) 0.4 10 ^3/uL (0.4-5.4); Monocytes # (auto) 0.2 10 ^3/uL (0-1.3); Neutrophils # (auto) 7.2 10 ^3/uL (1.6-8.6); White Blood Cell 7.8 10^3/uL (4.4-10.8)
[2023-04-24 06:26] LABS: Basophils % (auto) 0.1 % (0.0-2.0); Hematocrit 51.9 % (36.0-46.0); Lymphocytes % (auto) 5.7 % (10.0-50.0); Mean Corpuscular Hemoglobin 25.5 pg (28.0-32.0); Mean Corpuscular Hgb Conc. 30.8 g/dL (32.0-36.0); Mean Corpuscular Volume 82.8 fL (80.0-100.0); Monocytes % (auto) 2.2 % (0.0-12.0); Nucleated Red Blood Cells % 0.5 %; Red Blood Cells 6.27 10^6/uL (4.0-5.20)
[2023-04-24 06:32] LABS: Red Cell Distribution Width 22.2 % (11.8-14.3)
[2023-04-24 09:00] VITALS: BP 140/85
[2023-04-24] MEDS: cefTRIAXone 1GM/50ML D5W 50 ML IV SCH (09:18)
[2023-04-24] MEDS: methylPREDNISolone SOD SUCC 40 MG/ML VL IV SCH (09:18)
[2023-04-24] MEDS: AZITHROMYCIN 500MG/ 250ML 250 ML IV SCH (09:18)
[2023-04-24] MEDS: amLODIPine BESYLATE 5 MG TAB PO SCH (09:19)
[2023-04-24] MEDS: APIXABAN 5 MG TAB PO SCH (09:20)
[2023-04-24] MEDS: GABAPENTIN 300 MG CAP PO SCH (09:20)
[2023-04-24] MEDS: PANTOPRAZOLE 40 MG TAB PO SCH (09:20)
[2023-04-24] MEDS: SERTRALINE HCL 50 MG TAB PO SCH (09:20)
[2023-04-24] MEDS: SACUBITRIL-VALSARTAN 24mg/26mg TAB PO SCH (09:20)
[2023-04-24 13:00] VITALS: BP 118/77
[2023-04-24 17:00] VITALS: BP 137/68
== END 2023-04-24 18:48 | disposition left against medical advice (07) | DRG 291 ==
LOC: EDBD 20:30 → ER 20:30 → TELE 04-20 02:48 → TELE-WESTW 04-21 15:37
PROVIDERS: ADMIT Nurse Practitioner; ATTEND Internal Medicine Pulmonary Disease
PROC: 5A09457 Assistance with Respiratory Ventilation, 24-96 Consecutive Hours, Continuous Positive Airway Pressure (ICD-10-PCS; principal; 2023-04-20)
DX: I13.0 Hypertensive heart and chronic kidney disease with heart failure and stage 1 through stage 4 chronic kidney disease, or unspecified chronic kidney disease (principal); I50.33 Acute on chronic diastolic (congestive) heart failure; J96.21 Acute and chronic respiratory failure with hypoxia; J96.22 Acute and chronic respiratory failure with hypercapnia; G93.41 Metabolic encephalopathy; N39.0 Urinary tract infection, site not specified; Z68.41 Body mass index [BMI] 40.0-44.9, adult; E66.2 Morbid (severe) obesity with alveolar hypoventilation; E44.1 Mild protein-calorie malnutrition; F20.9 Schizophrenia, unspecified; F31.9 Bipolar disorder, unspecified; N18.9 Chronic kidney disease, unspecified; E78.5 Hyperlipidemia, unspecified; F17.210 Nicotine dependence, cigarettes, uncomplicated; Z53.29 Procedure and treatment not carried out because of patient's decision for other reasons; F41.9 Anxiety disorder, unspecified; E03.9 Hypothyroidism, unspecified; Z82.49 Family history of ischemic heart disease and other diseases of the circulatory system; Z99.81 Dependence on supplemental oxygen; Z83.3 Family history of diabetes mellitus; Z90.49 Acquired absence of other specified parts of digestive tract
CPT/HCPCS: 36415; 36600; 70450; 71045; 80048; 80053; 80061; 81001; 82805; 83735; 83880; 84443; 84484; 85025; 85610; 85730; 87086; 87088; 87186; 93005; 94640; 94660; 96374; 99291; G0378; J0696

== ENCOUNTER 2023-05-16 13:23 | Inpatient (IN) | payer OTHER, MEDICAID ==
[~2023-05-16] VITALS: Ht 165.1 cm; Wt 105.4 kg
[2023-05-16] VITALS (28 sets, daily range): BP systolic 77–137; BP diastolic 31–86; PULSE 49–82; RESP 14–21; TEMP 97.2–97.5; O2SAT 87–100
[2023-05-16] MEDS ORDERED: ETOMIDATE (2MG/ML) 20ML VIAL IV ONE ×2 (13:30)
[2023-05-16] MEDS ORDERED: NALOXONE HCL 1MG/ML 2ML SYRINGE IV ONE (13:30)
[2023-05-16] MEDS ORDERED: SUCCINYLCHOLINE CHLORIDE 20 MG/ML 10ML VIAL IV ONE ×2 (13:31→13:34)
[2023-05-16] MEDS ORDERED: MIDAZOLAM DRIP 50 mg/50mL 50 ML IV ONE (13:38)
[2023-05-16] MEDS: MIDAZOLAM DRIP 50 mg/50mL 50 ML IV SCH ×2 (13:45→20:54)
[2023-05-16] MEDS: NOREPINEPHRINE 8 MG/250ML KIT 250 ML IV SCH (14:04)
[2023-05-16] MEDS ORDERED: NOREPINEPHRINE 8 MG/250ML KIT 250 ML IV ONE (14:06)
[2023-05-16] MEDS ORDERED: SODIUM CHLORIDE 0.9% 1,000 ML IV ONE (14:15)
[2023-05-16] MEDS ORDERED: VANCOMYCIN HCL 1000 MG VL IV ONE (14:15)
[2023-05-16] MEDS ORDERED: IPRATROPIUM BROM 0.5 MG/2.5ML INH SOL NEB ONE (14:15)
[2023-05-16] MEDS ORDERED: AZITHROMYCIN 500MG/ 250ML 250 ML IV ONE (14:15)
[2023-05-16] MEDS ORDERED: methylPREDNISolone SOD SUCC 40 MG/ML VL IV ONE (14:15)
[2023-05-16] MEDS ORDERED: cefTRIAXone 1GM/50ML D5W 50 ML IV ONE (14:15)
[2023-05-16] MEDS ORDERED: ACETAMINOPHEN 650 MG RECT SUPP PR ONE (14:15)
[2023-05-16] MEDS ORDERED: PANTOPRAZOLE 40 MG/10 ML VIAL INJ IV ONE (14:15)
[2023-05-16] MEDS ORDERED: NOREPINEPHRINE 8 MG/250ML KIT 250 ML IV SCH (14:15)
[2023-05-16] MEDS ORDERED: SODIUM CHLORIDE 0.9% 3,000 ML IV ONE (14:15)
[2023-05-16] MEDS ORDERED: ALBUTEROL SULF 2.5 MG/0.5ML(0.5%) NEB SOLN NEB ONE ×2 (14:15→17:15)
[2023-05-16] MEDS: fentaNYL Drip 2500mCg/250mlNS 250 ML IV SCH (14:48)
[2023-05-16 14:56] LABS: Basophils # (auto) 0.1 10 ^3/uL (0-0.2); Basophils % (auto) 0.9 % (0.0-2.0); Eosinophils # (auto) 0 10 ^3/uL (0-0.8); Eosinophils % (auto) 0.2 % (0.0-7.0); Hemoglobin 14.2 g/dL (12.2-16.2); Neutrophils # (auto) 5.8 10 ^3/uL (1.6-8.6); White Blood Cell 7.8 10^3/uL (4.4-10.8)
[2023-05-16 14:58] LABS: Lymphocytes # (auto) 1.2 10 ^3/uL (0.4-5.4); Lymphocytes % (auto) 15.5 % (10.0-50.0); Mean Corpuscular Hemoglobin 25.2 pg (28.0-32.0); Mean Corpuscular Hgb Conc. 30.8 g/dL (32.0-36.0); Mean Corpuscular Volume 81.6 fL (80.0-100.0); Monocytes # (auto) 0.7 10 ^3/uL (0-1.3); Monocytes % (auto) 8.5 % (0.0-12.0); Neutrophils % (auto) 74.9 % (37.0-80.0); Nucleated Red Blood Cells % 1.3 %; Red Blood Cells 5.64 10^6/uL (4.0-5.20)
[2023-05-16 15:05] LABS: Red Cell Distribution Width 23.4 % (11.8-14.3)
[2023-05-16 15:14] LABS: INR 1.99 (0.9-1.15); Partial Thromboplastin Time 33.2 SEC (24.5-34.5)
[2023-05-16 15:15] LABS: Lactic Acid w/Reflex 2.1 mmol/L (0.4-2.0)
[2023-05-16 15:27] LABS: Urine Bacteria NONE SEEN /hpf (None Seen); Urine Blood 1+ /uL (Negative); Urine Clarity Clear (Clear); Urine Color Yellow (Yellow); Urine Hyaline Cast FEW /lpf (0 - 2); Urine Mucus FEW (None Seen); Urine Protein, UAD TRACE (Negative); Urine Specific Gravity 1.011 (1.001-1.035); Urine Urobilinogen Normal (Negative); Urine WBC 4 /hpf (0 - 5); Urine pH 5.5 (5.0-8.0)
[2023-05-16] MEDS ORDERED: VANCOMYCIN PER PHARMACY 0 MG IV SCH (15:45)
[2023-05-16 15:49] LABS: Alcohol, Urine < 3.0 mg/dL (0-10); Amphetamine Screen, Urine NEGATIVE (NEGATIVE); Barbiturate Scree,Urine NEGATIVE (NEGATIVE); Benzodiazephine Screen, Urine POSITIVE (NEGATIVE); Cannabinoid Screen, Urine NEGATIVE (NEGATIVE); Cocaine Screen, Urine NEGATIVE (NEGATIVE); Opiate Scree,Urine NEGATIVE (NEGATIVE); Phencyclidine Screen, Urine NEGATIVE (NEGATIVE)
[2023-05-16 15:56] LABS: Base Excess -3.4 mmol/L (-2.0-2.0)
[2023-05-16 15:57] LABS: Base Excess -2.2 mmol/L (-2.0-2.0)
[2023-05-16] MEDS ORDERED: VANCOMYCIN 1GM/250ML 250 ML IV ONE ×2 (16:00→20:15)
[2023-05-16 16:07] LABS: Albumin 3.2 g/dL (3.4-5.0); Anion Gap 7 (5-15); Blood Alcohol < 3.0 mg/dL (<10); Blood Urea Nitrogen 28 mg/dL (7-18); Calcium 8.3 mg/dL (8.5-10.1); Carbon Dioxide 24 mmol/L (21-32); Chloride 100 mmol/L (98-107); Glucose 120 mg/dL (74-106); Sodium 131 mmol/L (136-145)
[2023-05-16 16:11] LABS: Alanine Aminotransferase 51 U/L (13-56); Alkaline Phosphatase 157 U/L (45-117); Aspartate Aminotransferase 82 U/L (15-37); BUN/Creatinine Ratio 12.3 (10.0-20.0); Bilirubin, Total 2.3 mg/dL (0.2-1.0); GFR African American 30 mL/min; GFR Non-African American 24 mL/min; Total Protein 6.8 g/dL (6.4-8.2)
[2023-05-16 16:13] LABS: Potassium 6.5 mmol/L (3.5-5.1)
[2023-05-16] MEDS ORDERED: DEXTROSE (50%) 50ML SYRG IV ONE (17:15)
[2023-05-16] MEDS ORDERED: diphenhdrAMINE HCL 50 MG/1 ML VL IV ONE (17:15)
[2023-05-16] MEDS ORDERED: InsuLIN REG 1unit/0.01ml Soln (100units/ml) IV ONE (17:15)
[2023-05-16] MEDS ORDERED: CALCIUM GLUC 1,000mg/50ml-NS 50 ML IV ONE (17:15)
[2023-05-16] MEDS ORDERED: SODIUM BICARBONATE 8.4% INJ 50ML SYRINGE IV ONE (17:15)
[2023-05-16] MEDS ORDERED: MORPHINE SULFATE INJ 2 MG/ml SYRG IV PRN (18:00)
[2023-05-16] MEDS ORDERED: NITROGLYCERIN 0.4 MG SL TAB SL PRN (18:00)
[2023-05-16] MEDS ORDERED: IPRATROPIUM BROM 0.5 MG/2.5ML INH SOL NEB PRN (18:15)
[2023-05-16] MEDS ORDERED: ALBUTEROL SULF 2.5 MG/0.5ML(0.5%) NEB SOLN NEB PRN (18:15)
[2023-05-16] MEDS ORDERED: CEFEPIME 2GM/50ML NS 50 ML IV ONE (18:45)
[2023-05-16] MEDS: ATORVASTATIN 20 MG TAB PO SCH (21:04)
[2023-05-17] VITALS (106 sets, daily range): BP systolic 88–131; BP diastolic 42–79; PULSE 45–66; RESP 0–21; TEMP 97.3–98.4; O2SAT 88–98
[2023-05-17] MEDS: MIDAZOLAM DRIP 50 mg/50mL 50 ML IV SCH ×5 (00:56→22:47)
[2023-05-17 04:41] LABS: Basophils # (auto) 0 10 ^3/uL (0-0.2); Basophils % (auto) 0.1 % (0.0-2.0); Eosinophils # (auto) 0 10 ^3/uL (0-0.8); Monocytes # (auto) 0.3 10 ^3/uL (0-1.3)
[2023-05-17 04:44] LABS: Hematocrit 43.7 % (36.0-46.0); Hemoglobin 13.3 g/dL (12.2-16.2); Lymphocytes # (auto) 0.5 10 ^3/uL (0.4-5.4); Lymphocytes % (auto) 5.3 % (10.0-50.0); Mean Corpuscular Hemoglobin 24.7 pg (28.0-32.0); Mean Corpuscular Hgb Conc. 30.5 g/dL (32.0-36.0); Mean Corpuscular Volume 80.9 fL (80.0-100.0); Monocytes % (auto) 3.6 % (0.0-12.0); Neutrophils # (auto) 8.7 10 ^3/uL (1.6-8.6); Nucleated Red Blood Cells % 0.3 %; White Blood Cell 9.6 10^3/uL (4.4-10.8)
[2023-05-17 04:45] LABS: Red Cell Distribution Width 23.2 % (11.8-14.3)
[2023-05-17 04:54] LABS: Calcium 8.3 mg/dL (8.5-10.1); Potassium 4.5 mmol/L (3.5-5.1)
[2023-05-17 05:00] LABS: Albumin 2.5 g/dL (3.4-5.0); BUN/Creatinine Ratio 14.3 (10.0-20.0); Bilirubin, Total 1.2 mg/dL (0.2-1.0); Total Protein 6.1 g/dL (6.4-8.2)
[2023-05-17] MEDS: LEVOTHYROXINE SODIUM 50 MCG TAB PO SCH (05:52)
[2023-05-17 07:28] LABS: Base Excess 1.8 mmol/L (-2.0-2.0)
[2023-05-17 07:45] LABS: Anisocytosis Slight; Hypochromia Slight; Platelet Estimate Adequate
[2023-05-17 07:46] LABS: Stomatocytes Few
[2023-05-17] MEDS: ENOXAPARIN SOD 120 MG/0.8 ML SYRINGE SC SCH (08:37)
[2023-05-17] MEDS: FUROSEMIDE 20 MG/2 ML VIAL IV SCH (08:37)
[2023-05-17] MEDS: CEFEPIME 2GM/50ML NS 50 ML IV SCH ×2 (09:16→21:44)
[2023-05-17] MEDS: NOREPINEPHRINE 8 MG/250ML KIT 250 ML IV SCH (09:48)
[2023-05-17] MEDS ORDERED: PANTOPRAZOLE 40 MG/10 ML VIAL INJ IV ONE (13:45)
[2023-05-17] MEDS: QUEtiapine FUMARATE 100 MG TAB GT SCH ×2 (13:56→21:46)
[2023-05-17] MEDS: VANCOMYCIN 1GM/250ML 250 ML IV SCH (13:56)
[2023-05-17] MEDS: fentaNYL Drip 2500mCg/250mlNS 250 ML IV SCH (14:30)
[2023-05-17] MEDS: ATORVASTATIN 20 MG TAB PO SCH (21:46)
[2023-05-17] MEDS: GABAPENTIN 400 MG CAP GT SCH (21:46)
[2023-05-17] MEDS ORDERED: risperiDONE 1 MG TAB GT SCH (22:00)
[2023-05-18] VITALS (108 sets, daily range): BP systolic 88–148; BP diastolic 44–87; PULSE 46–77; RESP 4–20; TEMP 97.5–99; O2SAT 84–99
[2023-05-18 04:51] LABS: Basophils # (auto) 0 10 ^3/uL (0-0.2); Basophils % (auto) 0.1 % (0.0-2.0); Eosinophils # (auto) 0 10 ^3/uL (0-0.8); Eosinophils % (auto) 0.2 % (0.0-7.0); Hemoglobin 13.3 g/dL (12.2-16.2); Lymphocytes # (auto) 1.4 10 ^3/uL (0.4-5.4); White Blood Cell 9.4 10^3/uL (4.4-10.8)
[2023-05-18 04:54] LABS: Lymphocytes % (auto) 14.6 % (10.0-50.0); Mean Corpuscular Hemoglobin 24.4 pg (28.0-32.0); Mean Corpuscular Hgb Conc. 30.3 g/dL (32.0-36.0); Mean Corpuscular Volume 80.8 fL (80.0-100.0); Monocytes # (auto) 0.7 10 ^3/uL (0-1.3); Monocytes % (auto) 7.4 % (0.0-12.0); Neutrophils # (auto) 7.3 10 ^3/uL (1.6-8.6); Neutrophils % (auto) 77.7 % (37.0-80.0); Nucleated Red Blood Cells % 0.2 %; Red Blood Cells 5.45 10^6/uL (4.0-5.20)
[2023-05-18 04:56] LABS: Red Cell Distribution Width 23.1 % (11.8-14.3)
[2023-05-18 05:33] LABS: Calcium 8.9 mg/dL (8.5-10.1); Potassium 4.5 mmol/L (3.5-5.1)
[2023-05-18 05:36] LABS: BUN/Creatinine Ratio 21.7 (10.0-20.0)
[2023-05-18] MEDS: LEVOTHYROXINE SODIUM 50 MCG TAB PO SCH (05:48)
[2023-05-18] MEDS: SERTRALINE HCL 50 MG TAB PO SCH (05:49)
[2023-05-18 07:36] LABS: Base Excess 0.5 mmol/L (-2.0-2.0)
[2023-05-18] MEDS ORDERED: SPIRONOLACTONE 25 MG TAB GT SCH (10:00)
[2023-05-18] MEDS: GABAPENTIN 400 MG CAP GT SCH ×2 (10:41→22:15)
[2023-05-18] MEDS: FUROSEMIDE 20 MG/2 ML VIAL IV SCH (10:41)
[2023-05-18] MEDS: QUEtiapine FUMARATE 100 MG TAB GT SCH ×2 (10:41→22:17)
[2023-05-18] MEDS: PANTOPRAZOLE 40 MG/10 ML VIAL INJ IV SCH (10:41)
[2023-05-18] MEDS: ENOXAPARIN SOD 120 MG/0.8 ML SYRINGE SC SCH (10:42)
[2023-05-18] MEDS: CEFEPIME 2GM/50ML NS 50 ML IV SCH ×2 (10:42→22:16)
[2023-05-18] MEDS: IPRATROPIUM BROM 0.5 MG/2.5ML INH SOL NEB SCH ×3 (12:04→18:45)
[2023-05-18] MEDS: ALBUTEROL SULF 2.5 MG/0.5ML(0.5%) NEB SOLN NEB SCH ×3 (12:04→18:45)
[2023-05-18] MEDS: NOREPINEPHRINE 8 MG/250ML KIT 250 ML IV SCH (14:15)
[2023-05-18] MEDS: fentaNYL Drip 2500mCg/250mlNS 250 ML IV SCH (14:30)
[2023-05-18] MEDS: VANCOMYCIN 1GM/250ML 250 ML IV SCH (14:53)
[2023-05-18] MEDS: BUDESONIDE (INHALATION) 0.5 MG/2 ML NEB NEB SCH (18:36)
[2023-05-18] MEDS: methylPREDNISolone SOD SUCC 40 MG/ML VL IV SCH ×2 (22:00→22:15)
[2023-05-18] MEDS: ATORVASTATIN 20 MG TAB PO SCH (22:15)
[2023-05-19] VITALS (109 sets, daily range): BP systolic 99–141; BP diastolic 46–86; PULSE 50–72; RESP 13–21; TEMP 97.5–99; O2SAT 84–99
[2023-05-19 02:29] LABS: Base Excess 3.2 mmol/L (-2.0-2.0)
[2023-05-19 04:31] LABS: Basophils # (auto) 0 10 ^3/uL (0-0.2); Basophils % (auto) 0.1 % (0.0-2.0); Eosinophils # (auto) 0 10 ^3/uL (0-0.8); Eosinophils % (auto) 0.2 % (0.0-7.0); Lymphocytes # (auto) 0.3 10 ^3/uL (0.4-5.4); Lymphocytes % (auto) 4.2 % (10.0-50.0); Mean Corpuscular Hemoglobin 24.7 pg (28.0-32.0); Mean Corpuscular Hgb Conc. 30.4 g/dL (32.0-36.0); Mean Corpuscular Volume 81.3 fL (80.0-100.0); Monocytes # (auto) 0.2 10 ^3/uL (0-1.3); Neutrophils # (auto) 7.5 10 ^3/uL (1.6-8.6); Neutrophils % (auto) 93.5 % (37.0-80.0); Nucleated Red Blood Cells % 0.5 %; Red Blood Cells 5.66 10^6/uL (4.0-5.20)
[2023-05-19 04:50] LABS: Potassium 4.2 mmol/L (3.5-5.1)
[2023-05-19 04:58] LABS: BUN/Creatinine Ratio 24.8 (10.0-20.0); Calcium 9.1 mg/dL (8.5-10.1)
[2023-05-19] MEDS: SERTRALINE HCL 50 MG TAB PO SCH (06:42)
[2023-05-19] MEDS: LEVOTHYROXINE SODIUM 50 MCG TAB PO SCH (06:43)
[2023-05-19] MEDS: BUDESONIDE (INHALATION) 0.5 MG/2 ML NEB NEB SCH ×2 (07:04→18:49)
[2023-05-19] MEDS: ALBUTEROL SULF 2.5 MG/0.5ML(0.5%) NEB SOLN NEB SCH ×3 (07:04→18:49)
[2023-05-19] MEDS: IPRATROPIUM BROM 0.5 MG/2.5ML INH SOL NEB SCH ×3 (07:05→18:49)
[2023-05-19 07:30] LABS: Base Excess 3.3 mmol/L (-2.0-2.0)
[2023-05-19] MEDS ORDERED: Jevity 1.2 Cal/Fiber 1 Liter GT SCH (09:15)
[2023-05-19] MEDS: CEFEPIME 2GM/50ML NS 50 ML IV SCH ×2 (10:45→21:41)
[2023-05-19] MEDS: FUROSEMIDE 20 MG/2 ML VIAL IV SCH (10:46)
[2023-05-19] MEDS: methylPREDNISolone SOD SUCC 40 MG/ML VL IV SCH ×2 (10:46→21:42)
[2023-05-19] MEDS: ENOXAPARIN SOD 120 MG/0.8 ML SYRINGE SC SCH (10:46)
[2023-05-19] MEDS: PANTOPRAZOLE 40 MG/10 ML VIAL INJ IV SCH (10:46)
[2023-05-19] MEDS: GABAPENTIN 400 MG CAP GT SCH ×2 (10:46→21:41)
[2023-05-19] MEDS ORDERED: ATROPINE SULFATE 1 MG/1 ML VIAL ONE (10:52)
[2023-05-19] MEDS ORDERED: ATROPINE SULF 1 MG/10ml SYR IV PRN (11:00)
[2023-05-19] MEDS: FREE WATER GT SCH ×3 (13:35→23:57)
[2023-05-19] MEDS: MIDAZOLAM DRIP 50 mg/50mL 50 ML IV SCH (13:45)
[2023-05-19] MEDS: NOREPINEPHRINE 8 MG/250ML KIT 250 ML IV SCH (14:15)
[2023-05-19] MEDS: fentaNYL Drip 2500mCg/250mlNS 250 ML IV SCH (14:30)
[2023-05-19] MEDS: VANCOMYCIN 1GM/250ML 250 ML IV SCH (18:28)
[2023-05-19] MEDS: ATORVASTATIN 20 MG TAB PO SCH (21:41)
[2023-05-20] VITALS (107 sets, daily range): BP systolic 96–151; BP diastolic 53–96; PULSE 47–89; RESP 17–20; TEMP 97.9–99; O2SAT 81–99
[2023-05-20 04:15] LABS: Basophils # (auto) 0 10 ^3/uL (0-0.2); Basophils % (auto) 0.2 % (0.0-2.0); Eosinophils # (auto) 0 10 ^3/uL (0-0.8); Hematocrit 46.3 % (36.0-46.0); Hemoglobin 13.8 g/dL (12.2-16.2); Lymphocytes # (auto) 0.3 10 ^3/uL (0.4-5.4); Lymphocytes % (auto) 3.7 % (10.0-50.0); Mean Corpuscular Hemoglobin 24.5 pg (28.0-32.0); Mean Corpuscular Hgb Conc. 29.8 g/dL (32.0-36.0); Mean Corpuscular Volume 82.1 fL (80.0-100.0); Monocytes # (auto) 0.3 10 ^3/uL (0-1.3); Monocytes % (auto) 3.6 % (0.0-12.0); Neutrophils # (auto) 7.6 10 ^3/uL (1.6-8.6); Neutrophils % (auto) 92.5 % (37.0-80.0); Nucleated Red Blood Cells % 0.3 %; Red Blood Cells 5.64 10^6/uL (4.0-5.20); White Blood Cell 8.2 10^3/uL (4.4-10.8)
[2023-05-20 04:16] LABS: Red Cell Distribution Width 23.4 % (11.8-14.3)
[2023-05-20 04:28] LABS: BUN/Creatinine Ratio 28.9 (10.0-20.0); Calcium 9.2 mg/dL (8.5-10.1); Potassium 4.8 mmol/L (3.5-5.1)
[2023-05-20] MEDS: fentaNYL Drip 2500mCg/250mlNS 250 ML IV SCH (05:19)
[2023-05-20] MEDS: FREE WATER GT SCH ×3 (05:20→18:00)
[2023-05-20] MEDS: LEVOTHYROXINE SODIUM 50 MCG TAB PO SCH (06:29)
[2023-05-20 06:50] LABS: Hypochromia Slight; Platelet Estimate Adequate
[2023-05-20 06:51] LABS: Large Platelets FEW; Stomatocytes Few
[2023-05-20 08:03] LABS: Base Excess 3.8 mmol/L (-2.0-2.0)
[2023-05-20] MEDS ORDERED: LIDOCAINE 2% JELLY 11ml (GLYDO) ONE (09:08)
[2023-05-20] MEDS ORDERED: SODIUM CHLORIDE LOCK 10 ML ONE (09:08)
[2023-05-20] MEDS ORDERED: LIDOCAINE 2%HCL (LOCAL ANESTH.) INJ 20ML MDV ONE (09:08)
[2023-05-20] MEDS ORDERED: GLYCOPYRROLATE 0.2 MG/ML 1ML VIAL ONE (09:09)
[2023-05-20] MEDS ORDERED: EPINEPHrine HCL 1 MG/1 ML AMP ONE (09:09)
[2023-05-20] MEDS: MIDAZOLAM HCL 5 MG/ML-1ML VIAL ONE ×2 (10:24→10:26)
[2023-05-20] MEDS: FUROSEMIDE 20 MG/2 ML VIAL IV SCH (11:00)
[2023-05-20] MEDS: CEFEPIME 2GM/50ML NS 50 ML IV SCH ×2 (11:00→22:09)
[2023-05-20] MEDS: ENOXAPARIN SOD 120 MG/0.8 ML SYRINGE SC SCH (11:00)
[2023-05-20] MEDS: GABAPENTIN 400 MG CAP GT SCH ×2 (11:00→22:10)
[2023-05-20] MEDS: PANTOPRAZOLE 40 MG/10 ML VIAL INJ IV SCH (11:00)
[2023-05-20] MEDS: methylPREDNISolone SOD SUCC 40 MG/ML VL IV SCH ×2 (11:00→22:09)
[2023-05-20] MEDS: ALBUTEROL SULF 2.5 MG/0.5ML(0.5%) NEB SOLN NEB SCH ×3 (12:23→18:21)
[2023-05-20] MEDS: IPRATROPIUM BROM 0.5 MG/2.5ML INH SOL NEB SCH ×3 (12:24→18:21)
[2023-05-20] MEDS: BUDESONIDE (INHALATION) 0.5 MG/2 ML NEB NEB SCH ×2 (12:24→18:21)
[2023-05-20] MEDS: MIDAZOLAM DRIP 50 mg/50mL 50 ML IV SCH (13:45)
[2023-05-20] MEDS: NOREPINEPHRINE 8 MG/250ML KIT 250 ML IV SCH (14:15)
[2023-05-20] MEDS: VANCOMYCIN 1GM/250ML 250 ML IV SCH (15:34)
[2023-05-20] MEDS: ATORVASTATIN 20 MG TAB PO SCH (22:10)
[2023-05-21] VITALS (108 sets, daily range): BP systolic 121–181; BP diastolic 76–116; PULSE 46–80; RESP 7–21; TEMP 97.9–98.6; O2SAT 89–98
[2023-05-21] MEDS: FREE WATER GT SCH ×4 (00:36→18:16)
[2023-05-21] MEDS: fentaNYL Drip 2500mCg/250mlNS 250 ML IV SCH (04:21)
[2023-05-21] MEDS: ALBUTEROL SULF 2.5 MG/0.5ML(0.5%) NEB SOLN NEB SCH ×3 (06:05→18:09)
[2023-05-21] MEDS: BUDESONIDE (INHALATION) 0.5 MG/2 ML NEB NEB SCH ×2 (06:05→18:09)
[2023-05-21] MEDS: IPRATROPIUM BROM 0.5 MG/2.5ML INH SOL NEB SCH ×3 (06:05→18:09)
[2023-05-21] MEDS: LEVOTHYROXINE SODIUM 50 MCG TAB PO SCH (06:36)
[2023-05-21 07:01] LABS: Base Excess 2.8 mmol/L (-2.0-2.0)
[2023-05-21] MEDS: VANCOMYCIN 1GM/250ML 250 ML IV SCH (07:53)
[2023-05-21] MEDS ORDERED: Jevity 1.2 Cal/Fiber 1 Liter GT SCH (08:15)
[2023-05-21] MEDS ORDERED: hydrALAZINE HCL 20 MG/ML VL IV PRN (09:30)
[2023-05-21] MEDS: CEFEPIME 2GM/50ML NS 50 ML IV SCH ×2 (10:44→22:57)
[2023-05-21] MEDS: GABAPENTIN 400 MG CAP GT SCH ×2 (10:44→22:56)
[2023-05-21] MEDS: FUROSEMIDE 20 MG/2 ML VIAL IV SCH (10:45)
[2023-05-21] MEDS: ENOXAPARIN SOD 120 MG/0.8 ML SYRINGE SC SCH (10:45)
[2023-05-21] MEDS: methylPREDNISolone SOD SUCC 40 MG/ML VL IV SCH ×2 (10:45→22:56)
[2023-05-21] MEDS: PANTOPRAZOLE 40 MG/10 ML VIAL INJ IV SCH (10:45)
[2023-05-21] MEDS: MIDAZOLAM DRIP 50 mg/50mL 50 ML IV SCH (13:45)
[2023-05-21] MEDS: NOREPINEPHRINE 8 MG/250ML KIT 250 ML IV SCH (14:15)
[2023-05-21 15:21] LABS: Base Excess 4.9 mmol/L (-2.0-2.0)
[2023-05-21] MEDS: ATORVASTATIN 20 MG TAB PO SCH (22:56)
[2023-05-22] VITALS (92 sets, daily range): BP systolic 119–177; BP diastolic 73–117; PULSE 48–97; RESP 10–26; TEMP 98.6–99.3; O2SAT 82–95
[2023-05-22] MEDS: VANCOMYCIN 1GM/250ML 250 ML IV SCH
[2023-05-22] MEDS: FREE WATER GT SCH ×4 (02:22→16:31)
[2023-05-22] MEDS: fentaNYL Drip 2500mCg/250mlNS 250 ML IV SCH (02:23)
[2023-05-22 04:44] LABS: Basophils # (auto) 0 10 ^3/uL (0-0.2); Basophils % (auto) 0.1 % (0.0-2.0); Eosinophils # (auto) 0 10 ^3/uL (0-0.8); Hemoglobin 15.6 g/dL (12.2-16.2); Lymphocytes # (auto) 0.6 10 ^3/uL (0.4-5.4); Monocytes # (auto) 0.3 10 ^3/uL (0-1.3); Monocytes % (auto) 3.4 % (0.0-12.0)
[2023-05-22 04:46] LABS: Lymphocytes % (auto) 6.3 % (10.0-50.0); Mean Corpuscular Hemoglobin 24.7 pg (28.0-32.0); Mean Corpuscular Volume 82.4 fL (80.0-100.0); Neutrophils # (auto) 9.1 10 ^3/uL (1.6-8.6); Neutrophils % (auto) 90.2 % (37.0-80.0); Nucleated Red Blood Cells % 0.5 %; White Blood Cell 10.1 10^3/uL (4.4-10.8)
[2023-05-22 04:48] LABS: Calcium 9.6 mg/dL (8.5-10.1); Potassium 4.1 mmol/L (3.5-5.1)
[2023-05-22 04:50] LABS: BUN/Creatinine Ratio 30.7 (10.0-20.0)
[2023-05-22 05:13] LABS: Red Cell Distribution Width 23.2 % (11.8-14.3)
[2023-05-22] MEDS: ALBUTEROL SULF 2.5 MG/0.5ML(0.5%) NEB SOLN NEB SCH ×3 (06:29→18:09)
[2023-05-22] MEDS: BUDESONIDE (INHALATION) 0.5 MG/2 ML NEB NEB SCH ×2 (06:29→18:22)
[2023-05-22] MEDS: IPRATROPIUM BROM 0.5 MG/2.5ML INH SOL NEB SCH ×3 (06:29→18:09)
[2023-05-22 07:19] LABS: Platelet Estimate Adequate
[2023-05-22 07:20] LABS: Anisocytosis Slight; Hypochromia Slight; Polychromasia Slight
[2023-05-22 07:58] LABS: Base Excess 3.4 mmol/L (-2.0-2.0)
[2023-05-22] MEDS: LEVOTHYROXINE SODIUM 50 MCG TAB PO SCH (08:53)
[2023-05-22] MEDS: GABAPENTIN 400 MG CAP GT SCH ×2 (10:00→22:12)
[2023-05-22 10:22] LABS: Base Excess 2.7 mmol/L (-2.0-2.0)
[2023-05-22] MEDS: PANTOPRAZOLE 40 MG/10 ML VIAL INJ IV SCH (10:47)
[2023-05-22] MEDS: FUROSEMIDE 20 MG/2 ML VIAL IV SCH (10:48)
[2023-05-22] MEDS: methylPREDNISolone SOD SUCC 40 MG/ML VL IV SCH ×2 (10:48→22:11)
[2023-05-22] MEDS: CEFEPIME 2GM/50ML NS 50 ML IV SCH (10:48)
[2023-05-22] MEDS: ENOXAPARIN SOD 120 MG/0.8 ML SYRINGE SC SCH (10:49)
[2023-05-22] MEDS ORDERED: FUROSEMIDE 40 MG/4 ML VIAL IV ONE (12:15)
[2023-05-22] MEDS: MIDAZOLAM DRIP 50 mg/50mL 50 ML IV SCH (13:45)
[2023-05-22] MEDS: NOREPINEPHRINE 8 MG/250ML KIT 250 ML IV SCH (14:15)
[2023-05-22] MEDS: FUROSEMIDE 40 MG/4 ML VIAL IV SCH (18:39)
[2023-05-22] MEDS: ATORVASTATIN 20 MG TAB PO SCH (22:12)
[2023-05-23] VITALS (30 sets, daily range): BP systolic 120–171; BP diastolic 68–111; PULSE 58–81; RESP 14–22; TEMP 99–99.3; O2SAT 89–97
[2023-05-23] MEDS: CEFEPIME 2GM/50ML NS 50 ML IV SCH ×3 (01:39→18:16)
[2023-05-23] MEDS: FUROSEMIDE 40 MG/4 ML VIAL IV SCH ×2 (05:52→18:16)
[2023-05-23] MEDS: FREE WATER GT SCH ×5 (05:53→23:19)
[2023-05-23] MEDS: IPRATROPIUM BROM 0.5 MG/2.5ML INH SOL NEB SCH ×3 (06:38→18:37)
[2023-05-23] MEDS: ALBUTEROL SULF 2.5 MG/0.5ML(0.5%) NEB SOLN NEB SCH ×3 (06:38→18:38)
[2023-05-23] MEDS ORDERED: VANCOMYCIN 500 MG in D5W 5% 100 ML IV ONE (07:00)
[2023-05-23] MEDS: methylPREDNISolone SOD SUCC 40 MG/ML VL IV SCH ×2 (10:00→21:25)
[2023-05-23] MEDS: PANTOPRAZOLE 40 MG/10 ML VIAL INJ IV SCH (10:45)
[2023-05-23] MEDS: GABAPENTIN 400 MG CAP GT SCH ×2 (10:45→21:15)
[2023-05-23] MEDS: ENOXAPARIN SOD 120 MG/0.8 ML SYRINGE SC SCH (10:45)
[2023-05-23] MEDS: LEVOTHYROXINE SODIUM 50 MCG TAB PO SCH (10:46)
[2023-05-23] MEDS: BUDESONIDE (INHALATION) 0.5 MG/2 ML NEB NEB SCH ×2 (12:36→18:38)
[2023-05-23] MEDS: MIDAZOLAM DRIP 50 mg/50mL 50 ML IV SCH (13:45)
[2023-05-23] MEDS: NOREPINEPHRINE 8 MG/250ML KIT 250 ML IV SCH (14:15)
[2023-05-23] MEDS: fentaNYL Drip 2500mCg/250mlNS 250 ML IV SCH (14:30)
[2023-05-23] MEDS: ATORVASTATIN 20 MG TAB PO SCH (21:15)
[2023-05-24] VITALS (14 sets, daily range): BP systolic 120–134; BP diastolic 70–80; PULSE 57–81; RESP 18–20; TEMP 98.1–98.6; O2SAT 88–100
[2023-05-24] MEDS: CEFEPIME 2GM/50ML NS 50 ML IV SCH ×3 (01:34→18:45)
[2023-05-24] MEDS: FREE WATER GT SCH ×4 (06:00→21:26)
[2023-05-24] MEDS: FUROSEMIDE 40 MG/4 ML VIAL IV SCH ×2 (06:00→18:45)
[2023-05-24] MEDS: LEVOTHYROXINE SODIUM 50 MCG TAB PO SCH (06:33)
[2023-05-24] MEDS: IPRATROPIUM BROM 0.5 MG/2.5ML INH SOL NEB SCH ×3 (07:04→18:40)
[2023-05-24] MEDS: BUDESONIDE (INHALATION) 0.5 MG/2 ML NEB NEB SCH (07:04)
[2023-05-24] MEDS: ALBUTEROL SULF 2.5 MG/0.5ML(0.5%) NEB SOLN NEB SCH ×3 (07:04→18:40)
[2023-05-24] MEDS: methylPREDNISolone SOD SUCC 40 MG/ML VL IV SCH ×2 (09:16→21:21)
[2023-05-24] MEDS: PANTOPRAZOLE 40 MG/10 ML VIAL INJ IV SCH (09:16)
[2023-05-24] MEDS: ENOXAPARIN SOD 120 MG/0.8 ML SYRINGE SC SCH (09:16)
[2023-05-24] MEDS: GABAPENTIN 400 MG CAP GT SCH ×2 (09:19→21:21)
[2023-05-24] MEDS ORDERED: VANCOMYCIN 1GM/250ML 250 ML IV SCH (16:00)
[2023-05-24] MEDS: ATORVASTATIN 20 MG TAB PO SCH (21:21)
[2023-05-25] VITALS (12 sets, daily range): BP systolic 131–151; BP diastolic 76–83; PULSE 58–67; RESP 14–22; TEMP 97.4–98.4; O2SAT 90–100
[2023-05-25] MEDS: CEFEPIME 2GM/50ML NS 50 ML IV SCH ×3 (02:06→18:44)
[2023-05-25] MEDS: FREE WATER GT SCH (05:43)
[2023-05-25] MEDS: LEVOTHYROXINE SODIUM 50 MCG TAB PO SCH (05:45)
[2023-05-25] MEDS: FUROSEMIDE 40 MG/4 ML VIAL IV SCH ×2 (05:45→18:08)
[2023-05-25] MEDS: ALBUTEROL SULF 2.5 MG/0.5ML(0.5%) NEB SOLN NEB SCH ×3 (06:15→18:29)
[2023-05-25] MEDS: BUDESONIDE (INHALATION) 0.5 MG/2 ML NEB NEB SCH ×2 (06:15→18:30)
[2023-05-25] MEDS: IPRATROPIUM BROM 0.5 MG/2.5ML INH SOL NEB SCH ×3 (06:15→18:29)
[2023-05-25 06:52] LABS: BUN/Creatinine Ratio 34.1 (10.0-20.0); Calcium 9.8 mg/dL (8.5-10.1); Potassium 3.1 mmol/L (3.5-5.1)
[2023-05-25 06:58] LABS: Basophils # (auto) 0 10 ^3/uL (0-0.2); Basophils % (auto) 0.1 % (0.0-2.0); Eosinophils # (auto) 0 10 ^3/uL (0-0.8); Lymphocytes # (auto) 0.6 10 ^3/uL (0.4-5.4); Lymphocytes % (auto) 5.8 % (10.0-50.0); Monocytes # (auto) 0.6 10 ^3/uL (0-1.3)
[2023-05-25 07:00] LABS: Hematocrit 55.2 % (36.0-46.0); Hemoglobin 16.5 g/dL (12.2-16.2); Mean Corpuscular Hemoglobin 24.5 pg (28.0-32.0); Mean Corpuscular Hgb Conc. 29.9 g/dL (32.0-36.0); Mean Corpuscular Volume 81.9 fL (80.0-100.0); Monocytes % (auto) 5.6 % (0.0-12.0); Neutrophils # (auto) 9.6 10 ^3/uL (1.6-8.6); Neutrophils % (auto) 88.5 % (37.0-80.0); Nucleated Red Blood Cells % 0.1 %; Red Blood Cells 6.74 10^6/uL (4.0-5.20); White Blood Cell 10.8 10^3/uL (4.4-10.8)
[2023-05-25 07:07] LABS: Red Cell Distribution Width 22.9 % (11.8-14.3)
[2023-05-25] MEDS: ENOXAPARIN SOD 120 MG/0.8 ML SYRINGE SC SCH (09:08)
[2023-05-25] MEDS: GABAPENTIN 400 MG CAP GT SCH ×2 (09:08→22:17)
[2023-05-25] MEDS: methylPREDNISolone SOD SUCC 40 MG/ML VL IV SCH (09:09)
[2023-05-25] MEDS: PANTOPRAZOLE 40 MG/10 ML VIAL INJ IV SCH (09:09)
[2023-05-25] MEDS ORDERED: ENOXAPARIN SOD 40 MG/0.4 ML SYRINGE SC ONE (12:45)
[2023-05-25] MEDS: POTASSIUM CHL 20MEQ/100ML 100 ML IV SCH ×2 (13:30→15:30)
[2023-05-25] MEDS: ATORVASTATIN 20 MG TAB PO SCH (22:19)
[2023-05-26] VITALS (13 sets, daily range): BP systolic 126–136; BP diastolic 75–83; PULSE 55–94; RESP 16–18; TEMP 97.5–98.3; O2SAT 91–98
[2023-05-26] MEDS: FUROSEMIDE 40 MG/4 ML VIAL IV SCH ×2 (06:07→17:54)
[2023-05-26] MEDS: LEVOTHYROXINE SODIUM 50 MCG TAB PO SCH (06:08)
[2023-05-26 06:57] LABS: Basophils # (auto) 0 10 ^3/uL (0-0.2); Eosinophils # (auto) 0.1 10 ^3/uL (0-0.8); Mean Corpuscular Hgb Conc. 29.5 g/dL (32.0-36.0)
[2023-05-26 07:00] LABS: Eosinophils % (auto) 0.6 % (0.0-7.0); Hematocrit 54.8 % (36.0-46.0); Hemoglobin 16.2 g/dL (12.2-16.2); Lymphocytes # (auto) 1.7 10 ^3/uL (0.4-5.4); Lymphocytes % (auto) 19.2 % (10.0-50.0); Mean Corpuscular Hemoglobin 24.4 pg (28.0-32.0); Mean Corpuscular Volume 82.8 fL (80.0-100.0); Monocytes # (auto) 0.8 10 ^3/uL (0-1.3); Neutrophils # (auto) 6.4 10 ^3/uL (1.6-8.6); Neutrophils % (auto) 71.2 % (37.0-80.0); Nucleated Red Blood Cells % 0.1 %; Red Blood Cells 6.62 10^6/uL (4.0-5.20); Red Cell Distribution Width 23.5 % (11.8-14.3)
[2023-05-26 07:07] LABS: BUN/Creatinine Ratio 31.4 (10.0-20.0); Calcium 9.5 mg/dL (8.5-10.1)
[2023-05-26] MEDS: BUDESONIDE (INHALATION) 0.5 MG/2 ML NEB NEB SCH ×2 (07:08→18:57)
[2023-05-26] MEDS: ALBUTEROL SULF 2.5 MG/0.5ML(0.5%) NEB SOLN NEB SCH ×3 (07:08→18:57)
[2023-05-26] MEDS: IPRATROPIUM BROM 0.5 MG/2.5ML INH SOL NEB SCH ×3 (07:08→18:57)
[2023-05-26 07:31] LABS: Potassium 2.9 mmol/L (3.5-5.1)
[2023-05-26] MEDS ORDERED: methylPREDNISolone SOD SUCC 40 MG/ML VL IV SCH (10:00)
[2023-05-26] MEDS: ENOXAPARIN SOD 40 MG/0.4 ML SYRINGE SC SCH (10:22)
[2023-05-26] MEDS: GABAPENTIN 400 MG CAP GT SCH ×2 (10:22→21:23)
[2023-05-26] MEDS: PANTOPRAZOLE 40 MG/10 ML VIAL INJ IV SCH (10:22)
[2023-05-26] MEDS: methylPREDNISolone SOD SUCC 125 MG/2 ML VL IV SCH (12:17)
[2023-05-26] MEDS ORDERED: POTASSIUM CHLORIDE 60 MEQ, LIDOCAINE 1% (LOCAL ANESTH.) 6 ML in SODIUM CHL 0.9% 500 ML IV ONE (13:00)
[2023-05-26] MEDS ORDERED: IOHEXOL 350 MG/ML 100ML IJ ONE (14:59)
[2023-05-26] MEDS: ATORVASTATIN 20 MG TAB PO SCH (21:24)
[2023-05-27] VITALS (15 sets, daily range): BP systolic 125–149; BP diastolic 78–98; PULSE 60–76; RESP 16–20; TEMP 97.7–98.6; O2SAT 91–100
[2023-05-27 06:09] LABS: Basophils # (auto) 0 10 ^3/uL (0-0.2); Eosinophils # (auto) 0 10 ^3/uL (0-0.8); Lymphocytes # (auto) 1.6 10 ^3/uL (0.4-5.4); White Blood Cell 8.2 10^3/uL (4.4-10.8)
[2023-05-27 06:12] LABS: Basophils % (auto) 0.1 % (0.0-2.0); Eosinophils % (auto) 0.3 % (0.0-7.0); Hematocrit 52.3 % (36.0-46.0); Hemoglobin 15.7 g/dL (12.2-16.2); Lymphocytes % (auto) 19.8 % (10.0-50.0); Mean Corpuscular Hemoglobin 24.8 pg (28.0-32.0); Mean Corpuscular Hgb Conc. 29.9 g/dL (32.0-36.0); Mean Corpuscular Volume 82.8 fL (80.0-100.0); Monocytes # (auto) 0.8 10 ^3/uL (0-1.3); Monocytes % (auto) 9.2 % (0.0-12.0); Neutrophils # (auto) 5.8 10 ^3/uL (1.6-8.6); Neutrophils % (auto) 70.6 % (37.0-80.0); Red Blood Cells 6.32 10^6/uL (4.0-5.20)
[2023-05-27] MEDS: FUROSEMIDE 40 MG/4 ML VIAL IV SCH (06:24)
[2023-05-27] MEDS: LEVOTHYROXINE SODIUM 50 MCG TAB PO SCH (06:25)
[2023-05-27] MEDS: BUDESONIDE (INHALATION) 0.5 MG/2 ML NEB NEB SCH ×2 (06:30→18:17)
[2023-05-27] MEDS: IPRATROPIUM BROM 0.5 MG/2.5ML INH SOL NEB SCH ×3 (06:30→18:16)
[2023-05-27] MEDS: ALBUTEROL SULF 2.5 MG/0.5ML(0.5%) NEB SOLN NEB SCH ×3 (06:30→18:17)
[2023-05-27 06:34] LABS: Calcium 9.5 mg/dL (8.5-10.1); Potassium 3.3 mmol/L (3.5-5.1)
[2023-05-27 06:40] LABS: Red Cell Distribution Width 23.2 % (11.8-14.3)
[2023-05-27] MEDS ORDERED: methylPREDNISolone SOD SUCC 125 MG/2 ML VL IV SCH (10:00)
[2023-05-27] MEDS: PANTOPRAZOLE 40 MG/10 ML VIAL INJ IV SCH (10:05)
[2023-05-27] MEDS: GABAPENTIN 400 MG CAP GT SCH ×2 (10:05→22:05)
[2023-05-27] MEDS: methylPREDNISolone SOD SUCC 125 MG/2 ML VL IV SCH (10:05)
[2023-05-27] MEDS: ENOXAPARIN SOD 40 MG/0.4 ML SYRINGE SC SCH (10:05)
[2023-05-27] MEDS ORDERED: POTASSIUM CHL 20 Meq TABLET PO ONE (14:30)
[2023-05-27] MEDS ORDERED: BUMETANIDE 2.5mg/10ml (0.25 mg/ml) INJ IV ONE (14:30)
[2023-05-27] MEDS: BUMETANIDE 2.5mg/10ml (0.25 mg/ml) INJ IV SCH (17:43)
[2023-05-27] MEDS: ATORVASTATIN 20 MG TAB PO SCH (22:05)
[2023-05-28 05:00] VITALS: BP 134/89; PULSE 62; RESP 19; TEMP 98.9; O2SAT 92
[2023-05-28] MEDS: BUMETANIDE 2.5mg/10ml (0.25 mg/ml) INJ IV SCH (06:08)
[2023-05-28] MEDS: LEVOTHYROXINE SODIUM 50 MCG TAB PO SCH (06:09)
[2023-05-28 06:47] VITALS: PULSE 78; RESP 18; O2SAT 93; O2SAT 96
[2023-05-28] MEDS: ALBUTEROL SULF 2.5 MG/0.5ML(0.5%) NEB SOLN NEB SCH ×2 (06:47→12:45)
[2023-05-28] MEDS: IPRATROPIUM BROM 0.5 MG/2.5ML INH SOL NEB SCH ×2 (06:47→12:45)
[2023-05-28] MEDS: BUDESONIDE (INHALATION) 0.5 MG/2 ML NEB NEB SCH (06:47)
[2023-05-28 06:50] LABS: Albumin 3.1 g/dL (3.4-5.0); Calcium 9.6 mg/dL (8.5-10.1); Magnesium 2.5 mg/dL (1.6-2.6)
[2023-05-28 06:55] LABS: BUN/Creatinine Ratio 37.7 (10.0-20.0); Total Protein 7.1 g/dL (6.4-8.2)
[2023-05-28 06:57] VITALS: PULSE 75; RESP 20; O2SAT 93
[2023-05-28 08:00] VITALS: PULSE 72; RESP 18; O2SAT 100
[2023-05-28 09:00] VITALS: BP 130/73; PULSE 67; RESP 20; TEMP 97.6; O2SAT 94
[2023-05-28] MEDS: ENOXAPARIN SOD 40 MG/0.4 ML SYRINGE SC SCH (09:29)
[2023-05-28] MEDS: GABAPENTIN 400 MG CAP GT SCH (09:29)
[2023-05-28] MEDS ORDERED: PANTOPRAZOLE 40 MG TAB PO SCH (10:00)
== END 2023-05-28 14:26 | disposition left against medical advice (07) | DRG 207 ==
LOC: EDBD 13:23 → ER 13:23 → TELE 17:54 → ICU WEST 18:45 → TELE-WESTW 05-23 18:32
PROVIDERS: ADMIT Internal Medicine; ATTEND Internal Medicine
PROC: 5A1955Z Respiratory Ventilation, Greater than 96 Consecutive Hours (ICD-10-PCS; principal; 2023-05-16)
PROC: 0BH17EZ Insertion of Endotracheal Airway into Trachea, Via Natural or Artificial Opening (ICD-10-PCS; 2023-05-16)
PROC: 0B9B8ZZ Drainage of Left Lower Lobe Bronchus, Via Natural or Artificial Opening Endoscopic (ICD-10-PCS; 2023-05-20)
PROC: 0B968ZZ Drainage of Right Lower Lobe Bronchus, Via Natural or Artificial Opening Endoscopic (ICD-10-PCS; 2023-05-20)
PROC: 5A09457 Assistance with Respiratory Ventilation, 24-96 Consecutive Hours, Continuous Positive Airway Pressure (ICD-10-PCS; 2023-05-22)
DX: J96.21 Acute and chronic respiratory failure with hypoxia (principal); J69.0 Pneumonitis due to inhalation of food and vomit; G93.41 Metabolic encephalopathy; I50.33 Acute on chronic diastolic (congestive) heart failure; N17.9 Acute kidney failure, unspecified; J44.1 Chronic obstructive pulmonary disease with (acute) exacerbation; E66.2 Morbid (severe) obesity with alveolar hypoventilation; I13.0 Hypertensive heart and chronic kidney disease with heart failure and stage 1 through stage 4 chronic kidney disease, or unspecified chronic kidney disease; J45.901 Unspecified asthma with (acute) exacerbation; J98.11 Atelectasis; N30.01 Acute cystitis with hematuria; J44.0 Chronic obstructive pulmonary disease with (acute) lower respiratory infection; L03.116 Cellulitis of left lower limb; L03.115 Cellulitis of right lower limb; J96.22 Acute and chronic respiratory failure with hypercapnia; Z66 Do not resuscitate; Z53.29 Procedure and treatment not carried out because of patient's decision for other reasons; I27.29 Other secondary pulmonary hypertension; I50.82 Biventricular heart failure; E78.5 Hyperlipidemia, unspecified; F20.9 Schizophrenia, unspecified; F17.210 Nicotine dependence, cigarettes, uncomplicated; F41.9 Anxiety disorder, unspecified; E03.9 Hypothyroidism, unspecified; E87.5 Hyperkalemia; R00.1 Bradycardia, unspecified; Z90.49 Acquired absence of other specified parts of digestive tract; Z83.3 Family history of diabetes mellitus; Z82.49 Family history of ischemic heart disease and other diseases of the circulatory system; Z68.38 Body mass index [BMI] 38.0-38.9, adult
CPT/HCPCS: 31500; 31623; 36415; 36556; 36600; 70450; 71045; 71275; 80048; 80053; 80202; 80307; 80320; 81001; 82140; 82553; 82565; 82805; 82962; 83605; 83735; 83880; 84132; 84443; 84484; 84702; 85025; 85379; 85610; 85730; 86850; 86900; 86901; 87040; 87070; 87077; 87081; 87086; 87205; 92610; 93005; 93306; 93970; 94002; 94003; 94640; 94660; 96374; 97110; 97116; 97163; 97530; C9113; G0378; J0171; J0330; J0461; J0692; J0696; J1815; J2001; J2250; J3480; J7060

== ENCOUNTER → 2023-08-16 | Outpatient (CLI) | payer OTHER, MEDICAID ==
[2023-08-16 12:11] LABS: Basophils # (auto) 0 10 ^3/uL (0-0.2); Basophils % (auto) 0.6 % (0.0-2.0); Eosinophils # (auto) 0.1 10 ^3/uL (0-0.8); Eosinophils % (auto) 1.6 % (0.0-7.0); Hematocrit 49.5 % (36.0-46.0); Hemoglobin 15.9 g/dL (12.2-16.2); Lymphocytes # (auto) 1.5 10 ^3/uL (0.4-5.4); Lymphocytes % (auto) 22.1 % (10.0-50.0); Mean Corpuscular Hemoglobin 27.9 pg (28.0-32.0); Mean Corpuscular Hgb Conc. 32.2 g/dL (32.0-36.0); Mean Corpuscular Volume 86.8 fL (80.0-100.0); Monocytes # (auto) 0.6 10 ^3/uL (0-1.3); Monocytes % (auto) 8.4 % (0.0-12.0); Neutrophils # (auto) 4.5 10 ^3/uL (1.6-8.6); Neutrophils % (auto) 67.3 % (37.0-80.0); Nucleated Red Blood Cells % 0.1 %; White Blood Cell 6.7 10^3/uL (4.4-10.8)
[2023-08-16 13:19] LABS: Albumin 4.1 g/dL (3.2-4.8); Alkaline Phosphatase 98 U/L (46-116); Anion Gap 2 (5-15); Aspartate Aminotransferase < 8 U/L (13-40); BUN/Creatinine Ratio 9.7 (10.0-20.0); Bilirubin, Total 0.6 mg/dL (0.2-1.0); Blood Urea Nitrogen 9 mg/dL (9-23); Calcium 9.9 mg/dL (8.7-10.4); Carbon Dioxide 32 mmol/L (20-30); Chloride 100 mmol/L (98-107); Glucose 78 mg/dL (74-106); Potassium 4.8 mmol/L (3.5-5.1); Sodium 134 mmol/L (136-145); Total Protein 7.5 g/dL (5.7-8.2)
[2023-08-16 13:33] LABS: Alanine Aminotransferase < 9 U/L (7-40)
== END | disposition home or self-care (01) ==
LOC: LAB 11:54
PROVIDERS: ATTEND Internal Medicine
DX: I50.32 Chronic diastolic (congestive) heart failure (principal); I27.20 Pulmonary hypertension, unspecified
CPT/HCPCS: 36415; 80053; 85025

== ENCOUNTER 2023-11-04 11:50 | Inpatient (IN) | payer OTHER, MEDICAID ==
[2023-11-04] VITALS (12 sets, daily range): BP systolic 134–161; BP diastolic 81–95; PULSE 54–106; RESP 18–22; TEMP 98.9; O2SAT 82–100
[~2023-11-04] VITALS: Ht 162.6 cm; Wt 102.3 kg
[2023-11-04] MEDS ORDERED: ETOMIDATE (2MG/ML) 20ML VIAL IV ONE ×2 (12:14→13:00)
[2023-11-04] MEDS ORDERED: ROCURONIUM 10MG/ML 10ML VIAL IV ONE ×2 (12:15→13:00)
[2023-11-04] MEDS ORDERED: MIDAZOLAM DRIP 50 mg/50mL 50 ML IV ONE (12:16)
[2023-11-04] MEDS ORDERED: FUROSEMIDE 20 MG/2 ML VIAL IV ONE (13:00)
[2023-11-04] MEDS: MIDAZOLAM DRIP 50 mg/50mL 50 ML IV SCH ×2 (13:00→17:56)
[2023-11-04] MEDS ORDERED: PANTOPRAZOLE 40 MG/10 ML VIAL INJ IV ONE (13:00)
[2023-11-04 13:03] LABS: Urine Epithelial Cast None Seen /hpf (<5)
[2023-11-04 13:27] LABS: Urine Bacteria FEW /hpf (None Seen); Urine Blood Negative /uL (Negative); Urine Clarity Clear (Clear); Urine Color Yellow (Yellow); Urine Hyaline Cast MANY /lpf (0 - 2); Urine Mucus FEW (None Seen); Urine Protein, UAD 1+ (Negative); Urine Specific Gravity 1.017 (1.001-1.035); Urine WBC 5 /hpf (0 - 5); Urine pH 5.5 (5.0-8.0)
[2023-11-04 13:31] LABS: Amphetamine Screen, Urine Neg (NEGATIVE); Barbiturate Scree,Urine Neg (NEGATIVE); Benzodiazephine Screen, Urine Pos (NEGATIVE); Cannabinoid Screen, Urine Neg (NEGATIVE); Cocaine Screen, Urine Neg (NEGATIVE); Opiate Scree,Urine Neg (NEGATIVE); Phencyclidine Screen, Urine Neg (NEGATIVE)
[2023-11-04 13:43] LABS: Eosinophils # (auto) 0 10 ^3/uL (0-0.8); Lymphocytes # (auto) 0.6 10 ^3/uL (0.4-5.4); Neutrophils # (auto) 4.8 10 ^3/uL (1.6-8.6)
[2023-11-04 13:46] LABS: Basophils # (auto) 0.1 10 ^3/uL (0-0.2); Basophils % (auto) 0.9 % (0.0-2.0); Eosinophils % (auto) 0.6 % (0.0-7.0); Hematocrit 44.7 % (36.0-46.0); Hemoglobin 13.6 g/dL (12.2-16.2); Lymphocytes % (auto) 10.9 % (10.0-50.0); Mean Corpuscular Hemoglobin 24.6 pg (28.0-32.0); Mean Corpuscular Hgb Conc. 30.5 g/dL (32.0-36.0); Mean Corpuscular Volume 80.9 fL (80.0-100.0); Monocytes # (auto) 0.4 10 ^3/uL (0-1.3); Neutrophils % (auto) 80.6 % (37.0-80.0); Nucleated Red Blood Cells % 0.5 %; Red Blood Cells 5.52 10^6/uL (4.0-5.20)
[2023-11-04 13:47] LABS: Red Cell Distribution Width 22.5 % (11.8-14.3); White Blood Cell 5.9 10^3/uL (4.4-10.8)
[2023-11-04 13:50] LABS: INR 1.43 (0.9-1.15); Partial Thromboplastin Time 31.8 SEC (24.5-34.5); Prothrombin Time 14.7 sec (9.3-11.8)
[2023-11-04 13:55] LABS: Alanine Aminotransferase 10 U/L (7-40); Albumin 3.8 g/dL (3.2-4.8); Alkaline Phosphatase 103 U/L (46-116); Anion Gap 3 (5-15); Aspartate Aminotransferase 21 U/L (13-40); BUN/Creatinine Ratio 13.2 (10.0-20.0); Blood Alcohol < 3.0 mg/dL (<10); Blood Urea Nitrogen 22 mg/dL (9-23); Calcium 9.4 mg/dL (8.5-10.1); Carbon Dioxide 29 mmol/L (20-30); Chloride 102 mmol/L (98-107); Glucose 97 mg/dL (74-106); Potassium 4.4 mmol/L (3.5-5.1); Sodium 134 mmol/L (136-145); Total Protein 6.9 g/dL (5.7-8.2)
[2023-11-04 14:42] LABS: Platelet Estimate Adequate
[2023-11-04 14:43] LABS: Anisocytosis Slight; Hypochromia Slight
[2023-11-04 14:44] LABS: Stomatocytes Few; Target Cell FEW
[2023-11-04] MEDS ORDERED: NITROGLYCERIN 0.4 MG SL TAB SL PRN (14:45)
[2023-11-04] MEDS ORDERED: SODIUM CHLORIDE 0.9% 1,000 ML IV SCH (14:45)
[2023-11-04] MEDS ORDERED: MORPHINE SULFATE INJ 2 MG/ml SYRG IV PRN (14:45)
[2023-11-04 14:46] LABS: Base Excess 4.6 mmol/L (-2.0-2.0)
[2023-11-04] MEDS: ALBUTEROL SULF 2.5 MG/0.5ML(0.5%) NEB SOLN NEB SCH ×3 (14:50→22:14)
[2023-11-04] MEDS: IPRATROPIUM BROM 0.5 MG/2.5ML INH SOL NEB SCH ×3 (14:51→22:15)
[2023-11-04 15:02] LABS: Magnesium 2.4 mg/dL (1.6-2.6)
[2023-11-04] MEDS: fentaNYL Drip 2500mCg/250mlNS 250 ML IV SCH (15:22)
[2023-11-04 16:10] LABS: Base Excess 5.5 mmol/L (-2.0-2.0)
[2023-11-04 16:28] LABS: Sodium Urine < 10 mmol/L (40-220)
[2023-11-04] MEDS ORDERED: CEFEPIME 1GM/ 50ML 50 ML IV ONE (16:30)
[2023-11-04] MEDS ORDERED: VANCOMYCIN PER PHARMACY 0 MG IV SCH (16:30)
[2023-11-04] MEDS ORDERED: methylPREDNISolone SOD SUCC 125 MG/2 ML VL IV ONE (16:30)
[2023-11-04 16:35] LABS: Creatinine, Urine 165.17 mg/dL (30.0-125.0)
[2023-11-04] MEDS ORDERED: VANCOMYCIN 1GM/200ML 200 ML IV ONE (18:00)
[2023-11-04] MEDS ORDERED: CEFEPIME 1GM/ 50ML 50 ML IV SCH (22:00)
[2023-11-04] MEDS: methylPREDNISolone SOD SUCC 40 MG/ML VL IV SCH (22:02)
[2023-11-05] VITALS (50 sets, daily range): BP systolic 94–136; BP diastolic 47–84; PULSE 45–59; RESP 22; TEMP 97.8; O2SAT 87–100
[2023-11-05] MEDS: MIDAZOLAM DRIP 50 mg/50mL 50 ML IV SCH ×3 (00:31→18:16)
[2023-11-05] MEDS: IPRATROPIUM BROM 0.5 MG/2.5ML INH SOL NEB SCH ×6 (02:08→21:41)
[2023-11-05] MEDS: ALBUTEROL SULF 2.5 MG/0.5ML(0.5%) NEB SOLN NEB SCH ×6 (02:08→21:41)
[2023-11-05 06:06] LABS: Base Excess 5.2 mmol/L (-2.0-2.0)
[2023-11-05 06:42] LABS: Basophils # (auto) 0 10 ^3/uL (0-0.2); Basophils % (auto) 0.2 % (0.0-2.0); Eosinophils # (auto) 0 10 ^3/uL (0-0.8); Lymphocytes # (auto) 0.4 10 ^3/uL (0.4-5.4); Nucleated Red Blood Cells % 0.4 %
[2023-11-05 06:46] LABS: Hematocrit 44.5 % (36.0-46.0); Hemoglobin 13.6 g/dL (12.2-16.2); Lymphocytes % (auto) 5.6 % (10.0-50.0); Mean Corpuscular Hemoglobin 24.4 pg (28.0-32.0); Mean Corpuscular Hgb Conc. 30.5 g/dL (32.0-36.0); Mean Corpuscular Volume 79.9 fL (80.0-100.0); Monocytes # (auto) 0.5 10 ^3/uL (0-1.3); Monocytes % (auto) 7.9 % (0.0-12.0); Neutrophils # (auto) 5.9 10 ^3/uL (1.6-8.6); Neutrophils % (auto) 86.3 % (37.0-80.0); Red Blood Cells 5.56 10^6/uL (4.0-5.20); Red Cell Distribution Width 21.8 % (11.8-14.3); White Blood Cell 6.8 10^3/uL (4.4-10.8)
[2023-11-05 06:58] LABS: Albumin 3.4 g/dL (3.2-4.8); Alkaline Phosphatase 95 U/L (46-116); Anion Gap 10 (5-15); Aspartate Aminotransferase 16 U/L (13-40); BUN/Creatinine Ratio 16.4 (10.0-20.0); Bilirubin, Total 2.1 mg/dL (0.2-1.0); Blood Urea Nitrogen 25 mg/dL (9-23); Calcium 9.6 mg/dL (8.5-10.1); Carbon Dioxide 24 mmol/L (20-30); Chloride 106 mmol/L (98-107); Glucose 133 mg/dL (74-106); Potassium 3.1 mmol/L (3.5-5.1); Sodium 140 mmol/L (136-145); Total Protein 6.5 g/dL (5.7-8.2)
[2023-11-05 07:06] LABS: Alanine Aminotransferase < 9 U/L (7-40)
[2023-11-05 08:42] LABS: Anisocytosis Slight; Hypochromia Slight; Platelet Estimate Adequate
[2023-11-05 08:44] LABS: Stomatocytes Few
[2023-11-05 09:39] LABS: Base Excess 7.1 mmol/L (-2.0-2.0)
[2023-11-05] MEDS ORDERED: ALBUMIN 25% 100 ML IV ONE (09:45)
[2023-11-05] MEDS ORDERED: FUROSEMIDE 40 MG/4 ML VIAL IV ONE (09:45)
[2023-11-05] MEDS ORDERED: ENOXAPARIN SOD 40 MG/0.4 ML SYRINGE SC SCH (10:00)
[2023-11-05] MEDS: PANTOPRAZOLE 40 MG/10 ML VIAL INJ IV SCH (10:38)
[2023-11-05] MEDS: VANCOMYCIN 1GM/200ML 200 ML IV SCH (10:39)
[2023-11-05] MEDS: methylPREDNISolone SOD SUCC 40 MG/ML VL IV SCH ×2 (10:39→21:21)
[2023-11-05] MEDS: CEFEPIME 1GM/ 50ML 50 ML IV SCH ×2 (12:41→21:22)
[2023-11-05 13:26] LABS: Base Excess 6.1 mmol/L (-2.0-2.0)
[2023-11-05] MEDS: fentaNYL Drip 2500mCg/250mlNS 250 ML IV SCH (16:39)
[2023-11-05 16:43] LABS: Base Excess 4.9 mmol/L (-2.0-2.0)
[2023-11-05] MEDS: NOREPINEPHRINE 8 MG/250ML KIT 250 ML IV SCH (17:15)
[2023-11-05] MEDS ORDERED: POTASSIUM EFFERVESENT TAB 25 MEQ PO ONE (17:45)
[2023-11-05 18:09] LABS: Chloride 108 mmol/L (98-107); Potassium 3.4 mmol/L (3.5-5.1); Sodium 142 mmol/L (136-145)
[2023-11-05 18:10] LABS: Anion Gap 5 (5-15); Carbon Dioxide 29 mmol/L (20-30)
[2023-11-05 18:11] LABS: Calcium 9.5 mg/dL (8.5-10.1)
[2023-11-05 18:15] LABS: Glucose 137 mg/dL (74-106)
[2023-11-05 18:16] LABS: BUN/Creatinine Ratio 17.5 (10.0-20.0); Blood Urea Nitrogen 24 mg/dL (9-23)
[2023-11-05] MEDS ORDERED: POTASSIUM CHL 20MEQ/100ML 100 ML IV ONE (18:45)
[2023-11-05] MEDS: SODIUM CHLORIDE 0.9% 1,000 ML IV SCH (19:00)
[2023-11-05 23:06] LABS: Base Excess 2.3 mmol/L (-2.0-2.0)
[2023-11-05] MEDS ORDERED: ROCURONIUM 10MG/ML 10ML VIAL IV ONE ×3 (23:14→23:15)
[2023-11-06] VITALS (44 sets, daily range): BP systolic 28–136; BP diastolic 48–77; PULSE 42–80; RESP 20–22; TEMP 97.9–99.2; O2SAT 84–100
[2023-11-06] MEDS: VANCOMYCIN 1GM/200ML 200 ML IV SCH ×2 (00:04→16:00)
[2023-11-06 02:08] LABS: Base Excess 4.4 mmol/L (-2.0-2.0)
[2023-11-06] MEDS: ALBUTEROL SULF 2.5 MG/0.5ML(0.5%) NEB SOLN NEB SCH ×6 (02:20→23:21)
[2023-11-06] MEDS: IPRATROPIUM BROM 0.5 MG/2.5ML INH SOL NEB SCH ×6 (02:20→23:21)
[2023-11-06] MEDS: NOREPINEPHRINE 8 MG/250ML KIT 250 ML IV SCH (04:00)
[2023-11-06] MEDS ORDERED: ATROPINE SULF 0.5 MG/5ML SYR ONE (04:25)
[2023-11-06] MEDS ORDERED: ATROPINE SULF 0.5 MG/5ML SYR IV PRN (04:45)
[2023-11-06 05:38] LABS: Chloride 108 mmol/L (98-107); Potassium 3.6 mmol/L (3.5-5.1); Sodium 141 mmol/L (136-145)
[2023-11-06 05:39] LABS: Anion Gap 6 (5-15); Calcium 9.5 mg/dL (8.7-10.4); Carbon Dioxide 27 mmol/L (20-30)
[2023-11-06 05:44] LABS: BUN/Creatinine Ratio 19.1 (10.0-20.0); Blood Urea Nitrogen 26 mg/dL (9-23); Glucose 143 mg/dL (74-106)
[2023-11-06 07:20] LABS: Base Excess 1.7 mmol/L (-2.0-2.0)
[2023-11-06] MEDS: ENOXAPARIN SOD 100 MG/1 ML SYRINGE SC SCH (10:00)
[2023-11-06] MEDS ORDERED: POTASSIUM CHL 20MEQ/100ML 100 ML IV ONE (10:00)
[2023-11-06] MEDS: PANTOPRAZOLE 40 MG/10 ML VIAL INJ IV SCH (10:32)
[2023-11-06] MEDS: methylPREDNISolone SOD SUCC 40 MG/ML VL IV SCH ×2 (10:32→21:49)
[2023-11-06] MEDS: FUROSEMIDE 20 MG/2 ML VIAL IV SCH (10:33)
[2023-11-06] MEDS: CEFEPIME 1GM/ 50ML 50 ML IV SCH ×2 (10:34→22:55)
[2023-11-06] MEDS: DOPamine 1600MCG/ML D5W 250 ML IV SCH (11:04)
[2023-11-06] MEDS: SODIUM CHLORIDE 0.9% 1,000 ML IV SCH (11:37)
[2023-11-06] MEDS ORDERED: FUROSEMIDE 20 MG/2 ML VIAL IV ONE (12:45)
[2023-11-06] MEDS ORDERED: ROCURONIUM 10MG/ML 10ML VIAL IV ONE (13:00)
[2023-11-06] MEDS: fentaNYL Drip 2500mCg/250mlNS 250 ML IV SCH (13:15)
[2023-11-06] MEDS ORDERED: ROCURONIUM 10MG/ML 10ML VIAL IV PRN (14:15)
[2023-11-06] MEDS: MIDAZOLAM DRIP 50 mg/50mL 50 ML IV SCH (15:26)
[2023-11-07] VITALS (65 sets, daily range): BP systolic 114–149; BP diastolic 67–83; PULSE 47–96; RESP 14–22; TEMP 36.9; O2SAT 84–99
[2023-11-07] MEDS: VANCOMYCIN 1GM/200ML 200 ML IV SCH (01:07)
[2023-11-07] MEDS: ENOXAPARIN SOD 100 MG/1 ML SYRINGE SC SCH ×3 (01:07→22:51)
[2023-11-07] MEDS: MIDAZOLAM DRIP 50 mg/50mL 50 ML IV SCH ×4 (01:16→23:40)
[2023-11-07] MEDS: ALBUTEROL SULF 2.5 MG/0.5ML(0.5%) NEB SOLN NEB SCH ×6 (01:34→22:32)
[2023-11-07] MEDS: IPRATROPIUM BROM 0.5 MG/2.5ML INH SOL NEB SCH ×6 (01:34→22:32)
[2023-11-07] MEDS: SODIUM CHLORIDE 0.9% 1,000 ML IV SCH (03:17)
[2023-11-07 05:56] LABS: Calcium 9.8 mg/dL (8.7-10.4); Chloride 112 mmol/L (98-107); Potassium 3.9 mmol/L (3.5-5.1); Sodium 144 mmol/L (136-145)
[2023-11-07 05:57] LABS: Anion Gap 8 (5-15); Carbon Dioxide 24 mmol/L (20-30)
[2023-11-07 06:02] LABS: BUN/Creatinine Ratio 18.8 (10.0-20.0); Blood Urea Nitrogen 21 mg/dL (9-23); Glucose 126 mg/dL (74-106)
[2023-11-07 07:50] LABS: Base Excess 1.6 mmol/L (-2.0-2.0)
[2023-11-07] MEDS: PANTOPRAZOLE 40 MG/10 ML VIAL INJ IV SCH (10:14)
[2023-11-07] MEDS: methylPREDNISolone SOD SUCC 40 MG/ML VL IV SCH ×2 (10:14→22:51)
[2023-11-07] MEDS: FUROSEMIDE 20 MG/2 ML VIAL IV SCH (10:14)
[2023-11-07] MEDS: CEFEPIME 1GM/ 50ML 50 ML IV SCH ×2 (11:10→22:50)
[2023-11-07] MEDS: DOPamine 1600MCG/ML D5W 250 ML IV SCH (12:32)
[2023-11-07] MEDS ORDERED: DOCUSATE ORAL LIQUID 100 MG/10 ML UD GT ONE (14:45)
[2023-11-07] MEDS: fentaNYL Drip 2500mCg/250mlNS 250 ML IV SCH (15:07)
[2023-11-07] MEDS: NOREPINEPHRINE 8 MG/250ML KIT 250 ML IV SCH (17:15)
[2023-11-07 18:32] LABS: Amphetamine Screen, Urine Neg (NEGATIVE); Barbiturate Scree,Urine Neg (NEGATIVE); Benzodiazephine Screen, Urine Pos (NEGATIVE); Cannabinoid Screen, Urine Neg (NEGATIVE); Cocaine Screen, Urine Neg (NEGATIVE); Opiate Scree,Urine Neg (NEGATIVE); Phencyclidine Screen, Urine Neg (NEGATIVE)
[2023-11-07 20:00] LABS: Rapid Influenza A Negative (Negative); Rapid Influenza B Negative (Negative)
[2023-11-07] MEDS: DOCUSATE ORAL LIQUID 100 MG/10 ML UD GT SCH (22:50)
[2023-11-08] VITALS (105 sets, daily range): BP systolic 111–154; BP diastolic 67–91; PULSE 44–64; RESP 9–21; TEMP 98.1–99.7; O2SAT 91–100
[2023-11-08] MEDS: VANCOMYCIN 1GM/200ML 200 ML IV SCH (01:09)
[2023-11-08] MEDS: fentaNYL Drip 2500mCg/250mlNS 250 ML IV SCH ×3 (01:12→17:11)
[2023-11-08] MEDS: IPRATROPIUM BROM 0.5 MG/2.5ML INH SOL NEB SCH ×6 (01:57→22:06)
[2023-11-08] MEDS: ALBUTEROL SULF 2.5 MG/0.5ML(0.5%) NEB SOLN NEB SCH ×6 (01:57→22:06)
[2023-11-08] MEDS: MIDAZOLAM DRIP 50 mg/50mL 50 ML IV SCH ×5 (03:09→23:06)
[2023-11-08 04:33] LABS: Basophils # (auto) 0 10 ^3/uL (0-0.2); Basophils % (auto) 0.2 % (0.0-2.0); Eosinophils # (auto) 0 10 ^3/uL (0-0.8); Lymphocytes # (auto) 0.5 10 ^3/uL (0.4-5.4); Monocytes # (auto) 0.3 10 ^3/uL (0-1.3); Nucleated Red Blood Cells % 0.2 %
[2023-11-08 04:36] LABS: Hematocrit 48.5 % (36.0-46.0); Hemoglobin 14.8 g/dL (12.2-16.2); Lymphocytes % (auto) 4.6 % (10.0-50.0); Mean Corpuscular Hemoglobin 24.9 pg (28.0-32.0); Mean Corpuscular Hgb Conc. 30.5 g/dL (32.0-36.0); Mean Corpuscular Volume 81.5 fL (80.0-100.0); Monocytes % (auto) 2.4 % (0.0-12.0); Neutrophils # (auto) 10.2 10 ^3/uL (1.6-8.6); Neutrophils % (auto) 92.8 % (37.0-80.0); Red Blood Cells 5.95 10^6/uL (4.0-5.20); White Blood Cell 10.9 10^3/uL (4.4-10.8)
[2023-11-08 04:44] LABS: Red Cell Distribution Width 22.5 % (11.8-14.3)
[2023-11-08 04:47] LABS: Anion Gap 6 (5-15); Carbon Dioxide 25 mmol/L (20-30); Chloride 113 mmol/L (98-107); Sodium 144 mmol/L (136-145)
[2023-11-08 04:48] LABS: Calcium 10.1 mg/dL (8.5-10.1)
[2023-11-08 04:53] LABS: BUN/Creatinine Ratio 22.4 (10.0-20.0); Blood Urea Nitrogen 24 mg/dL (9-23); Glucose 120 mg/dL (74-106)
[2023-11-08 08:39] LABS: Base Excess 1.4 mmol/L (-2.0-2.0)
[2023-11-08] MEDS: DOPamine 1600MCG/ML D5W 250 ML IV SCH (09:30)
[2023-11-08] MEDS: ENOXAPARIN SOD 100 MG/1 ML SYRINGE SC SCH ×2 (09:51→21:27)
[2023-11-08] MEDS: DOCUSATE ORAL LIQUID 100 MG/10 ML UD GT SCH ×2 (09:51→21:26)
[2023-11-08] MEDS: PANTOPRAZOLE 40 MG/10 ML VIAL INJ IV SCH (09:51)
[2023-11-08] MEDS: FUROSEMIDE 20 MG/2 ML VIAL IV SCH ×2 (09:52→21:27)
[2023-11-08] MEDS: methylPREDNISolone SOD SUCC 40 MG/ML VL IV SCH ×2 (09:52→21:27)
[2023-11-08] MEDS: SODIUM CHLORIDE 0.9% 1,000 ML IV SCH ×2 (09:58→13:25)
[2023-11-08] MEDS: CEFEPIME 1GM/ 50ML 50 ML IV SCH ×2 (10:47→21:27)
[2023-11-08] MEDS ORDERED: GENTAMICIN OPTH sol 0.3% 5ml RIGHTEYE SCH (14:00)
[2023-11-08] MEDS: GENTAMICIN OPTH sol 0.3% 5ml RIGHTEYE SCH ×2 (14:31→21:28)
[2023-11-08] MEDS: NOREPINEPHRINE 8 MG/250ML KIT 250 ML IV SCH (17:15)
[2023-11-09] VITALS (102 sets, daily range): BP systolic 97–159; BP diastolic 48–93; PULSE 49–94; RESP 13–27; TEMP 98.1–99.3; O2SAT 80–100
[2023-11-09] MEDS: DOPamine 1600MCG/ML D5W 250 ML IV SCH (01:40)
[2023-11-09] MEDS: fentaNYL Drip 2500mCg/250mlNS 250 ML IV SCH ×3 (01:41→16:36)
[2023-11-09] MEDS: IPRATROPIUM BROM 0.5 MG/2.5ML INH SOL NEB SCH ×6 (02:08→22:21)
[2023-11-09] MEDS: ALBUTEROL SULF 2.5 MG/0.5ML(0.5%) NEB SOLN NEB SCH ×6 (02:08→22:21)
[2023-11-09] MEDS: MIDAZOLAM DRIP 50 mg/50mL 50 ML IV SCH ×5 (03:35→16:31)
[2023-11-09 04:03] LABS: Basophils # (auto) 0 10 ^3/uL (0-0.2); Eosinophils # (auto) 0 10 ^3/uL (0-0.8); Hemoglobin 15.5 g/dL (12.2-16.2); Lymphocytes # (auto) 0.6 10 ^3/uL (0.4-5.4); Lymphocytes % (auto) 5.8 % (10.0-50.0); Monocytes # (auto) 0.3 10 ^3/uL (0-1.3)
[2023-11-09 04:07] LABS: Basophils % (auto) 0.1 % (0.0-2.0); Hematocrit 51.6 % (36.0-46.0); Mean Corpuscular Hgb Conc. 30.1 g/dL (32.0-36.0); Mean Corpuscular Volume 83.2 fL (80.0-100.0); Monocytes % (auto) 3.1 % (0.0-12.0); Neutrophils # (auto) 9.5 10 ^3/uL (1.6-8.6); Nucleated Red Blood Cells % 0.5 %; Red Blood Cells 6.21 10^6/uL (4.0-5.20); Red Cell Distribution Width 22.7 % (11.8-14.3); White Blood Cell 10.5 10^3/uL (4.4-10.8)
[2023-11-09 04:15] LABS: Anion Gap 11 (5-15); Carbon Dioxide 25 mmol/L (20-30); Chloride 112 mmol/L (98-107); Potassium 3.9 mmol/L (3.5-5.1); Sodium 148 mmol/L (136-145)
[2023-11-09 04:17] LABS: Calcium 10.1 mg/dL (8.7-10.4)
[2023-11-09 04:21] LABS: Glucose 125 mg/dL (74-106)
[2023-11-09 04:22] LABS: BUN/Creatinine Ratio 22.4 (10.0-20.0); Blood Urea Nitrogen 24 mg/dL (9-23); Magnesium 2.3 mg/dL (1.6-2.6)
[2023-11-09 06:15] LABS: Base Excess 1.2 mmol/L (-2.0-2.0)
[2023-11-09] MEDS: GENTAMICIN OPTH sol 0.3% 5ml RIGHTEYE SCH ×3 (06:27→22:04)
[2023-11-09] MEDS: CEFEPIME 1GM/ 50ML 50 ML IV SCH ×3 (06:28→22:03)
[2023-11-09] MEDS: PANTOPRAZOLE 40 MG/10 ML VIAL INJ IV SCH (09:33)
[2023-11-09] MEDS: methylPREDNISolone SOD SUCC 40 MG/ML VL IV SCH ×2 (09:33→22:04)
[2023-11-09] MEDS: DOCUSATE ORAL LIQUID 100 MG/10 ML UD GT SCH ×2 (09:34→22:04)
[2023-11-09] MEDS: FUROSEMIDE 20 MG/2 ML VIAL IV SCH ×2 (09:35→22:04)
[2023-11-09] MEDS: ENOXAPARIN SOD 100 MG/1 ML SYRINGE SC SCH ×2 (09:35→22:04)
[2023-11-09] MEDS: VANCOMYCIN 1GM/200ML 200 ML IV SCH (13:07)
[2023-11-09] MEDS: NOREPINEPHRINE 8 MG/250ML KIT 250 ML IV SCH (16:36)
[2023-11-09] MEDS: FREE WATER GT SCH ×2 (17:39→22:04)
[2023-11-10] VITALS (112 sets, daily range): BP systolic 105–162; BP diastolic 59–102; PULSE 49–78; RESP 15–23; TEMP 98.4–99.3; O2SAT 90–100
[2023-11-10] MEDS: VANCOMYCIN 1GM/200ML 200 ML IV SCH ×3 (00:38→21:27)
[2023-11-10] MEDS: ALBUTEROL SULF 2.5 MG/0.5ML(0.5%) NEB SOLN NEB SCH ×6 (02:08→22:27)
[2023-11-10] MEDS: IPRATROPIUM BROM 0.5 MG/2.5ML INH SOL NEB SCH ×6 (02:08→22:27)
[2023-11-10] MEDS: FREE WATER GT SCH ×6 (02:15→22:06)
[2023-11-10 03:03] LABS: Basophils # (auto) 0 10 ^3/uL (0-0.2); Eosinophils # (auto) 0 10 ^3/uL (0-0.8); Hemoglobin 14.9 g/dL (12.2-16.2); Nucleated Red Blood Cells % 0.1 %
[2023-11-10 03:06] LABS: Basophils % (auto) 0.2 % (0.0-2.0); Eosinophils % (auto) 0.3 % (0.0-7.0); Hematocrit 49.2 % (36.0-46.0); Lymphocytes # (auto) 0.4 10 ^3/uL (0.4-5.4); Lymphocytes % (auto) 3.4 % (10.0-50.0); Mean Corpuscular Hemoglobin 24.7 pg (28.0-32.0); Mean Corpuscular Hgb Conc. 30.2 g/dL (32.0-36.0); Mean Corpuscular Volume 81.6 fL (80.0-100.0); Monocytes # (auto) 0.4 10 ^3/uL (0-1.3); Monocytes % (auto) 3.3 % (0.0-12.0); Neutrophils # (auto) 11.9 10 ^3/uL (1.6-8.6); Neutrophils % (auto) 92.8 % (37.0-80.0); Red Blood Cells 6.03 10^6/uL (4.0-5.20); White Blood Cell 12.8 10^3/uL (4.4-10.8)
[2023-11-10 03:07] LABS: Chloride 112 mmol/L (98-107); Potassium 3.5 mmol/L (3.5-5.1); Sodium 148 mmol/L (136-145)
[2023-11-10 03:08] LABS: Anion Gap 11 (5-15); Carbon Dioxide 25 mmol/L (20-30)
[2023-11-10 03:09] LABS: Red Cell Distribution Width 23.6 % (11.8-14.3)
[2023-11-10 03:13] LABS: BUN/Creatinine Ratio 24.5 (10.0-20.0); Blood Urea Nitrogen 24 mg/dL (9-23)
[2023-11-10 03:25] LABS: Glucose 120 mg/dL (74-106)
[2023-11-10] MEDS: GENTAMICIN OPTH sol 0.3% 5ml RIGHTEYE SCH ×3 (05:59→22:06)
[2023-11-10] MEDS: CEFEPIME 1GM/ 50ML 50 ML IV SCH ×3 (05:59→22:06)
[2023-11-10 07:28] LABS: Base Excess 1.8 mmol/L (-2.0-2.0)
[2023-11-10] MEDS: MIDAZOLAM DRIP 50 mg/50mL 50 ML IV SCH ×4 (07:34→20:02)
[2023-11-10] MEDS: DOPamine 1600MCG/ML D5W 250 ML IV SCH (08:13)
[2023-11-10] MEDS: fentaNYL Drip 2500mCg/250mlNS 250 ML IV SCH ×2 (09:30→17:17)
[2023-11-10] MEDS: PANTOPRAZOLE 40 MG/10 ML VIAL INJ IV SCH (09:31)
[2023-11-10] MEDS: methylPREDNISolone SOD SUCC 40 MG/ML VL IV SCH ×2 (09:31→22:06)
[2023-11-10] MEDS: ENOXAPARIN SOD 100 MG/1 ML SYRINGE SC SCH ×2 (09:31→22:06)
[2023-11-10] MEDS: FUROSEMIDE 20 MG/2 ML VIAL IV SCH ×2 (09:31→12:45)
[2023-11-10] MEDS: DOCUSATE ORAL LIQUID 100 MG/10 ML UD GT SCH ×2 (10:57→22:06)
[2023-11-10] MEDS: SOD CHL 0.45% 1,000 ML IV SCH (12:36)
[2023-11-10] MEDS ORDERED: GABA-1251 PO (14:22)
[2023-11-10] MEDS ORDERED: QUET200T30 PO (14:26)
[2023-11-10] MEDS: NOREPINEPHRINE 8 MG/250ML KIT 250 ML IV SCH (17:14)
[2023-11-11] VITALS (109 sets, daily range): BP systolic 122–173; BP diastolic 69–107; PULSE 53–94; RESP 12–33; TEMP 98.4–99.5; O2SAT 85–99
[2023-11-11] MEDS: MIDAZOLAM DRIP 50 mg/50mL 50 ML IV SCH ×4 (01:16→20:59)
[2023-11-11] MEDS: FREE WATER GT SCH ×6 (02:21→22:29)
[2023-11-11] MEDS: ALBUTEROL SULF 2.5 MG/0.5ML(0.5%) NEB SOLN NEB SCH ×6 (02:41→22:59)
[2023-11-11] MEDS: IPRATROPIUM BROM 0.5 MG/2.5ML INH SOL NEB SCH ×6 (02:41→22:59)
[2023-11-11 04:12] LABS: Basophils # (auto) 0 10 ^3/uL (0-0.2); Eosinophils # (auto) 0.1 10 ^3/uL (0-0.8); Neutrophils # (auto) 11.2 10 ^3/uL (1.6-8.6)
[2023-11-11 04:14] LABS: Eosinophils % (auto) 0.6 % (0.0-7.0); Hematocrit 49.7 % (36.0-46.0); Hemoglobin 14.7 g/dL (12.2-16.2); Lymphocytes # (auto) 0.5 10 ^3/uL (0.4-5.4); Lymphocytes % (auto) 3.8 % (10.0-50.0); Mean Corpuscular Hemoglobin 24.5 pg (28.0-32.0); Mean Corpuscular Hgb Conc. 29.6 g/dL (32.0-36.0); Mean Corpuscular Volume 82.6 fL (80.0-100.0); Monocytes # (auto) 0.3 10 ^3/uL (0-1.3); Monocytes % (auto) 2.1 % (0.0-12.0); Neutrophils % (auto) 93.5 % (37.0-80.0); Red Blood Cells 6.02 10^6/uL (4.0-5.20)
[2023-11-11 04:24] LABS: Alanine Aminotransferase 15 U/L (7-40); Albumin 4.3 g/dL (3.2-4.8); Alkaline Phosphatase 93 U/L (46-116); Anion Gap 11 (5-15); Aspartate Aminotransferase 20 U/L (13-40); BUN/Creatinine Ratio 26.9 (10.0-20.0); Blood Urea Nitrogen 25 mg/dL (9-23); Calcium 9.8 mg/dL (8.7-10.4); Carbon Dioxide 24 mmol/L (20-30); Chloride 111 mmol/L (98-107); Glucose 105 mg/dL (74-106); Potassium 3.6 mmol/L (3.5-5.1); Sodium 146 mmol/L (136-145)
[2023-11-11 04:25] LABS: Bilirubin, Total 1.4 mg/dL (0.2-1.0); Total Protein 7.5 g/dL (5.7-8.2)
[2023-11-11 04:34] LABS: Red Cell Distribution Width 23.4 % (11.8-14.3)
[2023-11-11] MEDS: GENTAMICIN OPTH sol 0.3% 5ml RIGHTEYE SCH ×3 (05:53→22:30)
[2023-11-11] MEDS: CEFEPIME 1GM/ 50ML 50 ML IV SCH (05:53)
[2023-11-11] MEDS: VANCOMYCIN 1GM/200ML 200 ML IV SCH (06:42)
[2023-11-11 07:25] LABS: Anisocytosis Slight; Hypochromia Slight; Platelet Estimate Adequate
[2023-11-11 11:08] LABS: Base Excess -0.5 mmol/L (-2.0-2.0)
[2023-11-11] MEDS: methylPREDNISolone SOD SUCC 40 MG/ML VL IV SCH ×2 (11:09→22:29)
[2023-11-11] MEDS: ENOXAPARIN SOD 100 MG/1 ML SYRINGE SC SCH ×2 (11:09→22:29)
[2023-11-11] MEDS: DOCUSATE ORAL LIQUID 100 MG/10 ML UD GT SCH ×2 (11:09→22:29)
[2023-11-11] MEDS: FUROSEMIDE 20 MG/2 ML VIAL IV SCH (11:09)
[2023-11-11] MEDS: PANTOPRAZOLE 40 MG/10 ML VIAL INJ IV SCH (11:09)
[2023-11-11] MEDS: fentaNYL Drip 2500mCg/250mlNS 250 ML IV SCH (13:17)
[2023-11-11] MEDS: SOD CHL 0.45% 1,000 ML IV SCH (13:45)
[2023-11-11] MEDS: levoFLOXacin 750MG 150 ML IV SCH (14:12)
[2023-11-11] MEDS: DOPamine 1600MCG/ML D5W 250 ML IV SCH (14:13)
[2023-11-11] MEDS: NOREPINEPHRINE 8 MG/250ML KIT 250 ML IV SCH (17:15)
[2023-11-11] MEDS: Jevity 1.2 Cal/Fiber 1 Liter GT SCH ×2 (20:00→21:00)
[2023-11-12] VITALS (108 sets, daily range): BP systolic 109–186; BP diastolic 60–121; PULSE 47–99; RESP 12–27; TEMP 98.2–99.5; O2SAT 76–100
[2023-11-12] MEDS: FREE WATER GT SCH ×5 (02:00→18:00)
[2023-11-12] MEDS: IPRATROPIUM BROM 0.5 MG/2.5ML INH SOL NEB SCH ×6 (02:45→22:04)
[2023-11-12] MEDS: ALBUTEROL SULF 2.5 MG/0.5ML(0.5%) NEB SOLN NEB SCH ×6 (02:45→22:04)
[2023-11-12 03:59] LABS: Chloride 110 mmol/L (98-107); Potassium 3.2 mmol/L (3.5-5.1); Sodium 144 mmol/L (136-145)
[2023-11-12 04:00] LABS: Anion Gap 10 (5-15); Calcium 9.8 mg/dL (8.7-10.4); Carbon Dioxide 24 mmol/L (20-30)
[2023-11-12 04:05] LABS: BUN/Creatinine Ratio 26.2 (10.0-20.0); Blood Urea Nitrogen 22 mg/dL (9-23); Glucose 97 mg/dL (74-106)
[2023-11-12] MEDS: fentaNYL Drip 2500mCg/250mlNS 250 ML IV SCH ×2 (04:59→19:00)
[2023-11-12] MEDS: MIDAZOLAM DRIP 50 mg/50mL 50 ML IV SCH ×4 (05:00→18:58)
[2023-11-12 07:31] LABS: Base Excess 0.8 mmol/L (-2.0-2.0)
[2023-11-12] MEDS: DOPamine 1600MCG/ML D5W 250 ML IV SCH (09:30)
[2023-11-12] MEDS: PANTOPRAZOLE 40 MG/10 ML VIAL INJ IV SCH (09:55)
[2023-11-12] MEDS: methylPREDNISolone SOD SUCC 40 MG/ML VL IV SCH ×2 (09:55→22:10)
[2023-11-12] MEDS: DOCUSATE ORAL LIQUID 100 MG/10 ML UD GT SCH ×2 (09:56→22:10)
[2023-11-12] MEDS: ENOXAPARIN SOD 100 MG/1 ML SYRINGE SC SCH (09:56)
[2023-11-12] MEDS ORDERED: POTASSIUM EFFERVESENT TAB 25 MEQ PO ONE (10:30)
[2023-11-12] MEDS: FUROSEMIDE 20 MG/2 ML VIAL IV SCH (11:28)
[2023-11-12] MEDS: levoFLOXacin 750MG 150 ML IV SCH (11:28)
[2023-11-12] MEDS ORDERED: ACETYLCYSTEINE 10 %(100MG/ML) SOL 4ML NEB SCH (12:00)
[2023-11-12] MEDS: METOCLOPRAMIDE HCL 5MG/ml INJ 2ml VIAL IV SCH ×2 (13:24→22:10)
[2023-11-12] MEDS: ACETYLCYSTEINE 10 %(100MG/ML) SOL 4ML NEB SCH ×2 (14:10→22:05)
[2023-11-12] MEDS: NOREPINEPHRINE 8 MG/250ML KIT 250 ML IV SCH (17:15)
[2023-11-12] MEDS: APIXABAN 5 MG TAB PO SCH (22:10)
[2023-11-13] VITALS (107 sets, daily range): BP systolic 96–161; BP diastolic 53–98; PULSE 53–78; RESP 15–29; TEMP 98.6–99.3; O2SAT 86–100
[2023-11-13] MEDS: MIDAZOLAM DRIP 50 mg/50mL 50 ML IV SCH ×6 (00:46→23:38)
[2023-11-13] MEDS: IPRATROPIUM BROM 0.5 MG/2.5ML INH SOL NEB SCH ×6 (02:12→22:11)
[2023-11-13] MEDS: ALBUTEROL SULF 2.5 MG/0.5ML(0.5%) NEB SOLN NEB SCH ×6 (02:12→22:11)
[2023-11-13] MEDS: DOPamine 1600MCG/ML D5W 250 ML IV SCH (02:26)
[2023-11-13 04:12] LABS: Basophils # (auto) 0 10 ^3/uL (0-0.2); Eosinophils # (auto) 0 10 ^3/uL (0-0.8); Eosinophils % (auto) 0.1 % (0.0-7.0); Monocytes # (auto) 0.2 10 ^3/uL (0-1.3)
[2023-11-13 04:14] LABS: Basophils % (auto) 0.1 % (0.0-2.0); Hematocrit 50.4 % (36.0-46.0); Hemoglobin 15.2 g/dL (12.2-16.2); Lymphocytes # (auto) 0.3 10 ^3/uL (0.4-5.4); Mean Corpuscular Hemoglobin 24.8 pg (28.0-32.0); Mean Corpuscular Hgb Conc. 30.1 g/dL (32.0-36.0); Mean Corpuscular Volume 82.4 fL (80.0-100.0); Monocytes % (auto) 2.6 % (0.0-12.0); Neutrophils # (auto) 6.5 10 ^3/uL (1.6-8.6); Neutrophils % (auto) 92.2 % (37.0-80.0); Nucleated Red Blood Cells % 0.1 %; Red Blood Cells 6.12 10^6/uL (4.0-5.20)
[2023-11-13 04:19] LABS: Red Cell Distribution Width 23.7 % (11.8-14.3)
[2023-11-13 04:25] LABS: Chloride 109 mmol/L (98-107); Potassium 3.2 mmol/L (3.5-5.1); Sodium 145 mmol/L (136-145)
[2023-11-13 04:26] LABS: Anion Gap 8 (5-15); Carbon Dioxide 28 mmol/L (20-30)
[2023-11-13 04:27] LABS: Calcium 9.6 mg/dL (8.7-10.4)
[2023-11-13 04:31] LABS: Glucose 129 mg/dL (74-106)
[2023-11-13 04:32] LABS: BUN/Creatinine Ratio 25.6 (10.0-20.0); Blood Urea Nitrogen 20 mg/dL (9-23)
[2023-11-13] MEDS: METOCLOPRAMIDE HCL 5MG/ml INJ 2ml VIAL IV SCH ×3 (05:51→21:39)
[2023-11-13] MEDS: FREE WATER GT SCH ×4 (05:51→18:00)
[2023-11-13] MEDS: ACETYLCYSTEINE 10 %(100MG/ML) SOL 4ML NEB SCH ×2 (06:35→15:13)
[2023-11-13 07:11] LABS: Base Excess 2.8 mmol/L (-2.0-2.0)
[2023-11-13] MEDS ORDERED: POTASSIUM EFFERVESENT TAB 25 MEQ GT ONE (08:30)
[2023-11-13] MEDS: fentaNYL Drip 2500mCg/250mlNS 250 ML IV SCH ×2 (09:38→22:48)
[2023-11-13] MEDS ORDERED: LEVOTHYROXINE SODIUM 100 MCG/5 ML INJ IV SCH (10:00)
[2023-11-13] MEDS: FUROSEMIDE 20 MG/2 ML VIAL IV SCH (10:40)
[2023-11-13] MEDS: PANTOPRAZOLE 40 MG/10 ML VIAL INJ IV SCH (10:40)
[2023-11-13] MEDS: DOCUSATE ORAL LIQUID 100 MG/10 ML UD GT SCH ×2 (10:41→21:38)
[2023-11-13] MEDS: APIXABAN 5 MG TAB PO SCH ×2 (10:42→21:38)
[2023-11-13] MEDS: levoFLOXacin 750MG 150 ML IV SCH (12:41)
[2023-11-13] MEDS: NOREPINEPHRINE 8 MG/250ML KIT 250 ML IV SCH (17:15)
[2023-11-14] VITALS (107 sets, daily range): BP systolic 97–152; BP diastolic 26–88; PULSE 54–71; RESP 13–24; TEMP 98.6–99.7; O2SAT 90–100
[2023-11-14] MEDS: IPRATROPIUM BROM 0.5 MG/2.5ML INH SOL NEB SCH ×6 (02:11→22:37)
[2023-11-14] MEDS: ALBUTEROL SULF 2.5 MG/0.5ML(0.5%) NEB SOLN NEB SCH ×6 (02:11→22:37)
[2023-11-14 03:47] LABS: Alanine Aminotransferase 19 U/L (7-40); Albumin 3.9 g/dL (3.2-4.8); Alkaline Phosphatase 85 U/L (46-116); Anion Gap 9 (5-15); Aspartate Aminotransferase 15 U/L (13-40); BUN/Creatinine Ratio 25.3 (10.0-20.0); Blood Urea Nitrogen 19 mg/dL (9-23); Calcium 9.6 mg/dL (8.7-10.4); Carbon Dioxide 29 mmol/L (20-30); Chloride 110 mmol/L (98-107); Glucose 101 mg/dL (74-106); Sodium 148 mmol/L (136-145)
[2023-11-14 03:48] LABS: Bilirubin, Total 1.1 mg/dL (0.2-1.0); Total Protein 6.9 g/dL (5.7-8.2)
[2023-11-14] MEDS: MIDAZOLAM DRIP 50 mg/50mL 50 ML IV SCH ×4 (04:49→18:24)
[2023-11-14] MEDS: FREE WATER GT SCH ×4 (06:28→18:25)
[2023-11-14] MEDS: METOCLOPRAMIDE HCL 5MG/ml INJ 2ml VIAL IV SCH ×3 (06:29→22:00)
[2023-11-14] MEDS: DOPamine 1600MCG/ML D5W 250 ML IV SCH (08:15)
[2023-11-14 08:39] LABS: Base Excess 5.6 mmol/L (-2.0-2.0)
[2023-11-14] MEDS ORDERED: POTASSIUM EFFERVESENT TAB 25 MEQ GT ONE (09:30)
[2023-11-14] MEDS: DOCUSATE ORAL LIQUID 100 MG/10 ML UD GT SCH ×2 (09:44→22:00)
[2023-11-14] MEDS: PANTOPRAZOLE 40 MG/10 ML VIAL INJ IV SCH (09:44)
[2023-11-14] MEDS: APIXABAN 5 MG TAB PO SCH ×2 (09:44→22:00)
[2023-11-14] MEDS: LEVOTHYROXINE SODIUM 100 MCG/5 ML INJ IV SCH (09:45)
[2023-11-14] MEDS: FUROSEMIDE 20 MG/2 ML VIAL IV SCH (09:47)
[2023-11-14] MEDS: methylPREDNISolone SOD SUCC 40 MG/ML VL IV SCH (09:48)
[2023-11-14 11:26] LABS: Base Excess 5.3 mmol/L (-2.0-2.0)
[2023-11-14] MEDS: fentaNYL Drip 2500mCg/250mlNS 250 ML IV SCH (12:14)
[2023-11-14] MEDS: levoFLOXacin 750MG 150 ML IV SCH (12:17)
[2023-11-14] MEDS: NOREPINEPHRINE 8 MG/250ML KIT 250 ML IV SCH (17:15)
[2023-11-15] VITALS (108 sets, daily range): BP systolic 102–146; BP diastolic 44–88; PULSE 56–84; RESP 10–22; TEMP 97.3–99.5; O2SAT 91–100
[2023-11-15] MEDS: MIDAZOLAM DRIP 50 mg/50mL 50 ML IV SCH ×5 (00:58→23:58)
[2023-11-15] MEDS: IPRATROPIUM BROM 0.5 MG/2.5ML INH SOL NEB SCH ×6 (02:13→21:55)
[2023-11-15] MEDS: ALBUTEROL SULF 2.5 MG/0.5ML(0.5%) NEB SOLN NEB SCH ×6 (02:13→21:55)
[2023-11-15] MEDS: fentaNYL Drip 2500mCg/250mlNS 250 ML IV SCH ×2 (03:33→16:48)
[2023-11-15 04:36] LABS: Alanine Aminotransferase 19 U/L (7-40); Albumin 3.8 g/dL (3.2-4.8); Alkaline Phosphatase 81 U/L (46-116); Anion Gap 8 (5-15); Aspartate Aminotransferase 17 U/L (13-40); BUN/Creatinine Ratio 19.7 (10.0-20.0); Blood Urea Nitrogen 15 mg/dL (9-23); Calcium 9.7 mg/dL (8.7-10.4); Carbon Dioxide 27 mmol/L (20-30); Chloride 110 mmol/L (98-107); Glucose 92 mg/dL (74-106); Potassium 3.5 mmol/L (3.5-5.1); Sodium 145 mmol/L (136-145)
[2023-11-15 04:37] LABS: Total Protein 6.8 g/dL (5.7-8.2)
[2023-11-15] MEDS: METOCLOPRAMIDE HCL 5MG/ml INJ 2ml VIAL IV SCH ×3 (05:46→21:37)
[2023-11-15] MEDS: FREE WATER GT SCH ×5 (05:46→23:58)
[2023-11-15] MEDS: DOPamine 1600MCG/ML D5W 250 ML IV SCH (07:53)
[2023-11-15 08:20] LABS: Base Excess 1.8 mmol/L (-2.0-2.0)
[2023-11-15] MEDS: DOCUSATE ORAL LIQUID 100 MG/10 ML UD GT SCH ×2 (09:47→21:36)
[2023-11-15] MEDS: PANTOPRAZOLE 40 MG/10 ML VIAL INJ IV SCH (09:48)
[2023-11-15] MEDS: FUROSEMIDE 20 MG/2 ML VIAL IV SCH ×3 (09:48→21:36)
[2023-11-15] MEDS: methylPREDNISolone SOD SUCC 40 MG/ML VL IV SCH ×3 (09:48→21:37)
[2023-11-15] MEDS: LEVOTHYROXINE SODIUM 100 MCG/5 ML INJ IV SCH (09:49)
[2023-11-15] MEDS: APIXABAN 5 MG TAB PO SCH ×2 (09:49→21:37)
[2023-11-15] MEDS: levoFLOXacin 750MG 150 ML IV SCH (11:45)
[2023-11-15] MEDS: NOREPINEPHRINE 8 MG/250ML KIT 250 ML IV SCH (17:15)
[2023-11-16] VITALS (109 sets, daily range): BP systolic 91–172; BP diastolic 51–90; PULSE 54–84; RESP 14–21; TEMP 98.1–99.5; O2SAT 93–100
[2023-11-16] MEDS: IPRATROPIUM BROM 0.5 MG/2.5ML INH SOL NEB SCH ×6 (02:29→22:13)
[2023-11-16] MEDS: ALBUTEROL SULF 2.5 MG/0.5ML(0.5%) NEB SOLN NEB SCH ×6 (02:29→22:13)
[2023-11-16 03:35] LABS: Basophils # (auto) 0 10 ^3/uL (0-0.2); Eosinophils # (auto) 0 10 ^3/uL (0-0.8); Lymphocytes # (auto) 0.4 10 ^3/uL (0.4-5.4); Mean Corpuscular Hemoglobin 25.4 pg (28.0-32.0); Mean Corpuscular Hgb Conc. 30.7 g/dL (32.0-36.0); Mean Corpuscular Volume 82.7 fL (80.0-100.0); White Blood Cell 6.4 10^3/uL (4.4-10.8)
[2023-11-16 03:39] LABS: Basophils % (auto) 0.2 % (0.0-2.0); Eosinophils % (auto) 0.1 % (0.0-7.0); Hemoglobin 15.6 g/dL (12.2-16.2); Lymphocytes % (auto) 5.6 % (10.0-50.0); Monocytes # (auto) 0.1 10 ^3/uL (0-1.3); Monocytes % (auto) 1.9 % (0.0-12.0); Neutrophils # (auto) 5.9 10 ^3/uL (1.6-8.6); Neutrophils % (auto) 92.2 % (37.0-80.0); Nucleated Red Blood Cells % 0.2 %; Red Blood Cells 6.16 10^6/uL (4.0-5.20)
[2023-11-16 03:55] LABS: Red Cell Distribution Width 24.3 % (11.8-14.3)
[2023-11-16 03:58] LABS: Alanine Aminotransferase 26 U/L (7-40); Albumin 4.3 g/dL (3.2-4.8); Alkaline Phosphatase 95 U/L (46-116); Anion Gap 9 (5-15); Aspartate Aminotransferase 21 U/L (13-40); BUN/Creatinine Ratio 19.5 (10.0-20.0); Bilirubin, Total 1.2 mg/dL (0.2-1.0); Blood Urea Nitrogen 16 mg/dL (9-23); Calcium 10.1 mg/dL (8.7-10.4); Carbon Dioxide 28 mmol/L (20-30); Chloride 108 mmol/L (98-107); Glucose 143 mg/dL (74-106); Potassium 3.8 mmol/L (3.5-5.1); Sodium 145 mmol/L (136-145); Total Protein 7.8 g/dL (5.7-8.2)
[2023-11-16 04:23] LABS: Platelet Estimate Adequate
[2023-11-16 04:24] LABS: Stomatocytes Moderate
[2023-11-16] MEDS: fentaNYL Drip 2500mCg/250mlNS 250 ML IV SCH ×2 (05:40→17:18)
[2023-11-16] MEDS: MIDAZOLAM DRIP 50 mg/50mL 50 ML IV SCH ×4 (05:41→20:32)
[2023-11-16] MEDS: FREE WATER GT SCH ×3 (05:41→17:52)
[2023-11-16] MEDS: METOCLOPRAMIDE HCL 5MG/ml INJ 2ml VIAL IV SCH ×3 (05:44→22:00)
[2023-11-16] MEDS: DOPamine 1600MCG/ML D5W 250 ML IV SCH ×2 (09:30→18:52)
[2023-11-16] MEDS: PANTOPRAZOLE 40 MG/10 ML VIAL INJ IV SCH (09:53)
[2023-11-16] MEDS: FUROSEMIDE 20 MG/2 ML VIAL IV SCH ×2 (09:53→22:00)
[2023-11-16] MEDS: LEVOTHYROXINE SODIUM 100 MCG/5 ML INJ IV SCH (09:53)
[2023-11-16] MEDS: DOCUSATE ORAL LIQUID 100 MG/10 ML UD GT SCH ×2 (09:54→22:00)
[2023-11-16] MEDS: APIXABAN 5 MG TAB PO SCH ×2 (09:54→22:00)
[2023-11-16] MEDS: methylPREDNISolone SOD SUCC 40 MG/ML VL IV SCH ×2 (09:54→22:01)
[2023-11-16] MEDS: levoFLOXacin 750MG 150 ML IV SCH (12:39)
[2023-11-16] MEDS: NOREPINEPHRINE 8 MG/250ML KIT 250 ML IV SCH (17:15)
[2023-11-16] MEDS: Jevity 1.2 Cal/Fiber 1 Liter GT SCH (22:55)
[2023-11-17] VITALS (106 sets, daily range): BP systolic 77–162; BP diastolic 28–105; PULSE 51–119; RESP 10–27; TEMP 98.2–99.7; O2SAT 84–100
[2023-11-17] MEDS: MIDAZOLAM DRIP 50 mg/50mL 50 ML IV SCH (01:29)
[2023-11-17] MEDS: IPRATROPIUM BROM 0.5 MG/2.5ML INH SOL NEB SCH ×6 (02:12→22:16)
[2023-11-17] MEDS: ALBUTEROL SULF 2.5 MG/0.5ML(0.5%) NEB SOLN NEB SCH ×6 (02:12→22:16)
[2023-11-17 04:08] LABS: Basophils # (auto) 0 10 ^3/uL (0-0.2); Basophils % (auto) 0.1 % (0.0-2.0); Eosinophils # (auto) 0 10 ^3/uL (0-0.8); Monocytes # (auto) 0.2 10 ^3/uL (0-1.3); Red Cell Distribution Width 25.8 % (11.8-14.3); White Blood Cell 7.3 10^3/uL (4.4-10.8)
[2023-11-17 04:11] LABS: Hematocrit 51.1 % (36.0-46.0); Hemoglobin 15.9 g/dL (12.2-16.2); Lymphocytes # (auto) 0.5 10 ^3/uL (0.4-5.4); Lymphocytes % (auto) 6.7 % (10.0-50.0); Mean Corpuscular Hemoglobin 25.4 pg (28.0-32.0); Monocytes % (auto) 2.6 % (0.0-12.0); Neutrophils # (auto) 6.6 10 ^3/uL (1.6-8.6); Neutrophils % (auto) 90.6 % (37.0-80.0); Nucleated Red Blood Cells % 0.3 %; Red Blood Cells 6.23 10^6/uL (4.0-5.20)
[2023-11-17 04:23] LABS: Chloride 107 mmol/L (98-107); Sodium 143 mmol/L (136-145)
[2023-11-17 04:24] LABS: Anion Gap 9 (5-15); Calcium 10.2 mg/dL (8.7-10.4); Carbon Dioxide 27 mmol/L (20-30)
[2023-11-17 04:29] LABS: BUN/Creatinine Ratio 27.2 (10.0-20.0); Blood Urea Nitrogen 22 mg/dL (9-23); Glucose 119 mg/dL (74-106)
[2023-11-17] MEDS: FREE WATER GT SCH ×4 (05:38→17:59)
[2023-11-17] MEDS: METOCLOPRAMIDE HCL 5MG/ml INJ 2ml VIAL IV SCH ×3 (05:38→22:19)
[2023-11-17] MEDS: fentaNYL Drip 2500mCg/250mlNS 250 ML IV SCH (05:41)
[2023-11-17 08:19] LABS: Base Excess 2.1 mmol/L (-2.0-2.0)
[2023-11-17] MEDS: DOCUSATE ORAL LIQUID 100 MG/10 ML UD GT SCH ×2 (10:25→22:18)
[2023-11-17] MEDS: methylPREDNISolone SOD SUCC 40 MG/ML VL IV SCH ×2 (10:26→22:19)
[2023-11-17] MEDS: LEVOTHYROXINE SODIUM 100 MCG/5 ML INJ IV SCH (10:26)
[2023-11-17] MEDS: FUROSEMIDE 20 MG/2 ML VIAL IV SCH ×2 (10:26→22:19)
[2023-11-17] MEDS: PANTOPRAZOLE 40 MG/10 ML VIAL INJ IV SCH (10:26)
[2023-11-17] MEDS: APIXABAN 5 MG TAB PO SCH ×2 (10:26→22:18)
[2023-11-17] MEDS: levoFLOXacin 750MG 150 ML IV SCH (12:45)
[2023-11-17] MEDS: NOREPINEPHRINE 8 MG/250ML KIT 250 ML IV SCH (17:15)
[2023-11-17] MEDS ORDERED: ONDANSETRON ODT 4 MG TAB PO PRN (23:00)
[2023-11-18] VITALS (115 sets, daily range): BP systolic 109–158; BP diastolic 63–128; PULSE 60–98; RESP 12–34; TEMP 97.2–99.5; O2SAT 84–100
[2023-11-18] MEDS ORDERED: ONDANSETRON HCL 4 MG/2 ML VIAL ONE (00:10)
[2023-11-18] MEDS: FREE WATER GT SCH ×4 (00:12→18:00)
[2023-11-18] MEDS: ONDANSETRON HCL 4 MG/2 ML VIAL IV PRN (00:24)
[2023-11-18] MEDS: DOPamine 1600MCG/ML D5W 250 ML IV SCH (01:46)
[2023-11-18] MEDS: ALBUTEROL SULF 2.5 MG/0.5ML(0.5%) NEB SOLN NEB SCH ×6 (02:14→22:03)
[2023-11-18] MEDS: IPRATROPIUM BROM 0.5 MG/2.5ML INH SOL NEB SCH ×6 (02:14→22:03)
[2023-11-18 04:04] LABS: Basophils # (auto) 0 10 ^3/uL (0-0.2); Basophils % (auto) 0.1 % (0.0-2.0); Eosinophils # (auto) 0 10 ^3/uL (0-0.8); Lymphocytes # (auto) 0.5 10 ^3/uL (0.4-5.4); Lymphocytes % (auto) 5.6 % (10.0-50.0); Mean Corpuscular Hemoglobin 25.5 pg (28.0-32.0); Monocytes # (auto) 0.3 10 ^3/uL (0-1.3); Monocytes % (auto) 3.5 % (0.0-12.0); White Blood Cell 9.4 10^3/uL (4.4-10.8)
[2023-11-18 04:08] LABS: Hematocrit 52.3 % (36.0-46.0); Hemoglobin 16.1 g/dL (12.2-16.2); Mean Corpuscular Hgb Conc. 30.8 g/dL (32.0-36.0); Mean Corpuscular Volume 82.8 fL (80.0-100.0); Neutrophils # (auto) 8.5 10 ^3/uL (1.6-8.6); Neutrophils % (auto) 90.8 % (37.0-80.0); Nucleated Red Blood Cells % 0.1 %; Red Blood Cells 6.31 10^6/uL (4.0-5.20)
[2023-11-18 04:18] LABS: Red Cell Distribution Width 24.6 % (11.8-14.3)
[2023-11-18 04:20] LABS: Calcium 10.7 mg/dL (8.7-10.4); Chloride 104 mmol/L (98-107); Potassium 3.7 mmol/L (3.5-5.1); Sodium 141 mmol/L (136-145)
[2023-11-18 04:21] LABS: Anion Gap 10 (5-15); Carbon Dioxide 27 mmol/L (20-30)
[2023-11-18 04:26] LABS: BUN/Creatinine Ratio 23.9 (10.0-20.0); Blood Urea Nitrogen 22 mg/dL (9-23); Glucose 125 mg/dL (74-106)
[2023-11-18] MEDS: METOCLOPRAMIDE HCL 5MG/ml INJ 2ml VIAL IV SCH ×3 (05:56→22:06)
[2023-11-18 06:47] LABS: Base Excess 1.3 mmol/L (-2.0-2.0)
[2023-11-18] MEDS: MIDAZOLAM DRIP 50 mg/50mL 50 ML IV SCH (07:00)
[2023-11-18 10:27] LABS: Base Excess -0.2 mmol/L (-2.0-2.0)
[2023-11-18] MEDS: DOCUSATE ORAL LIQUID 100 MG/10 ML UD GT SCH ×2 (10:32→21:53)
[2023-11-18] MEDS: PANTOPRAZOLE 40 MG/10 ML VIAL INJ IV SCH (10:32)
[2023-11-18] MEDS: FUROSEMIDE 20 MG/2 ML VIAL IV SCH ×2 (10:32→22:06)
[2023-11-18] MEDS: APIXABAN 5 MG TAB PO SCH ×2 (10:33→21:54)
[2023-11-18] MEDS: methylPREDNISolone SOD SUCC 40 MG/ML VL IV SCH ×2 (10:33→22:06)
[2023-11-18] MEDS: LEVOTHYROXINE SODIUM 100 MCG/5 ML INJ IV SCH (10:33)
[2023-11-18] MEDS: levoFLOXacin 750MG 150 ML IV SCH (12:22)
[2023-11-18] MEDS: fentaNYL Drip 2500mCg/250mlNS 250 ML IV SCH (13:00)
[2023-11-18] MEDS: NOREPINEPHRINE 8 MG/250ML KIT 250 ML IV SCH (17:15)
[2023-11-19] VITALS (106 sets, daily range): BP systolic 112–165; BP diastolic 73–110; PULSE 60–89; RESP 13–38; TEMP 97.9–99.7; O2SAT 82–100
[2023-11-19] MEDS: IPRATROPIUM BROM 0.5 MG/2.5ML INH SOL NEB SCH ×6 (02:07→22:17)
[2023-11-19] MEDS: ALBUTEROL SULF 2.5 MG/0.5ML(0.5%) NEB SOLN NEB SCH ×6 (02:07→22:17)
[2023-11-19 04:05] LABS: Basophils # (auto) 0 10 ^3/uL (0-0.2); Eosinophils # (auto) 0 10 ^3/uL (0-0.8)
[2023-11-19 04:08] LABS: Basophils % (auto) 0.1 % (0.0-2.0); Hemoglobin 16.9 g/dL (12.2-16.2); Lymphocytes # (auto) 0.4 10 ^3/uL (0.4-5.4); Mean Corpuscular Hemoglobin 25.4 pg (28.0-32.0); Mean Corpuscular Hgb Conc. 30.8 g/dL (32.0-36.0); Mean Corpuscular Volume 82.6 fL (80.0-100.0); Monocytes # (auto) 0.3 10 ^3/uL (0-1.3); Monocytes % (auto) 3.9 % (0.0-12.0); Neutrophils # (auto) 6.4 10 ^3/uL (1.6-8.6); Nucleated Red Blood Cells % 0.4 %; Red Blood Cells 6.66 10^6/uL (4.0-5.20); White Blood Cell 7.1 10^3/uL (4.4-10.8)
[2023-11-19 04:16] LABS: Red Cell Distribution Width 25.3 % (11.8-14.3)
[2023-11-19 04:19] LABS: Anion Gap 12 (5-15); Carbon Dioxide 26 mmol/L (20-30); Chloride 106 mmol/L (98-107); Potassium 3.4 mmol/L (3.5-5.1); Sodium 144 mmol/L (136-145)
[2023-11-19 04:25] LABS: BUN/Creatinine Ratio 27.4 (10.0-20.0); Blood Urea Nitrogen 26 mg/dL (9-23); Glucose 121 mg/dL (74-106)
[2023-11-19 05:01] LABS: Anisocytosis Slight; Platelet Estimate Adequate
[2023-11-19] MEDS: FREE WATER GT SCH ×5 (05:31→21:34)
[2023-11-19] MEDS: METOCLOPRAMIDE HCL 5MG/ml INJ 2ml VIAL IV SCH ×3 (05:52→21:33)
[2023-11-19] MEDS: SERTRALINE HCL 100 MG PO SCH (07:00)
[2023-11-19] MEDS: QUETIAPINE FUMERATE 200 MG PO SCH (07:00)
[2023-11-19] MEDS: DOPamine 1600MCG/ML D5W 250 ML IV SCH (08:23)
[2023-11-19 08:51] LABS: Base Excess 2.5 mmol/L (-2.0-2.0)
[2023-11-19] MEDS: LEVOTHYROXINE SODIUM 100 MCG/5 ML INJ IV SCH (09:54)
[2023-11-19] MEDS: FUROSEMIDE 20 MG/2 ML VIAL IV SCH ×2 (09:55→21:33)
[2023-11-19] MEDS: methylPREDNISolone SOD SUCC 40 MG/ML VL IV SCH ×2 (09:55→21:33)
[2023-11-19] MEDS: PANTOPRAZOLE 40 MG/10 ML VIAL INJ IV SCH (09:55)
[2023-11-19] MEDS: DOCUSATE ORAL LIQUID 100 MG/10 ML UD GT SCH ×2 (10:00→19:29)
[2023-11-19] MEDS: APIXABAN 5 MG TAB PO SCH ×2 (10:00→21:34)
[2023-11-19] MEDS: POTASSIUM CHL 20MEQ/100ML 100 ML IV SCH ×2 (10:01→11:59)
[2023-11-19] MEDS: levoFLOXacin 750MG 150 ML IV SCH (11:51)
[2023-11-19] MEDS: NOREPINEPHRINE 8 MG/250ML KIT 250 ML IV SCH (17:15)
[2023-11-20] VITALS (103 sets, daily range): BP systolic 132–165; BP diastolic 91–122; PULSE 71–101; RESP 12–42; TEMP 98.1–99.8; O2SAT 88–98
[2023-11-20] MEDS: IPRATROPIUM BROM 0.5 MG/2.5ML INH SOL NEB SCH ×6 (02:10→22:14)
[2023-11-20] MEDS: ALBUTEROL SULF 2.5 MG/0.5ML(0.5%) NEB SOLN NEB SCH ×6 (02:10→22:14)
[2023-11-20 04:02] LABS: Basophils # (auto) 0 10 ^3/uL (0-0.2); Eosinophils # (auto) 0 10 ^3/uL (0-0.8); Lymphocytes # (auto) 0.4 10 ^3/uL (0.4-5.4)
[2023-11-20 04:05] LABS: Hemoglobin 17.9 g/dL (12.2-16.2); Mean Corpuscular Hemoglobin 25.6 pg (28.0-32.0); Mean Corpuscular Hgb Conc. 30.8 g/dL (32.0-36.0); Mean Corpuscular Volume 83.3 fL (80.0-100.0); Monocytes # (auto) 0.3 10 ^3/uL (0-1.3); Monocytes % (auto) 3.8 % (0.0-12.0); Neutrophils % (auto) 91.2 % (37.0-80.0); Nucleated Red Blood Cells % 0.1 %; Red Blood Cells 6.99 10^6/uL (4.0-5.20); White Blood Cell 8.8 10^3/uL (4.4-10.8)
[2023-11-20 04:08] LABS: Hematocrit 58.2 % (36.0-46.0)
[2023-11-20 04:11] LABS: Calcium 11.3 mg/dL (8.7-10.4); Chloride 110 mmol/L (98-107); Potassium 3.3 mmol/L (3.5-5.1)
[2023-11-20 04:12] LABS: Anion Gap 12 (5-15); Carbon Dioxide 27 mmol/L (20-30)
[2023-11-20 04:14] LABS: Sodium 149 mmol/L (136-145)
[2023-11-20 04:17] LABS: BUN/Creatinine Ratio 34.8 (10.0-20.0); Glucose 128 mg/dL (74-106)
[2023-11-20 04:21] LABS: Blood Urea Nitrogen 40 mg/dL (9-23)
[2023-11-20] MEDS ORDERED: POTASSIUM CHL 20MEQ/100ML 100 ML IV ONE (04:45)
[2023-11-20] MEDS: FREE WATER GT SCH ×4 (05:03→20:38)
[2023-11-20] MEDS: METOCLOPRAMIDE HCL 5MG/ml INJ 2ml VIAL IV SCH ×3 (05:07→21:06)
[2023-11-20 05:14] LABS: Anisocytosis Slight; Platelet Estimate Adequate
[2023-11-20] MEDS: QUETIAPINE FUMERATE 200 MG PO SCH (06:55)
[2023-11-20] MEDS: SERTRALINE HCL 100 MG PO SCH (06:55)
[2023-11-20] MEDS: D5W/SOD CHL 0.45%/KCL 20MEQ 1,000 ML IV SCH ×2 (08:35→21:06)
[2023-11-20] MEDS: LEVOTHYROXINE SODIUM 100 MCG/5 ML INJ IV SCH (10:59)
[2023-11-20] MEDS: methylPREDNISolone SOD SUCC 40 MG/ML VL IV SCH ×2 (11:02→21:06)
[2023-11-20] MEDS: PANTOPRAZOLE 40 MG/10 ML VIAL INJ IV SCH (11:02)
[2023-11-20] MEDS: APIXABAN 5 MG TAB PO SCH (11:02)
[2023-11-20] MEDS: DOCUSATE ORAL LIQUID 100 MG/10 ML UD GT SCH ×2 (11:03→20:37)
[2023-11-20] MEDS: NOREPINEPHRINE 8 MG/250ML KIT 250 ML IV SCH (17:15)
[2023-11-20] MEDS: ENOXAPARIN SOD 100 MG/1 ML SYRINGE SC SCH (21:06)
[2023-11-20] MEDS ORDERED: LORazepam 2MG/ML-1ML VIAL IV PRN (21:15)
[2023-11-20] MEDS: hydrALAZINE HCL 20 MG/ML VL IV PRN (23:16)
[2023-11-21] VITALS (54 sets, daily range): BP systolic 127–161; BP diastolic 76–109; PULSE 69–115; RESP 17–36; TEMP 97.7–99; O2SAT 85–96
[2023-11-21 00:26] LABS: Basophils # (auto) 0 10 ^3/uL (0-0.2); Eosinophils # (auto) 0 10 ^3/uL (0-0.8); Mean Corpuscular Hemoglobin 25.2 pg (28.0-32.0); Neutrophils # (auto) 8.8 10 ^3/uL (1.6-8.6); Neutrophils % (auto) 89.6 % (37.0-80.0); White Blood Cell 9.8 10^3/uL (4.4-10.8)
[2023-11-21 00:27] LABS: Basophils % (auto) 0.2 % (0.0-2.0); Hemoglobin 17.6 g/dL (12.2-16.2); Lymphocytes # (auto) 0.4 10 ^3/uL (0.4-5.4); Lymphocytes % (auto) 3.8 % (10.0-50.0); Mean Corpuscular Hgb Conc. 30.1 g/dL (32.0-36.0); Mean Corpuscular Volume 83.5 fL (80.0-100.0); Monocytes # (auto) 0.6 10 ^3/uL (0-1.3); Monocytes % (auto) 6.4 % (0.0-12.0); Nucleated Red Blood Cells % 0.1 %; Red Blood Cells 6.99 10^6/uL (4.0-5.20)
[2023-11-21 00:28] LABS: Hematocrit 58.3 % (36.0-46.0); Red Cell Distribution Width 25.5 % (11.8-14.3)
[2023-11-21 00:40] LABS: Chloride 115 mmol/L (98-107); Potassium 3.6 mmol/L (3.5-5.1); Sodium 151 mmol/L (136-145)
[2023-11-21 00:41] LABS: Anion Gap 11 (5-15); Calcium 11.3 mg/dL (8.7-10.4); Carbon Dioxide 25 mmol/L (20-30)
[2023-11-21 00:46] LABS: BUN/Creatinine Ratio 39.3 (10.0-20.0); Blood Urea Nitrogen 42 mg/dL (9-23); Glucose 161 mg/dL (74-106)
[2023-11-21 01:01] LABS: Platelet Estimate Adequate
[2023-11-21 01:02] LABS: Anisocytosis Slight; Macrocytosis Slight; Polychromasia Slight
[2023-11-21] MEDS ORDERED: LORazepam 2MG/ML-1ML VIAL ONE (01:32)
[2023-11-21] MEDS: ONDANSETRON HCL 4 MG/2 ML VIAL IV PRN (02:00)
[2023-11-21] MEDS: IPRATROPIUM BROM 0.5 MG/2.5ML INH SOL NEB SCH ×6 (02:04→22:03)
[2023-11-21] MEDS: ALBUTEROL SULF 2.5 MG/0.5ML(0.5%) NEB SOLN NEB SCH ×6 (02:04→22:03)
[2023-11-21] MEDS: LORazepam 2MG/ML-1ML VIAL IV PRN ×3 (02:09→13:49)
[2023-11-21] MEDS: METOCLOPRAMIDE HCL 5MG/ml INJ 2ml VIAL IV SCH ×3 (05:29→20:58)
[2023-11-21] MEDS: FREE WATER GT SCH (05:29)
[2023-11-21] MEDS: QUETIAPINE FUMERATE 200 MG PO SCH (06:47)
[2023-11-21] MEDS: SERTRALINE HCL 100 MG PO SCH (06:47)
[2023-11-21] MEDS ORDERED: FUROSEMIDE 20 MG/2 ML VIAL IV ONE (07:45)
[2023-11-21] MEDS: DOCUSATE ORAL LIQUID 100 MG/10 ML UD GT SCH (10:51)
[2023-11-21] MEDS: ENOXAPARIN SOD 100 MG/1 ML SYRINGE SC SCH ×2 (10:52→20:58)
[2023-11-21] MEDS: methylPREDNISolone SOD SUCC 40 MG/ML VL IV SCH ×2 (10:52→20:58)
[2023-11-21] MEDS: PANTOPRAZOLE 40 MG/10 ML VIAL INJ IV SCH (10:52)
[2023-11-21] MEDS: LEVOTHYROXINE SODIUM 100 MCG/5 ML INJ IV SCH (10:56)
[2023-11-21] MEDS: POTASSIUM CHLORIDE 20 MEQ in D5W 5% 1,000 ML IV SCH ×3 (10:56→23:37)
[2023-11-21] MEDS ORDERED: SERTRALINE HCL 50 MG TAB PO SCH (12:15)
[2023-11-21] MEDS ORDERED: QUEtiapine FUMARATE 100 MG TAB PO SCH (12:15)
[2023-11-21] MEDS: NOREPINEPHRINE 8 MG/250ML KIT 250 ML IV SCH (17:15)
[2023-11-21] MEDS: NYSTATIN (MOUTH-THROAT) 500,000 UNITS/5 ML SUSP MT SCH ×2 (17:18→20:58)
[2023-11-22] VITALS (38 sets, daily range): BP systolic 121–172; BP diastolic 83–112; PULSE 74–102; RESP 12–30; TEMP 97.7–99; O2SAT 86–96
[2023-11-22] MEDS: ALBUTEROL SULF 2.5 MG/0.5ML(0.5%) NEB SOLN NEB SCH ×6 (02:07→22:04)
[2023-11-22] MEDS: IPRATROPIUM BROM 0.5 MG/2.5ML INH SOL NEB SCH ×6 (02:07→22:04)
[2023-11-22] MEDS: LORazepam 2MG/ML-1ML VIAL IV PRN ×3 (03:27→23:22)
[2023-11-22 04:12] LABS: Basophils # (auto) 0 10 ^3/uL (0-0.2); Basophils % (auto) 0.1 % (0.0-2.0); Eosinophils # (auto) 0 10 ^3/uL (0-0.8); Lymphocytes # (auto) 0.5 10 ^3/uL (0.4-5.4); Mean Corpuscular Volume 83.7 fL (80.0-100.0)
[2023-11-22 04:17] LABS: Hemoglobin 17.6 g/dL (12.2-16.2); Lymphocytes % (auto) 6.4 % (10.0-50.0); Mean Corpuscular Hemoglobin 25.4 pg (28.0-32.0); Mean Corpuscular Hgb Conc. 30.3 g/dL (32.0-36.0); Monocytes # (auto) 0.5 10 ^3/uL (0-1.3); Monocytes % (auto) 5.9 % (0.0-12.0); Neutrophils # (auto) 7.5 10 ^3/uL (1.6-8.6); Neutrophils % (auto) 87.6 % (37.0-80.0); Nucleated Red Blood Cells % 0.4 %; Red Blood Cells 6.94 10^6/uL (4.0-5.20); White Blood Cell 8.6 10^3/uL (4.4-10.8)
[2023-11-22 04:19] LABS: Chloride 115 mmol/L (98-107); Potassium 3.6 mmol/L (3.5-5.1); Sodium 149 mmol/L (136-145)
[2023-11-22 04:20] LABS: Anion Gap 10 (5-15); Calcium 10.8 mg/dL (8.7-10.4); Carbon Dioxide 24 mmol/L (20-30)
[2023-11-22 04:21] LABS: Hematocrit 58.1 % (36.0-46.0); Red Cell Distribution Width 25.8 % (11.8-14.3)
[2023-11-22 04:25] LABS: BUN/Creatinine Ratio 35.8 (10.0-20.0); Blood Urea Nitrogen 34 mg/dL (9-23); Glucose 126 mg/dL (74-106)
[2023-11-22] MEDS: METOCLOPRAMIDE HCL 5MG/ml INJ 2ml VIAL IV SCH ×3 (06:03→21:41)
[2023-11-22] MEDS: NYSTATIN (MOUTH-THROAT) 500,000 UNITS/5 ML SUSP MT SCH ×4 (06:03→21:42)
[2023-11-22 06:57] LABS: Anisocytosis Moderate; Platelet Estimate Adequate
[2023-11-22 06:58] LABS: Stomatocytes Few; Target Cell FEW
[2023-11-22 06:59] LABS: Large Platelets FEW
[2023-11-22] MEDS: methylPREDNISolone SOD SUCC 40 MG/ML VL IV SCH ×2 (09:48→21:41)
[2023-11-22] MEDS: LEVOTHYROXINE SODIUM 100 MCG/5 ML INJ IV SCH (09:48)
[2023-11-22] MEDS: ENOXAPARIN SOD 100 MG/1 ML SYRINGE SC SCH ×2 (09:48→21:42)
[2023-11-22] MEDS: POTASSIUM CHLORIDE 20 MEQ in D5W 5% 1,000 ML IV SCH ×2 (09:49→21:42)
[2023-11-22] MEDS: PANTOPRAZOLE 40 MG/10 ML VIAL INJ IV SCH (13:34)
[2023-11-22] MEDS: NOREPINEPHRINE 8 MG/250ML KIT 250 ML IV SCH (17:15)
[2023-11-22] MEDS: hydrALAZINE HCL 20 MG/ML VL IV PRN (18:01)
[2023-11-23] VITALS (40 sets, daily range): BP systolic 123–164; BP diastolic 90–100; PULSE 80–110; RESP 12–33; TEMP 97.7–99.1; O2SAT 89–99
[2023-11-23] MEDS: ALBUTEROL SULF 2.5 MG/0.5ML(0.5%) NEB SOLN NEB SCH ×6 (03:57→22:47)
[2023-11-23] MEDS: IPRATROPIUM BROM 0.5 MG/2.5ML INH SOL NEB SCH ×6 (03:57→22:47)
[2023-11-23 04:21] LABS: Basophils # (auto) 0 10 ^3/uL (0-0.2); Eosinophils # (auto) 0 10 ^3/uL (0-0.8); Hemoglobin 16.4 g/dL (12.2-16.2); Lymphocytes # (auto) 0.4 10 ^3/uL (0.4-5.4); Monocytes # (auto) 0.3 10 ^3/uL (0-1.3)
[2023-11-23 04:23] LABS: Hematocrit 53.6 % (36.0-46.0); Lymphocytes % (auto) 5.9 % (10.0-50.0); Mean Corpuscular Hemoglobin 25.6 pg (28.0-32.0); Mean Corpuscular Hgb Conc. 30.6 g/dL (32.0-36.0); Mean Corpuscular Volume 83.6 fL (80.0-100.0); Monocytes % (auto) 4.5 % (0.0-12.0); Neutrophils # (auto) 6.1 10 ^3/uL (1.6-8.6); Neutrophils % (auto) 89.6 % (37.0-80.0); Nucleated Red Blood Cells % 0.3 %; Red Blood Cells 6.41 10^6/uL (4.0-5.20); White Blood Cell 6.8 10^3/uL (4.4-10.8)
[2023-11-23 04:28] LABS: Red Cell Distribution Width 25.4 % (11.8-14.3)
[2023-11-23] MEDS: METOCLOPRAMIDE HCL 5MG/ml INJ 2ml VIAL IV SCH ×3 (05:44→20:56)
[2023-11-23] MEDS: NYSTATIN (MOUTH-THROAT) 500,000 UNITS/5 ML SUSP MT SCH ×3 (05:44→20:55)
[2023-11-23 07:06] LABS: Anisocytosis Moderate; Platelet Estimate Adequate
[2023-11-23 07:07] LABS: Stomatocytes Few
[2023-11-23] MEDS: POTASSIUM CHLORIDE 20 MEQ in D5W 5% 1,000 ML IV SCH ×2 (10:15→19:33)
[2023-11-23] MEDS: LEVOTHYROXINE SODIUM 100 MCG/5 ML INJ IV SCH (10:21)
[2023-11-23] MEDS: ENOXAPARIN SOD 100 MG/1 ML SYRINGE SC SCH ×2 (10:21→21:05)
[2023-11-23] MEDS: PANTOPRAZOLE 40 MG/10 ML VIAL INJ IV SCH (10:21)
[2023-11-23] MEDS: methylPREDNISolone SOD SUCC 40 MG/ML VL IV SCH ×2 (10:21→20:56)
[2023-11-23] MEDS: hydrALAZINE HCL 20 MG/ML VL IV PRN (10:59)
[2023-11-23] MEDS: LORazepam 2MG/ML-1ML VIAL IV PRN (20:59)
[2023-11-24] VITALS (32 sets, daily range): BP systolic 130–162; BP diastolic 58–99; PULSE 79–109; RESP 17–30; TEMP 97.1–98.9; O2SAT 91–99
[2023-11-24] MEDS: ALBUTEROL SULF 2.5 MG/0.5ML(0.5%) NEB SOLN NEB SCH ×6 (02:44→22:08)
[2023-11-24] MEDS: IPRATROPIUM BROM 0.5 MG/2.5ML INH SOL NEB SCH ×6 (02:44→22:09)
[2023-11-24 04:13] LABS: Calcium 10.1 mg/dL (8.7-10.4); Chloride 110 mmol/L (98-107); Potassium 3.8 mmol/L (3.5-5.1); Sodium 141 mmol/L (136-145)
[2023-11-24 04:14] LABS: Anion Gap 10 (5-15); Carbon Dioxide 21 mmol/L (20-30)
[2023-11-24 04:19] LABS: BUN/Creatinine Ratio 21.4 (10.0-20.0); Blood Urea Nitrogen 18 mg/dL (9-23); Glucose 146 mg/dL (74-106)
[2023-11-24 04:20] LABS: Magnesium 1.9 mg/dL (1.6-2.6)
[2023-11-24] MEDS: NYSTATIN (MOUTH-THROAT) 500,000 UNITS/5 ML SUSP MT SCH ×4 (05:29→22:31)
[2023-11-24] MEDS: METOCLOPRAMIDE HCL 5MG/ml INJ 2ml VIAL IV SCH ×3 (05:29→22:32)
[2023-11-24] MEDS: POTASSIUM CHLORIDE 20 MEQ in D5W 5% 1,000 ML IV SCH ×2 (06:04→17:05)
[2023-11-24] MEDS: LEVOTHYROXINE SODIUM 100 MCG/5 ML INJ IV SCH (10:46)
[2023-11-24] MEDS: methylPREDNISolone SOD SUCC 40 MG/ML VL IV SCH ×2 (10:46→22:32)
[2023-11-24] MEDS: PANTOPRAZOLE 40 MG/10 ML VIAL INJ IV SCH (10:46)
[2023-11-24] MEDS: ENOXAPARIN SOD 100 MG/1 ML SYRINGE SC SCH (11:20)
[2023-11-24] MEDS: hydrALAZINE HCL 20 MG/ML VL IV PRN (17:14)
[2023-11-24] MEDS: LORazepam 2MG/ML-1ML VIAL IV PRN (19:48)
[2023-11-24] MEDS: APIXABAN 5 MG TAB PO SCH (22:31)
[2023-11-24] MEDS: FLECAINIDE ACETATE 50 MG TAB PO SCH (22:36)
[2023-11-25] VITALS (20 sets, daily range): BP systolic 108–149; BP diastolic 81–91; PULSE 73–105; RESP 16–20; TEMP 97.6–98.4; O2SAT 89–99
[2023-11-25] MEDS: LORazepam 2MG/ML-1ML VIAL IV PRN ×3 (00:53→10:30)
[2023-11-25] MEDS: IPRATROPIUM BROM 0.5 MG/2.5ML INH SOL NEB SCH ×6 (02:38→21:49)
[2023-11-25] MEDS: ALBUTEROL SULF 2.5 MG/0.5ML(0.5%) NEB SOLN NEB SCH ×6 (02:39→21:49)
[2023-11-25] MEDS: POTASSIUM CHLORIDE 20 MEQ in D5W 5% 1,000 ML IV SCH ×2 (03:20→12:45)
[2023-11-25] MEDS: METOCLOPRAMIDE HCL 5MG/ml INJ 2ml VIAL IV SCH ×3 (05:35→22:14)
[2023-11-25] MEDS: NYSTATIN (MOUTH-THROAT) 500,000 UNITS/5 ML SUSP MT SCH ×4 (05:35→22:13)
[2023-11-25 06:03] LABS: Basophils # (auto) 0 10 ^3/uL (0-0.2); Eosinophils # (auto) 0 10 ^3/uL (0-0.8); Monocytes # (auto) 0.2 10 ^3/uL (0-1.3); Neutrophils # (auto) 8.1 10 ^3/uL (1.6-8.6); Nucleated Red Blood Cells % 0.2 %; Red Blood Cells 6.09 10^6/uL (4.0-5.20)
[2023-11-25 06:07] LABS: Basophils % (auto) 0.1 % (0.0-2.0); Hematocrit 50.7 % (36.0-46.0); Hemoglobin 15.6 g/dL (12.2-16.2); Lymphocytes # (auto) 0.4 10 ^3/uL (0.4-5.4); Lymphocytes % (auto) 4.7 % (10.0-50.0); Mean Corpuscular Hemoglobin 25.5 pg (28.0-32.0); Mean Corpuscular Hgb Conc. 30.7 g/dL (32.0-36.0); Mean Corpuscular Volume 83.2 fL (80.0-100.0); Monocytes % (auto) 2.8 % (0.0-12.0); Neutrophils % (auto) 92.4 % (37.0-80.0); White Blood Cell 8.8 10^3/uL (4.4-10.8)
[2023-11-25 06:16] LABS: Calcium 9.8 mg/dL (8.7-10.4); Chloride 107 mmol/L (98-107); Potassium 4.4 mmol/L (3.5-5.1); Red Cell Distribution Width 25.4 % (11.8-14.3)
[2023-11-25 06:17] LABS: Anion Gap 10 (5-15); Carbon Dioxide 19 mmol/L (20-30)
[2023-11-25 06:22] LABS: Blood Urea Nitrogen 16 mg/dL (9-23); Glucose 155 mg/dL (74-106); Magnesium 1.7 mg/dL (1.6-2.6)
[2023-11-25 06:27] LABS: Sodium 136 mmol/L (136-145)
[2023-11-25 07:48] LABS: Anisocytosis Moderate; Hypochromia Slight; Platelet Estimate Adequate
[2023-11-25] MEDS ORDERED: AMIODARONE HCL 200 MG TAB PO SCH (10:00)
[2023-11-25] MEDS: methylPREDNISolone SOD SUCC 40 MG/ML VL IV SCH (10:30)
[2023-11-25] MEDS: APIXABAN 5 MG TAB PO SCH ×2 (10:30→22:13)
[2023-11-25] MEDS: FLECAINIDE ACETATE 50 MG TAB PO SCH ×2 (10:30→22:13)
[2023-11-25] MEDS: LEVOTHYROXINE SODIUM 100 MCG/5 ML INJ IV SCH (10:30)
[2023-11-25] MEDS: PANTOPRAZOLE 40 MG/10 ML VIAL INJ IV SCH (10:30)
[2023-11-25] MEDS: LITHIUM CARBONATE 300 MG TAB PO SCH (22:13)
[2023-11-25] MEDS: GABAPENTIN 400 MG CAP PO SCH (22:13)
[2023-11-25] MEDS: risperiDONE 1 MG TAB PO SCH (22:14)
[2023-11-25] MEDS: QUEtiapine FUMARATE 100 MG TAB PO SCH (22:14)
[2023-11-26] VITALS (19 sets, daily range): BP systolic 119–138; BP diastolic 64–89; PULSE 69–90; RESP 16–24; TEMP 97.5–98.4; O2SAT 89–100
[2023-11-26] MEDS: IPRATROPIUM BROM 0.5 MG/2.5ML INH SOL NEB SCH ×6 (01:55→21:57)
[2023-11-26] MEDS: ALBUTEROL SULF 2.5 MG/0.5ML(0.5%) NEB SOLN NEB SCH ×6 (01:55→21:57)
[2023-11-26 06:00] LABS: Anion Gap 4 (5-15); Carbon Dioxide 26 mmol/L (20-30); Chloride 110 mmol/L (98-107); Potassium 3.5 mmol/L (3.5-5.1); Sodium 140 mmol/L (136-145)
[2023-11-26 06:02] LABS: Calcium 9.5 mg/dL (8.7-10.4)
[2023-11-26 06:06] LABS: BUN/Creatinine Ratio 17.1 (10.0-20.0); Blood Urea Nitrogen 13 mg/dL (9-23); Glucose 95 mg/dL (74-106)
[2023-11-26] MEDS: NYSTATIN (MOUTH-THROAT) 500,000 UNITS/5 ML SUSP MT SCH ×4 (06:22→21:36)
[2023-11-26] MEDS: METOCLOPRAMIDE HCL 5MG/ml INJ 2ml VIAL IV SCH ×3 (06:22→21:36)
[2023-11-26] MEDS: PANTOPRAZOLE 40 MG TAB PO SCH (09:34)
[2023-11-26] MEDS: FLECAINIDE ACETATE 50 MG TAB PO SCH ×2 (09:34→21:58)
[2023-11-26] MEDS: APIXABAN 5 MG TAB PO SCH ×2 (09:34→21:38)
[2023-11-26] MEDS: LITHIUM CARBONATE 300 MG TAB PO SCH ×2 (09:34→21:38)
[2023-11-26] MEDS: LEVOTHYROXINE SODIUM 100 MCG/5 ML INJ IV SCH (09:35)
[2023-11-26] MEDS: SERTRALINE HCL 50 MG TAB PO SCH (09:35)
[2023-11-26] MEDS: GABAPENTIN 400 MG CAP PO SCH ×2 (09:35→21:37)
[2023-11-26] MEDS: risperiDONE 1 MG TAB PO SCH ×2 (09:35→21:38)
[2023-11-26] MEDS: QUEtiapine FUMARATE 100 MG TAB PO SCH (21:37)
[2023-11-27] VITALS (9 sets, daily range): BP systolic 117; BP diastolic 83; PULSE 69–97; RESP 14–22; TEMP 97.5; O2SAT 93–100
[2023-11-27] MEDS: IPRATROPIUM BROM 0.5 MG/2.5ML INH SOL NEB SCH ×3 (02:14→10:27)
[2023-11-27] MEDS: ALBUTEROL SULF 2.5 MG/0.5ML(0.5%) NEB SOLN NEB SCH ×3 (02:14→10:27)
[2023-11-27] MEDS: NYSTATIN (MOUTH-THROAT) 500,000 UNITS/5 ML SUSP MT SCH ×2 (06:09→11:43)
[2023-11-27] MEDS: METOCLOPRAMIDE HCL 5MG/ml INJ 2ml VIAL IV SCH (06:09)
[2023-11-27] MEDS: SERTRALINE HCL 50 MG TAB PO SCH (09:45)
[2023-11-27] MEDS: GABAPENTIN 400 MG CAP PO SCH (09:45)
[2023-11-27] MEDS: APIXABAN 5 MG TAB PO SCH (09:45)
[2023-11-27] MEDS: risperiDONE 1 MG TAB PO SCH (09:45)
[2023-11-27] MEDS: PANTOPRAZOLE 40 MG TAB PO SCH (09:45)
[2023-11-27] MEDS: FLECAINIDE ACETATE 50 MG TAB PO SCH (09:45)
[2023-11-27] MEDS: LEVOTHYROXINE SODIUM 100 MCG/5 ML INJ IV SCH (09:45)
[2023-11-27] MEDS: LITHIUM CARBONATE 300 MG TAB PO SCH (09:46)
== END 2023-11-27 13:16 | disposition home health service (06) | DRG 207 ==
LOC: ER 11:50 → EDBD 11:50 → TELE 14:38 → ICU WEST 11-07 18:13 → TELE-WESTW 11-24 14:53
PROVIDERS: ADMIT Nurse Practitioner Family; ATTEND Internal Medicine
PROC: 5A1955Z Respiratory Ventilation, Greater than 96 Consecutive Hours (ICD-10-PCS; principal; 2023-11-04)
PROC: 0BH17EZ Insertion of Endotracheal Airway into Trachea, Via Natural or Artificial Opening (ICD-10-PCS; 2023-11-04)
PROC: 5A09357 Assistance with Respiratory Ventilation, Less than 24 Consecutive Hours, Continuous Positive Airway Pressure (ICD-10-PCS; 2023-11-19)
PROC: 5A0935A Assistance with Respiratory Ventilation, Less than 24 Consecutive Hours, High Flow/Velocity Cannula (ICD-10-PCS; 2023-11-19)
PROC: 5A09357 Assistance with Respiratory Ventilation, Less than 24 Consecutive Hours, Continuous Positive Airway Pressure (ICD-10-PCS; 2023-11-20)
PROC: 5A0935A Assistance with Respiratory Ventilation, Less than 24 Consecutive Hours, High Flow/Velocity Cannula (ICD-10-PCS; 2023-11-20)
PROC: 5A09357 Assistance with Respiratory Ventilation, Less than 24 Consecutive Hours, Continuous Positive Airway Pressure (ICD-10-PCS; 2023-11-21)
DX: J96.21 Acute and chronic respiratory failure with hypoxia (principal); G93.41 Metabolic encephalopathy; N17.0 Acute kidney failure with tubular necrosis; J69.0 Pneumonitis due to inhalation of food and vomit; J15.69 Pneumonia due to other Gram-negative bacteria; J15.9 Unspecified bacterial pneumonia; I50.31 Acute diastolic (congestive) heart failure; E66.2 Morbid (severe) obesity with alveolar hypoventilation; E87.3 Alkalosis; I13.0 Hypertensive heart and chronic kidney disease with heart failure and stage 1 through stage 4 chronic kidney disease, or unspecified chronic kidney disease; J44.0 Chronic obstructive pulmonary disease with (acute) lower respiratory infection; J44.1 Chronic obstructive pulmonary disease with (acute) exacerbation; J45.901 Unspecified asthma with (acute) exacerbation; J98.11 Atelectasis; N39.0 Urinary tract infection, site not specified; E87.0 Hyperosmolality and hypernatremia; Z20.822 Contact with and (suspected) exposure to COVID-19; F41.9 Anxiety disorder, unspecified; K21.9 Gastro-esophageal reflux disease without esophagitis; N18.9 Chronic kidney disease, unspecified; I27.20 Pulmonary hypertension, unspecified; I48.0 Paroxysmal atrial fibrillation; E78.5 Hyperlipidemia, unspecified; F17.210 Nicotine dependence, cigarettes, uncomplicated; E78.00 Pure hypercholesterolemia, unspecified; I27.29 Other secondary pulmonary hypertension; E87.6 Hypokalemia; E89.0 Postprocedural hypothyroidism; F20.9 Schizophrenia, unspecified; F31.9 Bipolar disorder, unspecified; Z91.198 Patient's noncompliance with other medical treatment and regimen for other reason; Z68.38 Body mass index [BMI] 38.0-38.9, adult; Z79.01 Long term (current) use of anticoagulants; Z86.711 Personal history of pulmonary embolism; Z90.49 Acquired absence of other specified parts of digestive tract
CPT/HCPCS: 31500; 36415; 36556; 36600; 70450; 71045; 71275; 73060; 80048; 80053; 80202; 80307; 80320; 81001; 82570; 82805; 83605; 83735; 83880; 83935; 84156; 84300; 84443; 84484; 84702; 85025; 85610; 85730; 86850; 86900; 86901; 87040; 87070; 87081; 87086; 87205; 87804; 92610; 93005; 93306; 94002; 94003; 94640; 94660; 97110; 97116; 97163; 97530; 99291; C9113; G0378; J0461; J1956; J2250; J2405; J3480; J3490; P9047; Q0162

== ENCOUNTER 2024-02-07 19:24 | Inpatient (IN) | payer OTHER, MEDICAID ==
[~2024-02-07] VITALS: Ht 152.4 cm; Wt 107.6 kg
[2024-02-07] MEDS: FUROSEMIDE 40 MG/4 ML VIAL ONE (09:57)
[~2024-02-07 19:24] MED LIST changes: -CAR125T PO; +CARV-216 PO; +GABA-1251 PO; -GABA-1308 PO; +QUET200T30 PO; -QUET200T45 PO
[2024-02-07 19:55] LABS: Basophils # (auto) 0 10 ^3/uL (0-0.2); Basophils % (auto) 0.5 % (0.0-2.0); Eosinophils # (auto) 0 10 ^3/uL (0-0.8); Eosinophils % (auto) 0.5 % (0.0-7.0); Hematocrit 47.7 % (36.0-46.0); Hemoglobin 14.9 g/dL (12.2-16.2); Lymphocytes # (auto) 0.9 10 ^3/uL (0.4-5.4); Lymphocytes % (auto) 10.6 % (10.0-50.0); Mean Corpuscular Hemoglobin 27.1 pg (28.0-32.0); Mean Corpuscular Hgb Conc. 31.2 g/dL (32.0-36.0); Mean Corpuscular Volume 86.8 fL (80.0-100.0); Monocytes # (auto) 0.7 10 ^3/uL (0-1.3); Monocytes % (auto) 7.6 % (0.0-12.0); Neutrophils # (auto) 7.2 10 ^3/uL (1.6-8.6); Neutrophils % (auto) 80.8 % (37.0-80.0); Nucleated Red Blood Cells % 0.3 %; White Blood Cell 8.9 10^3/uL (4.4-10.8)
[2024-02-07 19:57] LABS: Red Cell Distribution Width 20.7 % (11.8-14.3)
[2024-02-07 20:00] VITALS: PULSE 64; RESP 16; O2SAT 96
[2024-02-07 20:05] LABS: Chloride 105 mmol/L (98-107); Potassium 3.9 mmol/L (3.5-5.1); Sodium 137 mmol/L (136-145)
[2024-02-07 20:06] LABS: Anion Gap 7 (5-15); Calcium 9.6 mg/dL (8.5-10.1); Carbon Dioxide 25 mmol/L (20-30)
[2024-02-07 20:11] LABS: BUN/Creatinine Ratio 13.2 (10.0-20.0); Blood Urea Nitrogen 10 mg/dL (9-23); Glucose 100 mg/dL (74-106)
[2024-02-07] MEDS: FUROSEMIDE 100 MG/10ML VIAL IV ONE (21:34)
[2024-02-07] MEDS ORDERED: ACETAMINOPHEN 325 MG TAB PO PRN (22:15)
[2024-02-07] MEDS ORDERED: ONDANSETRON HCL 4 MG/2 ML VIAL IV PRN (22:15)
[2024-02-07] MEDS ORDERED: IPRATROPIUM BROM 0.5 MG/2.5ML INH SOL NEB PRN (22:15)
[2024-02-07] MEDS ORDERED: MORPHINE SULFATE INJ 2 MG/ml SYRG IV PRN (22:15)
[2024-02-07] MEDS ORDERED: NITROGLYCERIN 0.4 MG SL TAB SL PRN (22:15)
[2024-02-07] MEDS ORDERED: ALBUTEROL SULF 2.5 MG/0.5ML(0.5%) NEB SOLN NEB PRN (22:15)
[2024-02-07 22:59] VITALS: BP 167/82; PULSE 63; RESP 14; TEMP 97.8; O2SAT 97
[2024-02-08 05:13] LABS: Basophils # (auto) 0 10 ^3/uL (0-0.2); Eosinophils # (auto) 0.1 10 ^3/uL (0-0.8); Eosinophils % (auto) 0.8 % (0.0-7.0); Hemoglobin 16.1 g/dL (12.2-16.2); Monocytes # (auto) 0.5 10 ^3/uL (0-1.3)
[2024-02-08 05:18] LABS: Basophils % (auto) 0.3 % (0.0-2.0); Hematocrit 51.6 % (36.0-46.0); Lymphocytes # (auto) 0.7 10 ^3/uL (0.4-5.4); Lymphocytes % (auto) 8.9 % (10.0-50.0); Mean Corpuscular Hemoglobin 27.3 pg (28.0-32.0); Mean Corpuscular Hgb Conc. 31.1 g/dL (32.0-36.0); Mean Corpuscular Volume 87.8 fL (80.0-100.0); Neutrophils # (auto) 6.3 10 ^3/uL (1.6-8.6); Nucleated Red Blood Cells % 0.2 %; Red Blood Cells 5.88 10^6/uL (4.0-5.20); White Blood Cell 7.6 10^3/uL (4.4-10.8)
[2024-02-08 05:23] LABS: Red Cell Distribution Width 21.2 % (11.8-14.3)
[2024-02-08 05:29] LABS: Alkaline Phosphatase 99 U/L (46-116); Anion Gap 7 (5-15); Aspartate Aminotransferase 17 U/L (13-40); BUN/Creatinine Ratio 6.9 (10.0-20.0); Bilirubin, Total 1.1 mg/dL (0.2-1.0); Blood Urea Nitrogen 6 mg/dL (9-23); Calcium 9.8 mg/dL (8.5-10.1); Carbon Dioxide 26 mmol/L (20-30); Chloride 105 mmol/L (98-107); Glucose 94 mg/dL (74-106); Potassium 3.6 mmol/L (3.5-5.1); Sodium 138 mmol/L (136-145)
[2024-02-08 05:31] LABS: Alanine Aminotransferase < 9 U/L (7-40)
[2024-02-08] MEDS: FUROSEMIDE 20 MG/2 ML VIAL IV SCH (06:19)
[2024-02-08] MEDS: LEVOTHYROXINE SODIUM 50 MCG TAB PO SCH (06:19)
[2024-02-08 06:33] VITALS: O2SAT 91
[2024-02-08 07:30] VITALS: PULSE 59; RESP 18; O2SAT 94
[2024-02-08] MEDS: lamoTRIgine 25 MG TAB PO SCH (10:38)
[2024-02-08] MEDS: LITHIUM CARBONATE 300 MG TAB PO SCH (10:38)
[2024-02-08] MEDS: SACUBITRIL-VALSARTAN 24mg/26mg TAB PO SCH (10:38)
[2024-02-08] MEDS: APIXABAN 5 MG TAB PO SCH (10:39)
[2024-02-08] MEDS: CARVEDILOL 12.5 MG TAB PO SCH (10:39)
[2024-02-08] MEDS ORDERED: HYDR-3682 PO (11:40)
[2024-02-08] MEDS ORDERED: LAMO25TA2 PO (11:40)
[2024-02-08] MEDS ORDERED: POTA-228 PO (11:44)
[2024-02-08] MEDS: FUROSEMIDE 20 MG/2 ML VIAL ONE (14:48)
[2024-02-08] MEDS: LEVOTHYROXINE SODIUM 50 MCG TAB ONE (14:52)
[2024-02-08 20:00] VITALS: PULSE 59
[2024-02-08 21:00] VITALS: BP 160/80; PULSE 69; RESP 16; TEMP 98.1; O2SAT 95
[2024-02-08] MEDS: ATORVASTATIN 20 MG TAB PO SCH (22:22)
[2024-02-09 01:00] VITALS: BP 143/76; PULSE 54; RESP 14; TEMP 98.2; O2SAT 97
[2024-02-09 05:00] VITALS: BP 150/71; PULSE 51; RESP 16; TEMP 98.3; O2SAT 92
[2024-02-09 06:42] LABS: Chloride 103 mmol/L (98-107); Potassium 3.4 mmol/L (3.5-5.1); Sodium 139 mmol/L (136-145)
[2024-02-09 06:43] LABS: Anion Gap 5 (5-15); Calcium 9.9 mg/dL (8.7-10.4); Carbon Dioxide 31 mmol/L (20-30)
[2024-02-09 06:48] LABS: BUN/Creatinine Ratio 12.8 (10.0-20.0); Blood Urea Nitrogen 10 mg/dL (9-23); Glucose 81 mg/dL (74-106)
[2024-02-09 07:31] VITALS: O2SAT 94
[2024-02-09 08:00] VITALS: PULSE 53; RESP 18
[2024-02-09 09:00] VITALS: BP 154/80; PULSE 56; RESP 19; TEMP 98.2; O2SAT 92
[2024-02-09] MEDS: POTASSIUM CHL 20 Meq TABLET PO ONE (12:18)
[2024-02-09 13:00] VITALS: BP 138/86; PULSE 59; RESP 20; TEMP 97.9; O2SAT 96
== END 2024-02-09 18:03 | disposition home or self-care (01) | DRG 291 ==
LOC: EDBD 19:24 → EDUNIT# 19:24 → ER 19:24 → TELE 22:16 → TELE-WESTW 02-08 18:01
PROVIDERS: ADMIT Nurse Practitioner; ATTEND Internal Medicine
DX: I13.0 Hypertensive heart and chronic kidney disease with heart failure and stage 1 through stage 4 chronic kidney disease, or unspecified chronic kidney disease (principal); I50.33 Acute on chronic diastolic (congestive) heart failure; J96.20 Acute and chronic respiratory failure, unspecified whether with hypoxia or hypercapnia; J44.1 Chronic obstructive pulmonary disease with (acute) exacerbation; Z68.42 Body mass index [BMI] 45.0-49.9, adult; I48.91 Unspecified atrial fibrillation; F20.9 Schizophrenia, unspecified; F32.A Depression, unspecified; F41.9 Anxiety disorder, unspecified; F17.210 Nicotine dependence, cigarettes, uncomplicated; E66.01 Morbid (severe) obesity due to excess calories; E78.5 Hyperlipidemia, unspecified; N18.9 Chronic kidney disease, unspecified; Z79.899 Other long term (current) drug therapy; Z79.01 Long term (current) use of anticoagulants; Z90.49 Acquired absence of other specified parts of digestive tract; Z99.3 Dependence on wheelchair
CPT/HCPCS: 36415; 36600; 71045; 80048; 80053; 82805; 82962; 83735; 83880; 84484; 85025; 93005; G0378

== ENCOUNTER → 2024-05-24 | Outpatient (CLI) | payer OTHER, MEDICAID ==
[~2024-05-24] MED LIST changes: +ALBUTEROL SULF 2.5 MG/0.5ML(0.5%) NEB SOLN ONE; +HYDR-3682 PO; +LAMO25TA2 PO; +POTA-228 PO
== END | disposition home or self-care (01) ==
LOC: RT 11:06
PROVIDERS: ATTEND Internal Medicine Pulmonary Disease
DX: J44.9 Chronic obstructive pulmonary disease, unspecified (principal)
CPT/HCPCS: 94060; 94727; 94729

== ENCOUNTER → 2024-08-04 | Outpatient (CLI) | payer OTHER, MEDICAID ==
[~2024-08-04] VITALS: Ht 162.6 cm; Wt 108.0 kg
[~2024-08-04] MED LIST changes: -ALBUTEROL SULF 2.5 MG/0.5ML(0.5%) NEB SOLN ONE
[2024-08-04] MEDS: REGADENOSON 0.4 MG/5 ML SYRG IV ONE ×2 (13:45)
== END | disposition home or self-care (01) ==
LOC: XYW 11:33
PROVIDERS: ATTEND Internal Medicine
DX: I11.0 Hypertensive heart disease with heart failure (principal); I50.31 Acute diastolic (congestive) heart failure; E78.5 Hyperlipidemia, unspecified; R73.03 Prediabetes; E66.01 Morbid (severe) obesity due to excess calories; I48.91 Unspecified atrial fibrillation; J44.9 Chronic obstructive pulmonary disease, unspecified
CPT/HCPCS: 78452; 93017; A9500; J2785

== ENCOUNTER 2025-01-14 13:04 | Inpatient (IN) | payer OTHER, MEDICAID ==
[~2025-01-14] VITALS: Ht 154.9 cm; Wt 122.2 kg
[2025-01-14] VITALS (7 sets, daily range): BP systolic 106–153; BP diastolic 57–80; PULSE 54–67; RESP 16–22; TEMP 98–98.1; O2SAT 91–99
--- NOTE | 2025-01-14 13:19 | ECG ---
[facility] Test Date: 2025-01-14 Test Time: 13:09:09 Pat Name: DOMINGUEZ KONG Department: ER Room: [address] [place] [address] Gender: F [employer] Instructor: PETTY : 1975 Requested By: JUSTIAN MARROQUIN Order Number: [id number] Reading MD: Roland Bauman Measurements Intervals [place] Rate: 67 P: 0 SC: 191 QRS: 226 QRSD: 90 T: 51 QT: 441 QTc: 466 Interpretive Statements Sinus rhythm Right axis deviation Borderline low voltage, extremity leads Consider anterior infarct Baseline wander in lead(s) V1,V2 Electronically Signed On 01-14-2025 19:22:50 PDT by Roland Bauman Please click the below link to view image of tracing.
--- NOTE | 2025-01-14 13:20 | ED.PDOC ---
SOB-HPI HPI Comments 49-year-old female brought in by EMS presents with a chief complaint of SOB and cough. Per EMS, mother of patient called EMS due to patients oxygen saturation being low. Patient was sating at 88% on room air and is supposed to be on 5L of home O2. Patient was found without her nasal cannula on. Patient is currently sating at 97% on 4L via NC. Patient denies any chest pain at this time. Patient states that she feels lethargic and has a productive cough. Chief Complaint: Shortness of Breath Time Seen by MD: 13:14 Primary Care Provider: RAYMOND Smyth notes: Malariologist Notes, Medications, Allergies Information Source: Patient, Emergency Med Personnel Mode of Arrival: EMS Severity: Moderate Timing: Hours Duration: Since onset Context: At Rest PE Risk Factors: None History of: COPD, CHF Prehospital treatment: Oxygen Associated Signs and Symptoms: Cough If cough with SOB: Productive Past Medical History PAST MEDICAL HISTORY: AFIB, Anxiety, CHF, CKF, COPD, Depression, High Lipids, HTN, Schizophrenia, Thyroid Surgical History: Cholecystectomy, Thyroidectomy LIVESTOCK TRUCKER History: No Pertinent LIVESTOCK TRUCKER History Family History Family History: Reviewed,noncontributory to illness, Family hx of DM, Family hx of heart laury Social History Smoker: Cigarettes, Less Than 1 Pack/Day Alcohol: Occasionally Drugs: Denies Drug Use Lives In: Home Constitutional: denies: chills, diaphoresis, fatigue, fever, malaise, sweats, weakness, others EENTM: denies: blurred vision, double vision, ear bleeding, ear discharge, ear drainage, ear pain, ear ringing, eye pain, eye redness, hearing loss, mouth pain, mouth swelling, nasal discharge, nose bleeding, nose congestion, nose pain, photophobia, tearing, throat pain, throat swelling, voice changes, others Respiratory: reports: cough, shortness of breath; denies: hemoptysis, orthopnea, SOB at rest, SOB with excertion, stridor, wheezing, others Cardiovascular: denies: chest pain, dizzy spells, diaphoresis, Dyspnea on exertion, edema, irregular heart beat, left arm pain, lightheadedness, palpitations, PND, syncope, others Gastrointestinal: denies: abdomen distended, abdominal pain, blood streaked bowels, constipated, diarrhea, dysphagia, difficulty swallowing, hematemesis, melena, nausea, poor appetite, poor fluid intake, rectal bleeding, rectal pain, vomiting, others Genitourinary: denies: abnormal vagina bleeding, burning, dyspareunia, dysuria, flank pain, frequency, hematuria, incontinence, pain, , vagina discharge, urgency, others Neurological: denies: dizziness, fainting, headache, left sided numbness, left sided weakness, numbness, paresthesia, pre-existing deficit, right sided numbness, right sided weakness, seizure, speech problems, tingling, tremors, weakness, others Musculoskeletal: denies: back pain, gout, joint pain, joint swelling, muscle pain, muscle stiffness, neck pain, others Integumetry: denies: bruises, change in color, change in hair/nails, dryness, laceration, lesions, lumps, rash, wounds, others Allergic/Immunocompromised: denies: Difficulty Healing, Frequent Infections, Hives, Itching, others Hematologic/Lymphatic: denies: anemia, blood clots, easy bleeding, easy bruising, swollen glands, others Endocrine: denies: excessive hunger, excessive sweating, excessive thirst, excessive urination, flushing, intolerance to cold, intolerance to heat, unexplained weight gain, unexplained weight loss, others Psychiatric: denies: anxiety, bipolar disorder, depression, hopeless, panic disorder, schizophrenia, sleepless, suicidal, others All Other Systems: Reviewed and Negative Physical Exam General Appearance: No Apparent Distress, Normal HEENT: Normal ENT Inspection, Pharynx Normal, TMs Normal Neck: Full Range of Motion, Non-Tender, Normal, Normal Inspection Respiratory: Chest Non-Tender, Lungs Clear, No Accessory Muscle Use, No Respiratory Distress, Normal Breath Sounds Cardiovascular: No Edema, No JVD, No Murmur, No Gallop, Normal Peripheral Pulses, Regular Rate/Rhythm Breast Exam: Deferred Gastrointestinal: No Organomegaly, Non Tender, No Pulsatile Mass, Normal Bowel Sounds, Soft Genitalia: Deferred Pelvic: Deferred Rectal: Deferred Extremities: No calf tenderness, Normal capillary refill, Normal range of motion, Non-tender, No pedal edema, Other (DERMATITIS, DISCOLORING) Musculoskeletal : Apperance: Normal Neurologic: Alert, manager sharepoint II-XII nml as Tested, No Motor Deficits, Normal Affect, Normal Mood, No Sensory Deficits Cerebellar Function: Normal Reflexes: Normal Skin: Dry, Normal Color, Warm Lymphatic: No Adenopathy Was a procedure done? Was a procedure done?: No Differential Dx Differential Diagnosis: Anxiety, Asthma, Bronchitis, CHF, COPD, Dysrhythmia, Hyperventilation, Myocardial infarction, Panic Attack, Pneumonia, Pneumothorax, Pulmonary Embolism, Respiratory Distress, URI X-Ray, Labs, Meds, VS Vital Signs Date Time Temp Pulse Resp B/P (MAP) Pulse Ox O2 Delivery O2 Flow Rate FiO2 01/14/25 14:21 98.0 64 20 153/80 (104) 93 98.0 01/14/25 14:21 64 22 93 Nasal Cannula* 4 36 01/14/25 13:32 63 01/14/25 13:10 98.4 70 17 136/83 (100) 97 98.4 01/14/25 13:09 67 Lab Test 01/14/25 13:59 01/14/25 13:39 Range/Units Influenza Type A Antigen Negative Negative Influenza Type B Antigen Negative Negative SARS-CoV-2 Antigen (Rapid) Negative NEGATIVE White Blood Count 8.4 4.4-10.8 10^3/uL Red Blood Count 5.31 H 4.0-5.20 10^6/uL Hemoglobin 15.3 12.2-16.2 g/dL Hematocrit 49.6 H 36.0-46.0 % Mean Corpuscular Volume 93.4 80.0-100.0 fL Mean Corpuscular Hemoglobin 28.7 28.0-32.0 pg Mean Corpuscular Hemoglobin Concent 30.8 L 32.0-36.0 g/dL Red Cell Distribution Width 18.2 H 11.8-14.3 % Platelet Count 234 140-450 10^3/uL Mean Platelet Volume 8.2 6.9-10.8 fL Neutrophils (%) (Auto) 86.9 H 37.0-80.0 % Lymphocytes (%) (Auto) 7.1 L 10.0-50.0 % Monocytes (%) (Auto) 5.2 0.0-12.0 % Eosinophils (%) (Auto) 0.4 0.0-7.0 % Basophils (%) (Auto) 0.4 0.0-2.0 % Neutrophils # (Auto) 7.3 1.6-8.6 10 ^3/uL Lymphocytes # (Auto) 0.6 0.4-5.4 10 ^3/uL Monocytes # (Auto) 0.4 0-1.3 10 ^3/uL Eosinophils # (Auto) 0 0-0.8 10 ^3/uL Basophils # (Auto) 0 0-0.2 10 ^3/uL Nucleated Red Blood Cells 0.3 % Sodium Level 141 136-145 mmol/L Potassium Level 4.4 3.5-5.1 mmol/L Chloride Level 106 98-107 mmol/L Carbon Dioxide Level 30 20-31 mmol/L Anion Gap 5 5-15 Blood Urea Nitrogen 8 L 9-23 mg/dL Creatinine 1.03 H 0.550-1.02 mg/dL Glomerular Filtration Rate Calc 66 >90 mL/min BUN/Creatinine Ratio 7.8 L 10.0-20.0 Serum Glucose 106 74-106 mg/dL Calcium Level 9.9 8.7-10.4 mg/dL Troponin I High Sensitivity 11 </=34 ng/L Time of 1ST Reevaluation: 13:44 Reevaluation 1ST: Unchanged Time of 2ND Reevaluation: 14:40 Reevaluation 2ND: Unchanged Patient Education/Counseling: Diagnosis, Treatment, Prognosis, Need For Follow Up Family Education/Counseling: No Family Present Additional Information Previous visit documents reviewed: August 2024 for HTN, May 2024 for COPD, January 2024 for ALOC, November 2023 for ALOC The following tests were ordered, and results were reviewed by me: Additional Information was gathered from interviewing the following independent historians: EMS/Malariologist I reviewed and agreed with the following test results read by other providers: Radiologist I discussed treatment and results with medical personnel and: Patient pt is resting comfortably, however, on 5L)2, her O2 saturation is just at 90%. cxr suggests chf. she has home O2, but has been noncompliant, and there is poor support. with the worsening of the chf, i will admit her for diuresis. she may need home health to assist with care at home after discharge Departure 1 Departure Time of Disposition: 14:42 Impression: Primary Impression: Acute exacerbation of CHF (congestive heart failure) Qualified Codes: I50.23 - Acute on chronic systolic (congestive) heart richard lure Additional Impression: Acute respiratory failure Qualified Codes: J96.01 - Acute respiratory failure with hypoxia Disposition: 09 ADMITTED INPATIENT Admit to: Tele Condition: Stable Discharged With: Self Critical Care Note Critical Care Time?: Yes (45 min-critical care time only) Critical care comment: Due to concerns for patients condition deteriorating, the care required my highest level of attention and readiness to intervene. I assessed the patient, reviewed the medical records, ordered the appropriate tests and treatments, then reassessed for results and responsiveness. I communicated with medical personnel and consultants and formulated a plan of care. Total critical care time excludes any procedures Stability Stability form required: No Heart Score Heart Score: Heart Score Response (Comments) Value History Slightly Suspicious 0 EKG Normal 0 Age >65 2 Risk Factors 1 or 2 risk factors 1 Troponin Normal limit 0 Total 3 I personally scribed for JUSTINA MARROQUIN MD ([email or web address]) on 01/14/25 at 13:20. Electronically submitted by Cholo Briones ([email or web address]). I personally scribed for JUSTINA MARROQUIN MD ([email or web address]) on 01/14/25 at 13:31. Electronically submitted by Cholo Briones ([email or web address]). JUSTINA MARROQUIN MD Jan 14, 2025 13:20
[2025-01-14 13:48] LABS: Basophils # (auto) 0 10 ^3/uL (0-0.2); Eosinophils # (auto) 0 10 ^3/uL (0-0.8); Eosinophils % (auto) 0.4 % (0.0-7.0); Lymphocytes # (auto) 0.6 10 ^3/uL (0.4-5.4); Mean Corpuscular Hgb Conc. 30.8 g/dL (32.0-36.0)
[2025-01-14 13:50] LABS: Basophils % (auto) 0.4 % (0.0-2.0); Hematocrit 49.6 % (36.0-46.0); Hemoglobin 15.3 g/dL (12.2-16.2); Lymphocytes % (auto) 7.1 % (10.0-50.0); Mean Corpuscular Hemoglobin 28.7 pg (28.0-32.0); Mean Corpuscular Volume 93.4 fL (80.0-100.0); Monocytes # (auto) 0.4 10 ^3/uL (0-1.3); Monocytes % (auto) 5.2 % (0.0-12.0); Neutrophils # (auto) 7.3 10 ^3/uL (1.6-8.6); Neutrophils % (auto) 86.9 % (37.0-80.0); Nucleated Red Blood Cells % 0.3 %; Platelet Count (auto) 234 10^3/uL (140-450); Red Blood Cells 5.31 10^6/uL (4.0-5.20); Red Cell Distribution Width 18.2 % (11.8-14.3); White Blood Cell 8.4 10^3/uL (4.4-10.8)
[2025-01-14 14:05] LABS: Chloride 106 mmol/L (98-107); Potassium 4.4 mmol/L (3.5-5.1); Sodium 141 mmol/L (136-145)
[2025-01-14 14:06] LABS: Anion Gap 5 (5-15); Carbon Dioxide 30 mmol/L (20-31)
[2025-01-14 14:07] LABS: Calcium 9.9 mg/dL (8.7-10.4)
[2025-01-14 14:12] LABS: BUN/Creatinine Ratio 7.8 (10.0-20.0); Glucose 106 mg/dL (74-106)
[2025-01-14 14:19] LABS: Blood Urea Nitrogen 8 mg/dL (9-23)
--- NOTE | 2025-01-14 14:26 | DVH ---
CHEST RADIOGRAPH Indication: sob Technique: Single frontal view of the chest was obtained Comparison: XY CHEST PORTABLE on DOS: 02/07/24, XY CHEST PORTABLE on DOS: 11/22/23, XY CHEST PORTABLE on DOS: 11/21/23 FINDINGS: Lines and Tubes: None Lungs: No focal consolidation. Pleura: No effusion. No pneumothorax. Cardiomediastinal contours: Unremarkable Bones: No acute osseous abnormality. IMPRESSION: 1. Persistent cardiomegaly and mild pulmonary vascular congestion.
[2025-01-14 14:33] LABS: COVID19 ANTIGEN SOFIA FIA NEGATIVE (NEGATIVE); Rapid Influenza A Negative (Negative); Rapid Influenza B Negative (Negative)
[2025-01-14] MEDS: FUROSEMIDE 40 MG/4 ML VIAL ONE (15:14)
[2025-01-14] MEDS: methylPREDNISolone SOD SUCC 125 MG/2 ML VL ONE (15:15)
[2025-01-14] MEDS ORDERED: ALBUTEROL SULF 2.5 MG/0.5ML(0.5%) NEB SOLN NEB SCH (15:15)
[2025-01-14] MEDS ORDERED: IPRATROPIUM BROM 0.5 MG/2.5ML INH SOL NEB SCH (15:15)
--- NOTE | 2025-01-14 15:24 | DVHHP2 ---
Admitting Diagnosis: Shortness of breaths History of Present Illness 49-year-old female brought in by EMS presents with a chief complaint of SOB and cough. Per EMS, mother of patient called EMS due to patients oxygen saturation being low. Patient was sating at 88% on room air and is supposed to be on 5L of home O2. Patient was found without her nasal cannula on. Patient is currently sating at 97% on 4L via NC. Patient denies any chest pain at this time. Patient states that she feels lethargic and has a productive cough. PAST MEDICAL HISTORY: AFIB, Anxiety, CHF, CKF, COPD, Depression, High Lipids, HTN, Schizophrenia, Thyroid Surgical History: Cholecystectomy, Thyroidectomy COIL WINDER HAND History: No Pertinent COIL WINDER HAND History Family History Family History: Reviewed,noncontributory to illness, Family hx of DM, Family hx of heart laury Social History Smoker: Cigarettes, Less Than 1 Pack/Day Alcohol: Occasionally Drugs: Denies Drug Use Lives In: Home Patient Family History: Cardiovascular disease G8 MOTHER, Onset:50's - 60 Hypertension G8 MOTHER Allergies: Coded Allergies: No Known Drug Allergy (Verified Allergy, Unknown, 12/07/22) Home Meds Active Scripts Risperidone (RisperDAL TABLET) 1 Mg Tb, 0.5 MG PO BID for 30 Days, #30 TAB Prov:SHABNAM ANDRADE MD 12/14/22 Sacubitril-Valsartan (Entresto 24-26 mg) 1 Tab Tab, 1 TAB PO BID for 30 Days, #60 TAB Prov:SHABNAM ANDRADE MD 09/18/22 Furosemide (Lasix) 40 Mg Tab, 40 MG PO QAM for 30 Days, #30 TAB Prov:SHABNAM ANDRADE MD 09/18/22 Carvedilol (COREG) 12.5 Mg Tab, 12.5 MG PO Q12HR for 30 Days, #60 TAB Prov:SHABNAM ANDRADE MD 09/18/22 Amlodipine Besylate (Amlodipine Besylate) 10 Mg Tab, 1 TAB PO DAILY for 30 Days, #30 TAB 5 Refills Prov:FLORIDA WATERMAN MD 08/02/22 Spironolactone (Aldactone) 25 Mg Tab, 2 TAB PO DAILY for 30 Days, #60 TAB Prov:FLORIDA WATERMAN MD 08/02/22 [place] Carbonate ([place] Carbonate) 300 Mg Cap, 300 MG PO BID for 30 Days, #60 MG Prov:ANSLEY STEWART MD 08/21/21 Ipratropium [place] Hfa (Atrovent Hfa) 17 Mcg Aer, 17 MCG IN Q6HPRN PRN, #120 DOSE Prov:BRAYAN STEWART MD 01/21/21 Albuterol Sulfate (VENTOLIN MDI) 90 Mcg Ih, 90 MCG IN Q6HPRN PRN, #1 INHALER Prov:BRAYAN STEWART MD 01/21/21 Reported Medications Potassium Chloride (Potassium Chloride ER) 10 Meq Tab, 1 TAB PO DAILY 02/08/24 Lamotrigine (Lamictal) 25 Mg Tab, 2 TAB PO DAILY 02/08/24 Hydroxyzine Hcl (Hydroxyzine Hcl) 25 Mg Tab, 1 TAB PO DAILY 02/08/24 Quetiapine Fumerate (Seroquel) 200 Mg Tab, 1 TAB PO QAM 11/10/23 Gabapentin (Gabapentin) 400 Mg Cap, 1 TAB PO DAILY 11/10/23 Levothyroxine Sodium (Levothyroxine Sodium) 175 Mcg Tab, 1 TAB PO DAILY 03/18/23 Pantoprazole Sodium Sesquihydr (Protonix) 40 Mg Tab, 40 MG PO DAILY, #30 TAB 07/30/22 Apixaban Base (ELIQUIS) 5 Mg Tab, 5 MG PO BID, TAB 01/18/21 Simvastatin (Simvastatin) 20 Mg Tab, 20 MG PO HS for 30 Days 01/17/18 Sertraline Hcl (Sertraline Hcl) 100 Mg Tab, 2 TAB PO QAM 01/17/18 Current Medications Current Medications Medications (Trade) Dose Ordered Sig/Maxim Route PRN Reason Start Time Stop Time Status Last Admin Methylprednisolone Sodium Succinate (Solu Medrol) 62.5 mg Q6H IV 01/14/25 15:15 UNV Albuterol (Ventolin Medneb) 2.5 mg Q6H NEB 01/14/25 15:15 UNV Ipratropium [place] (Atrovent Medneb) 0.5 mg Q6H NEB 01/14/25 15:15 UNV Furosemide (Lasix Injection) 40 mg BID IV 01/14/25 22:00 UNV Apixaban (Eliquis) 5 mg BID PO 01/14/25 22:00 UNV Carvedilol (Coreg Tablet) 12.5 mg Q12HR PO 01/14/25 22:00 UNV Gabapentin (Neurontin Capsule) 400 mg DAILY PO 01/15/25 10:00 UNV Pantoprazole Sodium (Protonix Tablet) 40 mg DAILY PO 01/15/25 10:00 UNV Risperidone (RisperDAL TABLET) 0.5 mg BID PO 01/14/25 22:00 UNV Sacubitril/ Valsartan (Entresto 24-26 Mg tab) 1 tab BID PO 01/14/25 22:00 UNV Spironolactone (Aldactone) 50 mg DAILY PO 01/15/25 10:00 UNV Patient Own Medication 1 tab DAILY PO 01/15/25 10:00 UNV Patient Own Medication 1 tab DAILY PO 01/15/25 10:00 UNV Patient Own Medication 2 tab DAILY PO 01/15/25 10:00 UNV Patient Own Medication 1 tab DAILY PO 01/15/25 10:00 UNV Patient Own Medication 300 mg BID PO 01/14/25 22:00 UNV Patient Own Medication 1 tab QAM PO 01/15/25 07:00 UNV Patient Own Medication 2 tab QAM PO 01/15/25 07:00 UNV Patient Own Medication 20 mg HS PO 01/14/25 22:00 UNV Vital Signs Vital Signs Date Time Temp Pulse Resp B/P (MAP) Pulse Ox O2 Delivery O2 Flow Rate FiO2 01/14/25 14:21 98.0 64 20 153/80 (104) 93 98.0 01/14/25 14:21 Nasal Cannula* 4 36 Physical Exam Generally-49 years old woman, overweight, lying in bed. No apparent distress on nasal cannula HEENT-atraumatic normocephalic Heart-regular rate and rhythm Lungs decreased breath sounds bilaterally, mild crackles in bilateral lower lung powell Abdomen soft nontender nondistended Musculoskeletal-pedal edema, no cyanosis Results Labs Test 01/14/25 14:55 01/14/25 13:59 01/14/25 13:39 Range/Units Blood Gas Specimen Type Venous Blood Gas Sample Site Vbg - n/a Blood Gas Patient Temperature 37.0 Arterial Blood Date Drawn [id number] Arturo Test N/a Venous Blood pH 7.372 7.320-7.430 Venous Blood pCO2 at Patient Temp 42.5 38.0-54.0 mmHg Venous Blood pO2 at Patient Temp 65.5 H 23.0-48.0 mmHg Venous Blood HCO3 24.1 22.0-29.0 mmol/L Venous Blood Base Excess -1.2 -2.0-3.0 mmol/L Blood Gas Liter Flow 5.00 Blood Gas Modality Nasal cannula FiO2 % 40.0 Influenza Type A Antigen Negative Negative Influenza Type B Antigen Negative Negative SARS-CoV-2 Antigen (Rapid) Negative NEGATIVE White Blood Count 8.4 4.4-10.8 10^3/uL Red Blood Count 5.31 H 4.0-5.20 10^6/uL Hemoglobin 15.3 12.2-16.2 g/dL Hematocrit 49.6 H 36.0-46.0 % Mean Corpuscular Volume 93.4 80.0-100.0 fL Mean Corpuscular Hemoglobin 28.7 28.0-32.0 pg Mean Corpuscular Hemoglobin Concent 30.8 L 32.0-36.0 g/dL Red Cell Distribution Width 18.2 H 11.8-14.3 % Platelet Count 234 140-450 10^3/uL Mean Platelet Volume 8.2 6.9-10.8 fL Neutrophils (%) (Auto) 86.9 H 37.0-80.0 % Lymphocytes (%) (Auto) 7.1 L 10.0-50.0 % Monocytes (%) (Auto) 5.2 0.0-12.0 % Eosinophils (%) (Auto) 0.4 0.0-7.0 % Basophils (%) (Auto) 0.4 0.0-2.0 % Neutrophils # (Auto) 7.3 1.6-8.6 10 ^3/uL Lymphocytes # (Auto) 0.6 0.4-5.4 10 ^3/uL Monocytes # (Auto) 0.4 0-1.3 10 ^3/uL Eosinophils # (Auto) 0 0-0.8 10 ^3/uL Basophils # (Auto) 0 0-0.2 10 ^3/uL Nucleated Red Blood Cells 0.3 % Sodium Level 141 136-145 mmol/L Potassium Level 4.4 3.5-5.1 mmol/L Chloride Level 106 98-107 mmol/L Carbon Dioxide Level 30 20-31 mmol/L Anion Gap 5 5-15 Blood Urea Nitrogen 8 L 9-23 mg/dL Creatinine 1.03 H 0.550-1.02 mg/dL Glomerular Filtration Rate Calc 66 >90 mL/min BUN/Creatinine Ratio 7.8 L 10.0-20.0 Serum Glucose 106 74-106 mg/dL Calcium Level 9.9 8.7-10.4 mg/dL Troponin I High Sensitivity 11 </=34 ng/L Primary Diagnosis Acute hypoxic respiratory failure likely due to COPD exacerbation and CHF exacerbation Plan Solu-Medrol 60 mg q.6 hours Albuterol and ipratropium q.6 hours nebulizer Oxygen saturation goal greater than 92% Check VBG and BNP Switch to oral prednisone once aeration of the lungs improved Lasix 40 mg b.i.d. Daily weight Strict in and Fluid restriction 1.5 L daily Potassium greater than four, magnesium greater than two while diuresis Resume home meds Monitor oxygen saturation Full code Eliquis for DVT prophylaxis PPI for GI prophylaxis Cardiac diet Plan discussed with: Patient Date of Service: Jan 14, 2025 Billing Provider: CA VIERA MD Common Visit Codes: [id number] INP/OBS CARE (HIGH) CA VIERA MD Jan 14, 2025 15:23
[2025-01-14] MEDS ORDERED: HYDROmorphone HCL 2 MG/ML VL/or syr IV PRN (15:30)
[2025-01-14] MEDS ORDERED: ONDANSETRON HCL 4 MG/2 ML VIAL IV PRN (15:30)
[2025-01-14] MEDS ORDERED: DOCUSATE SOD 100 MG CAP PO PRN (15:30)
[2025-01-14] MEDS ORDERED: HYDROcodone-ACET 5/325MG TAB PO PRN (15:30)
[2025-01-14] MEDS ORDERED: ACETAMINOPHEN 325 MG TAB PO PRN (15:30)
[2025-01-14] MEDS: methylPREDNISolone SOD SUCC 125 MG/2 ML VL IV SCH (16:13)
[2025-01-14] MEDS: FUROSEMIDE 40 MG/4 ML VIAL IV ONE (16:14)
[2025-01-14] MEDS: IPRATROPIUM BROM 0.5 MG/2.5ML INH SOL NEB SCH (18:01)
[2025-01-14] MEDS: ALBUTEROL SULF 2.5 MG/0.5ML(0.5%) NEB SOLN NEB SCH (18:01)
[2025-01-14] MEDS: hydrALAZINE HCL 20 MG/ML VL IV PRN (18:51)
[2025-01-14] MEDS ORDERED: CARVEDILOL 12.5 MG TAB PO SCH (21:00)
[2025-01-14] MEDS: hydrOXYzine 25 MG TAB or CAP PO ONE (21:15)
[2025-01-14] MEDS: amLODIPine BESYLATE 5 MG TAB PO ONE (21:15)
--- NOTE | 2025-01-14 21:28 | DVHSR ---
APPROVED REPORT EXAM: Two-dimensional and M-mode echocardiogram with Doppler and color Doppler. Blood Pressure: 153/80 mmHg INDICATION CHF exacerbation RISK FACTORS Height: 61, Weight: 276 DIMENSIONS LVDd5.1 (3.8-5.7cm)LA (2D)4.2 (1.9-4.0cm)Aortic Root3.5 (2.0-3.7cm) LVDs3.6 (2.5-4.0cm)LA (MM) (1.9-4.0cm)Aortic Cusp Exc1.8 (1.5-2.0cm) EF (%) 55.0 (55-70%)Rt. Atrium6.9 (1.9-4.0cm)Asc. Aorta cm IVSd1.4 (0.7-1.1cm)RV (D) (1.8-2.4cm) PWd1.1 (0.7-1.1cm) Mitral Valve MitralMitral Stenosis E wave1.16m/sMV Mean GR.mmHg A wave0.82m/sMV Peak GR.mmHg E/A ratio1.42D MVAcm2 DECEL [id number] 1/2 [id number] IVRTmsDop MVA2.82cm2 Aortic Valve Aortic ValveAortic Stenosis V11.16m/[place] Mean GR.5mmHg V21.85m/[place] Peak GR.14mmHg LVOT Diameter2.1 (1.8-2.4cm)Doppler AVA2.17cm2 Pulmonic Valve V21.07m/s Tricuspid Valve TR Velocity3.71m/s [id number] Other Information Technically limited study due to body habitus and patient position. Conclusion LV EF IS 65% AND IS NORMAL MODERATLY DILATED RV AND RA SEVERE PULMONARYHYPERTENSION RVSP IS 72 MM OF HG AND IS VERY HIGH GROSSLY NORMAL VALVES NO EFFUSION
[2025-01-14] MEDS: LABETALOL HCL 20 MG/4 ML VL IV PRN (21:50)
[2025-01-14] MEDS ORDERED: SACUBITRIL-VALSARTAN 24mg/26mg TAB PO SCH (22:00)
[2025-01-14] MEDS ORDERED: risperiDONE 1 MG TAB PO SCH (22:00)
[2025-01-14] MEDS: ATORVASTATIN 20 MG TAB PO SCH (22:14)
[2025-01-14] MEDS: APIXABAN 5 MG TAB PO SCH (22:14)
[2025-01-14] MEDS: LITHIUM CARBONATE 300 MG TAB PO SCH (22:14)
[2025-01-14] MEDS: FUROSEMIDE 40 MG/4 ML VIAL IV SCH (22:15)
[2025-01-14] MEDS: SODIUM CHLOR 0.9% PF (SALINE LOCK) 10ML VIAL/SYR IV SCH (22:15)
[2025-01-15] VITALS (18 sets, daily range): BP systolic 112–181; BP diastolic 65–96; PULSE 60–75; RESP 12–20; TEMP 98–98.6; O2SAT 92–100
[2025-01-15 06:19] LABS: Hematocrit 50.6 % (36.0-46.0); Mean Corpuscular Hemoglobin 29.4 pg (28.0-32.0); Mean Corpuscular Hgb Conc. 31.7 g/dL (32.0-36.0); Mean Corpuscular Volume 92.9 fL (80.0-100.0); Platelet Count (auto) 247 10^3/uL (140-450); Red Blood Cells 5.44 10^6/uL (4.0-5.20); Red Cell Distribution Width 17.9 % (11.8-14.3); White Blood Cell 7.4 10^3/uL (4.4-10.8)
[2025-01-15] MEDS: QUEtiapine FUMARATE 100 MG TAB PO SCH (06:32)
[2025-01-15] MEDS: LEVOTHYROXINE SODIUM 100 MCG TAB PO SCH (06:32)
[2025-01-15] MEDS: LEVOTHYROXINE SODIUM 25 MCG TAB PO SCH (06:32)
[2025-01-15 06:37] LABS: Basophils % (manual) 0 (0.0-2.0); Blast Cells 0; Eosinophils % (manual) 0 (0-7); Metamyelocytes % 0; Myelocytes % 0; Promyelocytes % 0; Reactive Lymphocytes 0
[2025-01-15 06:40] LABS: Alanine Aminotransferase 12 U/L (7-40); Alkaline Phosphatase 98 U/L (46-116); Anion Gap 9 (5-15); Chloride 104 mmol/L (98-107); Potassium 4.1 mmol/L (3.5-5.1)
[2025-01-15 06:41] LABS: BUN/Creatinine Ratio 11.9 (10.0-20.0); Blood Urea Nitrogen 12 mg/dL (9-23); Magnesium 2.1 mg/dL (1.6-2.6); Total Protein 7.6 g/dL (5.7-8.2)
[2025-01-15 06:42] LABS: Albumin 4.3 g/dL (3.2-4.8); Aspartate Aminotransferase 17 U/L (13-40); Calcium 10.6 mg/dL (8.7-10.4); Carbon Dioxide 32 mmol/L (20-31); Glucose 106 mg/dL (74-106); Sodium 145 mmol/L (136-145)
[2025-01-15 08:46] LABS: Band Neutrophils % (manual) 7; Lymphocytes % (manual) 1 (10.0-50.0); Monocytes % (manual) 1 (0-12); Platelet Estimate Adequate
[2025-01-15] MEDS ORDERED: GABAPENTIN 400 MG CAP PO SCH (10:00)
[2025-01-15] MEDS ORDERED: amLODIPine BESYLATE 5 MG TAB PO SCH (10:00)
[2025-01-15] MEDS ORDERED: hydrOXYzine 25 MG TAB or CAP PO SCH (10:00)
[2025-01-15] MEDS: lamoTRIgine 25 MG TAB PO SCH (10:23)
[2025-01-15] MEDS: PANTOPRAZOLE 40 MG TAB PO SCH (10:24)
[2025-01-15] MEDS: SPIRONOLACTONE 25 MG TAB PO SCH (10:26)
[2025-01-15] MEDS: LOSARTAN POTASSIUM 50 MG TAB PO SCH (11:46)
[2025-01-15 15:26] LABS: Base Excess 10.1 mmol/L (-2.0-3.0)
--- NOTE | 2025-01-15 17:13 | DVHPNRES ---
Progress Note Date Seen: Jan 15, 2025 Resident Creating Document: MADI GIRARD RESIDENT Medical Necessity Reason Pt with a Central, PICC or Fol: Yes The following are medically ne: Mccoy Catheter Subjective Review of Systems Patient is a 49-year-old female brought in by EMS presents with a chief complaint of SOB and cough. Per EMS, mother of patient called EMS due to patients oxygen saturation being low. Patient was sating at 88% on room air and is supposed to be on 5L of home O2. Patient was found without her nasal cannula on. Patient is currently sating at 97% on 4L via NC. Patient denies any chest pain at this time. Patient states that she feels lethargic and has a productive cough. Past medical history: Atrial fibrillation, anxiety, CHF, CKD, COPD, depression, schizophrenia, hypothyroidism, hyperlipidemia, hypertension Past surgical history: Cholecystectomy, thyroidectomy Social history: Patient is smokes cigarettes less than 1 pack day, occasional alcohol use, denies illegal drug use and lives at home with mother Home Medications: Amlodipine 10 mg, Eliquis 5 mg b.i.d., carvedilol 25 mg q.12 hours, Lasix 40 mg q.a.m., lamotrigine 50 mg, levothyroxine 175 mcg, lithium 300 mg b.i.d. Protonix, quetiapine 100 mg, risperidone 0.5 mg b.i.d., Entresto 24-26 1 tab p.o. b.i.d., spironolactone 50 mg, simvastatin 20 mg Review of systems Patient seen and examined at the bedside Patient was somnolent but wakes up to physical stimulation, alert and oriented X 2 but is confused, follows some commands Denies feeling short of breath while on oxygen 4-5 liter/minute, denies chest pain, palpitations, headache Objective vital signs Vital Sign Date Time Temp Pulse Resp B/P (MAP) Pulse Ox O2 Delivery O2 Flow Rate FiO2 01/15/25 12:30 98.6 65 14 149/80 (103) 92 98.6 01/15/25 10:00 Nasal Cannula* 6 44 Total Intake and Output 01/14/25 01/14/25 01/15/25 15:00 23:00 07:00 Intake Total 0 ml Output Total 2000 ml 3650 ml Balance -2000 ml -3650 ml medications Current Medications Medications Dose Ordered Sig/Maxim Route Start Time Stop Time Status Last Admin Dose Admin Furosemide 40 mg BID IV 01/14/25 22:00 01/15/25 10:26 40 MG Apixaban 5 mg BID PO 01/14/25 22:00 01/15/25 10:23 5 MG Pantoprazole Sodium 40 mg DAILY PO 01/15/25 10:00 01/15/25 10:24 40 MG Spironolactone 50 mg DAILY PO 01/15/25 10:00 01/15/25 10:26 50 MG Hydroxyzine Pamoate 25 mg DAILY PO 01/15/25 10:00 Hold Lamotrigine 50 mg DAILY PO 01/15/25 10:00 01/15/25 10:23 50 MG Levothyroxine Sodium 100 mcg QAM PO 01/15/25 07:00 [place] Carbonate 300 mg BID PO 01/14/25 22:00 01/15/25 10:23 300 MG Quetiapine Fumarate 200 mg QAM PO 01/15/25 07:00 Sertraline HCl 200 mg HS PO 01/15/25 22:00 Atorvastatin Calcium 10 mg HS PO 01/14/25 22:00 01/14/25 22:14 10 MG Sodium Chloride 10 ml Q8HR IV 01/14/25 22:00 01/15/25 14:42 10 ML Acetaminophen 650 mg Q6HP PRN PO 01/14/25 15:30 Acetaminophen/ Hydrocodone Bitart 1 tab Q4HP PRN PO 01/14/25 15:30 Ondansetron HCl 4 mg Q4HP PRN IV 01/14/25 15:30 Albuterol 2.5 mg Q6H NEB 01/14/25 18:00 01/15/25 06:15 2.5 MG Ipratropium [place] 0.5 mg Q6H NEB 01/14/25 18:00 01/15/25 11:59 0.5 MG Levothyroxine Sodium 75 mcg QAM PO 01/15/25 07:00 Losartan Potassium 50 mg DAILY PO 01/15/25 10:00 01/15/25 11:46 50 MG Examination Constitutional: Patient was alert and oriented x2 and does not appear to be in acute respiratory distress Gen - no pallor, no icterus, no cyanosis, no clubbing, no LAD, no edema . Skin - Patients skin is warm and dry.. HEENT - normocephalic, atraumatic, dry mucous membranes. Neck - full ROM, no LAD, no JVD Pulmonary - B/L diminished breath sounds with basilar crackles, no wheezing, no stridor. cardiovascular - normal S1,S2 heard. no murmurs heard. peripheral pulses normal radial 2+, pedal 2+. GI - soft abdomen without tenderness to palpation. no hepatospleenomegaly. Bowel sounds normoactive Neurological - patient is somnolent and not able to follow all the commands but was able to raise her right leg up on asking. laboratory and microbiology Laboratory Tests 01/15/25 04:48 Test 01/15/25 04:48 Range/Units Serum Glucose 106 74-106 mg/dL Problem List/Assessment/Plan Problem List/Assessment/Plan Assessment Acute metabolic encephalopathy likely due to polypharmacy/lithium toxicity vs infection ?UTI Acute on chronic hypoxic respiratory failure ?Community-acquired pneumonia due to Gram-negative/atypical bacteria Acute exacerbation of heart failure with preserved ejection fraction Pulmonary hypertension likely due to JAYDEN vs OHS Hypertensive urgency History of schizophrenia History of depression History of paroxysmal atrial fibrillation Chest x-ray shows cardiomegaly with pulmonary vascular congestion and likely interstitial pulmonary edema Echo shows LVEF 65% with moderately dilated right ventricle and right atria, severe pulmonary hypertension with RVSP of 72 mmHg ABG showed pH 7.47, bicarb 35.7, pCO2 50.1 Plan - patient currently continued on psych home medication sertraline, quetiapine, lithium, lamotrigine - blood lithium levels pending and dosage will be adjusted if supratherapeutic - diuresis with the Lasix 40 mg IV b.i.d. with a goal of -2 L balance over next 24 hours - continued on spironolactone, losartan, Eliquis, amlodipine, carvedilol - IV ceftriaxone and p.o. doxycycline for empiric coverage for CAP - patient on 5 L oxygen via nasal cannula, will be put on BiPAP for night Goals of care: Full code Plan discussed with Dr. Quarles Plan discussed with: Other (RN ( [place] )) My Orders My Orders Orders - MADI GIRARD RESIDENT Procedure Category Date Status Time Losartan Tablet PHA 01/15/25 In Process (Cozaar Tablet) 10:00 [place] ([place]) LAB 01/15/25 In Process 13:31 Abg W/ Co-Ox RT 01/15/25 Logged 15:08 Urinalysis LAB 01/15/25 Logged 15:11 Date of Service: Jan 15, 2025 Billing Provider: CARROL QUARLES MD Common Visit Codes: [id number] INP/OBS CARE(HIGH) MADI GIRARD RESIDENT Jan 15, 2025 17:13 CARROL QUARLES MD Jan 16, 2025 14:48
[2025-01-15] MEDS: cefTRIAXone 1GM/50ML D5W 50 ML IV ONE (17:39)
[2025-01-15] MEDS: amLODIPine BESYLATE 5 MG TAB PO ONE (17:39)
[2025-01-15 18:23] LABS: Urine Bacteria None Seen /hpf (None Seen)
[2025-01-15 18:47] LABS: Urine Blood 1+ /uL (Negative); Urine Clarity Clear (Clear); Urine Color Light-Yellow (Yellow); Urine Protein, UAD Negative (Negative); Urine Specific Gravity 1.007 (1.001-1.035); Urine Squamous Epithelial Cell FEW /hpf (<5); Urine Urobilinogen Normal (Negative); Urine WBC 1 /HPF (0-5); Urine pH 6.5 (5.0-9.0)
[2025-01-15] MEDS: DOXYCYCLINE 100 MG TAB/CAP PO SCH (21:36)
[2025-01-15] MEDS: SERTRALINE HCL 50 MG TAB PO SCH (21:37)
[2025-01-15] MEDS: CARVEDILOL 12.5 MG TAB PO SCH (22:50)
[2025-01-16] VITALS (21 sets, daily range): BP systolic 119–166; BP diastolic 44–100; PULSE 55–66; RESP 16–22; TEMP 97.3–98.6; O2SAT 91–99
[2025-01-16 06:37] LABS: Alanine Aminotransferase 16 U/L (7-40); Alkaline Phosphatase 87 U/L (46-116); Anion Gap 9 (5-15); BUN/Creatinine Ratio 13.3 (10.0-20.0); Blood Urea Nitrogen 15 mg/dL (9-23); Calcium 10.3 mg/dL (8.7-10.4); Chloride 98 mmol/L (98-107); Glucose 91 mg/dL (74-106); Magnesium 2.1 mg/dL (1.6-2.6); Potassium 4.1 mmol/L (3.5-5.1); Sodium 143 mmol/L (136-145); Total Protein 7.2 g/dL (5.7-8.2)
[2025-01-16 06:38] LABS: Albumin 4.2 g/dL (3.2-4.8); Aspartate Aminotransferase 32 U/L (13-40)
[2025-01-16 06:39] LABS: Carbon Dioxide 36 mmol/L (20-31)
[2025-01-16 06:54] LABS: Basophils # (auto) 0 10 ^3/uL (0-0.2); Basophils % (auto) 0.2 % (0.0-2.0); Eosinophils # (auto) 0 10 ^3/uL (0-0.8); Eosinophils % (auto) 0.4 % (0.0-7.0); Hematocrit 49.7 % (36.0-46.0); Hemoglobin 15.9 g/dL (12.2-16.2); Lymphocytes # (auto) 0.8 10 ^3/uL (0.4-5.4); Lymphocytes % (auto) 8.7 % (10.0-50.0); Mean Corpuscular Hemoglobin 29.5 pg (28.0-32.0); Monocytes # (auto) 0.6 10 ^3/uL (0-1.3); Monocytes % (auto) 6.5 % (0.0-12.0); Neutrophils # (auto) 7.8 10 ^3/uL (1.6-8.6); Neutrophils % (auto) 84.2 % (37.0-80.0); Nucleated Red Blood Cells % 0.4 %; Platelet Count (auto) 291 10^3/uL (140-450); Red Cell Distribution Width 17.2 % (11.8-14.3); White Blood Cell 9.2 10^3/uL (4.4-10.8)
[2025-01-16 09:34] LABS: Base Excess 12.5 mmol/L (-2.0-3.0)
[2025-01-16] MEDS: cefTRIAXone 1GM/50ML D5W 50 ML IV SCH (11:01)
[2025-01-16] MEDS: amLODIPine BESYLATE 5 MG TAB PO SCH (13:21)
--- NOTE | 2025-01-16 20:35 | DVHPNRES ---
Progress Note Date Seen: Jan 16, 2025 Resident Creating Document: JHAJJMADI RESIDENT Medical Necessity Reason Pt with a Central, PICC or Fol: Yes The following are medically ne: Mccoy Catheter Subjective Review of Systems Patient seen and examined at the bedside Patient was more awake and had spontaneous eye opening and was following commands Denied feeling short of breath while on oxygen at 4 liter/minute which is her home baseline, denied chest pain, palpitations or headache Objective vital signs Vital Sign Date Time Temp Pulse Resp B/P (MAP) Pulse Ox O2 Delivery O2 Flow Rate FiO2 01/16/25 19:43 59 16 95 01/16/25 19:35 Nasal Cannula* 4 36 01/16/25 16:40 98.5 147/92 (110) 98.5 Total Intake and Output 01/15/25 01/15/25 01/16/25 15:00 23:00 07:00 Intake Total 590 ml 520 ml Output Total 2800 ml 2700 ml Balance -2210 ml -2180 ml medications Current Medications Medications Dose Ordered Sig/Maxim Route Start Time Stop Time Status Last Admin Dose Admin Apixaban 5 mg BID PO 01/14/25 22:00 01/16/25 10:59 5 MG Pantoprazole Sodium 40 mg DAILY PO 01/15/25 10:00 01/16/25 11:00 40 MG Spironolactone 50 mg DAILY PO 01/15/25 10:00 01/16/25 10:54 50 MG Hydroxyzine Pamoate 25 mg DAILY PO 01/15/25 10:00 Hold Lamotrigine 50 mg DAILY PO 01/15/25 10:00 01/16/25 10:59 50 MG Levothyroxine Sodium 100 mcg QAM PO 01/15/25 07:00 01/16/25 06:16 100 MCG [place] Carbonate 300 mg BID PO 01/14/25 22:00 01/16/25 10:54 300 MG Quetiapine Fumarate 200 mg QAM PO 01/15/25 07:00 01/16/25 06:16 200 MG Sertraline HCl 200 mg HS PO 01/15/25 22:00 01/15/25 21:37 200 MG Atorvastatin Calcium 10 mg HS PO 01/14/25 22:00 01/15/25 21:37 10 MG Sodium Chloride 10 ml Q8HR IV 01/14/25 22:00 01/16/25 13:21 10 ML Acetaminophen 650 mg Q6HP PRN PO 01/14/25 15:30 Acetaminophen/ Hydrocodone Bitart 1 tab Q4HP PRN PO 01/14/25 15:30 Ondansetron HCl 4 mg Q4HP PRN IV 01/14/25 15:30 Albuterol 2.5 mg Q6H NEB 01/14/25 18:00 01/16/25 19:41 2.5 MG Ipratropium [place] 0.5 mg Q6H NEB 01/14/25 18:00 01/16/25 19:41 0.5 MG Levothyroxine Sodium 75 mcg QAM PO 01/15/25 07:00 01/16/25 06:16 75 MCG Losartan Potassium 50 mg DAILY PO 01/15/25 10:00 01/16/25 11:00 50 MG Ceftriaxone Sodium 50 ml @ 100 mls/hr DAILY@09 IV 01/16/25 09:00 01/16/25 11:01 100 MLS/HR Doxycycline Monohydrate 100 mg Q12HR PO 01/15/25 22:00 01/16/25 10:56 100 MG Carvedilol 12.5 mg Q12HR PO 01/15/25 22:00 01/16/25 10:58 12.5 MG Amlodipine Besylate 10 mg DAILY PO 01/16/25 13:00 01/16/25 13:21 10 MG Furosemide 40 mg DAILY IV 01/17/25 10:00 Examination Constitutional: Patient was alert and oriented x2 and does not appear to be in acute respiratory distress Gen - no pallor, no icterus, no cyanosis, no clubbing, no LAD, no edema . Skin - Patients skin is warm and dry.. HEENT - normocephalic, atraumatic, dry mucous membranes. Neck - full ROM, no LAD, no JVD Pulmonary - B/L diminished breath sounds with basilar crackles, no wheezing, no stridor. cardiovascular - normal S1,S2 heard. no murmurs heard. peripheral pulses normal radial 2+, pedal 2+. GI - soft abdomen without tenderness to palpation. no hepatospleenomegaly. Bowel sounds normoactive Neurological - bilateral upper extremity strength 4/5, bilateral lower extremity strength 3/5, no facial droop, normal speech, no tremor, no sensory deficiets. laboratory and microbiology Laboratory Tests 01/16/25 04:35 Test 01/16/25 04:35 Range/Units Serum Glucose 91 74-106 mg/dL Problem List/Assessment/Plan Problem List/Assessment/Plan Assessment Acute metabolic encephalopathy likely due to polypharmacy/lithium toxicity vs infection ?UTI Acute on chronic hypoxic respiratory failure ?Community-acquired pneumonia due to Gram-negative/atypical bacteria Acute exacerbation of heart failure with preserved ejection fraction Pulmonary hypertension likely due to JAYDEN vs OHS Respiratory acidosis with metabolic alkalosis likely chronic Hypertensive urgency History of schizophrenia History of depression History of paroxysmal atrial fibrillation Chest x-ray shows cardiomegaly with pulmonary vascular congestion and likely interstitial pulmonary edema Echo shows LVEF 65% with moderately dilated right ventricle and right atria, severe pulmonary hypertension with RVSP of 72 mmHg ABG showed pH 7.47, bicarb 35.7, pCO2 50.1 Plan - patient currently continued on psych home medication sertraline, quetiapine, lithium, lamotrigine - blood lithium levels pending and dosage will be adjusted if supratherapeutic - diuresis with the Lasix 40 mg IV daily. with a goal of -1 L balance over next 24 hours - continued on spironolactone, losartan, Eliquis, amlodipine, carvedilol - IV ceftriaxone and p.o. doxycycline for empiric coverage for CAP - patient on 5 L oxygen via nasal cannula, will be put on BiPAP for night Goals of care: Full code Plan discussed with Dr. Quarles Plan discussed with: Other (RN ( [place] )) My Orders My Orders Orders - MADI GIRARD Procedure Category Date Status Time Bipap/Cpap For Sleep RT 01/15/25 Logged Apnea 21:41 Abg W/ Co-Ox RT 01/16/25 Logged 08:50 Furosemide Injection PHA 01/17/25 In Process (Lasix Injection) 10:00 Date of Service: Jan 16, 2025 Billing Provider: CARROL QUARLES MD Common Visit Codes: [id number] INP/OBS CARE(HIGH) MADI GIRARD RESIDENT Jan 16, 2025 20:35 CARROL QUARLES MD Jan 18, 2025 08:41
[2025-01-17] VITALS (18 sets, daily range): BP systolic 105–147; BP diastolic 62–82; PULSE 55–69; RESP 16–19; TEMP 97.9–98.8; O2SAT 91–98
[2025-01-17 06:59] LABS: Alanine Aminotransferase 13 U/L (7-40); Albumin 4.2 g/dL (3.2-4.8); Alkaline Phosphatase 79 U/L (46-116); Aspartate Aminotransferase 19 U/L (13-40); BUN/Creatinine Ratio 18.3 (10.0-20.0); Blood Urea Nitrogen 20 mg/dL (9-23); Glucose 93 mg/dL (74-106); Magnesium 2.1 mg/dL (1.6-2.6); Potassium 3.5 mmol/L (3.5-5.1); Sodium 143 mmol/L (136-145); Total Protein 7.3 g/dL (5.7-8.2)
[2025-01-17 07:01] LABS: Chloride 98 mmol/L (98-107)
[2025-01-17 07:02] LABS: Anion Gap 4.99999 (5-15); Calcium 10.5 mg/dL (8.7-10.4)
[2025-01-17 07:03] LABS: Carbon Dioxide > 40 mmol/L (20-31)
[2025-01-17 07:29] LABS: Basophils # (auto) 0 10 ^3/uL (0-0.2); Basophils % (auto) 0.3 % (0.0-2.0); Eosinophils # (auto) 0.1 10 ^3/uL (0-0.8); Eosinophils % (auto) 1.4 % (0.0-7.0); Hemoglobin 16.7 g/dL (12.2-16.2); Lymphocytes # (auto) 0.8 10 ^3/uL (0.4-5.4); Lymphocytes % (auto) 9.5 % (10.0-50.0); Mean Corpuscular Hemoglobin 28.6 pg (28.0-32.0); Mean Corpuscular Hgb Conc. 30.9 g/dL (32.0-36.0); Mean Corpuscular Volume 92.6 fL (80.0-100.0); Monocytes # (auto) 0.7 10 ^3/uL (0-1.3); Monocytes % (auto) 7.6 % (0.0-12.0); Neutrophils # (auto) 7.1 10 ^3/uL (1.6-8.6); Neutrophils % (auto) 81.2 % (37.0-80.0); Nucleated Red Blood Cells % 0.5 %; Platelet Count (auto) 252 10^3/uL (140-450); Red Blood Cells 5.83 10^6/uL (4.0-5.20); Red Cell Distribution Width 18.1 % (11.8-14.3); White Blood Cell 8.7 10^3/uL (4.4-10.8)
[2025-01-17 07:32] LABS: Base Excess 8.3 mmol/L (-2.0-3.0)
[2025-01-17] MEDS: FUROSEMIDE 40 MG/4 ML VIAL IV SCH (10:07)
[2025-01-17] MEDS ORDERED: QUET50TA PO (16:25)
--- NOTE | 2025-01-17 20:18 | DVHDSRES ---
Discharge Summary Date of Admission Resident Creating Document: MADI GIRARD RESIDENT Jan 14, 2025 at 15:19 Date of Discharge: Jan 17, 2025 Admitting Diagnosis Acute hypoxic respiratory failure likely due to COPD exacerbation and CHF exacerbation Wounds: none Labs/Diagnostic Data: Laboratory Results Test 01/17/25 07:25 01/17/25 05:41 01/16/25 09:06 01/15/25 17:45 Blood Gas Specimen Type Arterial Blood Gas Sample Site Left radial Blood Gas Patient Temperature 37.0 Arterial Blood Date Drawn [id number] Arterial Blood pH 7.392 (7.350-7.450) Arterial Blood Partial Pressure CO2 60.7 mmHg (32.0-45.0) Arterial Blood Partial Pressure O2 68.8 mmHg (83.0-108.0) Arterial Blood HCO3 36.1 mmol/L (21.0-28.0) Arterial Blood Oxygen Saturation 91.1 % (94.0-98.0) Arterial Blood Base Excess 8.3 mmol/L (-2.0-3.0) Arterial Blood Oxyhemoglobin 89.3 % (94.0-98.0) Arterial Blood Carboxyhemoglobin 1.5 % (0.5-1.5) Arterial Blood Methemoglobin 0.5 % (0.0-1.5) Arturo Test Yes Blood Gas Total Hemoglobin 17.40 g/dL (12.0-16.0) Blood Gas Liter Flow 4.00 Blood Gas Modality Nasal cannula FiO2 % 36.0 Blood Gas Critical Value Read Back yes Blood Gas Notified Whom Blood Gas Notified Time [id number] Blood Gas Notified By alannah ortega White Blood Count 8.7 10^3/uL (4.4-10.8) Red Blood Count 5.83 10^6/uL (4.0-5.20) Hemoglobin 16.7 g/dL (12.2-16.2) Hematocrit 54.0 % (36.0-46.0) Mean Corpuscular Volume 92.6 fL (80.0-100.0) Mean Corpuscular Hemoglobin 28.6 pg (28.0-32.0) Mean Corpuscular Hemoglobin Concent 30.9 g/dL (32.0-36.0) Red Cell Distribution Width 18.1 % (11.8-14.3) Platelet Count 252 10^3/uL (140-450) Mean Platelet Volume 8.0 fL (6.9-10.8) Neutrophils (%) (Auto) 81.2 % (37.0-80.0) Lymphocytes (%) (Auto) 9.5 % (10.0-50.0) Monocytes (%) (Auto) 7.6 % (0.0-12.0) Eosinophils (%) (Auto) 1.4 % (0.0-7.0) Basophils (%) (Auto) 0.3 % (0.0-2.0) Neutrophils # (Auto) 7.1 10 ^3/uL (1.6-8.6) Lymphocytes # (Auto) 0.8 10 ^3/uL (0.4-5.4) Monocytes # (Auto) 0.7 10 ^3/uL (0-1.3) Eosinophils # (Auto) 0.1 10 ^3/uL (0-0.8) Basophils # (Auto) 0 10 ^3/uL (0-0.2) Nucleated Red Blood Cells 0.5 % Sodium Level 143 mmol/L (136-145) Potassium Level 3.5 mmol/L (3.5-5.1) Chloride Level 98 mmol/L (98-107) Carbon Dioxide Level > 40 mmol/L (20-31) Anion Gap 4.88983 (5-15) Blood Urea Nitrogen 20 mg/dL (9-23) Creatinine 1.09 mg/dL (0.550-1.02) Glomerular Filtration Rate Calc 62 mL/min (>90) BUN/Creatinine Ratio 18.3 (10.0-20.0) Serum Glucose 93 mg/dL (74-106) Calcium Level 10.5 mg/dL (8.7-10.4) Magnesium Level 2.1 mg/dL (1.6-2.6) Total Bilirubin 1.0 mg/dL (0.2-1.0) Aspartate Amino Transferase (AST) 19 U/L (13-40) Alanine Aminotransferase (ALT) 13 U/L (7-40) Alkaline Phosphatase 79 U/L (46-116) Total Protein 7.3 g/dL (5.7-8.2) Albumin 4.2 g/dL (3.2-4.8) Blood Gas Set Respiration Rate 12.0 Blood Gas EPAP 5 Blood Gas IPAP 15 Urine Color Light-yellow (Yellow) Urine Clarity Clear (Clear) Urine pH 6.5 (5.0-9.0) Urine Specific [place] 1.007 (1.001-1.035) Urine Protein Negative (Negative) Urine Ketones Negative (Negative) Urine Blood 1+ /uL (Negative) Urine Nitrite Negative (Negative) Urine Bilirubin Negative (Negative) Urine Urobilinogen Normal mg/dL (Negative) Urine Leukocyte Esterase Negative /uL (Negative) Urine RBC 15 /hpf (0 - 4) Urine Microscopic WBC 1 /HPF (0-5) Urine Squamous Epithelial Cells Few /hpf (<5) Urine Bacteria None seen /hpf (None Seen) Urine Glucose Normal mg/dL (Normal) Test 01/15/25 15:17 01/15/25 04:48 01/14/25 14:55 01/14/25 13:59 [place] Level 0.7 mmol/L (0.5-1.2) Differential Total Cells Counted 100.0 (100) Neutrophils % (Manual) 91 (37.0-80.0) Band Neutrophils % (Manual) 7 Lymphocytes % (Manual) 1 (10.0-50.0) Monocytes % (Manual) 1 (0-12) Eosinophils % (Manual) 0 (0-7) Basophils % (Manual) 0 (0.0-2.0) Metamyelocytes % (manual) 0 Myelocytes % (Manual) 0 Promyelocytes % (Manual) 0 Blast Cells % (Manual) 0 Reactive Lymphocytes 0 Platelet Estimate Adequate Venous Blood pH 7.372 (7.320-7.430) Venous Blood pCO2 at Patient Temp 42.5 mmHg (38.0-54.0) Venous Blood pO2 at Patient Temp 65.5 mmHg (23.0-48.0) Venous Blood HCO3 24.1 mmol/L (22.0-29.0) Venous Blood Base Excess -1.2 mmol/L (-2.0-3.0) Influenza Type A Antigen Negative (Negative) Influenza Type B Antigen Negative (Negative) SARS-CoV-2 Antigen (Rapid) Negative (NEGATIVE) Test 01/14/25 13:39 Troponin I High Sensitivity 11 ng/L (</=34) B-Type Natriuretic Peptide 737.34 pg/mL (0-100) Other Laboratory Tests 01/17/25 05:41 Brief Hx & Hospital Course: HPI Patient is a 49-year-old female brought in by EMS presents with a chief complaint of SOB and cough. Per EMS, mother of patient called EMS due to patients oxygen saturation being low. Patient was sating at 88% on room air and is supposed to be on 5L of home O2. Patient was found without her nasal cannula on. Patient is currently sating at 97% on 4L via NC. Patient denies any chest pain at this time. Patient states that she feels lethargic and has a productive cough. Past medical history: Atrial fibrillation, anxiety, CHF, CKD, COPD, depression, schizophrenia, hypothyroidism, hyperlipidemia, hypertension Past surgical history: Cholecystectomy, thyroidectomy Social history: Patient is smokes cigarettes less than 1 pack day, occasional alcohol use, denies illegal drug use and lives at home with mother Home Medications: Amlodipine 10 mg, Eliquis 5 mg b.i.d., carvedilol 25 mg q.12 hours, Lasix 40 mg q.a.m., lamotrigine 50 mg, levothyroxine 175 mcg, lithium 300 mg b.i.d. Protonix, quetiapine 100 mg, risperidone 0.5 mg b.i.d., Entresto 24-26 1 tab p.o. b.i.d., spironolactone 50 mg, simvastatin 20 mg Brief hospital course Patient was admitted to the hospital with a chief complaint of altered mental status and low oxygen saturation at home. While in the ED patient was put on oxygen via nasal cannula and given breathing treatments with nebulized albuterol and ipratropium and IV steroids were given. Patient was then admitted to the inpatient unit and was continued on nebulized breathing treatments but steroids were stopped. Patient's home medications were reviewed and she was started on all her home medications but Seroquel was stopped given the patient was persistently somnolent. Patient's mental status improved over the stay in the hospital and her breathing also improved and she came down on her oxygen requirement to her baseline of 4 liter/minute. Patient was also covered with ceftriaxone and doxycycline in the hospital for possible pneumonitis, patient mental status improved and she was at her baseline of A&O X 2. Echocardiogram in the hospital showed LVEF 65% with moderately dilated RV and RA with severe pulmonary hypertension with RVSP of 72 mmHg. Patient was discharged in stable condition to home Discharge plan Medications: Augmentin 875 mg b.i.d. for 7 days Continued on home medications. Entresto stopped with the patient's LVEF 65%. Dose of Seroquel reduced to 100 mg once daily Follow up with the PCP in 1 week Consults/Reason for consult none Operations or Procedures none Condition at Discharge: Good Final Diagnosis/Problems List Acute metabolic encephalopathy likely due to polypharmacy/lithium toxicity vs infection ?UTI Acute on chronic hypoxic respiratory failure ?Community-acquired pneumonia due to Gram-negative/atypical bacteria Acute exacerbation of heart failure with preserved ejection fraction Pulmonary hypertension likely due to JAYDEN vs OHS Hypertensive urgency History of schizophrenia History of depression History of paroxysmal atrial fibrillationAcute metabolic encephalopathy likely due to polypharmacy/lithium toxicity vs infection ?UTI Acute on chronic hypoxic respiratory failure ?Community-acquired pneumonia due to Gram-negative/atypical bacteria Acute exacerbation of heart failure with preserved ejection fraction Pulmonary hypertension likely due to JAYDEN vs OHS Hypertensive urge History of schizophrenia History of depression History of paroxysmal atrial fibrillationAcute metabolic encephalopathy likely due to polypharmacy/lithium toxicity vs infection ?UTI Acute on chronic hypoxic respiratory failure ?Community-acquired pneumonia due to Gram-negative/atypical bacteria Acute exacerbation of heart failure with preserved ejection fraction Pulmonary hypertension likely due to JAYDEN vs OHS Hypertensive urgency History of schizophrenia History of depression History of paroxysmal atrial fibrillationAcute metabolic encephalopathy likely due to polypharmacy/lithium toxicity vs infection ?UTI Acute on chronic hypoxic respiratory failure ?Community-acquired pneumonia due to Gram-negative/atypical bacteria Acute exacerbation of heart failure with preserved ejection fraction Pulmonary hypertension likely due to JAYDEN vs OHS Hypertensive urgency History of schizophrenia History of depression History of paroxysmal atrial fibrillation Discharge Disposition: Home Discharge Instruct/Medications Diet: Regular Activity: No Restrictions, As Tolerated Follow Up/Referral: Follow up with the PCP in one week Medications: as per EMR Discharge Statement: "Patient was advised to return to the ER or call 911 if any headaches, dizziness, shortness of breath, chest pain, abdominal pain, bleeding, fevers, or worsening of medical condition. Patient was counseled about treatment plan, medications, possible side effects, patientverbalized understanding. All questions were answered to the best of my ability. This discharge took greater then 30 minutes in planning, reviewing documentation, counseling the patient, and discussing with other team members." ASSESSMENT ASSESSMENT Assessment Acute metabolic encephalopathy likely due to polypharmacy/lithium toxicity vs infection ?UTI Acute on chronic hypoxic respiratory failure ?Community-acquired pneumonia due to Gram-negative/atypical bacteria Acute exacerbation of heart failure with preserved ejection fraction Pulmonary hypertension likely due to JAYDEN vs OHS Hypertensive urgency History of schizophrenia History of depression History of paroxysmal atrial fibrillationAcute metabolic encephalopathy likely due to polypharmacy/lithium toxicity vs infection ?UTI Acute on chronic hypoxic respiratory failure ?Community-acquired pneumonia due to Gram-negative/atypical bacteria Acute exacerbation of heart failure with preserved ejection fraction Pulmonary hypertension likely due to JAYDEN vs OHS Hypertensive urgency History of schizophrenia History of depression History of paroxysmal atrial fibrillationAcute metabolic encephalopathy likely due to polypharmacy/lithium toxicity vs infection ?UTI Acute on chronic hypoxic respiratory failure ?Community-acquired pneumonia due to Gram-negative/atypical bacteria Acute exacerbation of heart failure with preserved ejection fraction Pulmonary hypertension likely due to JAYDEN vs OHS Hypertensive urgency History of schizophrenia History of depression History of paroxysmal atrial fibrillationAcute metabolic encephalopathy likely due to polypharmacy/lithium toxicity vs infection ?UTI Acute on chronic hypoxic respiratory failure ?Community-acquired pneumonia due to Gram-negative/atypical bacteria Acute exacerbation of heart failure with preserved ejection fraction Pulmonary hypertension likely due to JAYDEN vs OHS Hypertensive urgency History of schizophrenia History of depression History of paroxysmal atrial fibrillation Date of Service: Jan 17, 2025 Billing Provider: CARROL QUARLES MD Common Visit Codes: 76612-ATX/OBS DISCH DAY >30min MADI GIRARD RESIDENT Jan 17, 2025 20:18 CARROL QUARLES MD Jan 18, 2025 08:50
== END 2025-01-17 23:05 | disposition home or self-care (01) | DRG 917 ==
LOC: ER 13:04 → EDBD 13:04 → OVERFLOW 15:19 → WEST WING 22:50
PROVIDERS: ADMIT Student in an Organized Health Care Education/Training Program; ATTEND Student in an Organized Health Care Education/Training Program
PROC: 5A09357 Assistance with Respiratory Ventilation, Less than 24 Consecutive Hours, Continuous Positive Airway Pressure (ICD-10-PCS; principal; 2025-01-15)
PROC: 5A09357 Assistance with Respiratory Ventilation, Less than 24 Consecutive Hours, Continuous Positive Airway Pressure (ICD-10-PCS; 2025-01-16)
DX: T56.891A Toxic effect of other metals, accidental (unintentional), initial encounter (principal); G92.8 Other toxic encephalopathy; J15.69 Pneumonia due to other Gram-negative bacteria; J96.21 Acute and chronic respiratory failure with hypoxia; I50.43 Acute on chronic combined systolic (congestive) and diastolic (congestive) heart failure; J15.9 Unspecified bacterial pneumonia; N39.0 Urinary tract infection, site not specified; E66.2 Morbid (severe) obesity with alveolar hypoventilation; Z68.43 Body mass index [BMI] 50.0-59.9, adult; J44.0 Chronic obstructive pulmonary disease with (acute) lower respiratory infection; I11.0 Hypertensive heart disease with heart failure; F17.210 Nicotine dependence, cigarettes, uncomplicated; I48.91 Unspecified atrial fibrillation; Z20.822 Contact with and (suspected) exposure to COVID-19; F20.9 Schizophrenia, unspecified; E78.5 Hyperlipidemia, unspecified; E03.9 Hypothyroidism, unspecified; I27.20 Pulmonary hypertension, unspecified; I16.0 Hypertensive urgency; I48.0 Paroxysmal atrial fibrillation; Z90.49 Acquired absence of other specified parts of digestive tract; Z82.49 Family history of ischemic heart disease and other diseases of the circulatory system; Z79.899 Other long term (current) drug therapy; T50.995A Adverse effect of other drugs, medicaments and biological substances, initial encounter; Y92.89 Other specified places as the place of occurrence of the external cause
CPT/HCPCS: 36415; 36600; 71045; 80048; 80053; 80178; 81001; 82805; 83735; 83880; 84484; 85007; 85025; 85027; 87426; 87804; 93005; 93306; 94640; 94660; 97163; 99291; G0378